=== PATIENT | male | born 1945 | race Caucasian/White ===

== ENCOUNTER → 2017-08-25 07:15 | Outpatient (CLI) | payer MEDICARE, OTHER, SELFPAY | PROVIDERS: PCP Family Medicine | DX: N39.0 Urinary tract infection, site not specified (principal) | CPT/HCPCS: 87086 ==

== ENCOUNTER 2017-09-03 12:53 | Day surgery (SDC) | payer MEDICARE, OTHER, SELFPAY ==
[2017-09-03 13:45] VITALS: BP 102/54; PULSE 62; RESP 16; TEMP 36.1; O2SAT 96; BMI 42.5
[2017-09-03] MEDS: SODIUM CHLORIDE 0.9% 1,000 ML 200 ML IV (13:58)
--- NOTE | 2017-09-03 14:15 | PM.PREOP ---
Pre-operative Note Interval Note Pre-op Check: Yes History & Physical Reviewed by Physician and Yes Exam Performed Changes: No H&P completed within 30 days and has changed as indicated here:: Patient seen and examined. History physical examination from August 17, 2017 has not changed. Document is placed on the chart. Proceed with colonoscopy today as planned. ASA Class (for procedural sedation): II
[2017-09-03] MEDS: MIDAZOLAM 5 MG/5 ML VIAL IV (14:54)
[2017-09-03] MEDS: fentaNYL 250 MCG/5 ML INJ IV (14:55)
--- NOTE | 2017-09-03 15:00 | PM.OP.ENDO ---
Operative Date/Time/Diagnoses Date of procedure: 09/03/17 Time of procedure: 15:00 Pre-op diagnosis: 72-year-old male with history of internal hemorrhoids status post banding on multiple occasions who presents with rectal bleeding. He has a personal history of colon polyps as well. Colonoscopy with potential hemorrhoid banding is recommended. Post-op diagnosis: other (Colon polyps and diverticulosis) Procedure & Clinicians Study performed: 1. Sedation per surgeon 2. Colonoscopy with cold forceps polypectomies Same procedure as scheduled: Yes Indications: 72-year-old male with recent rectal bleeding and personal history of colon polyps. He also has issues with internal hemorrhoids status post banding on multiple occasions. Colonoscopy with potential hemorrhoid banding is again recommended currently. Surgeon: Marshall Doe Procedure Notes SCOAP/Timeout: Yes Procedure in detail: After obtaining informed consent, the patient was brought to the GI suite and placed in the left lateral decubitus position on the examination table. After placement of appropriate monitors, the patient was given incremental doses of Versed and Fentanyl until an appropriate level of sedation was achieved. A time out was held per SCOAP protocol. A digital rectal examination was performed and did not reveal any masses or obstructing lesions. The colonoscope was gently passed into the patient's anus and the entire colon navigated to the level of the cecum with minimal difficulty. Once in the cecum, the scope was withdrawn being sure to go before and beyond all mucosal folds and prominences and get an excellent examination. The findings are noted above. At the level of the rectal vault, the scope was retroflexed and the internal anal canal was examined. The scope was straightened and air aspirated from the colon. The instrument was removed from the patient's body and the procedure was concluded. The patient was allowed to awaken from sedation without difficulty and taken to the post-anesthesia care unit in good condition. Scope withdrawal time: 9:26 min Sedation minutes: 22 Findings: diverticulosis, internal hemorrhoids (Grade 1-2 only without inflammation or thrombosis) and polyp (Two polyps removed) Specimen(s): other (1. Ascending colon polyp at 90 cm 2. Left colon polyp at 60 cm) Complications: none Recommendations: Colonscopy in 5 years, High fiber diet, Will call with biopsy results and Other recommendation (Continue conservative management of hemorrhoid disease. No significant hemorrhoids for banding procedure today.) Plan for aftercare: 1. Discharged home Follow up: as needed Disposition: PACU
[2017-09-03 15:21] VITALS: BP 112/66; PULSE 59; RESP 16; TEMP 37.1; O2SAT 95
[2017-09-03 15:57] VITALS: BP 123/72; PULSE 58; RESP 16; TEMP 37; O2SAT 98
--- NOTE | 2017-09-03 23:01 | PATH_ITS ---
Specimen ID: [id number] Control ID: [facility] PATHOLOGY ONLY [id number] [facility] [id number] Patient Details BHARTI TIRADO : 1945 Age(y/m/d): Gender: M SSN: Additional Information: Clinical Info: [id number] Specimen Details Date collected: 09/03/2017 230 Local Date received: 09/03/2017 Date entered: 09/03/2017 Date reported: 09/09/2017 1905 ET Physician Details Ordering: Orville DELGADO Referring: ID: Tests Ordered: Pathology Report Clinician Provided ICD Code(s) & Clinical History: Material Submitted: () PART A: ASCENDING COLON POLYP AT 90CM PART B: LEFT COLON POLYP AT 60CM Diagnosis: (02) Ascending Colon Polyp At 90 CM: Tubular adenoma. Left Colon Polyp At 60 CM: Tubular adenoma. BFI/09/04/2017 Pathologist Provided ICD Code(s): (02) D12.6 CPT Codes: (02) 527397, 197243 Gross Description: (01) Received two formalin-filled containers, both labeled with the patient's name: In a container labeled ascending colon polyp at 90 cm, the specimen consists of a 0.4 cm portion of tissue, entirely submitted in cassette A. In a container labeled left colon polyp at 60 cm, the specimen consists of four 0.2-0.5 cm portions of tissue, entirely submitted in cassette B. ([id number]) /FRR This is an amended report due to a clerical error. There is no change in the diagnosis. This case is amended in order for the results to cross the electronic interface. This case was originally reviewed and reported by Dr. Israel Phelps on 09/04/2017. The final diagnosis is unchanged. Electronically signed by () Letha Rivera MD, Pathologist NPI- [id number]
== END 2017-09-03 15:40 | disposition home or self-care (01) ==
PROVIDERS: PCP Family Medicine; Visit Provider Surgery
PROC: 0DJD8ZZ Inspection of Lower Intestinal Tract, Via Natural or Artificial Opening Endoscopic (ICD-10-PCS; CPT 45378; principal; 2017-09-03 15:00)
DX: K64.1 Second degree hemorrhoids (principal); Z86.010 Personal history of colon polyps; K57.30 Diverticulosis of large intestine without perforation or abscess without bleeding; D12.2 Benign neoplasm of ascending colon; D12.4 Benign neoplasm of descending colon
CPT/HCPCS: 45380; 99152; J2250; J3010

== ENCOUNTER → 2017-12-19 16:31 | Outpatient (CLI) | payer MEDICARE, OTHER, SELFPAY | PROVIDERS: PCP Family Medicine; Visit Provider Physician Assistant | DX: N39.0 Urinary tract infection, site not specified (principal) | CPT/HCPCS: 87077; 87086; 87186 ==

== ENCOUNTER → 2017-12-24 18:58 | Outpatient (CLI) | payer MEDICARE, OTHER, SELFPAY ==
--- NOTE | 2017-12-24 | DI.MRI.S_ITS ---
PROCEDURE: MR KNEE RT WO CON INDICATIONS: COMPLEX TEAR OF MEDIAL MENISCUS OF RIGHT KNEE TECHNIQUE: Noncontrast sagittal PD fast spin echo and T2 fast spin echo with fat saturation, sagittal 3-D FLASH with fat saturation; coronal T1 spin echo and PD fast spin echo with fat saturation, and axial PD fast spin echo with fat saturation through the knee. COMPARISON: None. FINDINGS: Image quality: Excellent. Menisci: There is oblique tear involving posterior horn of medial meniscus extending to inferior articulating surface. Peripheral displacement of medial meniscus is seen bowing medial collateral ligament. There is also peripheral displacement of lateral meniscus bowing lateral collateral ligament. There is suggestion of oblique tear involving anterior horn of lateral meniscus extending to superior articulating surface. The meniscal root ligaments appear intact. Cruciate ligaments: The anterior and posterior cruciate ligaments appear intact. Medial structures: There is low to moderate grade MCL sprain near its femoral insertion. The posterior oblique ligament, semimembranosus tendon insertions, oblique popliteal ligament, and meniscocapsular junction appear intact. Visualized portions of the pes anserinus tendons appear normal. No abnormal bursal fluid. Lateral structures: The lateral collateral ligament, long and short heads of the biceps femoris tendon appear intact. The popliteus tendon appears normal; the popliteofibular ligament appears intact. The posterosuperior and anteroinferior popliteomeniscal fascicles appear intact. The arcuate and fabellofibular ligaments appear intact, on either side of the lateral inferior geniculate artery. Iliotibial band appears normal. Anterior structures: The quadriceps and patellar tendons appear intact. Patellar alignment is normal. No femoral trochlear dysplasia or ventral trochlear prominence. No edema in the infrapatellar fat pad. Bones and cartilage: No bone marrow contusions or fractures. 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 No Valdivia's cyst. Normal appearing synovial plicae are incidentally noted. IMPRESSION: 1. Oblique tear involving posterior horn of medial meniscus extending to inferior articulating surface. Peripheral displacement of medial meniscus bowing medial collateral ligament. 2. Oblique tear involving anterior horn of lateral meniscus extending to superior articulating surface. 3. Low-grade MCL sprain. Cruciate ligaments are intact. 4. 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 Small amount of joint effusion. Dictated by: Elvis No M.D. on 12/25/2017 at 10:41 Approved by: Elvis No M.D. on 12/25/2017 at 10:45
== END ==
PROVIDERS: PCP Family Medicine; Visit Provider Orthopaedic Surgery
DX: S83.221A Peripheral tear of medial meniscus, current injury, right knee, initial encounter (principal); S83.261A Peripheral tear of lateral meniscus, current injury, right knee, initial encounter; S83.411A Sprain of medial collateral ligament of right knee, initial encounter; M17.11 Unilateral primary osteoarthritis, right knee; M25.461 Effusion, right knee
CPT/HCPCS: 73721

== ENCOUNTER → 2018-07-08 07:40 | Outpatient (CLI) | payer MEDICARE, OTHER, SELFPAY ==
--- NOTE | 2018-07-08 07:42 | DI.MRI.S_ITS ---
PROCEDURE: MR STROKE Pre- and post-contrast brain MRI, non-contrast brain MR angiogram, pre- and postcontrast neck MR angiogram INDICATIONS: dysequilibrium TECHNIQUE: Brain: Noncontrast axial T1 spin echo, axial T2 fast spin echo, sagittal and axial FLAIR, coronal T2 fast spin echo, axial gradient echo, axial diffusion and ADC through the brain. After the administration of contrast, axial 3D VIBE of the cranial vasculature and brain. Brain MRA: Non-contrast 3-D time of flight MR angiogram, with multiple sbhczqd-ermqxqsoe-iwzgbeqemw (MIP) reformats performed. Neck MRA: Axial and sagittal TruFISP through the neck. Coronal dynamic MR angiogram during administration of contrast in the arterial and venous phases, with 3-dimenstional xnwxnvo-crtvfxmdm-msgititgww (MIP) reformats constructed from subtraction images. COMPARISON: None. FINDINGS: Image quality: Excellent. BRAIN: CSF spaces: Ventricles are normal in size and shape. Basal cisterns are patent. No extra-axial fluid collections. Brain: No intracranial bleeds or mass effects. [place]-white matter interface is normal. Diffusion weighted images show no acute ischemic insults. Brainstem appears normal. Normal intravascular flow voids are present. No abnormal intracranial enhancement. Skull and face: Calvarial marrow signal is normal. Orbits appear normal. Note is made of bilateral lens replacements. Sinuses: Mild to moderate mucosal thickening seen within the maxillary sinuses. Mild mucosal thickening is seen elsewhere within the paranasal sinuses. No abnormal mass air cell fluid can be seen. BRAIN MR ANGIOGRAM: Anterior circulation: Intracranial internal carotid arteries are normal in size and enhancement. The flow within the paired anterior cerebral arteries is normal and symmetric. [place] anomalies are seen, with a right A1 segment that emanates off of the MCA trifurcation, as on series 11 image 118 and there is a hypertrophied right posterior communicating artery, which supplies the right posterior cerebral artery via a type circulation with a medialized route. The flow within the middle cerebral arteries is normal and symmetric. The anterior communicating artery is seen. No stenoses, occlusions, or aneurysms. Posterior circulation: The visualized portions of the vertebral arteries demonstrate normal caliber, with the left vertebral artery dominant to the right. The right vertebral artery does not clearly join with the left vertebral artery, yet terminates in a right posterior inferior cerebellar artery. The basilar artery is unremarkable. The flow within the posterior cerebral arteries is normal and symmetric. No stenoses, occlusions, or aneurysms. NECK MR ANGIOGRAM: Carotids: Great vessels demonstrate a conventional anatomy as they arise from the aortic arch. The origins of the common carotid arteries appear patent. The calibers and courses of both common carotid arteries are normal. The bifurcation regions appear normal bilaterally. The internal carotid arteries demonstrate normal course and caliber. Posterior circulation: The origins of the vertebral arteries appear patent. The left vertebral artery is dominant to the right. The right vertebral artery terminates in a right posterior inferior cerebral artery. The basilar artery is unremarkable. Miscellaneous: Subclavian arteries appear patent. Pre-contrast images through the neck show no soft tissue abnormalities. IMPRESSION: BRAIN MRI: No findings of acute or subacute infarction can be seen. Note is made of age-appropriate brain parenchymal volume loss and chronic small vessel ischemic changes. Paranasal sinus disease noted. BRAIN MR ANGIOGRAM: [place] developmental anomalies are seen. No nuno hemodynamically significant stenosis is seen. No aneurysms are seen. NECK MR ANGIOGRAM: Within the arteries of the neck, no hemodynamically significant stenosis can be seen. Dictated by: Bill Prieto M.D. on 07/08/2018 at 9:03 Approved by: Bill Prieto M.D. on 07/08/2018 at 9:12
== END ==
PROVIDERS: PCP Family Medicine; Visit Provider Family Medicine
DX: R42 Dizziness and giddiness (principal); J32.8 Other chronic sinusitis
CPT/HCPCS: 70548; 70553; A9579

== ENCOUNTER 2019-10-02 16:00 | Emergency (ER) | payer MEDICARE, OTHER, SELFPAY ==
[2019-10-02 16:12] VITALS: PULSE 71; O2SAT 95
[2019-10-02 16:13] VITALS: BP 136/61; PULSE 69; O2SAT 93
[2019-10-02 16:16] VITALS: BP 136/61; PULSE 70; RESP 24; TEMP 36.9; O2SAT 95; BMI 44.4
--- NOTE | 2019-10-02 16:20 | ED_ITS ---
HPI - Male Genitourinary General Chief complaint: Urogenital-Male Stated complaint: Thinks UTI Time Seen by Provider: 10/02/19 16:07 Source: patient Mode of arrival: Ambulatory Limitations: no limitations History of Present Illness HPI Narrative: Patient is a 74-year-old male with history of diastolic CHF a and recurrent UTIs presenting today with symptoms of UTI. Who said actually she evaluated last week by his urologist he had a urine and culture is sent at that time but he has not heard back from them. Over last 3 days he has had increased urgency and dysuria, he complains of chills at night but denies any sweats and is currently afebrile. He states his previous bladder infection was in July and he was placed on Augmentin which he says worked well. He did an old bottle of medication from his last urologist that he started taking to help with the burning sensation, Uribel. MD Complaint: dysuria Related Data Home Medications Medication Instructions Recorded Confirmed aspirin 81 mg PO QDAY #0 01/25/16 12/03/18 bimatoprost [Lumigan] #0 01/25/16 12/03/18 eplerenone 75 mg PO QDAY #135 tab 12/11/16 12/03/18 [saw palmetto] 500 mg PO BID #0 07/06/18 12/03/18 carboxymethylcellulose sodium 1 % 1 drop EYE-BOTH each 07/06/18 12/03/18 eye gel in a dropperette chlorthalidone 25 mg tablet 25 mg PO QDAY tab 07/06/18 12/03/18 ezetimibe 10 mg tablet 10 mg PO DAILY 07/06/18 12/03/18 hydrocodone 5 mg-acetaminophen 325 1 tab PO Q6H 07/06/18 12/03/18 mg tablet miconazole nitrate-zinc ox-pet See Rx Instructions TOP .COMPLEX 07/06/18 12/03/18 mirabegron 50 mg tablet,extended 50 mg PO DAILY 07/06/18 12/03/18 release 24 hr rosuvastatin 20 mg tablet 20 mg PO DAILY 07/06/18 12/03/18 spironolactone 25 mg tablet 25 mg PO DAILY 07/06/18 12/03/18 urea 40 % topical cream 1 applictn TOP DAILY gram 07/06/18 12/03/18 Respironics Dreamstation BIPAP #1 ea 12/06/18 12/06/18 Previous Rx's Medication Instructions Recorded nystatin [Nystop] 100,000 unit TOPICAL BID #60 gm 01/25/16 magnesium oxide 500 mg PO TID #270 tab 02/04/16 tamsulosin 0.4 mg capsule 0.4 mg PO EVERY OTHER DAY #90 cap 11/04/17 pramipexole 3 mg tablet,extended 3 mg PO BEDTIME #30 tab 04/06/19 release 24 hr azelastine-fluticasone 137 mcg-50 2 spray NASAL .QHS #23 gram 04/08/19 mcg/spray nasal spray pantoprazole 40 mg tablet,delayed 40 mg PO DAILY #90 tab 05/24/19 release nystatin 100,000 unit/gram topical 1 applictn TOP BID #15 gram 07/05/19 cream pramipexole 1.5 mg tablet,extended 1.5 mg PO DAILY #30 tab 09/22/19 release 24 hr amoxicillin-pot clavulanate 1 tab PO Q12H #14 tab 10/02/19 [Augmentin] Allergies Allergy/AdvReac Type Severity Reaction Status Date / Time Sulfa (Sulfonamide Allergy Unknown Nausea Verified 09/01/18 14:41 Antibiotics) [SULFA (SULFONAMIDE ANTIBIOTICS)] ciprofloxacin [From Cipro] AdvReac Intermediate bruising Verified 09/01/18 14:41 and sore tendons Review of Systems Review of Systems ROS Unobtainable: All systems reviewed & are unremarkable except as noted in HPI and below Constitutional Constitutional: Reports chills (At night), Denies fever(s), Denies frequent falls and Denies malaise ENT Ears, Nose, Mouth, and Throat: Denies dizziness Cardiovascular Cardiovascular: Denies chest pain, Denies irregular heart rhythm, Denies lightheadedness, Denies palpitations, Denies dyspnea, Denies dyspnea on exertion and Denies orthopnea Respiratory Respiratory: Denies cough, Denies dyspnea, Denies dyspnea on exertion and Denies wheezing Gastrointestinal Gastrointestinal: Denies abdominal pain, Denies change in bowel habits, Denies diarrhea, Denies nausea and Denies vomiting Genitourinary Genitourinary: Reports as per HPI and Reports dysuria Genitourinary: Reports as per HPI and Reports dysuria Musculoskeletal Musculoskeletal: Denies back pain, Denies deformity and Denies numbness Integumentary/Breasts Skin/Breast: Denies pruritus, Denies erythema, Denies rash and Denies wounds Neurologic Neurologic: Denies behavioral changes, Denies confusion, Denies dizziness, Denies frequent falls and Denies numbness Psychiatric Psychiatric: Denies behavioral changes and Denies confusion Endocrine Endocrine: Denies palpitations Allergic/Immunologic Allergic/Immunologic: Denies wheezing Patient History Medical History Cataracts, both eyes (Resolved ~2011) Chronic diastolic heart failure (Chronic 2014) Colon polyp (Inactive ~2010) Diverticulosis (Inactive ~2010) Gastroesophageal reflux disease without esophagitis (Chronic 10/31/16) Glaucoma (Chronic ~2011) Gout of left foot (Inactive 01/25/16) Hearing loss (Chronic ~2009) Hemorrhoids (Inactive ~1978) Hiatal hernia (Chronic 01/25/16) History of asbestosis (Inactive 01/25/16) Low testosterone (Chronic) Obstructive sleep apnea syndrome (Chronic 01/25/16) Prostate mass (Acute) Rectal bleeding (Acute) Recurrent UTI (Chronic) Restless legs syndrome (Chronic 01/25/16) Surgical History History of colonoscopy (Acute) Family History Father Parkinsons disease Mother Congestive heart failure Social History marital status: household members: spouse lives independently: Yes caregiver/support person: No housing: house pets and animals: Yes education level: college occupational status: previously employed 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[employer], 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 ([employer]) seatbelt use: always helmet use: Yes water heater temp set < 120 deg: Yes Smoking Status: Never smoker alcohol intake: current substance use type: does not use during the past year weight has: decreased > 10 lbs well-balanced diet: about half the time daily servings fruits/ve-4 caffeine: No eating out: 1-3 times/week frequency: 1-2 times per week (physical therapy) duration: 45-60 minutes/day Smoking Status: Never smoker Exam Initial Vital Signs Initial Vital Signs: Vital Signs Pulse Rate 71 10/02/19 16:12 Pulse Oximetry 95 10/02/19 16:12 GENERAL: Overweight well-appearing male and in no acute distress. HEENT: Head atraumatic,EOMI, pupils reactive, face symmetric, moist mucous membranes CARDIOVASCULAR: Regular rate and rhythm without murmurs, rubs or gallops. RESPIRATORY: Breath sounds equal bilaterally, no wheezes rales or rhonchi. ABDOMEN: Soft, nontender. Normoactive bowel sounds all 4 quadrants. No guarding or rebound. : Mild right CVA tenderness EXTREMITIES: Normal range of motion, no clubbing or edema. Neurovascularly intact NEUROLOGICAL: Alert and oriented x4.Normal gait and speech. SKIN: Warm, dry, no laceration, no petechiae, no rashes or lesions. Course Orders Ordered: ED Orders 10/02/19 16:42 Urine Culture Stat Urine Microscopic Stat 10/02/19 16:46 Basic Metabolic Panel Stat Complete Blood Count AUTO DIFF Stat Vital Signs Vital signs: Vital Signs - 8 hr 10/02/19 16:12 10/02/19 16:13 10/02/19 16:16 Temperature 98.4 F Pulse Rate 71 69 70 Respiratory Rate 24 Blood Pressure 136/61 136/61 Pulse Oximetry 95 93 95 10/02/19 16:30 10/02/19 17:00 Temperature Pulse Rate 65 69 Respiratory Rate Blood Pressure Pulse Oximetry 95 92 MDM - Male Genitourinary Lab Data Attestation: I reviewed the patient's lab results. Result diagrams: 10/02/19 16:46 10/02/19 16:46 Labs: Lab Results 10/02/19 10/02/19 10/02/19 Range/Units 16:42 16:46 16:46 WBC 7.3 (4.5-11.0) X10^3/uL RBC 4.55 (4.5-5.9) X10^6/uL Hgb 13.7 (13.5-17.5) g/dL Hct 39.9 L (41-53) % MCV 87.7 (80-100) fL MCH 30.2 (26-34) PG MCHC 34.5 (30-36) % RDW 14.1 (11.6-14.8) % Plt Count 176 (150-400) X10^3/uL Neut % (Auto) 57.3 (50-75) % Lymph % (Auto) 28.7 (25-40) % [place] % (Auto) 8.9 (3-14) % Eos % (Auto) 4.4 H (2-4) % Baso % (Auto) 0.7 (0-2) % Neut # (Auto) 4200 (1166-5149) /uL Lymph # (Auto) 2100 (0428-0523) /uL [place] # (Auto) 600 (0-900) /uL Eos # (Auto) 300 (0-450) /uL Baso # (Auto) 100 (0-100) /uL Sodium 138 (137-145) mmol/L Potassium 3.4 (3.4-5.1) mmol/L Chloride 97 L (98-107) mmol/L Carbon Dioxide 34 H (22-32) mmol/L BUN 26 H (9-20) mg/dL Creatinine 0.92 (0.66-1.25) mg/dL Estimated GFR > 60.0 (>60) mL/min BUN/Creatinine Ratio 28.3 H (6-22) Glucose 130 H (80-110) mg/dL Calcium 9.2 (8.4-10.2) mg/dL Urine RBC 0-1/hpf (0-5/HPF) Urine WBC >100/hpf H (0-5/HPF) Urine Bacteria Few (2-10) H (None) Urine Mucus 1+ H (Negative) Ur Culture Indicated? Specimen cultured Urine Dip Bedside Urine Glucose Negative Bedside Urine Bilirubin - Negative Bedside Urine Ketone - Negative Urine Specific [place] 1.020 Bedside Urine Occult Blood +/- Bedside Urine pH 6.0 Bedside Urine Protein + 30 Bedside Urine Urobilinogen +/- 1mg Bedside Urine Nitrite - Negative MDM Narrative Medical decision making narrative: Patient is afebrile without leukocytosis or sign of acute kidney injury. He has previously been on Augmentin I do not have access to previous cultures except for 2018 rate was pansensitive. He has had issues with Cipro in the past I will give him a prescription for Augmentin culture is pending. Recommended follow-up with his urologist and/or PCP Discharge Plan Departure Patient Disposition: Home Clinical Impression: Acute UTI Discharge Date/Time: 10/02/19 17:50 Instructions: DI for Urinary Tract Infection (UTI) Activity Restrictions/Additional Instructions: *You have been diagnosed with UTI *What to do: You will need to follow-up with your urologist for further evaluation of recurrent bladder infection *Continue to take medications as directed Augmentin 875 twice a day for 7 days *Follow up with your primary care provider in 2-3 days *Return to ER if you should have fever, increased pain inability to urine or any new, worsening or concerning symptoms Prescriptions: New amoxicillin-pot clavulanate [Augmentin] 875-125 mg tablet 1 tab PO Q12H Qty: 14 RF: 0 No Action chlorthalidone 25 mg tablet 25 mg PO QDAY RF: 0 ezetimibe [Zetia] 10 mg tablet 10 mg PO DAILY RF: 0 hydrocodone-acetaminophen 5-325 mg tablet 1 tab PO Q6H RF: 0 miconazole nitrate-zinc ox-pet See Rx Instructions TOP .COMPLEX RF: 0 mirabegron 50 mg tablet extended release 24 hr 50 mg PO DAILY RF: 0 Refresh Celluvisc 1 % dropperette,gel 1 drop EYE-BOTH RF: 0 rosuvastatin 20 mg tablet 20 mg PO DAILY RF: 0 spironolactone 25 mg tablet 25 mg PO DAILY RF: 0 urea 40 % cream 1 applictn TOP DAILY RF: 0 aspirin 81 MG tablet,delayed release (DR/EC) 81 mg PO QDAY Qty: 0 RF: 0 bimatoprost [Lumigan] 0.01 % drops Qty: 0 RF: 0 nystatin [Nystop] 60 GM powder 100,000 unit Topical BID Qty: 60 RF: 1 magnesium oxide 500 MG tablet 500 mg PO TID Qty: 270 RF: 0 eplerenone 50 MG tablet 75 mg PO QDAY Qty: 135 RF: 1 tamsulosin [Flomax] 0.4 mg capsule 0.4 mg PO EVERY OTHER DAY Qty: 90 RF: 1 [saw palmetto] 500 mg PO BID Qty: 0 RF: 0 pramipexole 3 mg tablet extended release 24 hr 3 mg PO BEDTIME Qty: 30 RF: 3 azelastine-fluticasone 137-50 mcg/spray spray,non-aerosol 2 spray NASAL .QHS Qty: 23 RF: 3 pantoprazole 40 mg tablet,delayed release (DR/EC) 40 mg PO DAILY Qty: 90 RF: 1 nystatin 100,000 unit/gram cream 1 applictn TOP BID Qty: 15 RF: 0 pramipexole 1.5 mg tablet extended release 24 hr 1.5 mg PO DAILY Qty: 30 RF: 3 (DME) Respironics Dreamstation BIPAP Qty: 1 RF: 0 Referrals: Maya Johnson MD [Primary Care Provider] -
[2019-10-02 16:30] VITALS: PULSE 65; O2SAT 95
[2019-10-02 16:42] LABS: RBC Urine 0-1/HPF (0-5/HPF); WBC Urine >100/HPF (0-5/HPF)
[2019-10-02 16:43] LABS: Bacteria Urine Few (2-10); Culture Indicated Urine Specimen Cultured; Mucus Urine 1+ (Negative)
[2019-10-02 16:55] LABS: Add Manual Diff / Slide Review NO; Basophils Absolute Auto 100 /uL (0-100); Basophils Percent Auto 0.7 % (0-2); Eosinophils Absolute Auto 300 /uL (0-450); Eosinophils Percent Auto 4.4 % (2-4); Hematocrit 39.9 % (41-53); Hemoglobin 13.7 g/dL (13.5-17.5); Lymphocytes Absolute Auto 2100 /uL (1100-4500); Lymphocytes Percent Auto 28.7 % (25-40); Mean Corpuscular HGB Conc 34.5 % (30-36); Mean Corpuscular Hemoglobin 30.2 PG (26-34); Mean Corpuscular Volume 87.7 fL (80-100); Monocytes Absolute Auto 600 /uL (0-900); Monocytes Percent Auto 8.9 % (3-14); Neutrophils Absolute Auto 4200 /uL (1500-7000); Neutrophils Percent Auto 57.3 % (50-75); Platelet Count 176 X10^3/uL (150-400); Red Blood Cell Count 4.55 X10^6/uL (4.5-5.9); Red Cell Distribution Width 14.1 % (11.6-14.8); White Blood Cell Count 7.3 X10^3/uL (4.5-11.0)
[2019-10-02 17:00] VITALS: PULSE 69; O2SAT 92
[2019-10-02 17:08] LABS: BUN Creatinine Ratio 28.3 (6-22); Blood Urea Nitrogen 26 mg/dL (9-20); Calcium 9.2 mg/dL (8.4-10.2); Carbon Dioxide 34 mmol/L (22-32); Chloride 97 mmol/L (98-107); Estimated Glomerular Filt Rate > 60.0 mL/min (>60); Glucose 130 mg/dL (80-110); HEMOLYSIS < 15 (0-50); Potassium 3.4 mmol/L (3.4-5.1); Sodium 138 mmol/L (137-145)
== END 2019-10-02 17:50 | disposition home or self-care (01) ==
PROVIDERS: Emergency Provider Emergency Medicine; PCP Family Medicine
DX: N39.0 Urinary tract infection, site not specified (principal)
CPT/HCPCS: 36415; 80048; 81003; 81015; 85025; 87077; 87086; 87186; 99282

== ENCOUNTER → 2019-10-05 11:14 | Outpatient (CLI) | payer MEDICARE, OTHER, SELFPAY ==
--- NOTE | 2019-10-05 11:25 | DI.CT.S_ITS ---
PROCEDURE: CT ABDOMEN PELVIS WO/W CON INDICATIONS: Urinary tract infection, site not specified TECHNIQUE: Optional 5 mm thick noncontrast images acquired from the diaphragm to the symphysis pubis. After the administration of intravenous contrast, 5 mm thick images acquired from the diaphragm to the symphysis pubis after a 10-minute delay. 2 mm thick coronal and sagittal reformats were then performed of the kidneys and ureters. For radiation dose reduction, the following was used: automated exposure control, adjustment of mA and/or kV according to patient size. COMPARISON: [facility], CT, ABDOMEN WITHOUT CONTRAST, 10/07/2016, 11:47. FINDINGS: Image quality: Excellent. Lung bases: Lung bases are clear. Heart size is normal. Urinary system: Both kidneys are normal in size, without hydronephrosis or nephrolithiasis on pre-contrast images. No perinephric fat stranding. There is normal bilateral renal enhancement. Renal calyces appear normal in morphology when filled with contrast. Opacified portions of both ureters demonstrate normal caliber. Bladder wall thickness is normal. No calcified bladder stones. Other solid organs: Liver is normal in size and enhancement. Gallbladder again demonstrate a chronically the present densely calcified gallstone within the gallbladder lumen. Biliary system is non dilated. Pancreas enhances normally. Spleen is normal in size and enhancement. No adrenal nodules. Peritoneum and bowel: Bowel loops demonstrate normal wall thickness and caliber. No free fluid or air. Nodes and vessels: No retroperitoneal or mesenteric adenopathy by size criteria. Aorta and inferior vena cava are normal in size. Abdominal wall: No ventral hernias. Pelvis: No pathologic free pelvic fluid. No inguinal hernias or adenopathy. Bones: No suspicious bony lesions. No vertebral body compression fractures. IMPRESSION: Large gallstone within the gallbladder lumen. No evidence of hydronephrosis or nephrolithiasis bilaterally. No evidence of bladder calculus is found. Postcontrast imaging shows no evidence of renal cortical or urothelial neoplasm. A source of recurrent urinary tract infections is not found. Size Dictated by: Mani Francis M.D. on 10/05/2019 at 16:20 Approved by: Mani Francis M.D. on 10/05/2019 at 16:23
== END ==
PROVIDERS: PCP Family Medicine; Referring Provider Family Medicine
DX: N39.0 Urinary tract infection, site not specified (principal); K80.20 Calculus of gallbladder without cholecystitis without obstruction
CPT/HCPCS: 74178; Q9967

== ENCOUNTER → 2019-10-13 12:38 | Outpatient (CLI) | payer MEDICARE, OTHER, SELFPAY ==
--- NOTE | 2019-10-13 12:41 | DI.MRI.S_ITS ---
PROCEDURE: MR LUMBAR SPINE WO CON INDICATIONS: Low back pain TECHNIQUE: Noncontrast sagittal T1 spin echo and T2 fast echo, sagittal STIR, axial T1 and T2 fast spin echo through the lumbar spine. In cases with scoliosis, additional coronal T2 fast spin echo may be performed. COMPARISON: None. FINDINGS: Image quality: Excellent. Alignment and Curvature: There is normal bony alignment. Bone Marrow: Marrow is of normal overall signal. No acute vertebral body compression fractures. Spinal Cord: Conus medullaris terminates at the L2 level. Visualized cord demonstrates normal signal and size. Paraspinous Soft Tissues: No paravertebral masses. L1-L2: Loss of disc signal. Minimal, diffuse disc bulge. No central stenosis. No neural foraminal narrowing. No neural compression. L2-L3: Slight loss of disc signal. Minimal, diffuse disc bulge. Small right foraminal disc protrusion. No central stenosis. No neural foraminal narrowing. Mild right neural foraminal narrowing. No neural compression. L3-L4: Loss of disc signal. Mild to moderate diffuse disc bulge. Mild bilateral facet hypertrophy. Mild ligamentum flavum hypertrophy. Mild to moderate narrowing of the central canal. Mild bilateral neural foraminal narrowing. No neural compression. L4-L5: Loss of disc signal and height. Mild, diffuse disc bulge. Mild bilateral facet hypertrophy. Mild narrowing of the central canal. Moderate bilateral neural foraminal narrowing. No neural compression. Fissure noted in the posterior annulus. L5-S1: Loss of disc signal and height. Mild, diffuse disc bulge. Mild bilateral facet hypertrophy. No central stenosis. Moderate to severe right and moderate left neural foraminal narrowing with slight compression of the exiting right L5 nerve root. Fissure noted in the posterior annulus. IMPRESSION: 1. Multilevel degenerative disease. 2. Multilevel facet arthropathy. 3. No significant central canal narrowing. 4. Moderate to severe right L5-S1 neural foraminal narrowing with slight compression of the exiting right L5 nerve root. 5. L4-L5 and L5-S1 disc annulus fissures. Dictated by: Nilda Lobato MD, PhD on 10/13/2019 at 14:51 Approved by: Nilda Lobato MD, PhD on 10/13/2019 at 15:16
== END ==
PROVIDERS: PCP Family Medicine; Referring Provider Physical Medicine & Rehabilitation; Visit Provider Physical Medicine & Rehabilitation
DX: M54.5 Low back pain (principal); M51.36 Other intervertebral disc degeneration, lumbar region; M51.37 Other intervertebral disc degeneration, lumbosacral region; M47.816 Spondylosis without myelopathy or radiculopathy, lumbar region; M47.817 Spondylosis without myelopathy or radiculopathy, lumbosacral region; M48.061 Spinal stenosis, lumbar region without neurogenic claudication; M48.07 Spinal stenosis, lumbosacral region
CPT/HCPCS: 72148

== ENCOUNTER → 2020-01-02 15:10 | Outpatient (CLI) | payer MEDICARE, OTHER, SELFPAY ==
--- NOTE | 2020-01-02 15:11 | DI.RAD.S_ITS ---
PROCEDURE: XR FINGER LT MIN 2V INDICATIONS: left 1st MCP pain, decreased ROM TECHNIQUE: AP hand, 2 views of the left finger(s) acquired. COMPARISON: None. FINDINGS: Bones: No fracture. Scattered degenerative subchondral sclerosis and spurring. Hook like osteophytes noted involving the 2nd and 5th MCP joints. First CMC and triscaphe joint degeneration. Marginal lucencies noted at the DIP joints of the index middle and ring finger. Soft tissues: No suspicious soft tissue calcifications. IMPRESSION: Diffuse left hand and wrist joint degeneration. Severe triscaphe and 1st CMC joint degeneration. Hook like osteophytes noted at the 2nd and 5th MCP joints raising possibility of deposition arthropathy. Dictated by: Tj Suarez M.D. on 01/02/2020 at 16:45 Approved by: Tj Suarez M.D. on 01/02/2020 at 16:48
== END ==
PROVIDERS: PCP Family Medicine; Referring Provider Family Medicine; Visit Provider Family Medicine
DX: M79.645 Pain in left finger(s) (principal); M19.042 Primary osteoarthritis, left hand
CPT/HCPCS: 73140

== ENCOUNTER → 2020-02-02 13:09 | Outpatient (CLI) | payer MEDICARE, OTHER, SELFPAY ==
[2020-02-02 15:36] LABS: Ferritin 174 ng/mL (18-464)
== END ==
PROVIDERS: PCP Family Medicine; Referring Provider Family Medicine; Visit Provider Nurse Practitioner Family
DX: G25.81 Restless legs syndrome (principal); G47.33 Obstructive sleep apnea (adult) (pediatric); E66.01 Morbid (severe) obesity due to excess calories; Z68.41 Body mass index [BMI] 40.0-44.9, adult
CPT/HCPCS: 36415; 82728; 99214

== ENCOUNTER 2020-09-04 12:16 | Observation (INO) | payer MEDICARE, OTHER, SELFPAY ==
[2020-09-04] VITALS (9 sets, daily range): BP systolic 110–143; BP diastolic 44–65; PULSE 64–74; RESP 15–18; TEMP 36.8–37.4; O2SAT 93–98; BMI 44.0
[2020-09-04 13:20] LABS: Bacteria Urine None Seen; RBC Urine None Seen (0-5/HPF)
[2020-09-04 13:23] LABS: Appearance Urine UA CLEAR; Bilirubin Urine UA NEGATIVE (NEGATIVE); Color Urine UA YELLOW; Glucose Urine UA TRACE g/dL (Negative); Ketones Urine UA NEGATIVE (NEGATIVE); Leukocyte Esterase Urine UA TRACE (NEGATIVE); Nitrite Urine UA NEGATIVE (Negative); Occult Blood Urine UA 1+ (Negative); Protein Urine UA 1+ (Negative)
[2020-09-04 13:35] LABS: WBC Urine 10-30/HPF (0-5/HPF)
[2020-09-04 13:36] LABS: Culture Indicated Urine Specimen Cultured; Mucus Urine 1+ (Negative)
--- NOTE | 2020-09-04 13:55 | DI.RAD.S_ITS ---
PROCEDURE: XR CHEST 1V INDICATIONS: suspected sepsis TECHNIQUE: One view of the chest was acquired. COMPARISON: [facility], CT, CT ABDOMEN PELVIS WO/W CON, 10/05/2019, 11:27. FINDINGS: Surgical changes and devices: None. Lungs and pleura: Lungs are abnormal with a mild patchy alveolar infiltration pattern, right greater than left, without pleural effusions or cardiomegaly, and there are 2 focal radiodensities that appears somewhat angular at the right upper lobe measuring 1.5 and 2.0 cm each.. No pleural effusions or pneumothorax. Mediastinum: Mediastinal contours appear normal. Heart size is normal. Bones and chest wall: No suspicious bony lesions. Overlying soft tissues appear unremarkable. Prior right acromioplasty. IMPRESSION: Possible mild patchy alveolar infiltration, mildly reduced inspiratory volume. Two focal radiodensities are present at the right upper lobe area, measuring up to 1.5 and 2.0 cm respectively and it is unclear whether these represent lung masses, pleural calcifications, or focal alveolar infiltration. Follow-up by CT scanning may become necessary. At least follow-up by plain film imaging is recommended Dictated by: Mani Francis M.D. on 09/04/2020 at 14:26 Approved by: Mani Francis M.D. on 09/04/2020 at 14:29
[2020-09-04 14:08] LABS: Add Manual Diff / Slide Review NO; Basophils Absolute Auto 100 /uL (0-100); Basophils Percent Auto 0.4 % (0-2); Eosinophils Absolute Auto 100 /uL (0-450); Eosinophils Percent Auto 0.3 % (2-4); Hematocrit 41.2 % (41-53); Hemoglobin 14.1 g/dL (13.5-17.5); Lymphocytes Absolute Auto 2100 /uL (1100-4500); Lymphocytes Percent Auto 12.1 % (25-40); Mean Corpuscular HGB Conc 34.2 % (30-36); Mean Corpuscular Hemoglobin 30.1 PG (26-34); Monocytes Absolute Auto 1200 /uL (0-900); Monocytes Percent Auto 7.2 % (3-14); Neutrophils Absolute Auto 13800 /uL (1500-7000); Platelet Count 180 X10^3/uL (150-400); Red Blood Cell Count 4.68 X10^6/uL (4.5-5.9); Red Cell Distribution Width 14.2 % (11.6-14.8); White Blood Cell Count 17.3 X10^3/uL (4.5-11.0)
[2020-09-04 14:13] LABS: Alanine Aminotransferase 26 IU/L (<50); Albumin 4.3 g/dL (3.5-5.0); Albumin Globulin Ratio 1.2 (1.0-2.8); Alkaline Phosphatase 63 U/L (38-126); Aspartate Aminotransferase 31 IU/L (17-59); Bilirubin Total 2.5 mg/dL (0.2-1.3); Blood Urea Nitrogen 17 mg/dL (9-20); Calcium 9.5 mg/dL (8.4-10.2); Carbon Dioxide 30 mmol/L (22-32); Chloride 97 mmol/L (98-107); Estimated Glomerular Filt Rate > 60.0 mL/min (>60); Globulin 3.7 g/dL (1.7-4.1); Glucose 129 mg/dL (80-110); HEMOLYSIS < 15 (0-50); Lipase 24 U/L (23-300); Potassium 3.3 mmol/L (3.4-5.1); Sodium 135 mmol/L (137-145)
[2020-09-04 14:14] LABS: Lactate (Lactic Acid) 1.1 mmol/L (0.7-2.1)
[2020-09-04 14:30] LABS: Procalcitonin 0.07 ng/mL (<0.5)
[2020-09-04] MEDS: cefTRIAXone 1,000 MG in SODIUM CHLORIDE 0.9% 100 ML 200 ML IV (15:05)
--- NOTE | 2020-09-04 15:18 | ED.SEPSIS ---
HPI - Sepsis General Chief Complaint: Urogenital-Male Mode of arrival: Ambulatory Source: patient Limitations: no limitations Evaluation Sepsis Screen: No Definite Risk Sepsis Infection Criteria Present: Suspected New Infection Narrative: Patient is a 75-year-old male with history of recurrent UTIs,, TURP,, congestive heart failure presenting today with UTI symptoms. He said they UTI symptoms started 4 days ago with painful frequent urination. He then started having some incontinence and yesterday and today just feels extremely weak and tired. He denies any fever or chills. He says he just has no energy. This some increased swelling in his legs. He denies any chest pain shortness of breath no orthopnea. Review of Systems Review of Systems ROS Unobtainable: All systems reviewed & are unremarkable except as noted in HPI and below Constitutional Constitutional: Denies body ache(s), Denies chills, Reports fatigue, Denies fever(s) and Denies headache(s) Eyes Eyes: Denies blurry vision ENT Ears, Nose, Mouth, and Throat: Denies vertigo and Denies headache(s) Cardiovascular Cardiovascular: Denies chest pain, Denies irregular heart rhythm, Reports leg edema and Denies lightheadedness Respiratory Respiratory: Denies chest congestion and Denies cough Gastrointestinal Gastrointestinal: Denies abdominal pain, Denies nausea and Denies vomiting Genitourinary Genitourinary: Reports as per HPI, Reports nocturia, Reports urinary frequency, Reports urinary hesitancy and Reports urinary urgency Musculoskeletal Musculoskeletal: Denies back pain and Denies myalgias Integumentary/Breasts Skin/Breast: Denies rash and Denies skin pain Neurologic Neurologic: Denies confusion, Denies vertigo and Denies headache(s) Psychiatric Psychiatric: Denies confusion Endocrine Endocrine: Reports fatigue Patient History Medical History (Updated 09/04/20 @ 15:43 by Mariah Garduno DO) Cataracts, both eyes (~2011) Chronic diastolic heart failure (2014) Colon polyp (~2010) Diverticulosis (~2010) Gastroesophageal reflux disease without esophagitis (10/31/16) Glaucoma (~2011) Gout of left foot (01/25/16) Hearing loss (~2009) Hemorrhoids (~1978) Hiatal hernia (01/25/16) History of asbestosis (01/25/16) Low testosterone Obstructive sleep apnea syndrome (01/25/16) Prostate mass Rectal bleeding Recurrent UTI Restless legs syndrome (01/25/16) Surgical History History of colonoscopy Family History Father Parkinsons disease Mother Congestive heart failure Social History marital status: household members: spouse lives independently: Yes caregiver/support person: No housing: house pets and animals: Yes education level: college occupational status: previously employed 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[employer], 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 special jeanmarie needs: Yes ([employer]) seatbelt use: always helmet use: Yes water heater temp set < 120 deg: Yes Smoking Status: Never smoker alcohol intake: current substance use type: does not use during the past year weight has: decreased > 10 lbs well-balanced diet: about half the time daily servings fruits/ve-4 caffeine: No eating out: 1-3 times/week frequency: 1-2 times per week (physical therapy) duration: 45-60 minutes/day Smoking Status: Never smoker alcohol intake frequency: 0-2 drinks per day Substance Use Type: does not use Exam Initial Vital Signs Initial Vital Signs: Vital Signs Temperature 99.2 F 09/04/20 12:42 Pulse Rate 74 09/04/20 12:42 Respiratory Rate 15 09/04/20 12:42 Blood Pressure 139/63 09/04/20 12:42 Pulse Oximetry 97 09/04/20 12:42 GENERAL: Alert 75-year-old male appears week HEENT: Head atraumatic,EOMI, pupils reactive, face symmetric, [moist] mucous membranes CARDIOVASCULAR: Regular rate and rhythm without murmurs, rubs or gallops. RESPIRATORY: Breath sounds equal bilaterally, no wheezes rales or rhonchi. ABDOMEN: Soft, nontender. Normoactive bowel sounds all 4 quadrants. No guarding or rebound. EXTREMITIES: Normal range of motion, no clubbing. Mild +1 pitting edema Neurovascularly intact NEUROLOGICAL: Alert and oriented x4.Normal gait and speech. No cranial nerve deficits SKIN: Warm, dry, no laceration, no petechiae, no rashes or lesions. Course Orders Ordered: Acetaminophen (Acetaminophen 325 Mg Tablet) 650 mg PO Q6HR PRN PRN Reason: Fever/Mild Pain (1-3) Aspirin (Aspirin Ec 81 Mg Tablet) 81 mg PO DAILY [facility] Atorvastatin Calcium (Atorvastatin 20 Mg Tablet) 10 mg PO BEDTIME FAHEEM Last Admin: 09/04/20 21:50 Dose: 10 mg Documented by: NESHA Chlorthalidone (Chlorthalidone 25 Mg Tablet) 25 mg PO DAILY [facility] Ezetimibe (Ezetimibe 10 Mg Tablet) 10 mg PO DAILY [facility] Enoxaparin Sodium (Enoxaparin 40 Mg/0.4 Ml Syringe) 40 mg SUBCUT DAILY [facility] Levofloxacin (Levaquin) 500 mg in 100 mls @ 100 mls/hr IV Q24H FAHEEM Last Infusion: 09/04/20 21:51 Dose: 100 mls/hr Documented by: Admin: 09/04/20 18:54 Dose: 100 mls/hr Documented by: NESHA POTASSIUM CHLORIDE IN WATER (Potassium Cl 10 Meq/100 Ml Shelly) 10 meq in 100 mls @ 100 mls/hr IV Q1H FAHEEM Stop: 09/05/20 11:14 Nf - Mirabegron ( Myrbetriq) 50 Mg Er Tablet 50 mg PO DAILY [facility] Pantoprazole Sodium (Pantoprazole Dr 40 Mg Tablet) 40 mg PO 0700 FAHEEM Last Admin: 09/05/20 06:25 Dose: 40 mg Documented by: ADEOLA Pramipexole Dihydrochloride (Pramipexole 1 Mg Tablet) 3 mg PO BEDTIME FAHEEM Last Admin: 09/04/20 21:51 Dose: 3 mg Documented by: NESHA Spironolactone (Spironolactone 25 Mg Tablet) 25 mg PO DAILY [facility] Tamsulosin HCl (Tamsulosin 0.4 Mg Capsule) 0.4 mg PO EVERY OTHER DAY FAHEEM Discontinued Medications Ceftriaxone Sodium 1,000 mg/ (Sodium Chloride) 100 mls @ 200 mls/hr IV NOW ONE Stop: 09/04/20 14:55 Last Infusion: 09/04/20 15:35 Dose: 0 mls/hr Documented by: Admin: 09/04/20 15:05 Dose: 200 mls/hr Documented by: THAD Ampicillin Sodium/Sulbactam (Sodium 3 gm/ Sodium Chloride) 100 mls @ 100 mls/hr IV NOW ONE Stop: 09/04/20 15:29 Last Infusion: 09/04/20 16:40 Dose: 0 mls/hr Documented by: Admin: 09/04/20 15:39 Dose: 100 mls/hr Documented by: THAD Sodium Chloride (Normal Saline 0.9%) 1,000 mls @ 100 mls/hr IV CONT FAHEEM Last Infusion: 09/05/20 05:56 Dose: 100 mls/hr Documented by: Admin: 09/05/20 05:56 Dose: 100 mls/hr Documented by: Infusion: 09/05/20 04:48 Dose: 100 mls/hr Documented by: Admin: 09/04/20 18:48 Dose: 100 mls/hr Documented by: NESHA Vital Signs Vital signs: Vital Signs - 8 hr 09/04/20 12:42 09/04/20 13:49 Temperature 99.2 F Pulse Rate 74 70 Respiratory Rate 15 15 Blood Pressure 139/63 123/57 L Pulse Oximetry 97 93 MDM - Sepsis Lab Data Result diagrams: 09/05/20 06:05 09/05/20 06:05 Labs: Lab Results 09/04/20 09/04/20 09/04/20 Range/Units 13:10 13:36 13:36 WBC 17.3 H (4.5-11.0) X10^3/uL RBC 4.68 (4.5-5.9) X10^6/uL Hgb 14.1 (13.5-17.5) g/dL Hct 41.2 (41-53) % MCV 88.0 (80-100) fL MCH 30.1 (26-34) PG MCHC 34.2 (30-36) % RDW 14.2 (11.6-14.8) % Plt Count 180 (150-400) X10^3/uL Neut % (Auto) 80.0 H (50-75) % Lymph % (Auto) 12.1 L (25-40) % Cooper % (Auto) 7.2 (3-14) % Eos % (Auto) 0.3 L (2-4) % Baso % (Auto) 0.4 (0-2) % Neut # (Auto) 12541 H (7239-5191) /uL Lymph # (Auto) 2100 (9109-7194) /uL Cooper # (Auto) 1200 H (0-900) /uL Eos # (Auto) 100 (0-450) /uL Baso # (Auto) 100 (0-100) /uL Sodium 135 L (137-145) mmol/L Potassium 3.3 L (3.4-5.1) mmol/L Chloride 97 L (98-107) mmol/L Carbon Dioxide 30 (22-32) mmol/L BUN 17 (9-20) mg/dL Creatinine 0.85 (0.66-1.25) mg/dL Estimated GFR > 60.0 (>60) mL/min BUN/Creatinine Ratio 20.0 (6-22) Glucose 129 H (80-110) mg/dL Lactate (0.7-2.1) mmol/L Calcium 9.5 (8.4-10.2) mg/dL Total Bilirubin 2.5 H (0.2-1.3) mg/dL AST 31 (17-59) IU/L ALT 26 (<50) IU/L Alkaline Phosphatase 63 (38-126) U/L Total Protein 8.0 (6.3-8.2) g/dL Albumin 4.3 (3.5-5.0) g/dL Globulin 3.7 (1.7-4.1) g/dL Albumin/Globulin Ratio 1.2 (1.0-2.8) Lipase 24 (23-300) U/L Procalcitonin 0.07 (<0.5) ng/mL Urine Color Yellow Urine Appearance Clear Urine pH 6.0 (4.5-8.0) Ur Specific [place] 1.020 (1.000-1.035) Urine Protein 1+ H (Negative) Urine Glucose (UA) Trace H (Negative) g/dL Urine Ketones Negative (NEGATIVE) Urine Occult Blood 1+ H (Negative) Urine Nitrate Negative (Negative) Urine Bilirubin Negative (NEGATIVE) Urine Urobilinogen 1.0 (0.2) E.U./dL Ur Leukocyte Esterase Trace H (NEGATIVE) Urine RBC None seen (0-5/HPF) Urine WBC 10-30/hpf H (0-5/HPF) Urine Bacteria None seen (None) Urine Mucus 1+ H (Negative) Ur Culture Indicated? Specimen cultured 09/04/20 Range/Units 13:36 WBC (4.5-11.0) X10^3/uL RBC (4.5-5.9) X10^6/uL Hgb (13.5-17.5) g/dL Hct (41-53) % MCV (80-100) fL MCH (26-34) PG MCHC (30-36) % RDW (11.6-14.8) % Plt Count (150-400) X10^3/uL Neut % (Auto) (50-75) % Lymph % (Auto) (25-40) % Cooper % (Auto) (3-14) % Eos % (Auto) (2-4) % Baso % (Auto) (0-2) % Neut # (Auto) (5890-8615) /uL Lymph # (Auto) (4366-4620) /uL Cooper # (Auto) (0-900) /uL Eos # (Auto) (0-450) /uL Baso # (Auto) (0-100) /uL Sodium (137-145) mmol/L Potassium (3.4-5.1) mmol/L Chloride (98-107) mmol/L Carbon Dioxide (22-32) mmol/L BUN (9-20) mg/dL Creatinine (0.66-1.25) mg/dL Estimated GFR (>60) mL/min BUN/Creatinine Ratio (6-22) Glucose (80-110) mg/dL Lactate 1.1 (0.7-2.1) mmol/L Calcium (8.4-10.2) mg/dL Total Bilirubin (0.2-1.3) mg/dL AST (17-59) IU/L ALT (<50) IU/L Alkaline Phosphatase (38-126) U/L Total Protein (6.3-8.2) g/dL Albumin (3.5-5.0) g/dL Globulin (1.7-4.1) g/dL Albumin/Globulin Ratio (1.0-2.8) Lipase (23-300) U/L Procalcitonin (<0.5) ng/mL Urine Color Urine Appearance Urine pH (4.5-8.0) Ur Specific [place] (1.000-1.035) Urine Protein (Negative) Urine Glucose (UA) (Negative) g/dL Urine Ketones (NEGATIVE) Urine Occult Blood (Negative) Urine Nitrate (Negative) Urine Bilirubin (NEGATIVE) Urine Urobilinogen (0.2) E.U./dL Ur Leukocyte Esterase (NEGATIVE) Urine RBC (0-5/HPF) Urine WBC (0-5/HPF) Urine Bacteria (None) Urine Mucus (Negative) Ur Culture Indicated? Imaging Data Chest x-ray: Radiologist's Impression: PROCEDURE: XR CHEST 1V INDICATIONS: suspected sepsis TECHNIQUE: One view of the chest was acquired. COMPARISON: [facility], CT, CT ABDOMEN PELVIS WO/W CON, 10/05/2019, 11:27. FINDINGS: Surgical changes and devices: None. Lungs and pleura: Lungs are abnormal with a mild patchy alveolar infiltration pattern, right greater than left, without pleural effusions or cardiomegaly, and there are 2 focal radiodensities that appears somewhat angular at the right upper lobe measuring 1.5 and 2.0 cm each.. No pleural effusions or pneumothorax. Mediastinum: Mediastinal contours appear normal. Heart size is normal. Bones and chest wall: No suspicious bony lesions. Overlying soft tissues appear unremarkable. Prior right acromioplasty. IMPRESSION: Possible mild patchy alveolar infiltration, mildly reduced inspiratory volume. Two focal radiodensities are present at the right upper lobe area, measuring up to 1.5 and 2.0 cm respectively and it is unclear whether these represent lung masses, pleural calcifications, or focal alveolar infiltration. Follow-up by CT scanning may become necessary. At least follow-up by plain film imaging is recommended Dictated by: Mani Francis M.D. on 09/04/2020 at 14:26 ECG Data Interpretation: Normal sinus rhythm rate 62 IL interval 192 QRS [address] changes no T-wave inversions Pac noted MDM Narrative Medical decision making narrative: Patient is a 75-year-old male who has recurrent UTIs better multi-drug resistant. Today he has leukocytosis is afebrile and hemodynamically stable. He feels generally weak and tired. At this time I think reasonable to admit until culture and sensitivity return. He initially is given Rocephin however after reviewing culture and sensitivity from previous urine Unasyn is then added. He is allergic to fluoroquinolones. Dr. Sow updated on patient's symptoms test results agrees with admission. Discharge Plan Departure Patient Disposition: Admitted As Inpatient Clinical Impression: Recurrent UTI Admit Date/Time: 09/04/20 15:43 Admit Provider: Darryl Sow
[2020-09-04] MEDS: AMPICILLIN/SULBACTAM 3 GM 3 GM in SODIUM CHLORIDE 0.9% 100 ML IV (15:39)
--- NOTE | 2020-09-04 16:33 | P.HP_ITS ---
History of Present Illness History of Present Illness Date Patient Seen: 09/04/20 Time Patient Seen: 16:33 Chief complaint: UTI Narrative: 75-year-old male with a history recurrent urinary tract infections BPH obstructive sleep apnea chronic diastolic heart failure restless leg syndrome and a BMI of 44 presents to the emergency room with concerns about urinary tract infection as well as weakness. Patient describes symptoms of increased urinary urgency and dysuria. With frequency with going to the bathroom every 1-2 hours. Symptoms progressively worsened over the last 48 hours. Last night he said he had a temperature as high as 101? he began to feel very weak. Symptoms progressed throughout the night with increased urinary frequency. Patient went to the emergency department today says he has had many urinary tract infections before and has previously been hospitalized for them. He has worked with a urologist for a number of years and even had a TURP procedure done. Despite this he still has frequent urinary tract infections. He is not nauseated. He does feel weak not shortness of breath. He feels like he can empty his bladder he just has to go for regularly. He is not complaining of specific fevers flank pain. Patient History Medical History (Updated 09/04/20 @ 15:43 by Mariah Garduno DO) Cataracts, both eyes (~2011) Chronic diastolic heart failure (2014) Colon polyp (~2010) Diverticulosis (~2010) Gastroesophageal reflux disease without esophagitis (10/31/16) Glaucoma (~2011) Gout of left foot (01/25/16) Hearing loss (~2009) Hemorrhoids (~1978) Hiatal hernia (01/25/16) History of asbestosis (01/25/16) Low testosterone Obstructive sleep apnea syndrome (01/25/16) Prostate mass Rectal bleeding Recurrent UTI Restless legs syndrome (01/25/16) Surgical History History of colonoscopy Family & Social History Family History Father Parkinsons disease Mother Congestive heart failure Social History: household members spouse lives independently Yes caregiver/support person No Safety & Behavioral: Feels Safe in Current Yes Environment Been Physically Hurt or No Threatened By a Person Tobacco & Substance use: Smoking Status Never smoker alcohol intake current alcohol intake frequency 0-2 drinks per day Substance Use Type does not use Meds Home Medications and Allergies Home Medications Medication Instructions Recorded Confirmed Type aspirin 81 mg tablet,delayed 81 mg PO QDAY #0 01/25/16 07/25/20 History release bimatoprost 0.01 % eye drops #0 01/25/16 07/25/20 History (Lumigan) nystatin 100,000 unit/gram topical 100,000 unit TOPICAL BID #60 gm 01/25/16 07/25/20 Rx powder (Nystop) magnesium oxide 500 mg tablet 500 mg PO TID #270 tab 02/04/16 07/25/20 Rx eplerenone 50 mg tablet 75 mg PO QDAY #135 tab 12/11/16 07/25/20 History tamsulosin 0.4 mg capsule (Flomax) 0.4 mg PO EVERY OTHER DAY #90 cap 11/04/17 07/25/20 Rx [saw palmetto] 500 mg PO BID #0 07/06/18 07/25/20 History carboxymethylcellulose sodium 1 % 1 drop EYE-BOTH each 07/06/18 07/25/20 History eye gel in a dropperette (Refresh Celluvisc) chlorthalidone 25 mg tablet 25 mg PO QDAY tab 07/06/18 07/25/20 History ezetimibe 10 mg tablet (Zetia) 10 mg PO DAILY 07/06/18 07/25/20 History miconazole nitrate-zinc ox-pet See Rx Instructions TOP .COMPLEX 07/06/18 07/25/20 History rosuvastatin 20 mg tablet 20 mg PO DAILY 07/06/18 07/25/20 History spironolactone 25 mg tablet 25 mg PO DAILY 07/06/18 07/25/20 History urea 40 % topical cream 1 applictn TOP DAILY gram 07/06/18 07/25/20 History Respironics Dreamstation BIPAP #1 ea 12/06/18 07/25/20 History nystatin 100,000 unit/gram topical 1 applictn TOP BID #15 gram 07/05/19 07/25/20 Rx cream fluticasone propionate 50 1 spray NASAL BID #18.2 ml 11/14/19 07/25/20 Rx mcg/actuation nasal spray,suspension timolol 0.25 % eye drops 1 drp EYE-BOTH DAILY #5 ml 01/02/20 07/25/20 Rx pantoprazole 40 mg tablet,delayed See Rx Instructions .ROUTE 03/26/20 07/25/20 Rx release .COMPLEX #90 tab pramipexole 3 mg tablet,extended 3 mg PO BEDTIME #30 tab MDD 3 mg 06/26/20 07/25/20 Rx release 24 hr azelastine-fluticasone 137 mcg-50 See Rx Instructions .ROUTE 07/12/20 07/25/20 Rx mcg/spray nasal spray .COMPLEX #23 g mirabegron 50 mg tablet,extended 50 mg PO DAILY #60 tab 07/23/20 07/25/20 Rx release 24 hr (Myrbetriq) Allergies Allergy/AdvReac Type Severity Reaction Status Date / Time Sulfa (Sulfonamide Allergy Unknown Nausea Verified 07/23/20 10:48 Antibiotics) [SULFA (SULFONAMIDE ANTIBIOTICS)] ciprofloxacin [From Cipro] AdvReac Intermediate bruising Verified 07/23/20 10:48 and sore tendons Exam Vital Signs (past 8 hours): - 09/04/20 12:42 09/04/20 13:49 Temperature 99.2 F Pulse Rate 74 70 Respiratory Rate 15 15 Blood Pressure 139/63 123/57 L Pulse Oximetry 97 93 Oxygen Delivery Method Room Air Narrative Exam Narrative: Gen.: General alert good historian sitting in bed his is close by HEENT: Pupils equal round and reactive or mucosa is moist Cardio: S1-S2 regular rate and rhythm no murmurs appreciated. Respiratory: Lungs are clear to auscultation no wheezes or crackles normal respiratory effort. Abdomen: Soft nontender no rebound or guarding no liver spleen enlargement no appreciable hernias Extremities: Full range of motion no appreciable weakness no cyanosis or edema. Neurologic: Grossly intact. Objective Labs Result Diagrams: 09/04/20 13:36 09/04/20 13:36 Labs: Laboratory Results - last 24 hr 09/04/20 09/04/20 09/04/20 13:10 13:36 13:36 WBC 17.3 H RBC 4.68 Hgb 14.1 Hct 41.2 MCV 88.0 MCH 30.1 MCHC 34.2 RDW 14.2 Plt Count 180 Neut % (Auto) 80.0 H Lymph % (Auto) 12.1 L [place] % (Auto) 7.2 Eos % (Auto) 0.3 L Baso % (Auto) 0.4 Neut # (Auto) 83591 H Lymph # (Auto) 2100 [place] # (Auto) 1200 H Eos # (Auto) 100 Baso # (Auto) 100 Sodium 135 L Potassium 3.3 L Chloride 97 L Carbon Dioxide 30 BUN 17 Creatinine 0.85 Estimated GFR > 60.0 BUN/Creatinine Ratio 20.0 Glucose 129 H Lactate Calcium 9.5 Total Bilirubin 2.5 H AST 31 ALT 26 Alkaline Phosphatase 63 Total Protein 8.0 Albumin 4.3 Globulin 3.7 Albumin/Globulin Ratio 1.2 Lipase 24 Procalcitonin 0.07 Urine Color Yellow Urine Appearance Clear Urine pH 6.0 Ur Specific [place] 1.020 Urine Protein 1+ H Urine Glucose (UA) Trace H Urine Ketones Negative Urine Occult Blood 1+ H Urine Nitrate Negative Urine Bilirubin Negative Urine Urobilinogen 1.0 Ur Leukocyte Esterase Trace H Urine RBC None seen Urine WBC 10-30/hpf H Urine Bacteria None seen Urine Mucus 1+ H Ur Culture Indicated? Specimen cultured 09/04/20 13:36 WBC RBC Hgb Hct MCV MCH MCHC RDW Plt Count Neut % (Auto) Lymph % (Auto) [place] % (Auto) Eos % (Auto) Baso % (Auto) Neut # (Auto) Lymph # (Auto) [place] # (Auto) Eos # (Auto) Baso # (Auto) Sodium Potassium Chloride Carbon Dioxide BUN Creatinine Estimated GFR BUN/Creatinine Ratio Glucose Lactate 1.1 Calcium Total Bilirubin AST ALT Alkaline Phosphatase Total Protein Albumin Globulin Albumin/Globulin Ratio Lipase Procalcitonin Urine Color Urine Appearance Urine pH Ur Specific [place] Urine Protein Urine Glucose (UA) Urine Ketones Urine Occult Blood Urine Nitrate Urine Bilirubin Urine Urobilinogen Ur Leukocyte Esterase Urine RBC Urine WBC Urine Bacteria Urine Mucus Ur Culture Indicated? Assessment & Plan Assessment & Plan narrative: Urinary tract infections with systemic symptom of weakness dysuria frequency. Patient has elevated blood counts he is not hypotensive or tachycardic. But significantly weak he feels like he cannot take go home. Reviewed his recent culture results. His last culture showed E coli with ESBL positive which was resistant to ampicillin ceftriaxone and trimethoprim sulfa. Patient was given a dose of ampicillin and ceftriaxone in the emergency department. Due to the patient's elevated white blood count and symptomology. Patient was admitted to the hospital for further workup and evaluation of his urinary tract infection . Reviewed patient's allergies. He said he had some bruising with ciprofloxacin he was worried about tendon issues but is not a true allergy. Based on his previous culture results a fluoroquinolones seems like the best bet considering. We discussed this with him today patient consented to receiving Levaquin. BPH. Patient with history of TURP. Patient has significantly increased urinary frequency. Will go ahead and do a bladder scan to rule out underlying urinary obstruction. Place Duke catheter if needed. Continue with his current medication. He is also on Mirabegron which will be continued. Restless leg syndrome and sleep apnea. Patient uses Mirapex at night to help sleep. Will go ahead and provide 3 mg at night. Hyperlipidemia. Patient is on Crestor 20 mg once daily. This will be continued woodard in his hospital stay. Disposition and plan. Patient will be started on IV antibiotics. Waiting urinary culture to figure out appropriate use of antibiotics and go from there. DVT prophylaxis will be provided. Patient is already on a proton pump inhibitor.
[2020-09-04] MEDS: SODIUM CHLORIDE 0.9% 1,000 ML 100 ML IV (18:48)
[2020-09-04] MEDS: levoFLOXacin 500 MG/100 ML PIGGYBACK 100 MG IV (18:54)
[2020-09-04] MEDS: ATORVASTATIN 20 MG TABLET 10 MG PO (21:50)
[2020-09-04] MEDS: PRAMIPEXOLE 1 MG TABLET 3 MG PO (21:51)
--- NOTE | 2020-09-04 21:56 | PC.NURSE ---
Pt arrived from ED @ 1645 Alert/oriented, pleasant/cooperative. Lungs clear, SpO2 98% RA Denies discomfort aside from some burning w/urination. recieving IV ABO's IVF infusing into the LFA via pump as per orders w/o incidence. Call light w/in reach, bed alarm on for pt safety. Continue w/plan of care.
[2020-09-05] VITALS (13 sets, daily range): BP systolic 116–135; BP diastolic 50–74; PULSE 66–74; RESP 18; TEMP 36.9–39.4; O2SAT 93–97
[2020-09-05] MEDS: SODIUM CHLORIDE 0.9% 1,000 ML 100 ML IV (05:56)
[2020-09-05] MEDS: PANTOPRAZOLE DR 40 MG TABLET PO (06:25)
[2020-09-05 06:58] LABS: Add Manual Diff / Slide Review NO; Basophils Absolute Auto 0 /uL (0-100); Basophils Percent Auto 0.3 % (0-2); Eosinophils Absolute Auto 0 /uL (0-450); Eosinophils Percent Auto 0.2 % (2-4); Hematocrit 36.9 % (41-53); Hemoglobin 12.6 g/dL (13.5-17.5); Lymphocytes Absolute Auto 1900 /uL (1100-4500); Lymphocytes Percent Auto 14.6 % (25-40); Mean Corpuscular Hemoglobin 29.8 PG (26-34); Mean Corpuscular Volume 87.8 fL (80-100); Monocytes Absolute Auto 800 /uL (0-900); Monocytes Percent Auto 6.4 % (3-14); Neutrophils Absolute Auto 10000 /uL (1500-7000); Neutrophils Percent Auto 78.5 % (50-75); Platelet Count 149 X10^3/uL (150-400); Red Blood Cell Count 4.21 X10^6/uL (4.5-5.9); Red Cell Distribution Width 13.8 % (11.6-14.8); White Blood Cell Count 12.8 X10^3/uL (4.5-11.0)
[2020-09-05 07:03] LABS: Alanine Aminotransferase 19 IU/L (<50); Albumin 3.7 g/dL (3.5-5.0); Albumin Globulin Ratio 1.1 (1.0-2.8); Alkaline Phosphatase 48 U/L (38-126); Aspartate Aminotransferase 24 IU/L (17-59); BUN Creatinine Ratio 17.2 (6-22); Blood Urea Nitrogen 15 mg/dL (9-20); Calcium 8.6 mg/dL (8.4-10.2); Carbon Dioxide 29 mmol/L (22-32); Chloride 95 mmol/L (98-107); Estimated Glomerular Filt Rate > 60.0 mL/min (>60); Globulin 3.3 g/dL (1.7-4.1); Glucose 113 mg/dL (80-110); HEMOLYSIS < 15 (0-50); Potassium 2.9 mmol/L (3.4-5.1); Sodium 132 mmol/L (137-145)
--- NOTE | 2020-09-05 07:12 | PM.DS.1 ---
History of Present Illness History of Present Illness Chief complaint: UTI Narrative: 75-year-old male with a history recurrent urinary tract infections BPH obstructive sleep apnea chronic diastolic heart failure restless leg syndrome and a BMI of 44 presents to the emergency room with concerns about urinary tract infection as well as weakness. Patient describes symptoms of increased urinary urgency and dysuria. With frequency with going to the bathroom every 1-2 hours. Symptoms progressively worsened over the last 48 hours. Last night he said he had a temperature as high as 101? he began to feel very weak. Symptoms progressed throughout the night with increased urinary frequency. Patient went to the emergency department today says he has had many urinary tract infections before and has previously been hospitalized for them. He has worked with a urologist for a number of years and even had a TURP procedure done. Despite this he still has frequent urinary tract infections. He is not nauseated. He does feel weak not shortness of breath. He feels like he can empty his bladder he just has to go for regularly. He is not complaining of specific fevers flank pain. Discharge Providers Provider Date of admission: 09/04/20 15:43 Discharge Date: 09/05/20 Primary care physician: Maya Johnson MD Consults: 09/04/20 16:26 Consult to Discharge Planning Routine Comment: Consult to Physical Therapy Evaluate & Treat Comment: Physician Instructions: Evaluate and Treat Discharge provider: Darryl Sow MD Summary Hospital Course Discharge Diagnosis: Urinary tract infection with systemic inflammatory response with weakness elevated white blood cell count Hypokalemia Hyponatremia BPH Restless legs syndrome with sleep apnea Hyperlipidemia Hospital Course: 75-year-old male with recurrent urinary tract infections BPH. Patient previous urine culture results show E coli with ESBL. Patient was initially started on antibiotics that were potentially resistant turn intermediate resistance in the emergency department. On review of his records looks like he responds to floor quinolone which was started on Levaquin. Patient states she is feeling much better this morning. He is eating well he is no longer weak he is able to get out of bed and walk on his own. Has normal respiratory rate. On mission to his hospital he had slightly low sodium and he was given normal saline. His potassium was also low and he was given IV potassium as well as oral potassium. At the time of discharge he was ambulating. Tolerating his diet taking his medications. Discharge plan will be for him to follow-up with Dr. Porter in 1 week. He would like to see a new urologist in will make appointment with our hospital Urology here. Patient will be continued on oral Levaquin 500 mg a day for 7 days. Will continue to follow blood culture and urine culture results. Exam Vital Signs (past 8 hours): - 09/04/20 23:40 09/04/20 23:50 Temperature 98.2 F Pulse Rate 64 Respiratory Rate 18 Blood Pressure 110/44 L Pulse Oximetry 95 95 Oxygen Delivery Method Room Air,CPAP Oxygen Flow Rate 0 Objective Labs Result Diagrams: 09/05/20 06:05 09/05/20 06:05 Labs: Laboratory Results - last 24 hr 09/04/20 09/04/20 09/04/20 13:10 13:36 13:36 WBC 17.3 H RBC 4.68 Hgb 14.1 Hct 41.2 MCV 88.0 MCH 30.1 MCHC 34.2 RDW 14.2 Plt Count 180 Neut % (Auto) 80.0 H Lymph % (Auto) 12.1 L [place] % (Auto) 7.2 Eos % (Auto) 0.3 L Baso % (Auto) 0.4 Neut # (Auto) 66676 H Lymph # (Auto) 2100 [place] # (Auto) 1200 H Eos # (Auto) 100 Baso # (Auto) 100 Sodium 135 L Potassium 3.3 L Chloride 97 L Carbon Dioxide 30 BUN 17 Creatinine 0.85 Estimated GFR > 60.0 BUN/Creatinine Ratio 20.0 Glucose 129 H Lactate Calcium 9.5 Total Bilirubin 2.5 H AST 31 ALT 26 Alkaline Phosphatase 63 Total Protein 8.0 Albumin 4.3 Globulin 3.7 Albumin/Globulin Ratio 1.2 Lipase 24 Procalcitonin 0.07 Urine Color Yellow Urine Appearance Clear Urine pH 6.0 Ur Specific [place] 1.020 Urine Protein 1+ H Urine Glucose (UA) Trace H Urine Ketones Negative Urine Occult Blood 1+ H Urine Nitrate Negative Urine Bilirubin Negative Urine Urobilinogen 1.0 Ur Leukocyte Esterase Trace H Urine RBC None seen Urine WBC 10-30/hpf H Urine Bacteria None seen Urine Mucus 1+ H Ur Culture Indicated? Specimen cultured 09/04/20 09/05/20 09/05/20 13:36 06:05 06:05 WBC 12.8 H RBC 4.21 L Hgb 12.6 L Hct 36.9 L MCV 87.8 MCH 29.8 MCHC 34.0 RDW 13.8 Plt Count 149 L Neut % (Auto) 78.5 H Lymph % (Auto) 14.6 L Door % (Auto) 6.4 Eos % (Auto) 0.2 L Baso % (Auto) 0.3 Neut # (Auto) 66223 H Lymph # (Auto) 1900 [place] # (Auto) 800 Eos # (Auto) 0 Baso # (Auto) 0 Sodium 132 L Potassium 2.9 L Chloride 95 L Carbon Dioxide 29 BUN 15 Creatinine 0.87 Estimated GFR > 60.0 BUN/Creatinine Ratio 17.2 Glucose 113 H Lactate 1.1 Calcium 8.6 Total Bilirubin 2.0 H AST 24 ALT 19 Alkaline Phosphatase 48 Total Protein 7.0 Albumin 3.7 Globulin 3.3 Albumin/Globulin Ratio 1.1 Lipase Procalcitonin Urine Color Urine Appearance Urine pH Ur Specific [place] Urine Protein Urine Glucose (UA) Urine Ketones Urine Occult Blood Urine Nitrate Urine Bilirubin Urine Urobilinogen Ur Leukocyte Esterase Urine RBC Urine WBC Urine Bacteria Urine Mucus Ur Culture Indicated? [facility] Medical History (Updated 09/04/20 @ 15:43 by Mariah Garduno DO) Cataracts, both eyes (~2011) Chronic diastolic heart failure (2014) Colon polyp (~2010) Diverticulosis (~2010) Gastroesophageal reflux disease without esophagitis (10/31/16) Glaucoma (~2011) Gout of left foot (01/25/16) Hearing loss (~2009) Hemorrhoids (~1978) Hiatal hernia (01/25/16) History of asbestosis (01/25/16) Low testosterone Obstructive sleep apnea syndrome (01/25/16) Prostate mass Rectal bleeding Recurrent UTI Restless legs syndrome (01/25/16) Surgical History History of colonoscopy Family History Father Parkinsons disease Mother Congestive heart failure Social History marital status: household members: spouse lives independently: Yes caregiver/support person: No housing: house pets and animals: Yes education level: college occupational status: previously employed 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[employer] [place], 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 Reyes 7 days Patient needs a Urology follow-up for [facility] Patient will take Levaquin for 7 days orally patient prescription called to pharmacy Patient can leave after his basic metabolic profile drawn this afternoon to recheck his potassium Discharge orders & Medications Prescriptions: New levofloxacin 500 mg tablet 500 mg PO DAILY 7 Days Qty: 7 RF: 0 Continued timolol 0.25 % drops 1 drp EYE-BOTH DAILY Qty: 5 RF: 0 chlorthalidone 25 mg tablet 25 mg PO QDAY RF: 0 ezetimibe [Zetia] 10 mg tablet 10 mg PO DAILY RF: 0 miconazole nitrate-zinc ox-pet See Rx Instructions TOP .COMPLEX RF: 0 Refresh Celluvisc 1 % dropperette,gel 1 drop EYE-BOTH RF: 0 rosuvastatin 20 mg tablet 20 mg PO DAILY RF: 0 spironolactone 25 mg tablet 25 mg PO DAILY RF: 0 urea 40 % cream 1 applictn TOP DAILY RF: 0 aspirin 81 MG tablet,delayed release (DR/EC) 81 mg PO QDAY Qty: 0 RF: 0 bimatoprost [Lumigan] 0.01 % drops Qty: 0 RF: 0 nystatin [Nystop] 60 GM powder 100,000 unit Topical BID Qty: 60 RF: 1 magnesium oxide 500 MG tablet 500 mg PO TID Qty: 270 RF: 0 eplerenone 50 MG tablet 75 mg PO QDAY Qty: 135 RF: 1 tamsulosin [Flomax] 0.4 mg capsule 0.4 mg PO EVERY OTHER DAY Qty: 90 RF: 1 [saw palmetto] 500 mg PO BID Qty: 0 RF: 0 nystatin 100,000 unit/gram cream 1 applictn TOP BID Qty: 15 RF: 0 pantoprazole 40 mg tablet,delayed release (DR/EC) See Rx Instructions .ROUTE .COMPLEX Qty: 90 RF: 1 pramipexole 3 mg tablet extended release 24 hr 3 mg PO BEDTIME MDD 3 mg Qty: 30 RF: 3 azelastine-fluticasone 137-50 mcg/spray spray,non-aerosol See Rx Instructions .ROUTE .COMPLEX Qty: 23 RF: 3 Myrbetriq 50 mg tablet extended release 24 hr 50 mg PO DAILY Qty: 60 RF: 0 fluticasone propionate 50 mcg/actuation spray,suspension 1 spray NASAL BID PRN (Reason: Allergic Symptoms) RF: 0 (DME) Respironics Dreamstation BIPAP Qty: 1 RF: 0 Follow up/Referrals: Maya Johnson MD [Primary Care Provider] - Visit Report/Discharge Packet Visit Report Forms: Patient Portal/API, Stroke Signs & Symptoms Discharge Data Primary Care Provider: Maya Johnson Quality VTE Deep Vein Thrombosis/Pulmonary Embolism Present on Admission: No
[2020-09-05] MEDS: POTASSIUM CHLORIDE IN WATER 10 MEQ/100 ML PIGGYBACK 100 MEQ IV ×4 (07:56→14:30)
[2020-09-05 08:24] LABS: COVID19 - ADMIT (NP swab/PCR) Negative (Negative)
[2020-09-05] MEDS: ASPIRIN EC 81 MG TABLET PO (08:32)
[2020-09-05] MEDS: CHLORTHALIDONE 25 MG TABLET PO (08:32)
[2020-09-05] MEDS: SPIRONOLACTONE 25 MG TABLET PO (08:32)
[2020-09-05] MEDS: EZETIMIBE 10 MG TABLET PO (08:32)
[2020-09-05] MEDS: ENOXAPARIN 40 MG/0.4 ML SYRINGE SUBCUT (08:33)
[2020-09-05] MEDS: MIRABEGRON 50 MG 50 EACH PO (08:46)
--- NOTE | 2020-09-05 12:09 | PT.IIE ---
Medical History (Last Reviewed 10/02/19 @ 16:54 by Mariah Garduno DO) Cataracts, both eyes (~2011) Chronic diastolic heart failure (2014) Colon polyp (~2010) Diverticulosis (~2010) Gastroesophageal reflux disease without esophagitis (10/31/16) Glaucoma (~2011) Gout of left foot (01/25/16) Hearing loss (~2009) Hemorrhoids (~1978) Hiatal hernia (01/25/16) History of asbestosis (01/25/16) Low testosterone Obstructive sleep apnea syndrome (01/25/16) Prostate mass Rectal bleeding Recurrent UTI Restless legs syndrome (01/25/16) Physical Therapy Inpatient Evaluation/Re-Eval M1 PT/OT-IP Prior Functional Status Start: 09/05/20 14:04 Freq: NEEDED Status: Active Protocol: Document 09/05/20 12:09 AB (Rec: 09/05/20 14:13 AB [email or web address]) Medical Review Prior Functional Status Medical History Reviewed Yes Communication able to make needs known Mobility and Gait pt stated that he is indepndent with all mobilities and ambulation using SPC but occasionally ambulated without AD Social History Household Members spouse Living Arrangements House Number of Floors (Floors) One Floor Number of Stairs To Enter/Railing? 3 step L rail to enter Home Environment High Toilet,Walk in Shower Home Equipment Front Wheel Walker,Straight Cane,Shower Seat without Backrest,Hand Held Shower,Grab Bars Near Toilet,Grab Bars In Shower M2 PT-IP Current Condition Start: 09/05/20 14:04 Freq: NEEDED Status: Active Protocol: Document 09/05/20 12:09 AB (Rec: 09/05/20 14:13 AB [email or web address]) Physical Therapy Current Condition Current Condition Evaluation Date 09/05/20 Treatment Diagnosis UTI; difficulty in walking Onset Date 09/04/20 M3 PT-IP Subjective Start: 09/05/20 14:04 Freq: NEEDED Status: Active Protocol: Document 09/05/20 12:09 AB (Rec: 09/05/20 14:13 AB [email or web address]) Subjective Physical Therapy Visit Type Type Initial Evaluation Visit Start Time 12:09 Visit Stop Time 12:30 Total Visit Minutes 21 Number of DIRECTOR BUSINESS INTEGRATION Visits 0 Physical Therapy Visit Comments Patient Comments pt is agreeable to do PT M4 PT-IP Mobility and Gait Start: 09/05/20 14:04 Freq: NEEDED Status: Active Protocol: Document 09/05/20 12:09 AB (Rec: 09/05/20 14:13 AB [email or web address]) PT-Bed Mobility Assessment Supine to Sit Supine to Sit Standby Assistance PT-Transfer Assessment Sit to and From Stand Sit to and from Stand Standby Assistance Equipment Transfer Assistive Device None,Gait Belt,Straight Cane Orthotic/Prosthetic Devices or Brace: No Transfers Transfer Destination Chair Transfer Technique ambulated Transfer Ability Level of Assist Standby Assistance,Contact Guard Assistance,1 Person Assistance,Use of Upper Extremities Comments Mobility Comments pt agreeable to do PT. completed supine to sit SBA with difficulty completing task and required increase time to complete. pt was able to sit on EOB SBA and completed sit to stand SBA. ambulated in room without AD ~ 15 ft CGA and cues. presents with unsteady antalgic, shuffling gait. assessed ambulation using SPC and completed ~ 30 ft SBA. continue to have antalgic shuffling gait but steadier than without AD. pt agreed and will use SPC at home. pt sat on chair. set up for lunch. call light and table placed within reach. Gait Assessment Gait Gait Assistance Required: Standby Assistance,Contact Guard Assist Distance (Feet) 30 Able to Maintain Weight Bearing Status Yes During Gait Assistive Devices Assistive Device None,Gait Belt,Straight Cane Orthotic/Prosthetic Devices or Brace: No Gait Deviations General Gait Pattern Antalgic,Decreased Stride Length,Decreased Feet Clearance,Step-to Gait Factors Limiting Gait Function Factors Limiting Gait Function Decreased Activity Tolerance, Decreased Strength,Poor Balance Comments Gait Comments pls refer to mobility section for details PT-Balance Assessment Sitting Balance and Reactions Static Sitting Balance Ability Good Dynamic Sitting Balance Ability Good Standing Balance and Reactions Static Standing Balance Ability Good Dynamic Standing Balance Ability Fair Device Used without AD M5 PT-IP Objective Assessments Start: 09/05/20 14:04 Freq: NEEDED Status: Active Protocol: Document 09/05/20 12:09 AB (Rec: 09/05/20 14:13 AB [email or web address]) Orientation Orientation/Cognition Level of Alertness Alert Orientation Name,Place,Situation Language Function Ability No Deficits Noted Gross Range of Motion Lower Extremity ROM Assessment Within Functional Limits Strength Lower Extremity Strength Assessment Within Functional Limits Coordination Assessment Gross Coordination Gross Coordination WNL Sensation Assessment Sensation Gross Sensation WNL Muscle Tone Muscle Tone WNL Yes M6 PT-IP Treatment Start: 09/05/20 14:04 Freq: NEEDED Status: Active Protocol: Document 09/05/20 12:09 AB (Rec: 09/05/20 14:13 AB [id number]) Physical Therapy Treatment Education Education Provided Safety M7 PT-IP Assessment and Plan Start: 09/05/20 14:04 Freq: NEEDED Status: Active Protocol: Document 09/05/20 12:09 AB (Rec: 09/05/20 14:13 AB [id number]) PT Summary Assessment and Plan Potential Rehabilitation Potential Good Status of Condition at Evaluation Stable Summary Impairments Pain,ROM,Strength,Balance, Coordination,Sensation,Bed Mobility,Transfers,Gait, Activity Tolerance Assessment Summary pt requiring SBA with ambulation using SPC and has his spouse to assist him at home when appropriate. will continue to assess progress. Goals Bed Mobility Goal Independent Transfer Goal Independent,Cane Gait Goal Independent,Cane Gait Distance 200 Other Goals up/donw 3 steps L rail ascending SBA Days to Meet Goals 3 Frequency of Treatment Frequency Of Treatment Once a Day Treatment Plan Physical Therapy Treatment Plan Bed Mobility Training,Transfer Training,Gait Training, Therapeutic Exercise,Balance Retraining,Discharge Planning, Hot or Cold Pack,Neuromuscular Re-ed,Coordination Retraining Precautions Other Precautions falls Recommendations To Nursing Amount of Assist Needed 1 Person Assist Discharge Recommendations PT Discharge Recommendations Home with Assistance Transportation Needs at Discharge Private Vehicle
--- NOTE | 2020-09-05 12:44 | CM.IDA ---
Initial DCP Assessment Note Pt is a 75 yo male, resident of [place], arrives to the ER w/suspected new infection, found to have a UTI, w h/o recurrent UTI BPH Patient has been DC home today, K riders infusing, potassium levels will be checked before DC, according to Dr Sow's DC Summary PCP: Maya Johnson Payer: DENY/Carley Met w/patient and spouse, introduced role. Patient indp. at baseline, patient/spouse deny needs from this MORGUE KEEPER, look forward to returning home later today. Patient and spouse have four adult children, numerous grand children and a few great grandchildren. Patient considers his family very supportive. No needs expected from DC planning team although will remain available in case this changes today. DC home w/close outpatient f/u recommended. KATHLEEN Ferro Discharge Planning/Care Management CM Discharge Assessment Start: 09/05/20 12:42 Freq: Status: Active Protocol: Document 09/05/20 12:42 PAIGE (Rec: 09/05/20 12:44 PAIGE [id number]) Discharge Planning Assessment Assigned Buyer Broker KATHLEEN Carrero DPOA/Assigned Designee Name Cee Parekh, spouse Contact Information [phone] Advance Directives? Yes: DPOA Advance Directives on File Yes History Provided By Patient,Significant Other Household Members spouse Type of transporation used prior to Drives own vehicle admit Independent with ADL's Yes Is patient alert and oriented? Yes Barriers to Discharge No Discharge Plan Home Transportation Arrangement Family Referrals Initiated None needed
--- NOTE | 2020-09-05 15:10 | PC.NURSE ---
Pending d/c home. Pt receiving 4 k riders, they have been irritating and the infusion rate has had to be decreased as well as his IV fluids have had to run concurrent. He understands this has delayed his discharge and he is okay with this. He needs another lab draw after k is in. On coming RN made aware she needs to call lab when k rider is done. Spouse is at bedside hoping pt can go home soon.
[2020-09-05] MEDS: ACETAMINOPHEN 325 MG TABLET 650 MG PO ×2 (15:37→23:26)
--- NOTE | 2020-09-05 15:55 | PC.NURSE ---
Addendum entered by Minal Carroll R.N. 09/05/20 17:05: Pt incontinent of large amount urine. Pt requires assistance getting out of bed for total bed change. Dr. Sow in to see patient and discuss remaining in hospital overnight. Pt's spouse is present for this discussion. Temp 99.9 and pt less flushed. Potassium drawn and reported. Original Note: PARTS ORDER AND STOCK CLERK checks pt vital signs @ beginning of shift and rechecks temp several times with temporal and oral thermometer. Temp 102.2 orally with BP 122/51 and HR 69 per monitor. Pt is flushed and warm. Blankets are removed and cool wash cloth provided to forehead. Tylenol administered as per joan Garza with this pattern chart writer's oversite. Contacted Dr. Sow per telephone and MD was informed. No plans to discharge this evening shift and pt was informed as well as pt's spouse who is in room with pt. No orders for blood cultures or to placed pt on iv fluids. Continue to encourage oral intake.
[2020-09-05 16:48] LABS: BUN Creatinine Ratio 18.9 (6-22); Blood Urea Nitrogen 18 mg/dL (9-20); Calcium 8.8 mg/dL (8.4-10.2); Carbon Dioxide 30 mmol/L (22-32); Chloride 93 mmol/L (98-107); Estimated Glomerular Filt Rate > 60.0 mL/min (>60); Glucose 135 mg/dL (80-110); HEMOLYSIS < 15 (0-50); Potassium 3.4 mmol/L (3.4-5.1); Sodium 130 mmol/L (137-145)
[2020-09-05] MEDS: levoFLOXacin 500 MG/100 ML PIGGYBACK 100 MG IV (18:35)
[2020-09-05] MEDS: ATORVASTATIN 20 MG TABLET 10 MG PO (21:17)
[2020-09-05] MEDS: GABAPENTIN 100 MG CAPSULE PO (21:17)
[2020-09-05] MEDS: PRAMIPEXOLE 1 MG TABLET 3 MG PO (21:18)
[2020-09-05] MEDS: SODIUM CHLORIDE 0.9% FLUSH 10 ML IV (21:20)
[2020-09-06] VITALS (7 sets, daily range): BP systolic 117–125; BP diastolic 55–63; PULSE 64–72; RESP 18; TEMP 37.1–39; O2SAT 95–98
--- NOTE | 2020-09-06 01:03 | PC.NURSE ---
Dr. Swo paged via answering service to report elevated temp. of 101.0 given Tylenol 650 mg. @ 2326. Rechecked temp. after 30 mins. temp 101.8. Rechecked temp. again still elevated now @ 102.2 oral temperature was obtained. awaiting call back from Dr. Sow. Will cont. POC & monitor.
--- NOTE | 2020-09-06 02:11 | PC.NURSE ---
Rechecked temperature again @ 0144 now down to 99.5, will monitor.
--- NOTE | 2020-09-06 05:31 | PC.NURSE ---
Talked to Dr. Sow reported elevated temp. earlier of 101.0, 101.8 & 102.2. Temp. this morning down to 99.3. Will monitor.
[2020-09-06] MEDS: PANTOPRAZOLE DR 40 MG TABLET PO (06:13)
[2020-09-06 06:18] LABS: Add Manual Diff / Slide Review NO; Basophils Absolute Auto 0 /uL (0-100); Basophils Percent Auto 0.3 % (0-2); Eosinophils Absolute Auto 0 /uL (0-450); Eosinophils Percent Auto 0.4 % (2-4); Hematocrit 37.9 % (41-53); Hemoglobin 12.9 g/dL (13.5-17.5); Lymphocytes Absolute Auto 1100 /uL (1100-4500); Lymphocytes Percent Auto 14.1 % (25-40); Mean Corpuscular HGB Conc 34.1 % (30-36); Mean Corpuscular Hemoglobin 30.1 PG (26-34); Mean Corpuscular Volume 88.2 fL (80-100); Monocytes Absolute Auto 500 /uL (0-900); Monocytes Percent Auto 6.7 % (3-14); Neutrophils Absolute Auto 5900 /uL (1500-7000); Neutrophils Percent Auto 78.5 % (50-75); Platelet Count 135 X10^3/uL (150-400); Red Cell Distribution Width 14.1 % (11.6-14.8); White Blood Cell Count 7.5 X10^3/uL (4.5-11.0)
[2020-09-06 06:23] LABS: BUN Creatinine Ratio 21.4 (6-22); Blood Urea Nitrogen 18 mg/dL (9-20); Calcium 8.8 mg/dL (8.4-10.2); Carbon Dioxide 28 mmol/L (22-32); Chloride 96 mmol/L (98-107); Estimated Glomerular Filt Rate > 60.0 mL/min (>60); Glucose 133 mg/dL (80-110); Potassium 3.2 mmol/L (3.4-5.1); Sodium 131 mmol/L (137-145)
[2020-09-06 06:33] LABS: HEMOLYSIS 51 (0-50)
--- NOTE | 2020-09-06 08:49 | PM.DS.1 ---
History of Present Illness History of Present Illness Chief complaint: UTI Narrative: 75-year-old male with a history recurrent urinary tract infections BPH obstructive sleep apnea chronic diastolic heart failure restless leg syndrome and a BMI of 44 presents to the emergency room with concerns about urinary tract infection as well as weakness. Patient describes symptoms of increased urinary urgency and dysuria. With frequency with going to the bathroom every 1-2 hours. Symptoms progressively worsened over the last 48 hours. Last night he said he had a temperature as high as 101? he began to feel very weak. Symptoms progressed throughout the night with increased urinary frequency. Patient went to the emergency department today says he has had many urinary tract infections before and has previously been hospitalized for them. He has worked with a urologist for a number of years and even had a TURP procedure done. Despite this he still has frequent urinary tract infections. He is not nauseated. He does feel weak not shortness of breath. He feels like he can empty his bladder he just has to go for regularly. He is not complaining of specific fevers flank pain. Discharge Providers Provider Date of admission: 09/04/20 15:43 Discharge Date: 09/06/20 Primary care physician: Maya Bradley MD Consults: 09/04/20 16:26 Consult to Discharge Planning Routine Comment: Consult to Physical Therapy Evaluate & Treat Comment: Physician Instructions: Evaluate and Treat Discharge provider: Maya Bradley MD Summary Hospital Course Discharge Diagnosis: Urinary tract infection with systemic inflammatory response with weakness elevated white blood cell count Hypokalemia Hyponatremia BPH Restless legs syndrome with sleep apnea Hyperlipidemia Hospital Course: The pt presented with UTI. He was initially started in the ED on antibiotics that prior infections showed potential resistance to. He was then transitioned to Levofloxaxin. His symptoms improved, and he was able to eat and ambulated independently. The day prior to discharge, the pt had a temperature and so he was held an additional night. Urine cultures grew mena-sensitive E coli. The pt will be discharged on Levofloxacin. Due to recurrent UTIs, referral to Urology was placed. While in the hospital, hyponatremia was also treated with NS, and hypokalemia with oral and IV potassium replacement. Exam Vital Signs (past 8 hours): - 09/06/20 00:57 09/06/20 01:44 09/06/20 03:45 Temperature 102.2 F H 99.5 F 99.3 F Pulse Rate 64 Respiratory Rate 18 Blood Pressure 125/55 L Pulse Oximetry 96 09/06/20 06:17 09/06/20 08:00 Temperature 99.2 F 99.1 F Pulse Rate 72 Respiratory Rate 18 Blood Pressure 117/63 Pulse Oximetry 95 Oxygen Delivery Method Room Air,CPAP Oxygen Flow Rate 0 Narrative Exam Narrative: Gen: NAD, sitting comfortably in bed, appears well CV: RRR, no murmurs Resp: clear to auscultation bilaterally Abd: soft, nontender, nondistended Ext: no edema Objective Labs Result Diagrams: 09/06/20 06:03 09/06/20 06:03 Labs: Laboratory Results - last 24 hr 09/05/20 09/06/20 09/06/20 16:31 06:03 06:03 WBC 7.5 RBC 4.30 L Hgb 12.9 L Hct 37.9 L MCV 88.2 MCH 30.1 MCHC 34.1 RDW 14.1 Plt Count 135 L Neut % (Auto) 78.5 H Lymph % (Auto) 14.1 L Door % (Auto) 6.7 Eos % (Auto) 0.4 L Baso % (Auto) 0.3 Neut # (Auto) 5900 Lymph # (Auto) 1100 Door # (Auto) 500 Eos # (Auto) 0 Baso # (Auto) 0 Sodium 130 L 131 L Potassium 3.4 3.2 L Chloride 93 L 96 L Carbon Dioxide 30 28 BUN 18 18 Creatinine 0.95 0.84 Estimated GFR > 60.0 > 60.0 BUN/Creatinine Ratio 18.9 21.4 Glucose 135 H 133 H Calcium 8.8 8.8 [facility] Medical History (Updated 09/04/20 @ 15:43 by Mariah Garduno DO) Cataracts, both eyes (~2011) Chronic diastolic heart failure (2014) Colon polyp (~2010) Diverticulosis (~2010) Gastroesophageal reflux disease without esophagitis (10/31/16) Glaucoma (~2011) Gout of left foot (01/25/16) Hearing loss (~2009) Hemorrhoids (~1978) Hiatal hernia (01/25/16) History of asbestosis (01/25/16) Low testosterone Obstructive sleep apnea syndrome (01/25/16) Prostate mass Rectal bleeding Recurrent UTI Restless legs syndrome (01/25/16) Surgical History History of colonoscopy Family History Father Parkinsons disease Mother Congestive heart failure Social History marital status: household members: spouse lives independently: Yes caregiver/support person: No housing: house pets and animals: Yes education level: college occupational status: previously employed 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[employer], 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 Bradley 7 days Patient needs a Urology follow-up for [facility] Patient will take Levaquin for 7 days orally patient prescription called to pharmacy Discharge orders & Medications Prescriptions: New levofloxacin 500 mg tablet 500 mg PO DAILY 7 Days Qty: 7 RF: 0 Continued timolol 0.25 % drops 1 drp EYE-BOTH DAILY Qty: 5 RF: 0 chlorthalidone 25 mg tablet 25 mg PO QDAY RF: 0 ezetimibe [Zetia] 10 mg tablet 10 mg PO DAILY RF: 0 miconazole nitrate-zinc ox-pet See Rx Instructions TOP .COMPLEX RF: 0 Refresh Celluvisc 1 % dropperette,gel 1 drop EYE-BOTH RF: 0 rosuvastatin 20 mg tablet 20 mg PO DAILY RF: 0 spironolactone 25 mg tablet 25 mg PO DAILY RF: 0 urea 40 % cream 1 applictn TOP DAILY RF: 0 aspirin 81 MG tablet,delayed release (DR/EC) 81 mg PO QDAY Qty: 0 RF: 0 Lumigan 0.01 % drops Qty: 0 RF: 0 nystatin [Nystop] 60 GM powder 100,000 unit Topical BID Qty: 60 RF: 1 magnesium oxide 500 MG tablet 500 mg PO TID Qty: 270 RF: 0 eplerenone 50 MG tablet 75 mg PO QDAY Qty: 135 RF: 1 tamsulosin [Flomax] 0.4 mg capsule 0.4 mg PO EVERY OTHER DAY Qty: 90 RF: 1 [saw palmetto] 500 mg PO BID Qty: 0 RF: 0 nystatin 100,000 unit/gram cream 1 applictn TOP BID Qty: 15 RF: 0 pantoprazole 40 mg tablet,delayed release (DR/EC) See Rx Instructions .ROUTE .COMPLEX Qty: 90 RF: 1 pramipexole 3 mg tablet extended release 24 hr 3 mg PO BEDTIME MDD 3 mg Qty: 30 RF: 3 azelastine-fluticasone 137-50 mcg/spray spray,non-aerosol See Rx Instructions .ROUTE .COMPLEX Qty: 23 RF: 3 Myrbetriq 50 mg tablet extended release 24 hr 50 mg PO DAILY Qty: 60 RF: 0 fluticasone propionate 50 mcg/actuation spray,suspension 1 spray NASAL BID PRN (Reason: Allergic Symptoms) RF: 0 (DME) [employer] BIPAP Qty: 1 RF: 0 Follow up/Referrals: Maya Bradley MD [Primary Care Provider] - 09/11/20 3:15 pm (APPT:09/11 @ 3:[address] BRADLEY) Marquis Beatty MD [Physician] - 09/11/20 1:30 pm (APPT:MONDAY 09/11 CHECK IN AT 1:[address] BEATTY-UROLOGIST) Diet/Activity/Treatments Diet: Regular Skin/Wound/Dressing Care Report to your healthcare provider any signs of infection, such as:: chills, fever and increased pain Visit Report/Discharge Packet Instructions: DI for Urinary Tract Infection (UTI), DI for Hypokalemia, High-Potassium Diet Visit Report Forms: Patient Portal/API, Stroke Signs & Symptoms Discharge Data Primary Care Provider: Maya Bradley Attending Provider: Darryl Sow Admit Date/Time: 09/04/20 15:43 Discharges patient from system. Discharge Date/Time: 09/06/20 15:15 Quality VTE Deep Vein Thrombosis/Pulmonary Embolism Present on Admission: No
[2020-09-06] MEDS: ASPIRIN EC 81 MG TABLET PO (08:55)
[2020-09-06] MEDS: SPIRONOLACTONE 25 MG TABLET PO (08:55)
[2020-09-06] MEDS: SODIUM CHLORIDE 0.9% FLUSH 10 ML IV (08:59)
[2020-09-06] MEDS: EZETIMIBE 10 MG TABLET PO (08:59)
[2020-09-06] MEDS: CHLORTHALIDONE 25 MG TABLET PO (08:59)
[2020-09-06] MEDS: MIRABEGRON 50 MG 50 EACH PO (09:01)
--- NOTE | 2020-09-06 11:14 | PT.IPTN ---
Physical Therapy Treatment Note M2 PT-IP Current Condition Start: 09/05/20 14:04 Freq: NEEDED Status: Active Protocol: Document 09/05/20 12:09 AB (Rec: 09/05/20 14:13 AB [email or web address]) Physical Therapy Current Condition Current Condition Evaluation Date 09/05/20 Treatment Diagnosis UTI; difficulty in walking Onset Date 09/04/20 M3 PT-IP Subjective Start: 09/05/20 14:04 Freq: NEEDED Status: Active Protocol: Document 09/06/20 10:59 CLB (Rec: 09/06/20 13:23 CLB [id number]) Subjective Physical Therapy Visit Type Type Treatment Note Visit Start Time 10:59 Visit Stop Time 11:14 Total Visit Minutes 15 Notes RN and pt states pt has been in melo Ind ambulating with FWW. Number of CALL CENTER TRAINER Visits 1 Physical Therapy Visit Comments Patient Comments pt is agreeable to do PT M4 PT-IP Mobility and Gait Start: 09/05/20 14:04 Freq: NEEDED Status: Active Protocol: Document 09/06/20 10:59 CLB (Rec: 09/06/20 13:23 CLB [id number]) PT-Transfer Assessment Sit to and From Stand Sit to and from Stand Standby Assistance Equipment Transfer Assistive Device None,Gait Belt,Straight Cane Orthotic/Prosthetic Devices or Brace: No Transfers Transfer Destination Chair Transfer Technique ambulated Transfer Ability Level of Assist Standby Assistance,1 Person Assistance,Use of Upper Extremities Comments Mobility Comments Pt able to stand from chair SBA and ambulate in melo w/SPC /SBA to therapy stairs climbing three steps x1 with left rail. Pt returning to room placing cane aside and ambulating into BR and using urinal Ind. Pt then ambulated SBA to soap dispenser washing hands and returning to sitting in chair. Pt performed seated flx/ext. Left pt in chair with all needs within reach. Gait Assessment Gait Gait Assistance Required: Standby Assistance,1 Person Assist Distance (Feet) 100 Able to Maintain Weight Bearing Status Yes During Gait Assistive Devices Assistive Device Gait Belt,Straight Cane Gait Deviations General Gait Pattern Antalgic,Decreased Stride Length,Decreased Feet Clearance Factors Limiting Gait Function Factors Limiting Gait Function Decreased Activity Tolerance, Decreased Strength,Poor Balance Comments Gait Comments pls refer to mobility section for details M5 PT-IP Objective Assessments Start: 09/05/20 14:04 Freq: NEEDED Status: Active Protocol: Document 09/05/20 12:09 AB (Rec: 09/05/20 14:13 AB [id number]) Orientation Orientation/Cognition Level of Alertness Alert Orientation Name,Place,Situation Language Function Ability No Deficits Noted Gross Range of Motion Lower Extremity ROM Assessment Within Functional Limits Strength Lower Extremity Strength Assessment Within Functional Limits Coordination Assessment Gross Coordination Gross Coordination WNL Sensation Assessment Sensation Gross Sensation WNL Muscle Tone Muscle Tone WNL Yes M6 PT-IP Treatment Start: 09/05/20 14:04 Freq: NEEDED Status: Active Protocol: Document 09/06/20 10:59 CLB (Rec: 09/06/20 13:23 CLB [id number]) Physical Therapy Treatment Exercises Exercises Seated Knee Flexion/Extension Education Education Provided Safety M7 PT-IP Assessment and Plan Start: 09/05/20 14:04 Freq: NEEDED Status: Active Protocol: Document 09/06/20 10:59 CLB (Rec: 09/06/20 13:23 CLB [id number]) PT Summary Assessment and Plan Potential Rehabilitation Potential Good Status of Condition at Evaluation Stable Summary Impairments Pain,ROM,Strength,Balance, Coordination,Sensation,Bed Mobility,Transfers,Gait, Activity Tolerance Assessment Summary Pt improving with dynamic balance able to ambulate in melo with SPC/SBA then ambulate in room w/o AD to BR. Pt denies pain and able to climb stairs SBA with left rail. Goals Bed Mobility Goal Independent Transfer Goal Independent,Cane Gait Goal Independent,Cane Gait Distance 200 Other Goals up/donw 3 steps L rail ascending SBA Days to Meet Goals 3 Frequency of Treatment Frequency Of Treatment Once a Day Treatment Plan Physical Therapy Treatment Plan Bed Mobility Training,Transfer Training,Gait Training, Therapeutic Exercise,Balance Retraining,Discharge Planning, Hot or Cold Pack,Neuromuscular Re-ed,Coordination Retraining Precautions Other Precautions falls Recommendations To Nursing Amount of Assist Needed 1 Person Assist Discharge Recommendations PT Discharge Recommendations Home with Assistance Transportation Needs at Discharge Private Vehicle
[2020-09-06] MEDS: POTASSIUM CHLORIDE 20 MEQ TAB 40 MEQ PO (12:45)
--- NOTE | 2020-09-06 15:42 | PC.NURSE ---
Discharge: Feels ready to d/c home. Extra k given. Reviewed d/c packet and sxs of low k. Reviewed high k diet. Pt had some concerns about his appointments and he will reschedule them. Rx has been e sent. Pt had no further concerns. D/c home via auto w/.
== END 2020-09-06 15:15 | disposition home or self-care (01) ==
LOC: ED 15:43 → AC 15:55
PROVIDERS: Admitting Provider Family Medicine; Emergency Provider Emergency Medicine; PCP Family Medicine; Referring Provider Emergency Medicine; Visit Provider Family Medicine
DX: N39.0 Urinary tract infection, site not specified (principal); B96.20 Unspecified Escherichia coli [E. coli] as the cause of diseases classified elsewhere; E87.1 Hypo-osmolality and hyponatremia; D72.829 Elevated white blood cell count, unspecified; E87.6 Hypokalemia; R53.1 Weakness; N40.1 Benign prostatic hyperplasia with lower urinary tract symptoms; R39.15 Urgency of urination; I50.32 Chronic diastolic (congestive) heart failure; G25.81 Restless legs syndrome; E78.5 Hyperlipidemia, unspecified; G47.33 Obstructive sleep apnea (adult) (pediatric); Z87.440 Personal history of urinary (tract) infections; Z20.822 Contact with and (suspected) exposure to COVID-19
CPT/HCPCS: 36415; 71045; 80048; 80053; 81001; 83605; 83690; 84145; 85025; 87040; 87077; 87086; 87186; 87635; 93005; 93010; 96365; 96366; 96367; 96368; 97116; 97161; 99223; 99232; 99238; 99284; C9803; G0378; J0295; J0696; J1650; J1956

== ENCOUNTER → 2020-09-21 16:31 | Outpatient (CLI) | payer MEDICARE, OTHER, SELFPAY ==
[2020-09-05 08:36] VITALS: BMI 44.0
== END ==
PROVIDERS: PCP Family Medicine; Referring Provider Family Medicine; Visit Provider Family Medicine
DX: N39.0 Urinary tract infection, site not specified (principal)
CPT/HCPCS: 87077; 87086; 87186

== ENCOUNTER → 2020-09-28 13:22 | Outpatient (CLI) | payer MEDICARE, OTHER, SELFPAY ==
[2020-09-05 08:36] VITALS: BMI 44.0
[2020-09-28 13:26] LABS: Bacteria Urine None Seen; RBC Urine None Seen (0-5/HPF)
[2020-09-28 13:40] LABS: Appearance Urine UA CLEAR; Bilirubin Urine UA NEGATIVE (NEGATIVE); Color Urine UA YELLOW; Glucose Urine UA TRACE g/dL (Negative); Ketones Urine UA NEGATIVE (NEGATIVE); Leukocyte Esterase Urine UA NEGATIVE (NEGATIVE); Nitrite Urine UA NEGATIVE (Negative); Occult Blood Urine UA NEGATIVE (Negative); Protein Urine UA TRACE (Negative); Specific Gravity Urine UA 1.025 (1.000-1.035); Urobilinogen Urine UA 0.2 E.U./dL (0.2); pH Urine UA 5.5 (4.5-8.0)
[2020-09-28 13:53] LABS: Amorphous Sediment Urine 1+; Culture Indicated Urine Specimen Cultured; Mucus Urine 2+ (Negative); WBC Urine 1-5/HPF (0-5/HPF)
== END ==
PROVIDERS: PCP Family Medicine; Referring Provider Family Medicine; Visit Provider Family Medicine
DX: N39.0 Urinary tract infection, site not specified (principal); R32 Unspecified urinary incontinence
CPT/HCPCS: 81001; 87086

== ENCOUNTER → 2020-10-25 15:10 | Outpatient (CLI) | payer MEDICARE, OTHER, SELFPAY ==
[2020-09-05 08:36] VITALS: BMI 44.0
[2020-10-25 16:27] LABS: BUN Creatinine Ratio 18.7 (6-22); Blood Urea Nitrogen 20 mg/dL (9-20); Calcium 9.2 mg/dL (8.4-10.2); Carbon Dioxide 32 mmol/L (22-32); Chloride 101 mmol/L (98-107); Estimated Glomerular Filt Rate > 60.0 mL/min (>60); Glucose 121 mg/dL (80-110); HEMOLYSIS < 15 (0-50); Potassium 3.6 mmol/L (3.4-5.1); Sodium 139 mmol/L (137-145)
== END ==
PROVIDERS: PCP Family Medicine; Referring Provider Urology; Visit Provider Urology
DX: N39.0 Urinary tract infection, site not specified (principal); N42.9 Disorder of prostate, unspecified; N39.3 Stress incontinence (female) (male); N36.0 Urethral fistula; N32.3 Diverticulum of bladder; E66.01 Morbid (severe) obesity due to excess calories; Z68.41 Body mass index [BMI] 40.0-44.9, adult; Z98.890 Other specified postprocedural states; Z90.79 Acquired absence of other genital organ(s); Z80.42 Family history of malignant neoplasm of prostate
CPT/HCPCS: 36415; 51798; 80048; 81002; 99215

== ENCOUNTER → 2020-10-30 10:06 | Outpatient (CLI) | payer MEDICARE, OTHER, SELFPAY ==
[2020-09-05 08:36] VITALS: BMI 44.0
--- NOTE | 2020-10-30 10:09 | DI.CT.S_ITS ---
PROCEDURE: CT ABDOMEN PELVIS WO/W CON INDICATIONS: Recurrent UTI TECHNIQUE: After the administration of oral contrast, 5 mm thick sections acquired from the diaphragms to the iliac crests. After the administration of intravenous contrast, 5 mm thick sections acquired from the diaphragms to the symphysis. 5 mm thick coronal and sagittal reformats were acquired. For radiation dose reduction, the following was used: automated exposure control, adjustment of mA and/or kV according to patient size. COMPARISON: [facility], CT, CT ABDOMEN PELVIS WO/W CON, 10/05/2019, 11:27. FINDINGS: Image quality: Excellent. ABDOMEN: Lung bases: Lung bases are clear. Heart size is normal. Solid organs: Liver is normal in size and enhancement. Gallbladder is again noted thick containing large gallstone. No gallbladder wall thickening.. Biliary system is non-dilated. Pancreas enhances normally. Spleen is normal in size and enhancement. No adrenal nodules. Both kidneys are normal in size. No hydronephrosis or nephrolithiasis. Bowel and peritoneum: Stomach, small and large bowel loops are normal in caliber and wall thickness. No free fluid or air. Sigmoid diverticulosis without evidence of diverticulitis. Nodes and vessels: No retroperitoneal or mesenteric adenopathy by size criteria. Aorta and inferior vena are normal in caliber. Miscellaneous: No ventral hernias. PELVIS: Genitourinary: TURP defect. Right lateral wall diverticulum of the bladder. Mild diffuse bladder wall thickening. Miscellaneous: Bilateral fat containing inguinal hernias, left greater than right. No inguinal adenopathy. Bones: No suspicious bony lesions. No vertebral body compression fractures. Diffuse lumbar degenerative change. IMPRESSION: 1. TURP defect, mild diffuse bladder wall thickening, bladder diverticulum. 2. No renal stone, ureteral stone, hydronephrosis, or findings suspicious for malignancy. 3. Sigmoid diverticulosis. 4. Cholelithiasis. Dictated by: Babak Calvin M.D. on 10/30/2020 at 12:19 Approved by: Babak Calvin M.D. on 10/30/2020 at 12:26
[2020-10-30 12:46] LABS: Prostate Specific Antigen 0.587 ng/mL (0.10-4.00)
== END ==
PROVIDERS: PCP Family Medicine; Referring Provider Urology; Visit Provider Urology
DX: R32 Unspecified urinary incontinence (principal); N42.9 Disorder of prostate, unspecified; N39.0 Urinary tract infection, site not specified; K57.30 Diverticulosis of large intestine without perforation or abscess without bleeding; K80.20 Calculus of gallbladder without cholecystitis without obstruction
CPT/HCPCS: 36415; 74178; 84153

== ENCOUNTER → 2021-10-01 11:15 | Outpatient (CLI) | payer MEDICARE, OTHER, SELFPAY ==
[2020-09-05 08:36] VITALS: BMI 44.0
[2021-10-01 12:54] LABS: COVID19 -Nasal RAPID Negative (Negative)
== END ==
PROVIDERS: PCP Family Medicine; Visit Provider Surgery
DX: Z20.822 Contact with and (suspected) exposure to COVID-19 (principal); Z01.812 Encounter for preprocedural laboratory examination
CPT/HCPCS: 87635; C9803

== ENCOUNTER 2021-10-02 08:47 | Day surgery (SDC) | payer MEDICARE, OTHER, SELFPAY ==
[2020-09-05 08:36] VITALS: BMI 44.0
--- NOTE | 2021-10-02 | PATH_ITS ---
[facility] Accession Number: [id number] No. of containers..01 Tissue . 01 Material submitted: . colon - DESCENDING COLON BX . 01 Diagnosis: Descending Colon, Biopsy: Colonic mucosa with prominent benign lymphoid aggregate. Negative for active or microscopic colitis. Negative for granulomas, dysplasia, or malignancy. MRV 10/04/2021 1402 Local . 01 Electronically signed: . Trenton Joiner MD, PhD, Pathologist NPI- [id number] . 01 Gross description: . DESCENDING COLON BX: Received in formalin is 1 fragment(s) of [place], soft tissue measuring 0.2 x 0.2 x 0.2 cm submitted entirely in 1 cassette(s) /ISIAH 10/03/2021 1854 Local . 01 Pathologist provided ICD-10: Z86.010, K63.5 . 01 CPT . 351059 Specimen Comment: A courtesy copy of this report has been sent to [phone] Performed at: 01 [facility] [address] [place] [address], [place], [place] [id number] MD Cesario Witt MD Phone: [phone]
[2021-10-02] MEDS: LACTATED RINGERS 1,000 ML 200 ML IV (09:23)
[2021-10-02 09:37] VITALS: BP 112/44; PULSE 55; RESP 18; TEMP 36.5; O2SAT 97; BMI 43.3
[2021-10-02 09:48] VITALS: BMI 43.3
--- NOTE | 2021-10-02 10:21 | PM.HP.1 ---
History of Present Illness History of Present Illness Date Patient Seen: 10/02/21 Time Patient Seen: 10:21 [place] [facility] [place]: 76 y.o man with CHF here for screening colonoscopy secondary to history of colonic polyps. No interval changes in health. To be performed with anesthesia for sedation measures. 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 Morbid obesity with body mass index (BMI) of 40.0 to 44.9 in adult (10/31/16) Obstructive sleep apnea syndrome (01/25/16) Prostate mass Rectal bleeding Recurrent UTI Restless legs syndrome (01/25/16) 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 Surgical History History of colonoscopy History of transurethral resection of prostate Family & Social History Family History Father Parkinsons disease Mother Congestive heart failure Social History: household members spouse lives independently Yes caregiver/support person No Tobacco & Substance use: Smoking Status Never smoker alcohol intake current alcohol intake frequency holiday/special occasion Substance Use Type does not use Meds Home Medications and Allergies Home Medications Medication Instructions Recorded Confirmed Type aspirin 81 mg tablet,delayed 81 mg PO QDAY ##0 01/25/16 10/02/21 History release magnesium oxide 500 mg tablet 500 mg PO TID #270 tabs 02/04/16 08/15/21 Rx [saw palmetto] 500 mg PO BID ##0 07/06/18 10/02/21 History carboxymethylcellulose sodium 1 % 1 drop EYE-BOTH DAILY 07/06/18 10/02/21 History eye gel in a dropperette (Refresh Celluvisc) miconazole nitrate-zinc ox-pet See Rx Instructions topical 07/06/18 10/02/21 History .COMPLEX urea 40 % topical cream 1 applictn topical DAILY 07/06/18 10/02/21 History Respironics Dreamstation BIPAP #1 ea 12/06/18 08/15/21 History Disabled Parking Permit See Rx Instructions .Route 09/21/20 08/15/21 Rx .COMPLEX #1 ea cyclobenzaprine 10 mg tablet 10 mg PO TID 01/08/21 10/02/21 History nystatin 100,000 unit/gram topical 100,000 unit topical BID ##60 01/25/21 10/02/21 Rx powder (Nystop) eplerenone 25 mg tablet 25 mg PO DAILY #90 tabs 04/16/21 10/02/21 Rx eplerenone 50 mg tablet 50 mg PO DAILY #90 tabs 04/16/21 10/02/21 Rx ezetimibe 10 mg tablet (Zetia) 10 mg PO DAILY #90 tabs 04/16/21 10/02/21 Rx gabapentin 100 mg capsule 100 mg PO BID RLS #180 caps 04/16/21 10/02/21 Rx mirabegron 50 mg tablet,extended 50 mg PO DAILY #90 tabs 04/16/21 10/02/21 Rx release 24 hr (Myrbetriq) pantoprazole 40 mg tablet,delayed See Rx Instructions .Route 04/16/21 10/02/21 Rx release .COMPLEX #90 tabs rosuvastatin 20 mg tablet 20 mg PO DAILY #90 tabs 04/16/21 10/02/21 Rx torsemide 10 mg tablet 10 mg PO DAILY 06/25/21 10/02/21 History nystatin 100,000 unit/gram topical 1 applic topical BID #30 grams 07/12/21 10/02/21 Rx cream dorzolamide 22.3 mg-timolol 6.8 See Rx Instructions .Route .COMPLEX 08/13/21 10/02/21 History mg/mL eye drops sodium,potassium,mag sulfates 17.5 See Rx Instructions PO .COMPLEX 08/15/21 10/02/21 Rx gram-3.13 gram-1.6 gram oral soln #354 mL (Suprep Bowel Prep Kit) azelastine-fluticasone 137 mcg-50 See Rx Instructions .Route 07/22/22 08/17/22 Rx mcg/spray nasal spray .COMPLEX #23 grams bimatoprost 0.01 % eye drops 1 drp ophthalmic (eye) DAILY #5 mL 09/23/21 10/02/21 Rx (Lumigan) pramipexole 1.5 mg tablet,extended See Rx Instructions .Route 09/27/21 10/02/21 Rx release 24 hr .COMPLEX RLS #180 tabs Allergies Allergy/AdvReac Type Severity Reaction Status Date / Time Sulfa (Sulfonamide Allergy Unknown Nausea Verified 10/02/21 09:25 Antibiotics) [SULFA (SULFONAMIDE ANTIBIOTICS)] ciprofloxacin [From Cipro] AdvReac Intermediate bruising Verified 10/02/21 09:25 and sore tendons Exam Vital Signs (past 8 hours): - 10/02/21 09:37 Temperature 97.7 F Pulse Rate 55 L Respiratory Rate 18 Blood Pressure 112/44 L Pulse Oximetry 97 Oxygen Delivery Method Room Air Oxygen Delivery Method Room Air Narrative Exam Narrative: Gen-Adult man alert and oriented Chest-Non labored resp Abdomen -soft non tender Assessment & Plan Assessment & Plan narrative: 76 y.o man with history of colonic polyps and CHF here for elective colonoscopy under anesthesia. Overview of the procedure was discussed. Risks including bleeding, missed diagnosis and intestinal perforation were discussed. Questions have been answered and he is in agreement with this plan. Time Spent With Patient Critical Care time: I spent a total of [] minutes of critical care time on this patient's care today; this time is exclusive of procedural time.
--- NOTE | 2021-10-02 11:29 | SUR.PREOP ---
Pt given warm blanket. Has been updated on surgical delay.
--- NOTE | 2021-10-02 12:09 | SUR.OPER ---
case delayed due to emergency c section
[2021-10-02 12:30] VITALS: BP 131/59; PULSE 55; RESP 22; TEMP 35.9; O2SAT 94
--- NOTE | 2021-10-02 12:31 | PM.OP.COLON ---
Operative Date/Time/Diagnoses Date of procedure: 10/02/21 Time of procedure: 12:31 Pre-op diagnosis: Personal history of colonic polyps Post-op diagnosis: same Procedure & Clinicians Study performed: Colonoscopy and polypectomy Same procedure as scheduled: Yes Indications: Personal history of colonic polyps Surgeon: Carlos Andino Procedure Notes Procedure in detail: The history and physical was performed/updated and the patient is ASA class is 3. The procedure was discussed in detail with the patient. Potential risks complications including infection, bleeding, missed diagnosis, perforation, need for surgery, and were explained. Their questions were answered and informed consent was obtained. Patient was brought to the procedure room and placed standard monitoring equipment. The patient's vital signs were monitored continuously throughout the entire procedure. Prior to starting time-out was performed. The patient was placed in the left lateral recumbent position. Procedural sedation was administered by Anesthesia. Examination began with a thorough inspection of the perianal area there was no evidence of fissures, fistulae, external hemorrhoids or cutaneous malignancy. The colonoscopy scope was then placed into the anal canal and was advanced to the cecum, which was identified by the ileocecal valve, the appendiceal orifice and the confluence of the taenia. The scope was then slowly withdrawn examining colon thoroughly in all directions, irrigating it of any residual stool. FINDINGS 1. Descending colon-3 mm polyp removed with biopsy forceps 2. Diverticulosis 3. Internal hemorrhoids mild The patient tolerated the procedure well. They will be discharged once criteria are met. The prep was of good/excellent quality. The withdrawl time was 7 minutes. Specimen(s): other (Descending colon polyp) Complications: none Impression: Colonic polyp Post-procedure Recommendations: Colonoscopy in 5 years Disposition: same day surgery
[2021-10-02 12:35] VITALS: BP 101/39; PULSE 57; RESP 21; O2SAT 95
[2021-10-02 12:40] VITALS: BP 115/48; PULSE 56; RESP 13; O2SAT 94
[2021-10-02 12:45] VITALS: BP 106/44; PULSE 57; RESP 12; O2SAT 94
[2021-10-02 12:51] VITALS: BP 121/63; PULSE 69; RESP 14
== END 2021-10-02 13:29 | disposition home or self-care (01) ==
PROVIDERS: PCP Family Medicine; Referring Provider Surgery; Visit Provider Surgery
PROC: 0DJD8ZZ Inspection of Lower Intestinal Tract, Via Natural or Artificial Opening Endoscopic (ICD-10-PCS; CPT 45378; principal; 2021-10-02 10:15)
DX: Z12.11 Encounter for screening for malignant neoplasm of colon (principal); Z86.010 Personal history of colon polyps; K64.8 Other hemorrhoids; K57.30 Diverticulosis of large intestine without perforation or abscess without bleeding
CPT/HCPCS: 45380; 00812; J2704

== ENCOUNTER → 2021-10-15 15:35 | Outpatient (CLI) | payer MEDICARE, OTHER, SELFPAY ==
[2020-09-05 08:36] VITALS: BMI 44.0
[2021-10-15 17:19] LABS: Appearance Urine UA CLEAR; Bilirubin Urine UA NEGATIVE (NEGATIVE); Color Urine UA YELLOW; Glucose Urine UA NEGATIVE (Negative); Ketones Urine UA NEGATIVE (NEGATIVE); Leukocyte Esterase Urine UA TRACE (NEGATIVE); Nitrite Urine UA NEGATIVE (Negative); Occult Blood Urine UA TRACE-INTACT (Negative); Protein Urine UA NEGATIVE (Negative); Specific Gravity Urine UA 1.015 (1.000-1.035); Urobilinogen Urine UA 0.2 E.U./dL (0.2); pH Urine UA 6.5 (4.5-8.0)
[2021-10-15 17:39] LABS: Bacteria Urine Few (2-10); Culture Indicated Urine Specimen Cultured; Hyaline Casts Urine 0-1/LPF; Mucus Urine 1+ (Negative); RBC Urine 0-1/HPF (0-5/HPF); Squamous Epithelial Cell Urine 0-1 /HPF (0-5/HPF); WBC Urine 5-10/HPF (0-5/HPF)
== END ==
PROVIDERS: PCP Family Medicine; Referring Provider Urology; Visit Provider Urology
DX: N39.0 Urinary tract infection, site not specified (principal)
CPT/HCPCS: 81001; 87077; 87086; 87186

== ENCOUNTER 2021-11-25 00:37 | Emergency (ER) | payer MEDICARE, OTHER, SELFPAY ==
[2020-09-05 08:36] VITALS: BMI 44.0
[2021-11-25] VITALS (10 sets, daily range): BP systolic 132–141; BP diastolic 60–65; PULSE 63–80; RESP 6–30; TEMP 37.4–37.7; O2SAT 91–96; BMI 44.0
--- NOTE | 2021-11-25 01:02 | DI.RAD.S_ITS ---
PROCEDURE: XR CHEST 1V INDICATIONS: suspected sepsis TECHNIQUE: One view of the chest was acquired. COMPARISON: [facility], CR, XR CHEST 1V, 09/04/2020, 14:00. FINDINGS: Surgical changes and devices: None. Lungs and pleura: Lungs are clear. No pleural effusions or pneumothorax. Mediastinum: Mediastinal contours appear normal. Heart size is normal. Bones and chest wall: No suspicious bony lesions. Overlying soft tissues appear unremarkable. IMPRESSION: Reduced inspiratory volume, quality of visualization is limited by this factor. No definite pneumonia found. Dictated by: Mani Francis M.D. on 11/25/2021 at 1:42 Approved by: Mani Francis M.D. on 11/25/2021 at 1:42
--- NOTE | 2021-11-25 01:17 | ED_ITS ---
HPI - General Adult General Chief complaint: Fever Stated complaint: Fever 101, feels drained, bodyaches Time Seen by Provider: 11/25/21 01:05 Source: patient Mode of arrival: Ambulatory History of Present Illness HPI narrative: 76-year-old gentleman with a history congestive heart failure, sleep apnea, BPH post TUR with a history of recurrent urinary tract infection presents with fever and increasing fatigue. He did have glaucoma surgery on the left eye approximately 2 weeks ago is still having some discharge in significant irritati on from the eye and has seen Ophthalmology in follow-up with reassurance given. He currently is on steroid eye drops. Chronic urologic issues include recurrent urinary tract infection most recently E coli with resistance to Septra and amoxicillin, urgent continence, prostatitis BPH and recurrent bladder outlet obstruction issues. He was recently treated with Macrodantin for 2 courses in continues to have urgency without significant pain, abdominal pain, flank pain or dysuria. He has not noticed overt hematuria. He reports no pulmonary symptoms, coughing, wheezing. He is having no palpitations. No skin complaints nor headaches. Related Data Home Medications Medication Instructions Recorded Confirmed aspirin 81 mg tablet,delayed 81 mg PO QDAY ##0 01/25/16 10/02/21 release [saw palmetto] 500 mg PO BID ##0 07/06/18 10/02/21 carboxymethylcellulose sodium 1 % 1 drop EYE-BOTH DAILY 07/06/18 10/02/21 eye gel in a dropperette (Refresh Celluvisc) miconazole nitrate-zinc ox-pet See Rx Instructions topical 07/06/18 10/02/21 .COMPLEX urea 40 % topical cream 1 applictn topical DAILY 07/06/18 10/02/21 Respironics Dreamstation BIPAP #1 ea 12/06/18 08/15/21 cyclobenzaprine 10 mg tablet 10 mg PO TID 01/08/21 10/02/21 torsemide 10 mg tablet 10 mg PO DAILY 06/25/21 10/02/21 dorzolamide 22.3 mg-timolol 6.8 See Rx Instructions .Route .COMPLEX 08/13/21 10/02/21 mg/mL eye drops Previous Rx's Medication Instructions Recorded magnesium oxide 500 mg tablet 500 mg PO TID #270 tabs 02/04/16 Disabled Parking Permit See Rx Instructions .Route 09/21/20 .COMPLEX #1 ea nystatin 100,000 unit/gram topical 100,000 unit topical BID ##60 01/25/21 powder (Nystop) eplerenone 25 mg tablet 25 mg PO DAILY #90 tabs 04/16/21 eplerenone 50 mg tablet 50 mg PO DAILY #90 tabs 04/16/21 ezetimibe 10 mg tablet (Zetia) 10 mg PO DAILY #90 tabs 04/16/21 gabapentin 100 mg capsule 100 mg PO BID RLS #180 caps 04/16/21 mirabegron 50 mg tablet,extended 50 mg PO DAILY #90 tabs 04/16/21 release 24 hr (Myrbetriq) pantoprazole 40 mg tablet,delayed See Rx Instructions .Route 04/16/21 release .COMPLEX #90 tabs rosuvastatin 20 mg tablet 20 mg PO DAILY #90 tabs 04/16/21 nystatin 100,000 unit/gram topical 1 applic topical BID #30 grams 07/12/21 cream sodium,potassium,mag sulfates 17.5 See Rx Instructions PO .COMPLEX 08/15/21 gram-3.13 gram-1.6 gram oral soln #354 mL (Suprep Bowel Prep Kit) azelastine-fluticasone 137 mcg-50 See Rx Instructions .Route 09/06/21 mcg/spray nasal spray .COMPLEX #23 grams bimatoprost 0.01 % eye drops 1 drp ophthalmic (eye) DAILY #5 mL 09/23/21 (Lumigan) pramipexole 1.5 mg tablet,extended See Rx Instructions .Route 09/27/21 release 24 hr .COMPLEX RLS #180 tabs nitrofurantoin 100 mg PO BID #20 caps 10/17/21 monohydrate/macrocrystals 100 mg capsule nitrofurantoin 100 mg PO BID #30 caps 10/24/21 monohydrate/macrocrystals 100 mg capsule Allergies Allergy/AdvReac Type Severity Reaction Status Date / Time Sulfa (Sulfonamide Allergy Unknown Nausea Verified 11/25/21 00:55 Antibiotics) [SULFA (SULFONAMIDE ANTIBIOTICS)] ciprofloxacin [From Cipro] AdvReac Intermediate bruising Verified 11/25/21 00:55 and sore tendons Review of Systems Review of Systems Narrative: Remainder of complete review of systems is otherwise unremarkable except for that included in the HPI. 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 Morbid obesity with body mass index (BMI) of 40.0 to 44.9 in adult (10/31/16) Obstructive sleep apnea syndrome (01/25/16) Prostate mass Rectal bleeding Recurrent UTI Restless legs syndrome (01/25/16) 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 Surgical History History of colonoscopy History of transurethral resection of prostate Family History Father Parkinsons disease Mother Congestive heart failure Social History marital status: household members: spouse lives independently: Yes caregiver/support person: No housing: house pets and animals: Yes education level: college occupational status: previously employed 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[employer], 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: Yes ([employer]) seatbelt use: always helmet use: Yes water heater temp set < 120 deg: Yes Smoking Status: Never smoker second hand exposure: No alcohol intake: current substance use type: does not use during the past year weight has: decreased > 10 lbs well-balanced diet: about half the time daily servings fruits/ve-4 caffeine: No eating out: 1-3 times/week frequency: 1-2 times per week duration: 45-60 minutes/day Smoking Status: Never smoker alcohol intake frequency: holidays/special occasions only Substance Use Type: does not use Exam Initial Vital Signs Initial Vital Signs: Vital Signs Pulse Rate 80 11/25/21 00:45 Blood Pressure 139/62 11/25/21 00:45 Pulse Oximetry 95 11/25/21 00:45 General: Healthy appearing, in no acute distress. Able to give a complete and coherent history. Well-nourished well-developed HEENT: Moist mucous membranes, left eye irritated with debris without obvious conjunctivitis. Neck: No JVD, supple, no cervical adenopathy Respiratory: Lungs are clear to auscultation, no wheezing no rales no rhonchi. Full and symmetrical air movement Cardiac: Regular rate and rhythm no murmurs no bruits Abdomen: Soft, obese, nontender, good bowel tones, no flank pain Skin: Warm and dry, no rashes Neurologic: Grossly neurologically intact with no obvious asymmetries or abnormalities Extremities: No trauma, well perfused, chronic venous stasis changes but minimal lower extremity edema bilaterally Psych: Cooperative, appropriate insight and affect Course Orders Ordered: ED Orders 11/25/21 01:02 XR chest 1V Stat EKG-12 Lead Stat 11/25/21 01:05 Complete Blood Count AUTO DIFF Stat Comprehensive Metabolic Panel Stat Lactate (Lactic Acid) Stat Lipase Stat Procalcitonin Stat 11/25/21 01:20 COVID19 -Nasal RAPID/Pre-Proc Stat 11/25/21 01:40 Blood Culture Stat 11/25/21 03:08 Ictotest Urine Stat Urinalysis and Microscopic Stat Urine Culture Stat Discontinued Medications Sodium Chloride (Normal Saline 0.9%) 1,000 mls @ 1,000 mls/hr IV BOLUS ONE Stop: 11/25/21 02:01 Last Infusion: 11/25/21 03:15 Dose: 0 mls/hr Documented By: Admin: 11/25/21 01:21 Dose: 1,000 mls/hr Documented By: CARLOS Vital Signs Vital signs: Vital Signs - 8 hr 11/25/21 00:55 11/25/21 00:45 11/25/21 00:45 Temperature 99.9 F H Pulse Rate 80 80 Respiratory Rate 18 Blood Pressure 139/62 139/62 Pulse Oximetry 95 95 Oxygen Delivery Method Room Air 11/25/21 01:00 11/25/21 01:30 11/25/21 01:30 Temperature 99.3 F Pulse Rate 75 72 Respiratory Rate 16 24 Blood Pressure 137/63 Pulse Oximetry 93 91 Oxygen Delivery Method 11/25/21 02:00 11/25/21 02:00 11/25/21 02:30 Temperature Pulse Rate 66 Respiratory Rate 30 H Blood Pressure 134/60 132/63 Pulse Oximetry 94 Oxygen Delivery Method 11/25/21 02:30 11/25/21 03:00 11/25/21 03:00 Temperature Pulse Rate 68 74 Respiratory Rate 29 H 30 H Blood Pressure 136/60 Pulse Oximetry 95 96 Oxygen Delivery Method 11/25/21 03:11 11/25/21 03:11 11/25/21 03:30 Temperature Pulse Rate 69 Respiratory Rate 6 L Blood Pressure 133/61 141/65 H Pulse Oximetry 94 Oxygen Delivery Method 11/25/21 03:30 11/25/21 04:00 11/25/21 04:00 Temperature Pulse Rate 67 63 Respiratory Rate 29 H 25 H Blood Pressure 137/64 Pulse Oximetry 93 94 Oxygen Delivery Method Medical Decision Making Lab Data Result diagrams: 11/25/21 01:05 11/25/21 01:05 Labs: Lab Results 11/25/21 11/25/21 11/25/21 Range/Units 01:05 01:05 01:05 WBC 6.0 (4.5-11.0) X10^3/uL RBC 4.62 (4.5-5.9) X10^6/uL Hgb 13.8 (13.5-17.5) g/dL Hct 40.8 L (41-53) % MCV 88.3 (80-100) fL MCH 29.9 (26-34) PG MCHC 33.8 (30-36) % RDW 14.4 (11.6-14.8) % Plt Count 195 (150-400) X10^3/uL Neut % (Auto) 82.2 H (50-75) % Lymph % (Auto) 9.9 L (25-40) % [place] % (Auto) 6.3 (3-14) % Eos % (Auto) 1.1 L (2-4) % Baso % (Auto) 0.5 (0-2) % Neut # (Auto) 5000 (4213-3589) /uL Lymph # (Auto) 600 L (8145-5511) /uL [place] # (Auto) 400 (0-900) /uL Eos # (Auto) 100 (0-450) /uL Baso # (Auto) 0 (0-100) /uL Sodium 138 (137-145) mmol/L Potassium 4.0 (3.4-5.1) mmol/L Chloride 102 (98-107) mmol/L Carbon Dioxide 27 (22-32) mmol/L BUN 17 (9-20) mg/dL Creatinine 0.97 (0.66-1.25) mg/dL Estimated GFR > 60 (>60) mL/min BUN/Creatinine Ratio 17.5 (6-22) Glucose 119 H (80-110) mg/dL Lactate 1.1 (0.7-2.1) mmol/L Calcium 9.0 (8.4-10.2) mg/dL Total Bilirubin 1.3 (0.2-1.3) mg/dL AST 37 (17-59) IU/L ALT 37 (<50) IU/L Alkaline Phosphatase 96 (38-126) U/L Total Protein 8.6 H (6.3-8.2) g/dL Albumin 4.5 (3.5-5.0) g/dL Globulin 4.1 (1.7-4.1) g/dL Albumin/Globulin Ratio 1.1 (1.0-2.8) Lipase 57 (23-300) U/L Procalcitonin 0.15 (<0.5) ng/mL Urine Color Urine Appearance Urine pH (4.5-8.0) Ur Specific [place] (1.000-1.035) Urine Protein (Negative) Urine Glucose (UA) (Negative) g/dL Urine Ketones (NEGATIVE) Urine Occult Blood (Negative) Urine Nitrate (Negative) Urine Bilirubin (NEGATIVE) Ur Bilirubin Confirm (Negative) Urine Urobilinogen (0.2) E.U./dL Ur Leukocyte Esterase (NEGATIVE) Urine RBC (0-5/HPF) Urine WBC (0-5/HPF) Urine Bacteria (None) Ur Culture Indicated? SARS-CoV-2 (PCR) (Negative) 11/25/21 11/25/21 Range/Units 01:20 03:08 WBC (4.5-11.0) X10^3/uL RBC (4.5-5.9) X10^6/uL Hgb (13.5-17.5) g/dL Hct (41-53) % MCV (80-100) fL MCH (26-34) PG MCHC (30-36) % RDW (11.6-14.8) % Plt Count (150-400) X10^3/uL Neut % (Auto) (50-75) % Lymph % (Auto) (25-40) % [place] % (Auto) (3-14) % Eos % (Auto) (2-4) % Baso % (Auto) (0-2) % Neut # (Auto) (2081-1864) /uL Lymph # (Auto) (7921-0971) /uL [place] # (Auto) (0-900) /uL Eos # (Auto) (0-450) /uL Baso # (Auto) (0-100) /uL Sodium (137-145) mmol/L Potassium (3.4-5.1) mmol/L Chloride (98-107) mmol/L Carbon Dioxide (22-32) mmol/L BUN (9-20) mg/dL Creatinine (0.66-1.25) mg/dL Estimated GFR (>60) mL/min BUN/Creatinine Ratio (6-22) Glucose (80-110) mg/dL Lactate (0.7-2.1) mmol/L Calcium (8.4-10.2) mg/dL Total Bilirubin (0.2-1.3) mg/dL AST (17-59) IU/L ALT (<50) IU/L Alkaline Phosphatase (38-126) U/L Total Protein (6.3-8.2) g/dL Albumin (3.5-5.0) g/dL Globulin (1.7-4.1) g/dL Albumin/Globulin Ratio (1.0-2.8) Lipase (23-300) U/L Procalcitonin (<0.5) ng/mL Urine Color Yellow Urine Appearance Clear Urine pH 7.0 (4.5-8.0) Ur Specific [place] 1.010 (1.000-1.035) Urine Protein 1+ H (Negative) Urine Glucose (UA) Negative (Negative) g/dL Urine Ketones Trace H (NEGATIVE) Urine Occult Blood Negative (Negative) Urine Nitrate Negative (Negative) Urine Bilirubin 1+ H (NEGATIVE) Ur Bilirubin Confirm Negative (Negative) Urine Urobilinogen 1.0 (0.2) E.U./dL Ur Leukocyte Esterase Trace H (NEGATIVE) Urine RBC None seen (0-5/HPF) Urine WBC 1-5/hpf (0-5/HPF) Urine Bacteria None seen (None) Ur Culture Indicated? Specimen cultured SARS-CoV-2 (PCR) Negative (Negative) Imaging Data Chest x-ray: Radiologist's Impression: FINDINGS:? ? Surgical changes and devices:? None.? ? Lungs and pleura:? Lungs are clear.? No pleural effusions or pneumothorax.? ? Mediastinum:? Mediastinal contours appear normal.? Heart size is normal.? ? Bones and chest wall:? No suspicious bony lesions.? Overlying soft tissues appear unremarkable.? ? IMPRESSION:? Reduced inspiratory volume, quality of visualization is limited by this factor.? No definite pneumonia found. ? ? Dictated by: Mani Francis M.D. on 11/25/2021 at 1:42 ? ? ECG Data Interpretation: Sinus rhythm at a rate of 70 Normal intervals, normal axis No acute ischemic changes MDM Narrative Medical decision making narrative: 76-year-old gentleman presents with fever and malaise. Workup is very reassuring. I am not seeing signs of consolidated pneumonia, sepsis, recurrent urinary tract infection, significant abdominal pain, acute coronary syndrome. Vital signs are reassuring including oxygen saturations. Discussed all findings with the patient. At this point I think that he likely is developing a viral syndrome and there is no indication for admission or continued workup at this time. We clearly reviewed the need to return with any worsening symptoms. Questions are answered and he is safe for home discharge Discharge Plan Departure Patient Disposition: Home Clinical Impression: Acute viral syndrome Instructions: DI for Viral Syndrome Activity Restrictions/Additional Instructions: Thank you for coming in today Fortunately, I have not found any life-threatening explanations for your symptoms. Specifically there is no sepsis, I am not seeing any evidence for a recurrent bladder infection, no heart attack or heart attack like syndrome. You do not have bacterial pneumonia and you do not have any evidence of diverticulitis, appendicitis or other intra-abdominal abnormality. You do not have COVID however I suspect you do have a mild upper respiratory virus that is causing her symptoms. Conservative treatment with rest, fluids, ibuprofen and Tylenol as needed are all very appropriate. If you find that you are getting worse or develop any new symptoms, please feel free to return to the emergency department for further evaluation. Prescriptions: No Action miconazole nitrate-zinc ox-pet See Rx Instructions TOP .COMPLEX Label Comments: 1 application topically TOP ; 0.25-15-81.35% oint Rx Instructions: 1 application topically TOP ; 0.25-15-81.35% oint Refresh Celluvisc 1 % dropperette,gel 1 drop EYE-BOTH DAILY urea 40 % cream 1 applictn TOP DAILY Disabled Parking Permit See Rx Instructions .ROUTE .COMPLEX Qty: 1 0RF Rx Instructions: My patient cannot walk 200 feet without stopping to rest or must use assistive device. Walking is severely limited due to arthritic, neurological or orthopedic condition. Uses portable oxygen or walking restricted by lung disease. nystatin 100,000 unit/gram cream 1 applic topical BID Qty: 30 0RF aspirin 81 MG tablet,delayed release (DR/EC) 81 mg PO QDAY Qty: 0 magnesium oxide 500 MG tablet 500 mg PO TID Qty: 270 0RF [saw palmetto] 500 mg PO BID Qty: 0 nystatin [Nystop] 100,000 unit/gram powder 100,000 unit Topical BID Qty: 60 1RF Myrbetriq 50 mg tablet extended release 24 hr 50 mg PO DAILY Qty: 90 3RF Label Comments: urine flow eplerenone 50 mg tablet 50 mg PO DAILY Qty: 90 3RF eplerenone 25 mg tablet 25 mg PO DAILY Qty: 90 3RF Label Comments: cardiac ezetimibe [Zetia] 10 mg tablet 10 mg PO DAILY Qty: 90 3RF gabapentin 100 mg capsule 100 mg PO BID Qty: 180 3RF pantoprazole 40 mg tablet,delayed release (DR/EC) See Rx Instructions .ROUTE .COMPLEX Qty: 90 3RF Dose Instruction: TAKE 1 TABLET BY MOUTH DAILY Rx Instructions: TAKE 1 TABLET BY MOUTH DAILY rosuvastatin 20 mg tablet 20 mg PO DAILY Qty: 90 3RF Suprep Bowel Prep Kit 17.5-3.13-1.6 gram recon soln See Rx Instructions PO .COMPLEX Qty: 354 0RF Rx Instructions: Take as directed by Physician azelastine-fluticasone 137-50 mcg/spray spray,non-aerosol See Rx Instructions .ROUTE .COMPLEX Qty: 23 0RF Dose Instruction: USE 1 SPRAY IN BOTH NOSTRILS TWICE DAILY Rx Instructions: USE 1 SPRAY IN BOTH NOSTRILS TWICE DAILY Lumigan 0.01 % drops 1 drp ophthalmic (eye) DAILY Qty: 5 3RF pramipexole 1.5 mg tablet extended release 24 hr See Rx Instructions .ROUTE .COMPLEX Qty: 180 3RF Dose Instruction: TAKE 2 TABLETS BY MOUTH DAILY. STAGGER DOSES 7:30PM AND 9:30PM. Rx Instructions: TAKE 2 TABLETS BY MOUTH DAILY. STAGGER DOSES 7:30PM AND 9:30PM. nitrofurantoin monohyd/m-cryst 100 mg capsule 100 mg PO BID Qty: 20 0RF Rx Instructions: must administer with a meal/food nitrofurantoin monohyd/m-cryst 100 mg capsule 100 mg PO BID Qty: 30 0RF Rx Instructions: must administer with a meal/food (DME) [employer] Dreamstation BIPAP Qty: 1 Rx Instructions: Pressure: IPAP 16 EPAP 11 DME: [facility] cyclobenzaprine 10 mg tablet 10 mg PO TID Rx Instructions: minerals dorzolamide-timolol 22.3-6.8 mg/mL drops See Rx Instructions .ROUTE .COMPLEX Rx Instructions: eye drops torsemide 10 mg tablet 10 mg PO DAILY Referrals: Maya Johnson MD [Primary Care Provider] -
[2021-11-25 01:18] LABS: Add Manual Diff / Slide Review NO; Basophils Absolute Auto 0 /uL (0-100); Basophils Percent Auto 0.5 % (0-2); Eosinophils Absolute Auto 100 /uL (0-450); Eosinophils Percent Auto 1.1 % (2-4); Hematocrit 40.8 % (41-53); Hemoglobin 13.8 g/dL (13.5-17.5); Lymphocytes Absolute Auto 600 /uL (1100-4500); Lymphocytes Percent Auto 9.9 % (25-40); Mean Corpuscular HGB Conc 33.8 % (30-36); Mean Corpuscular Hemoglobin 29.9 PG (26-34); Mean Corpuscular Volume 88.3 fL (80-100); Monocytes Absolute Auto 400 /uL (0-900); Monocytes Percent Auto 6.3 % (3-14); Neutrophils Absolute Auto 5000 /uL (1500-7000); Neutrophils Percent Auto 82.2 % (50-75); Platelet Count 195 X10^3/uL (150-400); Red Blood Cell Count 4.62 X10^6/uL (4.5-5.9); Red Cell Distribution Width 14.4 % (11.6-14.8)
[2021-11-25] MEDS: SODIUM CHLORIDE 0.9% 1,000 ML 1000 ML IV (01:21)
[2021-11-25 01:24] LABS: Lactate (Lactic Acid) 1.1 mmol/L (0.7-2.1)
[2021-11-25 01:26] LABS: Alanine Aminotransferase 37 IU/L (<50); Albumin 4.5 g/dL (3.5-5.0); Albumin Globulin Ratio 1.1 (1.0-2.8); Alkaline Phosphatase 96 U/L (38-126); Aspartate Aminotransferase 37 IU/L (17-59); BUN Creatinine Ratio 17.5 (6-22); Bilirubin Total 1.3 mg/dL (0.2-1.3); Blood Urea Nitrogen 17 mg/dL (9-20); Carbon Dioxide 27 mmol/L (22-32); Chloride 102 mmol/L (98-107); Estimated Glomerular Filt Rate > 60 mL/min (>60); Globulin 4.1 g/dL (1.7-4.1); Glucose 119 mg/dL (80-110); HEMOLYSIS < 15 (0-50); Lipase 57 U/L (23-300); Sodium 138 mmol/L (137-145); Total Protein 8.6 g/dL (6.3-8.2)
[2021-11-25 01:41] LABS: Procalcitonin 0.15 ng/mL (<0.5)
[2021-11-25 01:48] LABS: COVID19 -Nasal RAPID Negative (Negative)
[2021-11-25 03:27] LABS: Appearance Urine UA CLEAR; Bilirubin Urine UA 1+ (NEGATIVE); Color Urine UA YELLOW; Glucose Urine UA NEGATIVE (Negative); Ketones Urine UA TRACE (NEGATIVE); Leukocyte Esterase Urine UA TRACE (NEGATIVE); Nitrite Urine UA NEGATIVE (Negative); Occult Blood Urine UA NEGATIVE (Negative); Protein Urine UA 1+ (Negative)
[2021-11-25 03:30] LABS: Ictotest Urine Negative (Negative)
[2021-11-25 03:52] LABS: Bacteria Urine None Seen; Culture Indicated Urine Specimen Cultured; RBC Urine None Seen (0-5/HPF); WBC Urine 1-5/HPF (0-5/HPF)
== END 2021-11-25 04:38 | disposition home or self-care (01) ==
PROVIDERS: Emergency Provider Emergency Medicine; PCP Family Medicine
DX: B34.9 Viral infection, unspecified (principal); I50.9 Heart failure, unspecified; Z20.822 Contact with and (suspected) exposure to COVID-19; R03.0 Elevated blood-pressure reading, without diagnosis of hypertension
CPT/HCPCS: 36415; 71045; 80053; 81001; 83605; 83690; 84145; 85025; 87040; 87086; 87635; 93005; 93010; 99284; C9803

== ENCOUNTER → 2021-12-11 15:23 | Outpatient (CLI) | payer MEDICARE, OTHER, SELFPAY ==
[2020-09-05 08:36] VITALS: BMI 44.0
[2021-12-11 15:55] LABS: Appearance Urine UA CLEAR; Bilirubin Urine UA NEGATIVE (NEGATIVE); Color Urine UA YELLOW; Glucose Urine UA NEGATIVE (Negative); Ketones Urine UA NEGATIVE (NEGATIVE); Leukocyte Esterase Urine UA 1+ (NEGATIVE); Nitrite Urine UA NEGATIVE (Negative); Occult Blood Urine UA NEGATIVE (Negative); Protein Urine UA NEGATIVE (Negative)
[2021-12-11 16:25] LABS: Bacteria Urine None Seen; Culture Indicated Urine Specimen Cultured; RBC Urine None Seen (0-5/HPF); Squamous Epithelial Cell Urine 0-1 /HPF (0-5/HPF); WBC Urine 1-5/HPF (0-5/HPF)
== END ==
PROVIDERS: PCP Family Medicine; Referring Provider Urology; Visit Provider Urology
DX: N39.0 Urinary tract infection, site not specified (principal)
CPT/HCPCS: 81001; 87086

== ENCOUNTER → 2021-12-17 11:49 | Outpatient (CLI) | payer MEDICARE, OTHER, SELFPAY ==
[2020-09-05 08:36] VITALS: BMI 44.0
[2021-12-17 14:41] LABS: Appearance Urine UA CLEAR; Bilirubin Urine UA NEGATIVE (NEGATIVE); Color Urine UA YELLOW; Glucose Urine UA TRACE g/dL (Negative); Ketones Urine UA NEGATIVE (NEGATIVE); Leukocyte Esterase Urine UA NEGATIVE (NEGATIVE); Nitrite Urine UA NEGATIVE (Negative); Occult Blood Urine UA NEGATIVE (Negative); Protein Urine UA TRACE (Negative); pH Urine UA 6.5 (4.5-8.0)
[2021-12-17 14:44] LABS: Bacteria Urine None Seen; Culture Indicated Urine Cult Not Indicated; RBC Urine None Seen (0-5/HPF); Urine Comments Microscopic Normal; WBC Urine None Seen (0-5/HPF)
== END ==
PROVIDERS: PCP Family Medicine; Referring Provider Urology; Visit Provider Urology
DX: N39.0 Urinary tract infection, site not specified (principal)
CPT/HCPCS: 81001

== ENCOUNTER → 2022-07-30 10:15 | Outpatient (CLI) | payer MEDICARE, OTHER, SELFPAY ==
[2020-09-05 08:36] VITALS: BMI 44.0
[2022-07-30 13:27] LABS: Alanine Aminotransferase 23 IU/L (<50); Albumin 4.1 g/dL (3.5-5.0); Albumin Globulin Ratio 1.2 (1.0-2.8); Alkaline Phosphatase 75 U/L (38-126); Aspartate Aminotransferase 27 IU/L (17-59); BUN Creatinine Ratio 20.6 (6-22); Bilirubin Total 1.1 mg/dL (0.2-1.3); Blood Urea Nitrogen 20 mg/dL (9-20); Calcium 8.8 mg/dL (8.4-10.2); Carbon Dioxide 27 mmol/L (22-32); Chloride 103 mmol/L (98-107); Cholesterol 105 mg/dL (140-199); Estimated Glomerular Filt Rate > 60 mL/min (>60); Globulin 3.4 g/dL (1.7-4.1); Glucose 138 mg/dL (80-110); HDL Cholesterol 32 mg/dL (40-60); HEMOLYSIS < 15 (0-50); LDL Cholesterol Calculated 45 mg/dL (<100); Potassium 3.9 mmol/L (3.4-5.1); Sodium 138 mmol/L (137-145); Total Protein 7.5 g/dL (6.3-8.2); Triglycerides 138 mg/dL (35-150)
[2022-07-30 13:29] LABS: Add Manual Diff / Slide Review NO; Basophils Absolute Auto 0 /uL (0-100); Basophils Percent Auto 0.9 % (0-2); Eosinophils Absolute Auto 200 /uL (0-450); Eosinophils Percent Auto 3.5 % (2-4); Hematocrit 40.4 % (41-53); Hemoglobin 13.8 g/dL (13.5-17.5); Lymphocytes Absolute Auto 1800 /uL (1100-4500); Lymphocytes Percent Auto 31.4 % (25-40); Mean Corpuscular HGB Conc 34.2 % (30-36); Mean Corpuscular Hemoglobin 30.3 PG (26-34); Mean Corpuscular Volume 88.5 fL (80-100); Monocytes Absolute Auto 400 /uL (0-900); Monocytes Percent Auto 7.2 % (3-14); Neutrophils Absolute Auto 3200 /uL (1500-7000); Platelet Count 159 X10^3/uL (150-400); Red Blood Cell Count 4.56 X10^6/uL (4.5-5.9); White Blood Cell Count 5.6 X10^3/uL (4.5-11.0)
[2022-07-30 13:53] LABS: Prostate Specific Antigen Scrn 0.415 ng/mL (0.1-4.0)
[2022-07-30 16:18] LABS: Creatinine Urine Random 225.8 mg/dL
[2022-07-30 16:22] LABS: Microalbumi Creatinin Ratio Ur 5.3 ug/mg CR (<30); Microalbumin Urine Random 1.2 mg/dL (0-1.6)
[2022-07-31 05:53] LABS: Labcorp Hemoglobin (Hb) A1c 6.5 % (4.8-5.6)
== END ==
PROVIDERS: PCP Family Medicine; Referring Provider Urology; Visit Provider Urology
DX: D64.9 Anemia, unspecified (principal); I10 Essential (primary) hypertension; Z12.5 Encounter for screening for malignant neoplasm of prostate
CPT/HCPCS: 36415; 80053; 80061; 82043; 82570; 83036; 85025; G0103

== ENCOUNTER 2022-09-07 23:33 | Observation (INO) | payer MEDICARE, OTHER, SELFPAY ==
[2020-09-05 08:36] VITALS: BMI 44.0
[2022-09-07 23:38] VITALS: BP 144/58; PULSE 80; RESP 19; TEMP 39.4; O2SAT 94; BMI 45.1
--- NOTE | 2022-09-07 23:51 | DI.RAD.S_ITS ---
PROCEDURE: XR CHEST 1V INDICATIONS: suspected sepsis TECHNIQUE: One view of the chest was acquired. COMPARISON: [facility], CR, XR CHEST 1V, 09/04/2020, 14:00. [facility], CR, XR CHEST 1V, 11/25/2021, 1:02. FINDINGS: Surgical changes and devices: None. Lungs and pleura: There are low lung volumes. Evaluation of the lung bases slightly limited by overlying soft tissues. No definite acute consolidation. No pleural effusions or pneumothorax. Mediastinum: Mediastinal contours appear normal. Heart size is normal. Bones and chest wall: No suspicious bony lesions. Overlying soft tissues appear unremarkable. IMPRESSION: 1. No definite acute cardiopulmonary disease. Dictated by: Cesario Carrasquillo M.D. on 09/08/2022 at 1:40 Approved by: Cesario Carrasquillo M.D. on 09/08/2022 at 1:42
[2022-09-08] VITALS (38 sets, daily range): BP systolic 98–134; BP diastolic 29–74; PULSE 50–85; RESP 12–23; TEMP 35.7–39.4; O2SAT 90–98; BMI 45.8
--- NOTE | 2022-09-08 | PATH_ITS ---
[facility] Accession Number: [id number] No. of containers..01 Tissue . 01 Material submitted: . gallbladder - GALLBLADDER . 01 Diagnosis: Gallbladder, Cholecystectomyh: Chronic cholecytitis, including focal intestinal metaplasia, and cholelithiasis. Negative for dysplasia and neoplasia. MRV 09/12/2022 1827 Local . 01 Electronically signed: . Kassi Mary MD, Pathologist NPI- [id number] . 01 Gross description: . The specimen is received in formalin labeled with the patient's name, , and gallbladder, and consists of an intact gallbladder measuring 9.0 x 3.2 x 1.8 cm. The cystic duct is inked blue. No pericystic lymph node is identified. The lumen contains minimal bile and a dark green, roughened calculus measuring 2.5 cm in greatest dimension is identified grossly obstructing the cystic duct. The mucosa is [place] and roughened with no yellow areas of discoloration, polyps, or lesions identified. The muniz average 0.3 cm thick. [employer] sections to include the cystic duct margin and full-thickness sections are submitted in cassette A1. ([id number]) /FRR 09/10/2022 0321 Local . 01 Pathologist provided ICD-10: K81.1 . 01 CPT . 698773 Specimen Comment: A courtesy copy of this report has been sent to [phone] Performed at: 01 [facility] [address] [place] [address] [id number] MD Cesario Witt MD Phone: [phone]
[2022-09-08 00:20] LABS: Add Manual Diff / Slide Review NO; Basophils Absolute Auto 0 /uL (0-100); Eosinophils Absolute Auto 0 /uL (0-450); Hematocrit 37.5 % (41-53); Hemoglobin 12.9 g/dL (13.5-17.5); Lymphocytes Absolute Auto 600 /uL (1100-4500); Lymphocytes Percent Auto 15.8 % (25-40); Mean Corpuscular HGB Conc 34.4 % (30-36); Mean Corpuscular Hemoglobin 30.2 PG (26-34); Mean Corpuscular Volume 87.6 fL (80-100); Monocytes Absolute Auto 300 /uL (0-900); Monocytes Percent Auto 7.5 % (3-14); Neutrophils Absolute Auto 2900 /uL (1500-7000); Neutrophils Percent Auto 74.7 % (50-75); Platelet Count 125 X10^3/uL (150-400); Red Blood Cell Count 4.28 X10^6/uL (4.5-5.9); Red Cell Distribution Width 14.3 % (11.6-14.8); White Blood Cell Count 3.9 X10^3/uL (4.5-11.0)
--- NOTE | 2022-09-08 00:24 | ED.GENADULT ---
HPI - General Adult General Chief complaint: Fever Stated complaint: chills, fever, shaking Time Seen by Provider: 09/07/22 23:41 Source: patient Mode of arrival: Ambulatory History of Present Illness HPI narrative: 77-year-old male nonsmoker with a history o type 2 diabetes, diastolic heart failure, restless legs syndrome, GERD, BMI 45, presents with his in the chief complaint of a few days of fever as high as 102, shaking chills nausea and generalized weakness. He states that he had a tooth pulled a few days ago and has a bit of pain at the site but denies any facial swelling. He has had some runny nose and nasal congestion but denies sore throat, cough, chest pain or shortness of breath. He has been minimally nauseated but denies any vomiting. He has left lower quadrant pain but denies any dysuria, frequency or urgency. He has had a poor appetite and states he has a decreased amount of bowel movements over the past few days. Related Data Home Medications Medication Instructions Recorded Confirmed aspirin 81 mg tablet,delayed 81 mg PO QDAY ##0 01/25/16 09/08/22 release Respironics Dreamstation BIPAP #1 ea 12/06/18 09/08/22 torsemide 10 mg tablet 10 mg PO DAILY 06/25/21 09/08/22 gabapentin 100 mg capsule 100 mg PO DAILY 07/18/22 09/08/22 azelastine-fluticasone 137 mcg-50 1 spray intranasal DAILY 09/08/22 09/08/22 mcg/spray nasal spray dorzolamide 22.3 mg-timolol 6.8 1 drp EYE-BOTH TID 09/08/22 09/08/22 mg/mL eye drops eplerenone 50 mg tablet 50 mg PO DAILY 09/08/22 09/08/22 pantoprazole 40 mg tablet,delayed 40 mg PO DAILY 09/08/22 09/08/22 release rosuvastatin 20 mg tablet 20 mg PO BEDTIME 09/08/22 09/08/22 Previous Rx's Medication Instructions Recorded Disabled Parking Permit See Rx Instructions .Route 09/21/20 .COMPLEX #1 ea nystatin 100,000 unit/gram topical 1 applic topical BID #30 grams 07/12/21 cream pramipexole 1.5 mg tablet,extended See Rx Instructions .Route 09/27/21 release 24 hr .COMPLEX RLS #180 tabs ezetimibe 10 mg tablet (Zetia) 10 mg PO DAILY #90 tabs 03/06/22 eplerenone 25 mg tablet 25 mg PO DAILY #90 tabs 03/13/22 latanoprostene bunod 0.024 % eye 1 drp EYE-BOTH BEDTIME #5 mL 07/18/22 drops (Vyzulta) magnesium oxide 500 mg tablet 500 mg PO BID #270 tabs 07/18/22 mirabegron 50 mg tablet,extended 50 mg PO DAILY #90 tabs 07/18/22 release 24 hr (Myrbetriq) Allergies Allergy/AdvReac Type Severity Reaction Status Date / Time ciprofloxacin [From Cipro] Allergy Intermediate ruptured Verified 09/08/22 14:34 tendons Sulfa (Sulfonamide AdvReac Intermediate Nausea Verified 09/08/22 14:34 Antibiotics) [SULFA (SULFONAMIDE ANTIBIOTICS)] Review of Systems Review of Systems Narrative: GENERAL: See HPI HEENT: See HPI RESPIRATORY: Denies dyspnea, cough, wheezing, hemoptysis, sputum. CARDIOVASCULAR: Denies chest pain, palpitations, orthopnea, edema, GASTROINTESTINAL: See HPI : Denies dysuria, frequency, incontinence, hematuria, urinary retention. MUSCULOSKELETAL: denies weakness, joint pain, or bony pain SKIN: Denies rash, skin lesions, or other NEUROLOGIC: Denies weakness, headache, numbness, change in speech, confusion, seizures, incoordination. PSYCHIATRIC: No concerning psychosocial issues. 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 Morbid obesity with body mass index (BMI) of 40.0 to 44.9 in adult (10/31/16) Obstructive sleep apnea syndrome (01/25/16) Overactive bladder Prostate mass Rectal bleeding Recurrent UTI Restless legs syndrome (01/25/16) Surgical History History of colonoscopy History of transurethral resection of prostate Family History Father Parkinsons disease Mother Congestive heart failure Social History marital status: household members: spouse lives independently: Yes caregiver/support person: No housing: house pets and animals: Yes education level: college occupational status: previously employed 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[employer], 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: Yes ([employer]) seatbelt use: always helmet use: Yes water heater temp set < 120 deg: Yes Smoking Status: Never smoker second hand exposure: No alcohol intake: current substance use type: does not use during the past year weight has: decreased > 10 lbs well-balanced diet: about half the time daily servings fruits/ve-4 caffeine: No eating out: 1-3 times/week frequency: 1-2 times per week duration: 45-60 minutes/day Smoking Status: Never smoker alcohol intake frequency: a few times a month Substance Use Type: does not use and marijuana Exam Narrative Exam Narrative: GENERAL: [77] year old patient appears stated age. Well-developed patient, in mild distress. GCS 15 HEAD: Atraumatic. Normocephalic. EYES: Pupils equal round and reactive. Extraocular motions intact. No scleral icterus. No injection or drainage. ENT: Moist mucous membranes, no facial swelling, redness Nose without bleeding, purulent drainage. Throat without erythema, tonsillar hypertrophy or exudate. Airway patent. NECK: Trachea midline. Non tender CARDIOVASCULAR: Regular rate and rhythm without murmurs, gallops, or rubs. RESPIRATORY: Clear to auscultation. Breath sounds equal bilaterally. No wheezes, rales, or rhonchi. GASTROINTESTINAL: Abdomen soft, tender in the LLQ, nondistended. EXTREMITIES: No edema or joint tenderness. BACK: Nontender without deformity or crepitance. No flank tenderness. NEURO: AOx3. SKIN: No rash or erythema of visible areas Initial Vital Signs Initial Vital Signs: Vital Signs Temperature 102.9 F H 09/07/22 23:38 Pulse Rate 80 09/07/22 23:38 Respiratory Rate 19 09/07/22 23:38 Blood Pressure 144/58 H 09/07/22 23:38 Pulse Oximetry 94 09/07/22 23:38 Oxygen Delivery Method Room Air 09/07/22 23:38 Course Orders Ordered: Acetaminophen (Acetaminophen 325 Mg Tablet) 650 mg PO Q6H PRN PRN Reason: Fever/Mild Pain (1-3) Last Admin: 09/08/22 19:39 Dose: 650 mg Documented By: Hydrocodone Bitart/Acetaminophen (Hydrocodone/Acet 5/325 Tablet) 1 tab PO Q4H PRN PRN Reason: Pain, Moderate (4-6) Hydromorphone HCl (Hydromorphone 0.5 Mg Inj) 0.5 mg IV Q2H PRN PRN Reason: Pain, Severe (7-10) Last Admin: 09/08/22 19:39 Dose: 0.5 mg Documented By: Ibuprofen (Ibuprofen 600 Mg Tablet) 600 mg PO Q6H PRN PRN Reason: Fever/Mild Pain (1-3) Naloxone HCl (Naloxone 0.4 Mg/Ml Vial) 0.2 mg IV Q2MIN PRN PRN Reason: Opiate Reversal Ondansetron HCl (Ondansetron 4 Mg/2 Ml Inj) 4 mg IV Q8HR PRN PRN Reason: Nausea And Vomiting Discontinued Medications Acetaminophen (Acetaminophen 325 Mg Tablet) 975 mg PO NOW ONE Stop: 09/08/22 00:27 Last Admin: 09/08/22 00:29 Dose: 975 mg Documented By: Acetaminophen (Acetaminophen 325 Mg Tablet) 975 mg PO NOW ONE Stop: 09/08/22 17:07 Last Admin: 09/08/22 19:33 Dose: Not Given Documented By: GUILLERMO Bupivacaine HCl 30 ml/ (Epinephrine HCl 0.15 mg) 0 ml INJ NOW ONE Stop: 09/08/22 17:01 Last Admin: 09/08/22 17:00 Dose: 30 ml Documented By: Hydromorphone HCl (Hydromorphone 2 Mg Inj) 0 mg IV Q5MIN PRN PRN Reason: Pain, Mild (1-3) Hydromorphone HCl (Hydromorphone 2 Mg Inj) 0 mg IV Q5M PRN PRN Reason: Pain, Moderate (4-6) Sodium Chloride (Normal Saline 0.9%) 1,000 mls @ 1,000 mls/hr IV BOLUS ONE Stop: 09/08/22 00:50 Last Infusion: 09/08/22 00:53 Dose: 0 mls/hr Documented By: Admin: 09/08/22 00:26 Dose: 1,000 mls/hr Documented By: Sodium Chloride (Normal Saline 0.9%) 1,000 mls @ 1,000 mls/hr IV BOLUS ONE Stop: 09/08/22 02:53 Last Infusion: 09/08/22 02:56 Dose: 0 mls/hr Documented By: Admin: 09/08/22 02:02 Dose: 1,000 mls/hr Documented By: Piperacillin Sod/Tazobactam (Sod 4.5 gm/ Sodium Chloride) 100 mls @ 200 mls/hr IV NOW ONE Stop: 09/08/22 01:56 Last Infusion: 09/08/22 02:36 Dose: 0 mls/hr Documented By: Admin: 09/08/22 02:03 Dose: 200 mls/hr Documented By: Lactated Ringer's (Lactated Ringers) 1,000 mls @ 100 mls/hr IV NOW ONE Stop: 09/09/22 00:39 Last Infusion: 09/08/22 18:15 Dose: 0 mls/hr Documented By: Admin: 09/08/22 14:41 Dose: 100 mls/hr Documented By: IF Piperacillin Sod/Tazobactam (Sod 4.5 gm/ Sodium Chloride) 100 mls @ 200 mls/hr IV NOW ONE Stop: 09/08/22 16:26 Last Admin: 09/08/22 19:33 Dose: Not Given Documented By: AGW Piperacillin Sod/Tazobactam (Sod 3.375 gm/ Sodium Chloride) 100 mls @ 25 mls/hr IV NOW ONE Stop: 09/08/22 16:58 Last Admin: 09/08/22 16:40 Dose: 25 mls/hr Documented By: HELEN Ibuprofen (Ibuprofen 400 Mg Tablet) 800 mg PO NOW ONE Stop: 09/08/22 00:26 Last Admin: 09/08/22 00:29 Dose: 800 mg Documented By: Ondansetron HCl (Ondansetron 4 Mg/2 Ml Inj) 4 mg IV NOW PRN PRN Reason: Nausea And Vomiting Ondansetron HCl (Ondansetron 4 Mg Odt) 4 mg SL NOW PRN PRN Reason: Nausea And Vomiting Ondansetron HCl (Ondansetron 4 Mg/2 Ml Inj) 4 mg IV NOW PRN PRN Reason: Nausea And Vomiting Oxycodone HCl (Oxycodone Ir 5 Mg Tablet) 5 mg PO PACUNOW PRN PRN Reason: Mild or moderate pain Vital Signs Vital signs: Vital Signs - 8 hr 09/07/22 23:38 09/08/22 00:29 09/08/22 00:29 Temperature 102.9 F H 102.9 F H 102.9 F H Pulse Rate 80 Respiratory Rate 19 Blood Pressure 144/58 H Pulse Oximetry 94 Oxygen Delivery Method Room Air Oxygen Flow Rate 09/08/22 00:20 09/08/22 00:22 09/08/22 00:22 Temperature Pulse Rate 70 69 Respiratory Rate 14 Blood Pressure 127/59 L Pulse Oximetry Oxygen Delivery Method Oxygen Flow Rate 09/08/22 00:30 09/08/22 00:30 09/08/22 01:00 Temperature Pulse Rate 68 Respiratory Rate Blood Pressure 124/60 123/60 Pulse Oximetry 92 Oxygen Delivery Method Oxygen Flow Rate 09/08/22 01:00 09/08/22 01:39 09/08/22 01:30 Temperature 101.4 F H Pulse Rate 67 Respiratory Rate 21 Blood Pressure 119/58 L Pulse Oximetry 94 Oxygen Delivery Method Nasal Cannula Oxygen Flow Rate 09/08/22 01:30 09/08/22 02:00 09/08/22 02:00 Temperature Pulse Rate 67 63 Respiratory Rate 23 19 Blood Pressure 117/55 L Pulse Oximetry 96 95 Oxygen Delivery Method Nasal Cannula Oxygen Flow Rate 09/08/22 02:30 09/08/22 02:30 09/08/22 03:26 Temperature 98.4 F Pulse Rate 61 Respiratory Rate 23 Blood Pressure 116/56 L Pulse Oximetry 93 Oxygen Delivery Method Oxygen Flow Rate 09/08/22 03:00 09/08/22 03:00 09/08/22 03:30 Temperature Pulse Rate 60 Respiratory Rate 23 Blood Pressure 112/56 L 117/59 L Pulse Oximetry 92 Oxygen Delivery Method Oxygen Flow Rate 09/08/22 03:30 Temperature Pulse Rate 55 L Respiratory Rate 21 Blood Pressure Pulse Oximetry 95 Oxygen Delivery Method Oxygen Flow Rate Medical Decision Making Lab Data 09/08/22 00:05 09/08/22 00:52 Labs: Lab Results 09/08/22 09/08/22 09/08/22 Range/Units 00:05 00:05 00:52 WBC 3.9 L (4.5-11.0) X10^3/uL RBC 4.28 L (4.5-5.9) X10^6/uL Hgb 12.9 L (13.5-17.5) g/dL Hct 37.5 L (41-53) % MCV 87.6 (80-100) fL MCH 30.2 (26-34) PG MCHC 34.4 (30-36) % RDW 14.3 (11.6-14.8) % Plt Count 125 L (150-400) X10^3/uL Neut % (Auto) 74.7 (50-75) % Lymph % (Auto) 15.8 L (25-40) % [place] % (Auto) 7.5 (3-14) % Eos % (Auto) 1.0 L (2-4) % Baso % (Auto) 1.0 (0-2) % Neut # (Auto) 2900 (5841-9431) /uL Lymph # (Auto) 600 L (4154-5367) /uL [place] # (Auto) 300 (0-900) /uL Eos # (Auto) 0 (0-450) /uL Baso # (Auto) 0 (0-100) /uL PT 14.6 H (10.1-12.7) SECONDS INR 1.3 (0.9-1.3) APTT 27 (26-36) SECONDS Sodium (137-145) mmol/L Potassium (3.4-5.1) mmol/L Chloride (98-107) mmol/L Carbon Dioxide (22-32) mmol/L BUN (9-20) mg/dL Creatinine (0.66-1.25) mg/dL Estimated GFR (>60) mL/min BUN/Creatinine Ratio (6-22) Glucose (80-110) mg/dL Lactate 1.2 (0.7-2.1) mmol/L Calcium (8.4-10.2) mg/dL Total Bilirubin (0.2-1.3) mg/dL AST (17-59) IU/L ALT (<50) IU/L Alkaline Phosphatase (38-126) U/L Total Protein (6.3-8.2) g/dL Albumin (3.5-5.0) g/dL Globulin (1.7-4.1) g/dL Albumin/Globulin Ratio (1.0-2.8) Lipase (23-300) U/L Procalcitonin (<0.5) ng/mL Urine Color Urine Appearance Urine pH (4.5-8.0) Ur Specific [place] (1.000-1.035) Urine Protein (Negative) Urine Glucose (UA) (Negative) g/dL Urine Ketones (NEGATIVE) Urine Occult Blood (Negative) Urine Nitrate (Negative) Urine Bilirubin (NEGATIVE) Urine Urobilinogen (0.2) E.U./dL Ur Leukocyte Esterase (NEGATIVE) Urine RBC (0-5/HPF) Urine WBC (0-5/HPF) Ur Squamous Epith Cells (0-5/HPF) Urine Bacteria (None) Urine Mucus (Negative) Ur Culture Indicated? Chlamy pneumoniae PCR (Not Detect) Adenovirus (PCR) (Not Detect) B. pertussis DNA (PCR) (Not Detecte) B.parapertussis DNA PCR (Not Detecte) Coronavirus OC43 (PCR) (Not Detect) Coronavirus HKU1 (PCR) (Not Detect) Coronavirus 229E (PCR) (Not Detect) SARS-CoV-2 (PCR) (Not Detecte) Coronavirus NL63 (PCR) (Not Detect) Human Metapneumovir PCR (Not Detect) Influenza Type A (PCR) (Not Detect) Influenza Type B (PCR) (Not Detect) M. pneumoniae (PCR) (Not Detect) Parainfluenza 1 (PCR) (Not Detect) Parainfluenza 2 (PCR) (Not Detect) Parainfluenza 3 (PCR) (Not Detect) Parainfluenza 4 (PCR) (Not Detect) RSV (PCR) (Not Detect) Entero/Rhino (PCR) (Not Detect) 09/08/22 09/08/22 09/08/22 Range/Units 00:52 01:48 01:56 WBC (4.5-11.0) X10^3/uL RBC (4.5-5.9) X10^6/uL Hgb (13.5-17.5) g/dL Hct (41-53) % MCV (80-100) fL MCH (26-34) PG MCHC (30-36) % RDW (11.6-14.8) % Plt Count (150-400) X10^3/uL Neut % (Auto) (50-75) % Lymph % (Auto) (25-40) % [place] % (Auto) (3-14) % Eos % (Auto) (2-4) % Baso % (Auto) (0-2) % Neut # (Auto) (7395-2404) /uL Lymph # (Auto) (3035-4485) /uL [place] # (Auto) (0-900) /uL Eos # (Auto) (0-450) /uL Baso # (Auto) (0-100) /uL PT (10.1-12.7) SECONDS INR (0.9-1.3) APTT (26-36) SECONDS Sodium 136 L (137-145) mmol/L Potassium 4.1 (3.4-5.1) mmol/L Chloride 106 (98-107) mmol/L Carbon Dioxide 26 (22-32) mmol/L BUN 18 (9-20) mg/dL Creatinine 0.97 (0.66-1.25) mg/dL Estimated GFR > 60 (>60) mL/min BUN/Creatinine Ratio 18.6 (6-22) Glucose 120 H (80-110) mg/dL Lactate (0.7-2.1) mmol/L Calcium 7.8 L (8.4-10.2) mg/dL Total Bilirubin 1.5 H (0.2-1.3) mg/dL AST 61 H (17-59) IU/L ALT 46 (<50) IU/L Alkaline Phosphatase 56 (38-126) U/L Total Protein 6.7 (6.3-8.2) g/dL Albumin 3.4 L (3.5-5.0) g/dL Globulin 3.3 (1.7-4.1) g/dL Albumin/Globulin Ratio 1.0 (1.0-2.8) Lipase 26 (23-300) U/L Procalcitonin 0.15 (<0.5) ng/mL Urine Color Dark yellow Urine Appearance Clear Urine pH 7.0 (4.5-8.0) Ur Specific [place] 1.015 (1.000-1.035) Urine Protein 1+ H (Negative) Urine Glucose (UA) Trace H (Negative) g/dL Urine Ketones Negative (NEGATIVE) Urine Occult Blood Negative (Negative) Urine Nitrate Negative (Negative) Urine Bilirubin Negative (NEGATIVE) Urine Urobilinogen 4.0 H (0.2) E.U./dL Ur Leukocyte Esterase Negative (NEGATIVE) Urine RBC None seen (0-5/HPF) Urine WBC None seen (0-5/HPF) Ur Squamous Epith Cells 0-1 /hpf (0-5/HPF) Urine Bacteria Occasional (0-1) (None) Urine Mucus 1+ H (Negative) Ur Culture Indicated? Cult not indicated Chlamy pneumoniae PCR Not detected (Not Detect) Adenovirus (PCR) Not detected (Not Detect) B. pertussis DNA (PCR) Not detected (Not Detecte) B.parapertussis DNA PCR Not detected (Not Detecte) Coronavirus OC43 (PCR) Not detected (Not Detect) Coronavirus HKU1 (PCR) Not detected (Not Detect) Coronavirus 229E (PCR) Not detected (Not Detect) SARS-CoV-2 (PCR) Not detected (Not Detecte) Coronavirus NL63 (PCR) Not detected (Not Detect) Human Metapneumovir PCR Not detected (Not Detect) Influenza Type A (PCR) Not detected (Not Detect) Influenza Type B (PCR) Not detected (Not Detect) M. pneumoniae (PCR) Not detected (Not Detect) Parainfluenza 1 (PCR) Not detected (Not Detect) Parainfluenza 2 (PCR) Not detected (Not Detect) Parainfluenza 3 (PCR) Not detected (Not Detect) Parainfluenza 4 (PCR) Not detected (Not Detect) RSV (PCR) Not detected (Not Detect) Entero/Rhino (PCR) Not detected (Not Detect) Urine Dip Bedside Urine Glucose Negative Bedside Urine Bilirubin + 1 Bedside Urine Ketone - Negative Urine Specific [place] 1.01 Bedside Urine Occult Blood - Negative Bedside Urine pH 6.5 Bedside Urine Protein +/- 15 Bedside Urine Urobilinogen +/- 1mg Bedside Urine Nitrite - Negative Bedside Urine Leukocytes - Negative Esterase Point of care testing: Urine Dip Bedside Urine Glucose Negative Bedside Urine Bilirubin + 1 Bedside Urine Ketone - Negative Urine Specific [place] 1.01 Bedside Urine Occult Blood - Negative Bedside Urine pH 6.5 Bedside Urine Protein +/- 15 Bedside Urine Urobilinogen +/- 1mg Bedside Urine Nitrite - Negative Bedside Urine Leukocytes - Negative Esterase Discharge Plan Departure Patient Disposition: Admitted As Inpatient Clinical Impression: Cholelithiasis Qualifiers: Cholelithiasis location: gallbladder Cholecystitis presence: with cholecystitis Cholecystitis acuity: acute Biliary obstruction: without biliary obstruction Qualified Code(s): K80.00 - Calculus of gallbladder with acute cholecystitis without obstruction Admit Date/Time: 09/08/22 07:04 Admit Provider: Carlos Andino
[2022-09-08] MEDS: SODIUM CHLORIDE 0.9% 1,000 ML 1000 ML IV ×2 (00:26→02:02)
[2022-09-08] MEDS: ACETAMINOPHEN 325 MG TABLET 975 MG PO (00:29)
[2022-09-08] MEDS: IBUPROFEN 400 MG TABLET 800 MG PO (00:29)
[2022-09-08 00:32] LABS: Lactate (Lactic Acid) 1.2 mmol/L (0.7-2.1)
[2022-09-08 01:10] LABS: INR 1.3 (0.9-1.3); Prothrombin Time 14.6 SECONDS (10.1-12.7)
[2022-09-08 01:12] LABS: PTT Partial Thromboplastin Tim 27 SECONDS (26-36)
[2022-09-08 01:14] LABS: Alanine Aminotransferase 46 IU/L (<50); Albumin 3.4 g/dL (3.5-5.0); Alkaline Phosphatase 56 U/L (38-126); Aspartate Aminotransferase 61 IU/L (17-59); BUN Creatinine Ratio 18.6 (6-22); Bilirubin Total 1.5 mg/dL (0.2-1.3); Blood Urea Nitrogen 18 mg/dL (9-20); Calcium 7.8 mg/dL (8.4-10.2); Carbon Dioxide 26 mmol/L (22-32); Chloride 106 mmol/L (98-107); Estimated Glomerular Filt Rate > 60 mL/min (>60); Globulin 3.3 g/dL (1.7-4.1); Glucose 120 mg/dL (80-110); HEMOLYSIS < 15 (0-50); Potassium 4.1 mmol/L (3.4-5.1); Sodium 136 mmol/L (137-145); Total Protein 6.7 g/dL (6.3-8.2)
[2022-09-08 01:31] LABS: Procalcitonin 0.15 ng/mL (<0.5)
[2022-09-08 01:33] LABS: Lipase 26 U/L (23-300)
[2022-09-08 01:55] LABS: Appearance Urine UA CLEAR; Bilirubin Urine UA NEGATIVE (NEGATIVE); Glucose Urine UA TRACE g/dL (Negative); Ketones Urine UA NEGATIVE (NEGATIVE); Leukocyte Esterase Urine UA NEGATIVE (NEGATIVE); Nitrite Urine UA NEGATIVE (Negative); Occult Blood Urine UA NEGATIVE (Negative); Protein Urine UA 1+ (Negative); Specific Gravity Urine UA 1.015 (1.000-1.035)
[2022-09-08 01:57] LABS: Color Urine UA Dark Yellow
[2022-09-08 02:03] LABS: Bacteria Urine Occasional (0-1); RBC Urine None Seen (0-5/HPF); WBC Urine None Seen (0-5/HPF)
[2022-09-08] MEDS: PIPERACILLIN/TAZO 4.5 GM in SODIUM CHLORIDE 0.9% 100 ML IV (02:03)
[2022-09-08 02:04] LABS: Culture Indicated Urine Cult Not Indicated; Mucus Urine 1+ (Negative); Squamous Epithelial Cell Urine 0-1 /HPF (0-5/HPF)
[2022-09-08 02:57] LABS: Adenovirus Not Detected (Not Detect); B. parapertussis Not Detected (Not Detecte); Bordetella pertussis Not Detected (Not Detecte); Chlamydophila pneumoniae Not Detected (Not Detect); Coronavirus 229E Not Detected (Not Detect); Coronavirus HKU1 Not Detected (Not Detect); Coronavirus NL 63 Not Detected (Not Detect); Coronavirus OC43 Not Detected (Not Detect); Human Metapneumovirus Not Detected (Not Detect); Human Rhinovirus/Enterovirus Not Detected (Not Detect); Influenza A Not Detected (Not Detect); Influenza B Not Detected (Not Detect); Mycoplasma pneumoniae Not Detected (Not Detect); Parainfluenza Virus 1 Not Detected (Not Detect); Parainfluenza Virus 2 Not Detected (Not Detect); Parainfluenza Virus 3 Not Detected (Not Detect); Parainfluenza Virus 4 Not Detected (Not Detect); Respiratory Syncytial Virus Not Detected (Not Detect); SARS- CoV-2 Not Detected (Not Detecte)
--- NOTE | 2022-09-08 03:25 | DI.CT.S_ITS ---
PROCEDURE: CT ABDOMEN PELVIS W CON INDICATIONS: LLQ pain TECHNIQUE: After the administration of oral and IV contrast, axial sections were acquired from the lung bases to the pubic symphysis. Coronal and sagittal reformats were performed. For radiation dose reduction, the following was used: automated exposure control, adjustment of mA and/or kV according to patient size. COMPARISON: [facility], CT, ABDOMEN WITHOUT CONTRAST, 10/07/2016, 11:47. [facility], US, US ABDOMEN LIMITED, 09/08/2022, 5:19. FINDINGS: Image quality: Excellent. Lung bases: Unremarkable. Heart: No significant findings. ABDOMEN: Liver: Normal size. Mild hepatic steatosis. Gallbladder: There is a calcified gallstone. Biliary ducts: Unremarkable. Pancreas: Unremarkable. Spleen: Unremarkable. Adrenal Glands: Unremarkable. Kidneys and Ureters: Unremarkable. Stomach and Bowel: Stomach, small bowel loops, and colon are normal in caliber. Diverticulosis without acute diverticulitis. There is a large amount of stool in colon. Peritoneum: No abnormal intraperitoneal fluid. No free air. Ventral Wall: No hernia. Abdominal Nodes: No retroperitoneal or mesenteric adenopathy by size criteria. Vessels: Aorta and inferior vena cava are normal in size. PELVIS: Pelvic Organs: Unremarkable. Bladder: There is hyperdensity layering within the dependent bladder lumen. Small bladder diverticulum in the right lateral bladder wall. Pelvic Nodes: No enlarged lymph nodes. Miscellaneous: Small fat containing inguinal hernias are seen. Bones: Unremarkable. IMPRESSION: 1. Hyperdensity in the dependent bladder lumen may be debride or blood anterior. Recommend correlation with urine analysis. 2. A small bladder diverticulum in the right lateral bladder wall. 3. Cholelithiasis. 4. Diverticulosis without diverticulitis. No significant discrepancy with the night shift manager radiology preliminary report. Dictated by: Chad Gutierrez M.D. on 09/08/2022 at 8:21 Approved by: Chad Gutierrez M.D. on 09/08/2022 at 8:26
--- NOTE | 2022-09-08 04:52 | DI.US.S_ITS ---
PROCEDURE: US ABDOMEN LIMITED INDICATIONS: SEPTIC, ABDOMEN PAIN, STONE IN NECK ON CT, REQ PER SURGERY TECHNIQUE: Real-time scanning was performed of the abdominal and retroperitoneal organs, with image documentation. COMPARISON: [facility], CT, CT ABDOMEN PELVIS W CON, 09/08/2022, 3:46. FINDINGS: Liver: Liver is mildly enlarged measuring 21.3 cm in length. Mildly increased echotexture. Gallbladder: There is a 2.3 x 0.7 x 2.2 cm stone in the gallbladder neck. Gallbladder wall is equivocally thickened measuring up to 3.7 mm. No pericholecystic fluid collection or sonographic Clayton sign. Biliary ducts: Intrahepatic bile ducts are non-dilated. Extrahepatic bile duct caliber not well seen. Normal is 6-7 mm or less in diameter, or 10 mm or less post-cholecystectomy. Pancreas: Visualized portions of the pancreas are sonographically normal. Miscellaneous: No free abdominal fluid. IMPRESSION: 1. Cholelithiasis with a gallstone in the gallbladder neck. There is equivocal gallbladder wall thickening. No pericholecystic fluid collection or sonographic Clayton sign. If there is clinical suspicion for acute cholecystitis, consider HIDA scan for further evaluation. 2. Dilated common is not well seen. Please correlate with serum bilirubin for biliary obstruction. If clinically indicated, MRCP may be helpful. 3. Mild hepatomegaly. Diffusely increased hepatic echotexture. This finding is most likely secondary to hepatic fatty infiltration although other hepatocellular disease may have a similar appearance. Recommend clinical correlation. No significant discrepancy with the product lead radiology preliminary report. Dictated by: Chad Gutierrez M.D. on 09/08/2022 at 8:27 Approved by: Chad Gutierrez M.D. on 09/08/2022 at 8:34
--- NOTE | 2022-09-08 08:14 | PC.NURSE ---
Pt resting supine in bed. Pt is A&Ox4. Respirations are regular and unlabored. Skin is warm, dry and pink. Oral temp 98F. Pt denies abdominal pain, nausea. Pt given update on plan of care.
--- NOTE | 2022-09-08 10:40 | PC.NURSE ---
Addendum entered by Johanna Richmond R.N. 09/08/22 14:20: Patient just down to surgery for gall bladder removal. Original Note: Patient denies pain to his r.upper quadrant at this time, he is resting comfortably and will be going to surgery around 1530.
[2022-09-08] MEDS: LACTATED RINGERS 1,000 ML 100 ML IV (14:41)
--- NOTE | 2022-09-08 15:39 | SUR.OPER ---
Supine on padded OR bed, head on pillow, safety belt at thigh, left arm padded and tucked at side. Right arm secured on padded arm board <90 degrees abduction. Bilateral side extensions in place. Legs uncrossed. Padded footboard in place. Tape over blanket to secure lower legs.
--- NOTE | 2022-09-08 15:47 | PM.HP.1 ---
History of Present Illness History of Present Illness Date Patient Seen: 09/08/22 Time Patient Seen: 15:47 Chief complaint: chills, fever, shaking Narrative: Triston is a 77-year-old man who presented to the emergency department yesterday complaining of several days of fevers and chills. Notably, he did not endorse any abdominal pain. A CT scan showed gallstones and an ultrasound confirmed gallstones. There was no intrahepatic biliary ductal dilatation and the extrahepatic duct was not well visualized. His only laboratory abnormality was bilirubin of 1.5. He is never had any prior abdominal surgery. 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 Morbid obesity with body mass index (BMI) of 40.0 to 44.9 in adult (10/31/16) Obstructive sleep apnea syndrome (01/25/16) Overactive bladder Prostate mass Rectal bleeding Recurrent UTI Restless legs syndrome (01/25/16) Surgical History History of colonoscopy History of transurethral resection of prostate Family History Father Parkinsons disease Mother Congestive heart failure Social History marital status: household members: spouse lives independently: Yes caregiver/support person: No housing: house pets and animals: Yes education level: college occupational status: previously employed 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[employer], 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) seatbelt use: always helmet use: Yes water heater temp set < 120 deg: Yes Smoking Status: Never smoker second hand exposure: No alcohol intake: current substance use type: does not use during the past year weight has: decreased > 10 lbs well-balanced diet: about half the time daily servings fruits/ve-4 caffeine: No eating out: 1-3 times/week frequency: 1-2 times per week duration: 45-60 minutes/day Meds Home Medications and Allergies Home Medications Medication Instructions Recorded Confirmed Type aspirin 81 mg tablet,delayed 81 mg PO QDAY ##0 01/25/16 09/08/22 History release Respironics Dreamstation BIPAP #1 ea 12/06/18 09/08/22 History Disabled Parking Permit See Rx Instructions .Route 09/21/20 09/08/22 Rx .COMPLEX #1 ea torsemide 10 mg tablet 10 mg PO DAILY 06/25/21 09/08/22 History nystatin 100,000 unit/gram topical 1 applic topical BID #30 grams 07/12/21 09/08/22 Rx cream pramipexole 1.5 mg tablet,extended See Rx Instructions .Route 09/27/21 09/08/22 Rx release 24 hr .COMPLEX RLS #180 tabs ezetimibe 10 mg tablet (Zetia) 10 mg PO DAILY #90 tabs 03/06/22 09/08/22 Rx eplerenone 25 mg tablet 25 mg PO DAILY #90 tabs 03/13/22 09/08/22 Rx gabapentin 100 mg capsule 100 mg PO DAILY 07/18/22 09/08/22 History latanoprostene bunod 0.024 % eye 1 drp EYE-BOTH BEDTIME #5 mL 07/18/22 09/08/22 Rx drops (Vyzulta) magnesium oxide 500 mg tablet 500 mg PO BID #270 tabs 07/18/22 09/08/22 Rx mirabegron 50 mg tablet,extended 50 mg PO DAILY #90 tabs 07/18/22 09/08/22 Rx release 24 hr (Myrbetriq) azelastine-fluticasone 137 mcg-50 1 spray intranasal DAILY 09/08/22 09/08/22 History mcg/spray nasal spray dorzolamide 22.3 mg-timolol 6.8 1 drp EYE-BOTH TID 09/08/22 09/08/22 History mg/mL eye drops eplerenone 50 mg tablet 50 mg PO DAILY 09/08/22 09/08/22 History pantoprazole 40 mg tablet,delayed 40 mg PO DAILY 09/08/22 09/08/22 History release rosuvastatin 20 mg tablet 20 mg PO BEDTIME 09/08/22 09/08/22 History Allergies Allergy/AdvReac Type Severity Reaction Status Date / Time ciprofloxacin [From Cipro] Allergy Intermediate ruptured Verified 09/08/22 14:34 tendons Sulfa (Sulfonamide AdvReac Intermediate Nausea Verified 09/08/22 14:34 Antibiotics) [SULFA (SULFONAMIDE ANTIBIOTICS)] Exam Vital Signs (past 8 hours): - 09/08/22 08:00 09/08/22 08:30 09/08/22 09:00 Temperature 98 F Pulse Rate 59 L 59 L 60 Respiratory Rate 20 23 15 Blood Pressure 113/54 L 111/57 L 113/55 L Pulse Oximetry 94 93 94 Oxygen Delivery Method Room Air Room Air Room Air Oxygen Flow Rate 09/08/22 09:30 09/08/22 12:31 09/08/22 14:39 Temperature 98.3 F 99.5 F 98.9 F Pulse Rate 60 61 58 L Respiratory Rate 19 16 16 Blood Pressure 118/62 120/74 118/57 L Pulse Oximetry 95 93 98 Oxygen Delivery Method Room Air Oxygen Flow Rate 0 0 Oxygen Delivery Method Room Air Oxygen Flow Rate 0 Narrative Exam Narrative: Abdomen soft, not tender, no Clayton sign Objective Labs 09/08/22 00:05 09/08/22 00:52 Labs: Laboratory Results - last 24 hr 09/08/22 09/08/22 09/08/22 00:05 00:05 00:52 WBC 3.9 L RBC 4.28 L Hgb 12.9 L Hct 37.5 L MCV 87.6 MCH 30.2 MCHC 34.4 RDW 14.3 Plt Count 125 L Neut % (Auto) 74.7 Lymph % (Auto) 15.8 L Mccracken % (Auto) 7.5 Eos % (Auto) 1.0 L Baso % (Auto) 1.0 Neut # (Auto) 2900 Lymph # (Auto) 600 L Mccracken # (Auto) 300 Eos # (Auto) 0 Baso # (Auto) 0 PT 14.6 H INR 1.3 APTT 27 Sodium Potassium Chloride Carbon Dioxide BUN Creatinine Estimated GFR BUN/Creatinine Ratio Glucose Lactate 1.2 Calcium Total Bilirubin AST ALT Alkaline Phosphatase Total Protein Albumin Globulin Albumin/Globulin Ratio Lipase Procalcitonin Urine Color Urine Appearance Urine pH Ur Specific [place] Urine Protein Urine Glucose (UA) Urine Ketones Urine Occult Blood Urine Nitrate Urine Bilirubin Urine Urobilinogen Ur Leukocyte Esterase Urine RBC Urine WBC Ur Squamous Epith Cells Urine Bacteria Urine Mucus Ur Culture Indicated? Chlamy pneumoniae PCR Adenovirus (PCR) B. pertussis DNA (PCR) B.parapertussis DNA PCR Coronavirus OC43 (PCR) Coronavirus HKU1 (PCR) Coronavirus 229E (PCR) SARS-CoV-2 (PCR) Coronavirus NL63 (PCR) Human Metapneumovir PCR Influenza Type A (PCR) Influenza Type B (PCR) M. pneumoniae (PCR) Parainfluenza 1 (PCR) Parainfluenza 2 (PCR) Parainfluenza 3 (PCR) Parainfluenza 4 (PCR) RSV (PCR) Entero/Rhino (PCR) 09/08/22 09/08/22 09/08/22 00:52 01:48 01:56 WBC RBC Hgb Hct MCV MCH MCHC RDW Plt Count Neut % (Auto) Lymph % (Auto) M[place]racken % (Auto) Eos % (Auto) Baso % (Auto) Neut # (Auto) Lymph # (Auto) [place]en # (Auto) Eos # (Auto) Baso # (Auto) PT INR APTT Sodium 136 L Potassium 4.1 Chloride 106 Carbon Dioxide 26 BUN 18 Creatinine 0.97 Estimated GFR > 60 BUN/Creatinine Ratio 18.6 Glucose 120 H Lactate Calcium 7.8 L Total Bilirubin 1.5 H AST 61 H ALT 46 Alkaline Phosphatase 56 Total Protein 6.7 Albumin 3.4 L Globulin 3.3 Albumin/Globulin Ratio 1.0 Lipase 26 Procalcitonin 0.15 Urine Color Dark yellow Urine Appearance Clear Urine pH 7.0 Ur Specific [place] 1.015 Urine Protein 1+ H Urine Glucose (UA) Trace H Urine Ketones Negative Urine Occult Blood Negative Urine Nitrate Negative Urine Bilirubin Negative Urine Urobilinogen 4.0 H Ur Leukocyte Esterase Negative Urine RBC None seen Urine WBC None seen Ur Squamous Epith Cells 0-1 /hpf Urine Bacteria Occasional (0-1) Urine Mucus 1+ H Ur Culture Indicated? Cult not indicated Chlamy pneumoniae PCR Not detected Adenovirus (PCR) Not detected B. pertussis DNA (PCR) Not detected B.parapertussis DNA PCR Not detected Coronavirus OC43 (PCR) Not detected Coronavirus HKU1 (PCR) Not detected Coronavirus 229E (PCR) Not detected SARS-CoV-2 (PCR) Not detected Coronavirus NL63 (PCR) Not detected Human Metapneumovir PCR Not detected Influenza Type A (PCR) Not detected Influenza Type B (PCR) Not detected M. pneumoniae (PCR) Not detected Parainfluenza 1 (PCR) Not detected Parainfluenza 2 (PCR) Not detected Parainfluenza 3 (PCR) Not detected Parainfluenza 4 (PCR) Not detected RSV (PCR) Not detected Entero/Rhino (PCR) Not detected Assessment & Plan Assessment and plan (1) Cholelithiasis: Qualifiers: Cholelithiasis location: gallbladder Cholecystitis presence: with cholecystitis Cholecystitis acuity: acute Biliary obstruction: without biliary obstruction Qualified Code(s): K80.00 - Calculus of gallbladder with acute cholecystitis without obstruction Status: Acute Plan We reviewed the risks and benefits of laparoscopic cholecystectomy for acute cholecystitis. I explained that it is possible his symptoms are from something other than his gallbladder however I recommend we proceed with cholecystectomy to remove that potential source of morbidity. He understands the risks of surgery and anesthesia and he would like to proceed.
[2022-09-08] MEDS: PIPERACILLIN/TAZO 3.375 GM in SODIUM CHLORIDE 0.9% 100 ML IV (16:40)
[2022-09-08] MEDS: BUPIVACAINE 0.5% (PF) 30 ML, EPINEPHrine 0.15 MG INJ (17:00)
--- NOTE | 2022-09-08 17:45 | P.OP_ITS ---
Operative Date/Time/Diagnoses Date of procedure: 09/08/22 Time of procedure: 17:46 Pre-op diagnosis: Acute cholecystitis Post-op diagnosis: same Procedure & Clinicians Procedure: Laparoscopic cholecystectomy Same procedure as scheduled: Yes Surgeon: Mayank Hsu Anesthesia Type: General Operative Notes Procedure in detail: The patient was given preoperative antibiotic. The patient was brought to the operating room, placed on the table in the supine position. General endotracheal anesthesia was induced. The abdomen was prepped and draped. A time-out was performed. We made a 1 cm transverse supraumbilical incision. We dissected down to the anterior sheath with cautery. We scored the fascia in the midline with cautery 1 cm. We pierced the peritoneum with a Peon clamp. The James port was placed and the abdomen was insufflated to 15 mmHg. A 5 mm 30 d egree laparoscopic was inserted. There was no evidence of any injury from the entry. Next, we placed 5 mm ports in the subxiphoid position and right upper quadrant at the midclavicular line and anterior axillary line. Patient was then positioned in reverse Trendelenburg and the table was tilted to the left. There was significant bulky omentum and we had to place an additional 12 mm port in the right lower quadrant to allow a fan retractor to retract the visceral fat away from the gallbladder. The gallbladder was grasped at the dome and retracted cephalad. There were a few omental adhesions taken down from the lateral right lobe. We then dissected the cystic structures with a combination of hook cautery and blunt dissection. Was evident that there was a rather large stone the neck of the gallbladder. We obtained a critical view. We placed Humalog clips on the cystic duct and artery and divided the cystic duct and artery sharply between the clips. The gallbladder was then dissected off the liver and placed in a specimen retrieval bag. We irrigated the right upper quadrant and all the aspirate returned clear. We then removed the 5 mm ports under direct vision we removed the James port. We then injected some local into the fascia and closed the fascia with 2 interrupted 0 Vicryl sutures. The right lower quadrant incision was also closed with 2 interrupted 0 Vicryl s titches. The skin incisions were closed with 4-0 Monocryl and Steri-Strips were applied. Band-Aids were applied over the Steri-Strips. EBL: 50 mL Specimen: Gallbladder and contents Post-operative Condition: stable Disposition: PACU
--- NOTE | 2022-09-08 18:39 | PC.NURSE ---
Pt arrived to the unit from PACU at 1830. Pt is A&Ox4, easily awakens when staff walking into the room. Pain is controlled at this time. Pt has five lapro-scopic incisions after having his gallbladder removed. Incisions that are covered by bandages are clean, dry and intact. Bowel sounds are hypoactive. Pt reoriented to the room. Call light within reach. Pt was slightly hypoxic on RA at 88%, pt was placed on 2L of O2 via NC and pt's SpO2 came up to 93% on 2L.
[2022-09-08] MEDS: ACETAMINOPHEN 325 MG TABLET 650 MG PO (19:39)
[2022-09-08] MEDS: HYDROMORPHONE 0.5 MG INJ IV (19:39)
[2022-09-09] VITALS: BP 109/40; PULSE 53; RESP 18; TEMP 35.4; O2SAT 94
[2022-09-09 04:46] VITALS: BP 100/57; PULSE 52; RESP 18; TEMP 36.2; O2SAT 91
--- NOTE | 2022-09-09 07:41 | PC.NURSE ---
Patient is comfortable in bed, 5 incisions all cdi, he denies pain and bowel tones are positive x4 quads. Patient is a one person assist to get up to chair and is using the urinal to void.
--- NOTE | 2022-09-09 08:23 | PC.NURSE ---
Patient has some wheezes to the r.mid lobe, otherwise lung sounds are diminished. Patient is tolerating her breakfast and she has been switched to nasal cannula so that she can eat breakfast. She denies pain at this time. On 3L of oxygen.
[2022-09-09 08:53] VITALS: PULSE 56; TEMP 36.6; O2SAT 95
[2022-09-09] MEDS: ACETAMINOPHEN 325 MG TABLET 650 MG PO (10:25)
--- NOTE | 2022-09-09 12:07 | CM.DANOTE ---
DCP: Case received, EMR reviewed and met with patient. Introduced self and role. Was able to obtain information regarding patient's baseline activity level prior to hospitalization. DCP assessment completed with information currently available. Patient is a 77 year old male who admitted yesterday morning to the care of the hospitalist team. PCP: Dr. Johnson. Payer: confirmed: Medicare/[employer]. Patient came to the hospital via private vehicle secondary to having a fever, notes indicate was about 102, as well as nausea. Notes also indicated that patient did not have any abdominal pain, but CT showed gallstones, biliary ductal dialation. Patient was noted to have acute cholecystitis, had laparoscopic cholecystectomy yesterday. Met with patient in his room. He is alert and oriented, and was sitting up in his chair. Confirmed that he resides with his spouse, Cee, in [place]. Patient is independent at his baseline. P: Patient is supposed to discharge home today. 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 Yes: DPOA Advance Directives on File Yes History Provided By Patient,Significant Other, Medical Record Prior Living Arrangements House Comment The pt has two steps to get into the house before walking into a sigle story premanufactured home Household Members spouse Type of transporation used prior to Drives own vehicle admit Independent with ADL's Yes Is patient alert and oriented? Yes Caregiver for Another No Barriers to Discharge No Discharge Plan Home Transportation Arrangement Family Referrals Initiated None needed Whiteboard Updated in Patient Room with Yes name and ext. # of Railcar Brake Operator Review Status In Process Next Review Type Continued Stay Review
== END 2022-09-09 12:15 | disposition home or self-care (01) ==
LOC: ED 09-08 07:02 → AC 09-08 07:12
PROVIDERS: Surgery; Admitting Provider Surgery; Emergency Provider Emergency Medicine; PCP Family Medicine; Referring Provider Emergency Medicine; Visit Provider Surgery
PROC: 0FT44ZZ Resection of Gallbladder, Percutaneous Endoscopic Approach (ICD-10-PCS; CPT 47562; principal; 2022-09-08 15:30)
DX: K80.00 Calculus of gallbladder with acute cholecystitis without obstruction (principal); E11.9 Type 2 diabetes mellitus without complications; I50.32 Chronic diastolic (congestive) heart failure; E66.01 Morbid (severe) obesity due to excess calories; Z68.42 Body mass index [BMI] 45.0-49.9, adult; K21.9 Gastro-esophageal reflux disease without esophagitis; G25.81 Restless legs syndrome; Z20.822 Contact with and (suspected) exposure to COVID-19
CPT/HCPCS: 47562; 36415; 71045; 74177; 76705; 80053; 81001; 81003; 82962; 83605; 83690; 84145; 85025; 85610; 85730; 87040; 87633; 93005; 96365; 96375; 99221; 99285; G0378; J0171; J0330; J1100; J1170; J2405; J2543; J2704; J3010; J3490; Q9967

== ENCOUNTER → 2022-09-24 11:54 | Outpatient (CLI) | payer MEDICARE, OTHER, SELFPAY ==
[2022-09-08 11:37] VITALS: BMI 45.8
[2022-09-24 13:25] LABS: Add Manual Diff / Slide Review NO; Basophils Absolute Auto 100 /uL (0-100); Basophils Percent Auto 1.4 % (0-2); Eosinophils Absolute Auto 300 /uL (0-450); Hemoglobin 12.7 g/dL (13.5-17.5); Lymphocytes Absolute Auto 1600 /uL (1100-4500); Lymphocytes Percent Auto 31.9 % (25-40); Mean Corpuscular HGB Conc 34.3 % (30-36); Mean Corpuscular Hemoglobin 30.4 PG (26-34); Mean Corpuscular Volume 88.7 fL (80-100); Monocytes Absolute Auto 400 /uL (0-900); Monocytes Percent Auto 8.3 % (3-14); Neutrophils Absolute Auto 2700 /uL (1500-7000); Neutrophils Percent Auto 52.4 % (50-75); Platelet Count 220 X10^3/uL (150-400); Red Blood Cell Count 4.17 X10^6/uL (4.5-5.9); Red Cell Distribution Width 14.2 % (11.6-14.8); White Blood Cell Count 5.1 X10^3/uL (4.5-11.0)
[2022-09-24 13:41] LABS: Alanine Aminotransferase 31 IU/L (<50); Albumin Globulin Ratio 1.3 (1.0-2.8); Alkaline Phosphatase 86 U/L (38-126); Aspartate Aminotransferase 32 IU/L (17-59); BUN Creatinine Ratio 26.8 (6-22); Blood Urea Nitrogen 19 mg/dL (9-20); Calcium 8.9 mg/dL (8.4-10.2); Carbon Dioxide 27 mmol/L (22-32); Chloride 105 mmol/L (98-107); Estimated Glomerular Filt Rate > 60 mL/min (>60); Globulin 3.2 g/dL (1.7-4.1); Glucose 164 mg/dL (80-110); HEMOLYSIS < 15 (0-50); Potassium 4.1 mmol/L (3.4-5.1); Sodium 139 mmol/L (137-145); Total Protein 7.2 g/dL (6.3-8.2)
== END ==
PROVIDERS: PCP Family Medicine; Referring Provider Surgery; Visit Provider Surgery
DX: K80.20 Calculus of gallbladder without cholecystitis without obstruction (principal)
CPT/HCPCS: 36415; 80053; 85025

== ENCOUNTER 2022-10-16 14:26 | Emergency (ER) | payer MEDICARE, OTHER, SELFPAY ==
[2022-09-08 11:37] VITALS: BMI 45.8
[2022-10-16 14:49] VITALS: BP 148/64; PULSE 61; RESP 17; TEMP 36.6; O2SAT 96; BMI 44.7
--- NOTE | 2022-10-16 14:53 | DI.RAD.S_ITS ---
PROCEDURE: XR CHEST 2V INDICATIONS: cough and congestion TECHNIQUE: 2 views of the chest were acquired. COMPARISON: [facility], CR, XR CHEST 1V, 09/08/2022, 0:25. FINDINGS: Surgical changes and devices: None. Lungs and pleura: Mild appearance of increased interstitial prominence. Mediastinum: Mediastinal contours are normal. Heart size is enlarged. Bones and chest wall: No suspicious bony abnormalities. Soft tissues appear unremarkable. IMPRESSION: Mild increased interstitial prominence which may represent increased vascularity versus pneumonia. Dictated by: Dee Bergman M.D. on 10/16/2022 at 16:13 Approved by: Dee Bergman M.D. on 10/16/2022 at 16:14
[2022-10-16 15:24] LABS: COVID19 -Nasal RAPID Negative (Negative)
--- NOTE | 2022-10-16 17:58 | ED.URI ---
HPI - URI/Sore Throat <Medina Cintron PA-C - Last Filed: 10/16/22 18:35> General Chief Complaint: Upper Respiratory Symptoms Stated Complaint: Sick Time Seen by Provider: 10/16/22 17:56 Mode of arrival: Ambulatory History of Present Illness HPI Narrative: Patient is a 77-year-old man who recently returned from a cruise to [place]. After his return home, he developed sore throat runny nose and a persistent cough. He is coughing frequently and very uncomfortable. He has body aches and feels unwell. 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 He is now been sick for 5 days. He is tried taking Zyrtec without any improvement. He denies chest pain except when he coughs, denies trouble breathing. He is eating and drinking normally. Related Data Home Medications Medication Instructions Recorded Confirmed aspirin 81 mg tablet,delayed 81 mg PO QDAY ##0 01/25/16 09/24/22 release Respironics Dreamstation BIPAP #1 ea 12/06/18 09/24/22 torsemide 10 mg tablet 10 mg PO DAILY 06/25/21 09/24/22 gabapentin 100 mg capsule 100 mg PO DAILY 07/18/22 09/24/22 dorzolamide 22.3 mg-timolol 6.8 1 drp EYE-BOTH TID 09/08/22 09/24/22 mg/mL eye drops eplerenone 50 mg tablet 50 mg PO DAILY 09/08/22 09/24/22 pantoprazole 40 mg tablet,delayed 40 mg PO DAILY 09/08/22 09/24/22 release rosuvastatin 20 mg tablet 20 mg PO BEDTIME 09/08/22 09/24/22 Previous Rx's Medication Instructions Recorded Disabled Parking Permit See Rx Instructions .Route 09/21/20 .COMPLEX #1 ea nystatin 100,000 unit/gram topical 1 applic topical BID #30 grams 07/12/21 cream pramipexole 1.5 mg tablet,extended See Rx Instructions .Route 09/27/21 release 24 hr .COMPLEX RLS #180 tabs ezetimibe 10 mg tablet (Zetia) 10 mg PO DAILY #90 tabs 03/06/22 latanoprostene bunod 0.024 % eye 1 drp EYE-BOTH BEDTIME #5 mL 07/18/22 drops (Vyzulta) magnesium oxide 500 mg tablet 500 mg PO BID #270 tabs 07/18/22 mirabegron 50 mg tablet,extended 50 mg PO DAILY #90 tabs 07/18/22 release 24 hr (Myrbetriq) azelastine-fluticasone 137 mcg-50 1 spray intranasal DAILY #23 grams 09/22/22 mcg/spray nasal spray eplerenone 25 mg tablet 25 mg PO DAILY #90 tabs 09/24/22 benzonatate 100 mg capsule 100 mg PO TID PRN cough #14 caps 10/16/22 Allergies Allergy/AdvReac Type Severity Reaction Status Date / Time ciprofloxacin [From Cipro] Allergy Intermediate ruptured Verified 10/16/22 14:49 tendons Sulfa (Sulfonamide AdvReac Intermediate Nausea Verified 10/16/22 14:49 Antibiotics) [SULFA (SULFONAMIDE ANTIBIOTICS)] Review of Systems <Medina Cintron PA-C - Last Filed: 10/16/22 18:35> Review of Systems ROS Unobtainable: All systems reviewed & are unremarkable except as noted in HPI and below Patient History <Medina Cintron PA-C - Last Filed: 10/16/22 18:35> Medical History Cataracts, both eyes (~2011) Chronic diastolic heart failure (2014) Colon polyp (~2010) Diverticula, bladder Diverticulosis (~2010) DM type 2 (diabetes mellitus, type 2) Family history of prostate cancer in father Gastroesophageal reflux disease without esophagitis (10/31/16) Glaucoma (~2011) Gout of left foot (01/25/16) Hearing loss (~2009) Hemorrhoids (~1978) Hiatal hernia (01/25/16) History of asbestosis (01/25/16) History of urethrocutaneous fistula Low testosterone 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 Morbid obesity with body mass index (BMI) of 40.0 to 44.9 in adult (10/31/16) Obstructive sleep apnea syndrome (01/25/16) Overactive bladder Prostate mass Rectal bleeding Recurrent UTI Restless legs syndrome (01/25/16) Surgical History History of colonoscopy History of transurethral resection of prostate Family History Father Parkinsons disease Mother Congestive heart failure Social History marital status: household members: spouse lives independently: Yes caregiver/support person: No housing: house pets and animals: Yes education level: college occupational status: previously employed 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[employer], 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 special jeanmarie needs: Yes (Alevism) seatbelt use: always helmet use: Yes water heater temp set < 120 deg: Yes Smoking Status: Never smoker second hand exposure: No alcohol intake: current substance use type: does not use during the past year weight has: decreased > 10 lbs well-balanced diet: about half the time daily servings fruits/ve-4 caffeine: No eating out: 1-3 times/week frequency: 1-2 times per week duration: 45-60 minutes/day Smoking Status: Never smoker alcohol intake frequency: a few times a month Substance Use Type: marijuana Exam <Medina Cintron PA-C - Last Filed: 10/16/22 18:35> Narrative Exam Narrative: GENERAL: 77 year old patient appears stated age. Well-developed patient, in no distress. NEURO: AOx3. HEAD: Atraumatic. Normocephalic. EYES: Pupils equal round and reactive. Extraocular motions intact. No scleral icterus. No injection or drainage. ENT: Nose without bleeding or purulent drainage. Throat without erythema, tonsillar hypertrophy or exudate. Airway patent. CARDIOVASCULAR: Regular rate and rhythm without murmurs, gallops, or rubs. RESPIRATORY: Diminished in bases bilaterally without rhonchi, rales, he is. EXTREMITIES: No edema or joint tenderness. SKIN: No rash or erythema of visible areas Initial Vital Signs Initial Vital Signs: Vital Signs Temperature 97.8 F 10/16/22 14:49 Pulse Rate 61 10/16/22 14:49 Respiratory Rate 17 10/16/22 14:49 Blood Pressure 148/64 H 10/16/22 14:49 Pulse Oximetry 96 10/16/22 14:49 Oxygen Delivery Method Room Air 10/16/22 14:49 <Marquis Carpenter MD - Last Filed: 10/24/22 07:14> Initial Vital Signs Initial Vital Signs: Vital Signs Temperature 97.8 F 10/16/22 14:49 Pulse Rate 61 10/16/22 14:49 Respiratory Rate 17 10/16/22 14:49 Blood Pressure 148/64 H 10/16/22 14:49 Pulse Oximetry 96 10/16/22 14:49 Oxygen Delivery Method Room Air 10/16/22 14:49 Course <Medina Cintron PA-C - Last Filed: 10/16/22 18:35> Orders Ordered: Discontinued Medications Amoxicillin (Amoxicillin 250 Mg Capsule) 1,000 mg PO NOW ONE Stop: 10/16/22 18:25 Last Admin: 10/16/22 19:09 Dose: 1,000 mg Documented By: NR Azithromycin (Azithromycin 250 Mg Tablet) 500 mg PO NOW ONE Stop: 10/16/22 18:25 Last Admin: 10/16/22 19:09 Dose: 500 mg Documented By: NR Vital Signs Vital signs: Vital Signs - 8 hr 10/16/22 14:49 Temperature 97.8 F Pulse Rate 61 Respiratory Rate 17 Blood Pressure 148/64 H Pulse Oximetry 96 Oxygen Delivery Method Room Air <Marquis Carpenter MD - Last Filed: 10/24/22 07:14> Orders Ordered: Discontinued Medications Amoxicillin (Amoxicillin 250 Mg Capsule) 1,000 mg PO NOW ONE Stop: 10/16/22 18:25 Last Admin: 10/16/22 19:09 Dose: 1,000 mg Documented By: NR Azithromycin (Azithromycin 250 Mg Tablet) 500 mg PO NOW ONE Stop: 10/16/22 18:25 Last Admin: 10/16/22 19:09 Dose: 500 mg Documented By: NR Vital Signs Vital signs: Vital Signs - 8 hr 10/16/22 14:49 Temperature 97.8 F Pulse Rate 61 Respiratory Rate 17 Blood Pressure 148/64 H Pulse Oximetry 96 Oxygen Delivery Method Room Air MDM - URI/Sore Throat <Medina Cintron PA-C - Last Filed: 10/16/22 18:35> Lab Data Labs: Lab Results 10/16/22 Range/Units 14:53 SARS-CoV-2 (PCR) Negative (Negative) Imaging Data Chest x-ray: Radiologist's Impression: PROCEDURE:? XR CHEST 2V ? INDICATIONS:? cough and congestion ? TECHNIQUE:? 2 views of the chest were acquired.? ? COMPARISON:? [facility], CR, XR CHEST 1V, 09/08/2022, 0:25. ? FINDINGS:? ? Surgical changes and devices:? None.? ? Lungs and pleura:? Mild appearance of increased interstitial prominence. ? Mediastinum:? Mediastinal contours are normal.? Heart size is enlarged. ? Bones and chest wall:? No suspicious bony abnormalities.? Soft tissues appear unremarkable.? ? ? IMPRESSION:? Mild increased interstitial prominence which may represent increased vascularity versus pneumonia.? ? ? Dictated by: Dee Bergman M.D. on 10/16/2022 at 16:13 ? ? Approved by: Dee Bergman M.D. on 10/16/2022 at 16:14 MDM Narrative Medical decision making narrative: Multiple etiologies for patient's symptoms considered including, but not limited to: Viral URI, pneumonia, COVID. Patient's COVID test negative emergency department, chest x-ray with possible pneumonia. Patient will lung sounds diminished in the bases, adequate saturation, afebrile. Suspicion for pneumonia given how poorly patient feels and high risk of developing more serious disease and requiring hospitalization given age, previous history of exposure to smoke and asbestos. 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 Patient and state understanding and understands return precautions. Patient's symptoms improved over duration of stay with above-stated therapies. Findings and discharge diagnosis discussed with patient/family followed by verbalization of understanding Return precautions discussed with patient/family whom verbalize understanding of diagnosis and plan <Marquis Carpenter MD - Last Filed: 10/24/22 07:14> Lab Data Labs: Lab Results 10/16/22 Range/Units 14:53 SARS-CoV-2 (PCR) Negative (Negative) Discharge Plan Departure Patient Disposition: Home Clinical Impression: Community acquired pneumonia Instructions: DI for Pneumonia -- Adult Activity Restrictions/Additional Instructions: *You have been diagnosed with pneumonia. 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 We will give you your 1st dose in the emergency room. Please return to the emergency room if not improving after 48 hours of antibiotics or if you are having trouble breathing or chest pain. *What to do: *Please continue to take your regular medications as directed. [x ] New medication prescriptions sent to your pharmacy: [[facility]] [ ] New medication written as a paper prescription [ ] No new medications given *Please follow up with your primary care provider in 2-3 days, call for an appointment. Let them know you were seen in the Emergency Department and that we ask that you be seen in follow up. We will electronically transmit a record of today's note if your PCP is in our system *If you do not have a primary care provider please contact the [facility] Resource line at [phone]. They will ask some questions about your medical history and help get you set up with a doctor in the community. *Return to Emergency Department if you should have any new, worsening or concerning symptoms, such as [fever greater than 101 F, shaking chills, worsening pain, persistent vomiting or other concerning symptoms]. Prescriptions: New benzonatate 100 mg capsule 100 mg PO TID PRN (Reason: cough) Qty: 14 0RF No Action Disabled Parking Permit See Rx Instructions .ROUTE .COMPLEX Qty: 1 0RF Rx Instructions: My patient cannot walk 200 feet without stopping to rest or must use assistive device. Walking is severely limited due to arthritic, neurological or orthopedic condition. Uses portable oxygen or walking restricted by lung disease. nystatin 100,000 unit/gram cream 1 applic topical BID Qty: 30 0RF Rx Instructions: apply to to the affected area in the groin aspirin 81 MG tablet,delayed release (DR/EC) 81 mg PO QDAY Qty: 0 pramipexole 1.5 mg tablet extended release 24 hr See Rx Instructions .ROUTE .COMPLEX Qty: 180 3RF Dose Instruction: TAKE 2 TABLETS BY MOUTH DAILY. STAGGER DOSES 7:30PM AND 9:30PM. Rx Instructions: TAKE 2 TABLETS BY MOUTH DAILY. STAGGER DOSES 7:30PM AND 9:30PM. Take with 100 mg of gabapentin at the same time. ezetimibe [Zetia] 10 mg tablet 10 mg PO DAILY Qty: 90 3RF Rx Instructions: Take one tablet at bedtime Vyzulta 0.024 % drops 1 drp EYE-BOTH BEDTIME Qty: 5 0RF magnesium oxide 500 mg tablet 500 mg PO BID Qty: 270 0RF Rx Instructions: once in the morning and once in the evening azelastine-fluticasone 137-50 mcg/spray spray,non-aerosol 1 spray intranasal DAILY Qty: 23 0RF eplerenone 25 mg tablet 25 mg PO DAILY Qty: 90 3RF Patient Comments: cardiac Rx Instructions: take with 50 mg of eplerenone in the morning for a total of 75 mg daily pantoprazole 40 mg tablet,delayed release (DR/EC) 40 mg PO DAILY Rx Instructions: TAKE 1 TABLET BY MOUTH DAILY dorzolamide-timolol 22.3-6.8 mg/mL drops 1 drp EYE-BOTH TID eplerenone 50 mg tablet 50 mg PO DAILY Rx Instructions: TAKE 1 TABLET BY MOUTH DAILY with 25 mg of eplerenone for a total of 75 mg daily rosuvastatin 20 mg tablet 20 mg PO BEDTIME (DME) RespirImmunotEGG Dreamstation BIPAP Qty: 1 Rx Instructions: Pressure: IPAP 16 EPAP 11 DME: [facility] gabapentin 100 mg capsule 100 mg PO DAILY Rx Instructions: pt reports he takes 100 mg at 1900 and another 100 mg at 2100 Myrbetriq 50 mg tablet extended release 24 hr 50 mg PO DAILY Qty: 90 3RF Patient Comments: urine flow Rx Instructions: take one pill in the morning torsemide 10 mg tablet 10 mg PO DAILY Rx Instructions: take in the AM Referrals: Maya Johnson MD [Primary Care Provider] - Stand Alone Forms: Patient Portal/API <Marquis Carpenter MD - Last Filed: 10/24/22 07:14> [facility] I was immediately available in the department for consultation. ?This documentation has been reviewed and I agree with assessment and plan. Supervised by Marquis Carpenter MD
--- NOTE | 2022-10-16 18:07 | PC.NURSE ---
pt zyrtec with no relief. got home from cruise on thursday from [place] started feeling sick on thursday, getting worse every day. states sore throat, sinus pain, runny nose, cough. denies body aches. uses CPAP, full face machine at night.
[2022-10-16] MEDS: AMOXICILLIN 250 MG CAPSULE 1000 MG PO (19:09)
[2022-10-16] MEDS: AZITHROMYCIN 250 MG TABLET 500 MG PO (19:09)
== END 2022-10-16 19:12 | disposition home or self-care (01) ==
PROVIDERS: Emergency Medicine; Emergency Provider Physician Assistant; PCP Family Medicine
DX: J18.9 Pneumonia, unspecified organism (principal)
CPT/HCPCS: 71046; 87635; 99283; C9803

== ENCOUNTER → 2022-11-18 13:40 | Outpatient (CLI) | payer MEDICARE, OTHER, SELFPAY ==
[2022-11-05 15:47] VITALS: BMI 45.8
--- NOTE | 2022-11-18 13:41 | DI.CT.S_ITS ---
PROCEDURE: CT CHEST HIGH RESOLUTION INDICATIONS: Asbestosis TECHNIQUE: Noncontrast 1.0 and 5.0 mm thick contiguous axial sections from the pulmonary apex to the posterior costophrenic angles, with 7 mm thick coronal and sagittal MIP reformats. 1 mm thick dynamic expiratory images acquired through the upper, mid, and lower lungs. 1.0 mm thick axial sections acquired from the judy to the posterior costophrenic angles in the prone end-inspiration position. For radiation dose reduction, the following was used: automated exposure control, adjustment of mA and/or kV according to patient size. COMPARISON: None. FINDINGS: Image quality: Excellent. Lungs: No evidence of pulmonary fibrosis. No bronchiectasis. No honeycombing. Diffuse air trapping. Calcified granuloma. Pleura: No pleural effusions or pneumothorax. Extensive pleural calcifications, without superimposed nodularity. Mediastinum: Heart size is normal. No pericardial effusion. Thoracic aorta and central pulmonary arteries are normal in size. Esophagus is normal in caliber. Moderate coronary calcifications. Bones and chest wall: No suspicious bony lesions. No vertebral body compression fractures. 1.7 cm right thyroid nodule. Abdomen: Visualized upper abdominal solid organs and bowel loops appear normal. IMPRESSION: Extensive pleural calcifications, most consistent with prior specific exposure. No superimposed soft tissue mass. No pulmonary fibrosis. 1.7 cm right thyroid nodule. Recommend dedicated thyroid ultrasound, if not performed in the past. Dictated by: Kulwinder Askew M.D. on 11/18/2022 at 15:37 Approved by: Kulwinder Askew M.D. on 11/18/2022 at 15:40
== END ==
PROVIDERS: PCP Family Medicine; Referring Provider Internal Medicine Critical Care Medicine; Visit Provider Internal Medicine Critical Care Medicine
DX: J61 Pneumoconiosis due to asbestos and other mineral fibers (principal); E04.1 Nontoxic single thyroid nodule
CPT/HCPCS: 71250

== ENCOUNTER → 2022-11-20 14:25 | Outpatient (CLI) | payer MEDICARE, OTHER, SELFPAY ==
[2022-11-05 15:47] VITALS: BMI 45.8
== END ==
PROVIDERS: PCP Family Medicine; Referring Provider Family Medicine; Visit Provider Family Medicine
DX: J61 Pneumoconiosis due to asbestos and other mineral fibers (principal)
CPT/HCPCS: 94060; 94726; 94729

== ENCOUNTER → 2023-07-17 10:47 | Outpatient (CLI) | payer MEDICARE, OTHER, SELFPAY ==
[2022-11-05 15:47] VITALS: BMI 45.8
[2023-07-17 11:34] LABS: Add Manual Diff / Slide Review NO; Basophils Absolute Auto 0 /uL (0-100); Eosinophils Absolute Auto 100 /uL (0-450); Eosinophils Percent Auto 2.4 % (2-4); Hemoglobin 13.5 g/dL (13.5-17.5); Lymphocytes Absolute Auto 1400 /uL (1100-4500); Lymphocytes Percent Auto 26.9 % (25-40); Mean Corpuscular HGB Conc 33.8 % (30-36); Mean Corpuscular Hemoglobin 29.8 PG (26-34); Monocytes Absolute Auto 500 /uL (0-900); Monocytes Percent Auto 9.3 % (3-14); Neutrophils Absolute Auto 3000 /uL (1500-7000); Neutrophils Percent Auto 60.4 % (50-75); Platelet Count 159 X10^3/uL (150-400); Red Blood Cell Count 4.54 X10^6/uL (4.5-5.9); Red Cell Distribution Width 14.3 % (11.6-14.8)
[2023-07-17 11:45] LABS: Hemoglobin A1C% w Est Avg Glu 6.6 % (4.0-6.0)
[2023-07-17 11:53] LABS: Alanine Aminotransferase 21 IU/L (<50); Albumin 4.1 g/dL (3.5-5.0); Albumin Globulin Ratio 1.4 (1.0-2.8); Alkaline Phosphatase 72 U/L (38-126); Aspartate Aminotransferase 30 IU/L (17-59); BUN Creatinine Ratio 22.9 (6-22); Bilirubin Total 1.4 mg/dL (0.2-1.3); Blood Urea Nitrogen 16 mg/dL (9-20); Calcium 8.8 mg/dL (8.4-10.2); Carbon Dioxide 25 mmol/L (22-32); Chloride 108 mmol/L (98-107); Cholesterol 136 mg/dL (140-199); Estimated Glomerular Filt Rate > 60 mL/min (>60); Glucose 172 mg/dL (80-110); HDL Cholesterol 36 mg/dL (40-60); HEMOLYSIS 17 (0-50); LDL Cholesterol Calculated 69 mg/dL (<100); Potassium 3.8 mmol/L (3.4-5.1); Sodium 138 mmol/L (137-145); Total Protein 7.1 g/dL (6.3-8.2); Triglycerides 156 mg/dL (35-150)
[2023-07-17 12:23] LABS: Prostate Specific Antigen 0.872 ng/mL (0.10-4.00)
[2023-07-17 15:20] LABS: Creatinine Urine Random 233.04 mg/dL
[2023-07-17 15:25] LABS: Microalbumin Urine Random 6.4 mg/dL (0-1.6)
== END ==
PROVIDERS: Urology; PCP Family Medicine; Referring Provider Family Medicine; Visit Provider Family Medicine
DX: E11.9 Type 2 diabetes mellitus without complications (principal); N42.9 Disorder of prostate, unspecified; E78.5 Hyperlipidemia, unspecified; K62.5 Hemorrhage of anus and rectum; Z80.42 Family history of malignant neoplasm of prostate; Z87.09 Personal history of other diseases of the respiratory system; I50.32 Chronic diastolic (congestive) heart failure; R39.9 Unspecified symptoms and signs involving the genitourinary system; I11.0 Hypertensive heart disease with heart failure
CPT/HCPCS: 36415; 80053; 80061; 82043; 82570; 83036; 84153; 85025

== ENCOUNTER → 2023-07-23 10:26 | Outpatient (CLI) | payer MEDICARE, OTHER, SELFPAY ==
[2022-11-05 15:47] VITALS: BMI 45.8
== END ==
PROVIDERS: PCP Family Medicine; Visit Provider Urology
DX: N39.0 Urinary tract infection, site not specified (principal); R31.29 Other microscopic hematuria; N32.81 Overactive bladder; N39.3 Stress incontinence (female) (male); N32.3 Diverticulum of bladder; R39.9 Unspecified symptoms and signs involving the genitourinary system; E66.01 Morbid (severe) obesity due to excess calories; Z68.41 Body mass index [BMI] 40.0-44.9, adult; Z98.890 Other specified postprocedural states; Z90.79 Acquired absence of other genital organ(s); Z80.42 Family history of malignant neoplasm of prostate
CPT/HCPCS: 51798; 81002; 87086; 99214

== ENCOUNTER → 2023-09-18 14:32 | Outpatient (CLI) | payer MEDICARE, OTHER, SELFPAY ==
[2022-11-05 15:47] VITALS: BMI 45.8
[2023-09-18 15:45] LABS: Appearance Urine UA CLEAR; Bilirubin Urine UA NEGATIVE (NEGATIVE); Glucose Urine UA TRACE g/dL (Negative); Ketones Urine UA NEGATIVE (NEGATIVE); Leukocyte Esterase Urine UA TRACE (NEGATIVE); Nitrite Urine UA NEGATIVE (Negative); Occult Blood Urine UA NEGATIVE (Negative); Protein Urine UA TRACE (Negative)
[2023-09-18 15:46] LABS: Color Urine UA Amber
[2023-09-18 16:00] LABS: Bacteria Urine Occasional (0-1); Culture Indicated Urine Cult Not Indicated; RBC Urine 0-1/HPF (0-5/HPF); Squamous Epithelial Cell Urine None Seen (0-5/HPF); Urine Volume 10mL (spun); WBC Urine 0-1/HPF (0-5/HPF)
[2023-09-18 16:03] LABS: BUN Creatinine Ratio 17.9 (6-22); Blood Urea Nitrogen 15 mg/dL (9-20); Calcium 8.9 mg/dL (8.4-10.2); Carbon Dioxide 23 mmol/L (22-32); Chloride 108 mmol/L (98-107); Estimated Glomerular Filt Rate > 60 mL/min (>60); Glucose 131 mg/dL (80-110); HEMOLYSIS < 15 (0-50); Sodium 138 mmol/L (137-145)
== END ==
PROVIDERS: PCP Family Medicine; Referring Provider Family Medicine; Visit Provider Urology
DX: N39.0 Urinary tract infection, site not specified (principal); R60.0 Localized edema
CPT/HCPCS: 36415; 80048; 81001

== ENCOUNTER → 2023-10-01 14:43 | Outpatient (CLI) | payer MEDICARE, OTHER, SELFPAY ==
[2022-11-05 15:47] VITALS: BMI 45.8
== END ==
PROVIDERS: PCP Family Medicine; Referring Provider Urology; Visit Provider Urology
DX: R39.9 Unspecified symptoms and signs involving the genitourinary system (principal); N39.0 Urinary tract infection, site not specified; T14.8XXA Other injury of unspecified body region, initial encounter
CPT/HCPCS: 87070; 87075; 87077; 87086; 87205

== ENCOUNTER → 2023-10-12 09:14 | Outpatient (CLI) | payer MEDICARE, OTHER, SELFPAY ==
[2022-11-05 15:47] VITALS: BMI 45.8
== END ==
LOC: WC 09:25
PROVIDERS: Family Provider Family Medicine; PCP Family Medicine; Referring Provider Nurse Practitioner Family; Visit Provider Surgery
DX: S81.801A Unspecified open wound, right lower leg, initial encounter (principal); S81.002A Unspecified open wound, left knee, initial encounter; L98.8 Other specified disorders of the skin and subcutaneous tissue; R60.0 Localized edema; E11.628 Type 2 diabetes mellitus with other skin complications; M79.661 Pain in right lower leg; L53.9 Erythematous condition, unspecified
CPT/HCPCS: 11042; 87070; 87205; 99203; 99213

== ENCOUNTER → 2023-10-16 08:32 | Outpatient (CLI) | payer MEDICARE, OTHER, SELFPAY ==
[2022-11-05 15:47] VITALS: BMI 45.8
== END ==
PROVIDERS: Family Provider Family Medicine; PCP Family Medicine; Visit Provider Urology
DX: R39.9 Unspecified symptoms and signs involving the genitourinary system (principal)
CPT/HCPCS: 87086

== ENCOUNTER → 2023-10-21 10:00 | Outpatient (CLI) | payer MEDICARE, OTHER, SELFPAY ==
[2022-11-05 15:47] VITALS: BMI 45.8
== END ==
PROVIDERS: Family Provider Family Medicine; PCP Family Medicine; Referring Provider Nurse Practitioner Family; Visit Provider Surgery
DX: S81.801D Unspecified open wound, right lower leg, subsequent encounter (principal); S81.002D Unspecified open wound, left knee, subsequent encounter; R60.0 Localized edema; E11.628 Type 2 diabetes mellitus with other skin complications
CPT/HCPCS: 99213

== ENCOUNTER → 2023-11-27 12:35 | Outpatient (CLI) | payer MEDICARE, OTHER, SELFPAY ==
[2022-11-05 15:47] VITALS: BMI 45.8
[2023-11-27 17:16] LABS: Blood Urea Nitrogen 18 mg/dL (9-20); Calcium 9.1 mg/dL (8.4-10.2); Carbon Dioxide 27 mmol/L (22-32); Chloride 105 mmol/L (98-107); Estimated Glomerular Filt Rate > 60 mL/min (>60); Glucose 148 mg/dL (80-110); HEMOLYSIS < 15 (0-50); Potassium 3.5 mmol/L (3.4-5.1); Sodium 141 mmol/L (137-145)
== END ==
PROVIDERS: Family Provider Family Medicine; PCP Family Medicine; Referring Provider Family Medicine; Visit Provider Family Medicine
DX: N39.0 Urinary tract infection, site not specified (principal); N32.81 Overactive bladder; N39.3 Stress incontinence (female) (male); R60.9 Edema, unspecified; R30.0 Dysuria; R39.9 Unspecified symptoms and signs involving the genitourinary system; Z87.448 Personal history of other diseases of urinary system; Z80.42 Family history of malignant neoplasm of prostate
CPT/HCPCS: 80048; 81002; 87077; 87086; 87186; 99213

== ENCOUNTER → 2023-12-21 15:16 | Outpatient (CLI) | payer MEDICARE, OTHER, SELFPAY ==
[2022-11-05 15:47] VITALS: BMI 45.8
--- NOTE | 2023-12-21 15:17 | DI.RAD.S_ITS ---
PROCEDURE: XR THORACIC SPINE 2V INDICATIONS: back pain TECHNIQUE: 3 views of the thoracic spine were acquired. COMPARISON: None. FINDINGS: Thoracic spine curvature and alignment: Normal. Bones: There are no osseous abnormalities. Disc spaces: Moderate degenerative disc disease is seen at all thoracic levels. Soft tissues: No soft tissue swelling, calcification or mass. IMPRESSION: Moderate degenerative disc disease Dictated by: Jean-Pierre Ching M.D. on 12/22/2023 at 10:31 Approved by: Jean-Pierre Ching M.D. on 12/22/2023 at 10:32
== END ==
LOC: RAD 15:17
PROVIDERS: Family Provider Family Medicine; PCP Family Medicine; Referring Provider Family Medicine; Visit Provider Family Medicine
DX: M51.34 Other intervertebral disc degeneration, thoracic region (principal); M54.9 Dorsalgia, unspecified
CPT/HCPCS: 72070

== ENCOUNTER → 2023-12-23 13:29 | Outpatient (CLI) | payer MEDICARE, OTHER, SELFPAY ==
[2022-11-05 15:47] VITALS: BMI 45.8
== END ==
PROVIDERS: Family Provider Family Medicine; PCP Family Medicine; Visit Provider Urology
DX: N39.0 Urinary tract infection, site not specified (principal); N32.81 Overactive bladder; R39.9 Unspecified symptoms and signs involving the genitourinary system; Z98.890 Other specified postprocedural states; Z90.79 Acquired absence of other genital organ(s); Z80.42 Family history of malignant neoplasm of prostate
CPT/HCPCS: 51798; 81002; 87077; 87086; 87186; 99214

== ENCOUNTER 2024-06-30 12:49 | Emergency (ER) | payer MEDICARE, OTHER, SELFPAY ==
[2022-11-05 15:47] VITALS: BMI 45.8
[2024-06-30] VITALS (9 sets, daily range): BP systolic 123–148; BP diastolic 60–81; PULSE 63–77; RESP 18; TEMP 37.1; O2SAT 94–97; BMI 43.0
--- NOTE | 2024-06-30 13:21 | ED.NAVMDI ---
HPI - Nausea/Vomiting/Diarrhea General Chief complaint: Nausea/Vomiting/Diarrhea Stated complaint: Diarrhea 3 days Time Seen by Provider: 06/30/24 13:14 Source: patient Mode of arrival: Ambulatory History of Present Illness HPI Narrative: Patient here for watery diarrhea for the past 3 days. No bloody stools no vomiting. Has diffuse abdominal cramping. Patient admits he drank apple juice this past Thursday, it has been open since December 2023, again the container has been open for the past at least 6 months. He was in [place]. He had open the apple juice back in December 2023. When he returned back to [place] he drank out of the container. His did not. Patient has had UTI in the past. However does not feel like those symptoms. Related Data Home Medications Medication Instructions Recorded Confirmed aspirin 81 mg tablet,delayed 81 mg PO QDAY ##0 01/25/16 12/23/23 release Respironics Dreamstation BIPAP #1 ea 12/06/18 12/23/23 dorzolamide 22.3 mg-timolol 6.8 1 drp EYE-BOTH TID 09/08/22 12/23/23 mg/mL eye drops torsemide 10 mg tablet 5 mg PO DAILY 11/05/23 12/23/23 Previous Rx's Medication Instructions Recorded Disabled Parking Permit See Rx Instructions .Route 09/21/20 .COMPLEX #1 ea latanoprostene bunod 0.024 % eye 1 drp EYE-BOTH BEDTIME #5 mL 07/18/22 drops (Vyzulta) magnesium oxide 500 mg PO BID #270 tabs 07/18/22 pramipexole 1.5 mg tablet,extended See Rx Instructions .Route 05/12/23 release 24 hr .COMPLEX RLS #180 tabs ezetimibe 10 mg tablet (Zetia) 10 mg PO DAILY #90 tabs 05/21/23 eplerenone 50 mg tablet 50 mg PO DAILY #90 tabs 06/11/23 mupirocin 2 % topical ointment 1 applic topical TID #15 grams 10/01/23 nystatin 100,000 unit/gram topical 1 applic topical DAILY #60 grams 10/30/23 cream vibegron 75 mg tablet (Gemtesa) 75 mg PO DAILY #30 tabs 11/05/23 nitrofurantoin 100 mg PO BID #20 caps 12/31/23 monohydrate/macrocrystals 100 mg capsule azelastine 137 mcg-fluticasone 50 1 spray intranasal DAILY #23 grams 01/27/24 mcg/spray nasal spray rosuvastatin 20 mg tablet 20 mg PO BEDTIME #90 tabs 01/29/24 pantoprazole 40 mg tablet,delayed 40 mg PO DAILY #90 tabs 05/24/24 release pregabalin 50 mg capsule 50 mg PO TID #90 caps 06/24/24 amoxicillin 875 mg-potassium 1 tab PO BID #14 tabs 06/30/24 clavulanate 125 mg tablet Allergies Allergy/AdvReac Type Severity Reaction Status Date / Time ciprofloxacin [From Cipro] Allergy Intermediate ruptured Verified 12/23/23 13:28 tendons Sulfa (Sulfonamide AdvReac Intermediate Nausea Verified 12/23/23 13:28 Antibiotics) [SULFA (SULFONAMIDE ANTIBIOTICS)] Review of Systems Review of Systems Narrative: GENERAL: Negative chills, fatigue, malaise, fever, sweats. HEENT: Negative sinus pain, ear pain, sore throat RESPIRATORY: Negative dyspnea, cough CARDIOVASCULAR: Negative chest pain, palpitations GASTROINTESTINAL: Negative vomiting, nausea, positive nonbloody diarrhea/abdominal pain : Negative dysuria, frequency, hematuria MUSCULOSKELETAL: Negative muscle or bony pain SKIN: Negative rash, skin lesions NEUROLOGIC: Negative weakness, numbness Patient History Medical History (Updated 06/30/24 @ 14:46 by Marquis Carpenter MD) Urge incontinence Overactive bladder Lower urinary tract symptoms DM type 2 (diabetes mellitus, type 2) History of urethrocutaneous fistula Family history of prostate cancer in father Diverticula, bladder pecan gatherer associated with adverse incidents Rectal bleeding Hearing loss (~2009) Glaucoma (~2011) Cataracts, both eyes (~2011) Hemorrhoids (~1978) Diverticulosis (~2010) Colon polyp (~2010) Low testosterone Recurrent UTI Prostate mass Morbid obesity with body mass index (BMI) of 40.0 to 44.9 in adult (10/31/16) Gastroesophageal reflux disease without esophagitis (10/31/16) Restless legs syndrome (01/25/16) Chronic diastolic heart failure (2014) Obstructive sleep apnea syndrome (01/25/16) Hiatal hernia (01/25/16) History of asbestosis (01/25/16) Gout of left foot (01/25/16) Surgical History History of transurethral resection of prostate History of colonoscopy Family History Father Parkinsons disease Mother Congestive heart failure Social History marital status: household members: spouse lives independently: Yes caregiver/support person: No housing: house pets and animals: Yes education level: college occupational status: previously employed 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[employer], 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 EYES: Pupils equal round ENT: Mucous membranes moist. NECK: Trachea midline. CARDIOVASCULAR: Regular rate and rhythm RESPIRATORY: Clear to auscultation. Breath sounds equal bilaterally. No wheezes, rales, or rhonchi. GASTROINTESTINAL: Abdomen soft, mild suprapubic and left lower quadrant tenderness no peritoneal signs no guarding no rebound bowel sounds are present EXTREMITIES: No gross deformities. BACK: No flank tenderness. NEURO: AOx4. Clear speech SKIN: Warm and dry PSYCH: Not anxious, is cooperative Initial Vital Signs Initial Vital Signs: Vital Signs Temperature 98.7 F 06/30/24 12:56 Pulse Rate 68 06/30/24 12:56 Respiratory Rate 18 06/30/24 12:56 Blood Pressure 148/81 H 06/30/24 12:56 Pulse Oximetry 97 06/30/24 12:56 Oxygen Delivery Method Room Air 06/30/24 12:56 Course Orders Ordered: Discontinued Medications Sodium Chloride (Normal Saline 0.9%) 1,000 mls @ 1,000 mls/hr IV BOLUS ONE Stop: 06/30/24 14:19 Last Infusion: 06/30/24 15:38 Dose: Infused Documented By: Admin: 06/30/24 14:00 Dose: 1,000 mls/hr Documented By: JOSE Ceftriaxone Sodium 2,000 mg/ (Sodium Chloride) 100 mls @ 200 mls/hr IV NOW ONE Stop: 06/30/24 14:44 Last Infusion: 06/30/24 15:39 Dose: Infused Documented By: Admin: 06/30/24 14:55 Dose: 200 mls/hr Documented By: JOSE Ondansetron HCl (Ondansetron 4 Mg/2 Ml Inj) 4 mg IV NOW PRN PRN Reason: Nausea And Vomiting Ondansetron HCl (Ondansetron 4 Mg Odt) 4 mg PO NOW PRN PRN Reason: Nausea And Vomiting Vital Signs Vital signs: Vital Signs - 8 hr 06/30/24 12:56 Temperature 98.7 F Pulse Rate 68 Respiratory Rate 18 Blood Pressure 148/81 H Pulse Oximetry 97 Oxygen Delivery Method Room Air MDM - Nausea/Vomiting/Diarrhea Lab Data 06/30/24 13:50 06/30/24 13:50 Labs: Lab Results 06/30/24 Range/Units 13:50 WBC 6.7 (4.5-11.0) X10^3/uL RBC 4.47 L (4.5-5.9) X10^6/uL Hgb 13.6 (13.5-17.5) g/dL Hct 39.4 L (41-53) % MCV 88.1 (80-100) fL MCH 30.5 (26-34) PG MCHC 34.6 (30-36) % RDW 14.8 (11.6-14.8) % Plt Count 166 (150-400) X10^3/uL Neut % (Auto) 64.0 (50-75) % Lymph % (Auto) 25.0 (25-40) % [place] % (Auto) 7.8 (3-14) % Eos % (Auto) 2.8 (2-4) % Baso % (Auto) 0.4 (0-2) % Neut # (Auto) 4300 (9666-4613) /uL Lymph # (Auto) 1700 (4697-7869) /uL [place] # (Auto) 500 (0-900) /uL Eos # (Auto) 200 (0-450) /uL Baso # (Auto) 0 (0-100) /uL Sodium 138 (137-145) mmol/L Potassium 3.8 (3.4-5.1) mmol/L Chloride 106 (98-107) mmol/L Carbon Dioxide 23 (22-32) mmol/L BUN 17 (9-20) mg/dL Creatinine 0.79 (0.66-1.25) mg/dL Estimated GFR > 60 (>60) mL/min BUN/Creatinine Ratio 21.5 (6-22) Glucose 130 H (70-99) mg/dL Calcium 8.9 (8.4-10.2) mg/dL Total Bilirubin 1.8 H (0.2-1.3) mg/dL AST 30 (17-59) IU/L ALT 23 (<50) IU/L Alkaline Phosphatase 73 (38-126) U/L Total Protein 7.3 (6.3-8.2) g/dL Albumin 4.2 (3.5-5.0) g/dL Globulin 3.1 (1.7-4.1) g/dL Albumin/Globulin Ratio 1.4 (1.0-2.8) Imaging Data CT scan - abdomen/pelvis: Radiologist's Impression: [place] [id number] CT Scan Report Signed Patient: Triston Parekh MR#: [id number] : 1945 Acct:[id number] Age/Sex: 79 / M Date of Service: 06/30/24 Loc: ED Accession Number: [id number] Procedure: CT abdomen pelvis wo con Ordering Provider: Marquis Carpenter MD PROCEDURE: CT ABDOMEN PELVIS WO CON INDICATIONS: Abdominal pain/diarrhea TECHNIQUE: After the administration of oral contrast, 5 mm thick sections acquired from the diaphragms to the symphysis. 5 mm coronal and sagittal reformats were performed. For radiation dose reduction, the following was used: automated exposure control, adjustment of mA and/or kV according to patient size. COMPARISON: None. FINDINGS: Image quality: Diagnostic. Lower Chest: No significant findings. ABDOMEN: Liver: No contour-deforming mass. Gallbladder: Status post cholecystectomy. Biliary ducts: No biliary dilation. Pancreas: No ductal dilation. Spleen: Size is within normal limits. Adrenal Glands: No adrenal nodules. Kidneys and Ureters: No hydronephrosis. No contour-deforming mass. Stomach and Bowel: Multiple diverticula are seen in the colon. There is bowel wall thickening and inflammatory mild fat stranding surrounding a diverticulum at the sigmoid colon. No focal fluid collection or pneumoperitoneum. No signs of bowel obstruction. Colon is nondistended. A few nondilated fluid-filled loops of small bowel are noted. Peritoneum: No abnormal intraperitoneal fluid. No free air. Ventral Wall: No significant hernia. Abdominal Nodes: No retroperitoneal or mesenteric adenopathy by size criteria. Vessels: Aorta and inferior vena cava are normal in size. PELVIS: Pelvic Organs: Unremarkable. Bladder: Bladder wall thickening may be related to underdistention. Pelvic Nodes: No enlarged lymph nodes. Miscellaneous: No inguinal hernias are seen. Bones: No aggressive osseous abnormality. Degenerative changes are seen in the hips and spine IMPRESSION: Suspected mild acute sigmoid diverticulitis without complicating features. Approved by: Holden Mclaughlin M.D. on 06/30/2024 at 13:56 MDM Narrative Medical decision making narrative: Patient here for watery diarrhea for the past 3 days. No bloody stools no vomiting. Has diffuse abdominal cramping. Patient admits he drank apple juice this past Thursday, it has been open since December 2023, again the container has been open for the past at least 6 months. He was in [place]. He had open the apple juice back in December 2023. When he returned back to [place] he drank out of the container. His did not. Patient has had UTI in the past. However does not feel like those symptoms. After history and exam, CBC CMP GI panel CT abdomen pelvis normal saline MDM Medical records reviewed: No recent visit for this complaint Differential considered: Includes but not limited to food contamination colitis food poisoning Lab Test results independently reviewed as above. Pertinent findings: Imaging studies independently reviewed: CT abdomen pelvis acute sigmoid diverticulitis Consultations: None indicated at this time Re-evaluations: 2:45 p.m.. Reviewed with patient results and findings, likely sigmoid diverticulitis causing his symptoms. Patient in no distress. Patient does have appointment with primary care next week. He does understand diverticulitis, he has had diverticulosis diagnosis in the past. Return precautions reviewed pain is controlled. Unable to provide stool sample. He desires discharge home. Discussion: Appropriate for discharge home. Exam is reassuring. Return precautions reviewed. Nontoxic at discharge. He desires discharge home. Antibiotics have been started. Diagnosis: Sigmoid diverticulitis Discharge Plan Departure Patient Disposition: Home Clinical Impression: Diverticulitis of sigmoid colon Instructions: DI for Diverticulitis Activity Restrictions/Additional Instructions: Antibiotics have been started here for treatment of diverticulitis. Please continue antibiotics tomorrow. See your family doctor within a week for re-evaluation and discussion for outpatient colonoscopy. Keep well hydrated. Return if worse if any questions or concerns. Prescriptions have been sent to your pharmacy to [facility]. Prescriptions: New amoxicillin-pot clavulanate 875-125 mg tablet 1 tab PO BID Qty: 14 0RF No Action mupirocin 2 % ointment 1 applic topical TID Qty: 15 0RF Disabled Parking Permit See Rx Instructions .ROUTE .COMPLEX Qty: 1 0RF Rx Instructions: My patient cannot walk 200 feet without stopping to rest or must use assistive device. Walking is severely limited due to arthritic, neurological or orthopedic condition. Uses portable oxygen or walking restricted by lung disease. aspirin 81 MG tablet,delayed release (DR/EC) 81 mg PO QDAY Qty: 0 Vyzulta 0.024 % drops 1 drp EYE-BOTH BEDTIME Qty: 5 0RF magnesium oxide 500 mg tablet 500 mg PO BID Qty: 270 0RF Rx Instructions: once in the morning and once in the evening pramipexole 1.5 mg tablet extended release 24 hr See Rx Instructions .ROUTE .COMPLEX Qty: 180 3RF Dose Instruction: TAKE 2 TABLETS BY MOUTH DAILY. STAGGER DOSES 7:30PM AND 9:30PM. Rx Instructions: TAKE 2 TABLETS BY MOUTH DAILY. STAGGER DOSES 7:30PM AND 9:30PM. Take with 100 mg of gabapentin at the same time. ezetimibe [Zetia] 10 mg tablet 10 mg PO DAILY Qty: 90 3RF Rx Instructions: Take one tablet at bedtime eplerenone 50 mg tablet 50 mg PO DAILY Qty: 90 3RF Rx Instructions: TAKE 1 TABLET BY MOUTH DAILY with 25 mg of eplerenone for a total of 75 mg daily nystatin 100,000 unit/gram cream 1 applic topical DAILY Qty: 60 0RF nitrofurantoin monohyd/m-cryst 100 mg capsule 100 mg PO BID Qty: 20 0RF Rx Instructions: must administer with a meal/food azelastine-fluticasone 137-50 mcg/spray spray,non-aerosol 1 spray intranasal DAILY Qty: 23 0RF rosuvastatin 20 mg tablet 20 mg PO BEDTIME Qty: 90 2RF pantoprazole 40 mg tablet,delayed release (DR/EC) 40 mg PO DAILY Qty: 90 0RF pregabalin 50 mg capsule 50 mg PO TID Qty: 90 3RF dorzolamide-timolol 22.3-6.8 mg/mL drops 1 drp EYE-BOTH TID (DME) RespirJump Ramp Gamess Dreamstation BIPAP Qty: 1 Rx Instructions: Pressure: IPAP 16 EPAP 11 DME: [facility] torsemide 10 mg tablet 5 mg PO DAILY Rx Instructions: take in the AM Gemtesa 75 mg tablet 75 mg PO DAILY Qty: 30 12RF Referrals: Maya Johnson MD [Primary Care Provider] - Stand Alone Forms: Patient Portal/API/Survey
[2024-06-30] MEDS: SODIUM CHLORIDE 0.9% 1,000 ML 1000 ML IV (14:00)
[2024-06-30 14:09] LABS: Add Manual Diff / Slide Review NO; Basophils Absolute Auto 0 /uL (0-100); Basophils Percent Auto 0.4 % (0-2); Eosinophils Absolute Auto 200 /uL (0-450); Eosinophils Percent Auto 2.8 % (2-4); Hematocrit 39.4 % (41-53); Hemoglobin 13.6 g/dL (13.5-17.5); Lymphocytes Absolute Auto 1700 /uL (1100-4500); Mean Corpuscular HGB Conc 34.6 % (30-36); Mean Corpuscular Hemoglobin 30.5 PG (26-34); Mean Corpuscular Volume 88.1 fL (80-100); Monocytes Absolute Auto 500 /uL (0-900); Monocytes Percent Auto 7.8 % (3-14); Neutrophils Absolute Auto 4300 /uL (1500-7000); Platelet Count 166 X10^3/uL (150-400); Red Blood Cell Count 4.47 X10^6/uL (4.5-5.9); Red Cell Distribution Width 14.8 % (11.6-14.8); White Blood Cell Count 6.7 X10^3/uL (4.5-11.0)
[2024-06-30 14:27] LABS: Alanine Aminotransferase 23 IU/L (<50); Albumin 4.2 g/dL (3.5-5.0); Albumin Globulin Ratio 1.4 (1.0-2.8); Alkaline Phosphatase 73 U/L (38-126); Aspartate Aminotransferase 30 IU/L (17-59); BUN Creatinine Ratio 21.5 (6-22); Bilirubin Total 1.8 mg/dL (0.2-1.3); Blood Urea Nitrogen 17 mg/dL (9-20); Calcium 8.9 mg/dL (8.4-10.2); Carbon Dioxide 23 mmol/L (22-32); Chloride 106 mmol/L (98-107); Estimated Glomerular Filt Rate > 60 mL/min (>60); Globulin 3.1 g/dL (1.7-4.1); Glucose 130 mg/dL (70-99); HEMOLYSIS 15 (0-50); Potassium 3.8 mmol/L (3.4-5.1); Sodium 138 mmol/L (137-145); Total Protein 7.3 g/dL (6.3-8.2)
[2024-06-30] MEDS: cefTRIAXone 2,000 MG in SODIUM CHLORIDE 0.9% 100 ML 200 MG IV (14:55)
== END 2024-06-30 15:42 | disposition home or self-care (01) ==
PROVIDERS: Emergency Provider Emergency Medicine; Family Provider Family Medicine; PCP Family Medicine
DX: K57.32 Diverticulitis of large intestine without perforation or abscess without bleeding (principal)
CPT/HCPCS: 36415; 74176; 80053; 80061; 82043; 82570; 83036; 85025; 96361; 96365; 99284; J0696

== ENCOUNTER 2024-07-30 18:04 | Emergency (ER) | payer MEDICARE, OTHER, SELFPAY ==
[2022-11-05 15:47] VITALS: BMI 45.8
[2024-07-30 18:18] VITALS: BP 152/66; PULSE 66; RESP 18; TEMP 36.7; O2SAT 98; BMI 43.3
--- NOTE | 2024-07-30 18:34 | DI.CT.S_ITS ---
PROCEDURE: CT ABDOMEN PELVIS W CON INDICATIONS: abd pain, hx of diverticulitis TECHNIQUE: After the administration of intravenous contrast, axial sections acquired from the lung bases to the pubic symphysis. Coronal and sagittal reformats were performed. For radiation dose reduction, the following was used: automated exposure control, adjustment of mA and/or kV according to patient size. COMPARISON: [facility], CT, CT ABDOMEN PELVIS W CON, 09/08/2022, 3:46. FINDINGS: Image quality: Diagnostic. Lower Chest: No significant findings. ABDOMEN: Liver: No solid mass. Gallbladder: Gallbladder is surgically absent. Biliary ducts: No biliary dilation. Pancreas: No ductal dilation. Spleen: Size is within normal limits. Adrenal Glands: No adrenal nodules. Kidneys and Ureters: No hydronephrosis. No solid mass. No complex renal cystic lesion which requires follow up. Stomach and Bowel: There is no bowel obstruction or abnormal bowel wall thickening. No mesenteric fat stranding. Colonic diverticulosis without CT evidence of acute diverticulitis. No abscess collection. Peritoneum: No abnormal intraperitoneal fluid. No free air. Ventral Wall: No significant ventral hernia. Abdominal Nodes: No retroperitoneal or mesenteric adenopathy by size criteria. Vessels: Aorta and inferior vena cava are normal in size. PELVIS: Pelvic Organs: Unremarkable. Bladder: Mild diffuse bladder wall thickening with perivesicular fat stranding. No discrete bladder wall mass. Pelvic Nodes: No enlarged lymph nodes. Miscellaneous: No inguinal hernias are seen. Bones: No aggressive osseous abnormality. IMPRESSION: 1. Diffuse bladder wall thickening concerning for cystitis. No discrete bladder wall mass. No obstructing renal stones or hydronephrosis. 2. Colonic diverticulosis without CT evidence of acute diverticulitis. No bowel obstruction or abnormal bowel wall thickening. No free fluid or free air. No abscess collection. 3. Other chronic findings are not significantly changed from previous study. Dictated by: Elvis No M.D. on 07/30/2024 at 19:48 Approved by: Elvis No M.D. on 07/30/2024 at 19:50
[2024-07-30 19:13] LABS: Add Manual Diff / Slide Review NO; Basophils Absolute Auto 100 /uL (0-100); Basophils Percent Auto 0.9 % (0-2); Eosinophils Absolute Auto 300 /uL (0-450); Eosinophils Percent Auto 3.7 % (2-4); Hematocrit 40.7 % (41-53); Hemoglobin 13.8 g/dL (13.5-17.5); Lymphocytes Absolute Auto 2200 /uL (1100-4500); Lymphocytes Percent Auto 28.3 % (25-40); Mean Corpuscular Hemoglobin 30.3 PG (26-34); Mean Corpuscular Volume 89.1 fL (80-100); Monocytes Absolute Auto 600 /uL (0-900); Monocytes Percent Auto 7.4 % (3-14); Neutrophils Absolute Auto 4600 /uL (1500-7000); Neutrophils Percent Auto 59.7 % (50-75); Platelet Count 185 X10^3/uL (150-400); Red Blood Cell Count 4.56 X10^6/uL (4.5-5.9); Red Cell Distribution Width 13.7 % (11.6-14.8); White Blood Cell Count 7.6 X10^3/uL (4.5-11.0)
--- NOTE | 2024-07-30 19:24 | ED_ITS ---
HPI - Abdominal Pain General Chief Complaint: Abdominal Pain Stated Complaint: diverticulitis,abd pain Time Seen by Provider: 07/30/24 18:50 Source: patient Mode of arrival: Ambulatory History of Present Illness HPI narrative: 79-year-old male with past medical history of diverticulitis, hyperlipidemia, diabetes, CHF, comes into the ED from home for evaluation of abdominal pain nausea vomiting diarrhea, states that this has been ongoing persistent for the past few days, he states that he did complete a course of Augmentin proximally 1 week ago for diverticulitis, he states that he is now having recurrent lower abdominal discomfort nausea vomiting diarrhea. Denies any other complaints at this time Related Data Home Medications ?Medication ?Instructions ?Recorded ?Confirmed aspirin 81 mg tablet,delayed 81 mg PO QDAY ##0 6 07/29/24 release Respironics Dreamstation BIPAP #1 ea 12/06/18 5 dorzolamide 22.3 mg-timolol 6.8 1 drp EYE-BOTH TID 07/29/24 mg/mL eye drops torsemide 10 mg tablet 5 mg PO DAILY 11/05/2307/29 brimonidine 0.2 % eye drops drp EYE-BOTH 07/06/2407/17 pramipexole 1.5 mg tablet,extended See Rx Instructions .Route 07/06/24 07/29/24 release 24 hr .COMPLEX RLS tramadol 50 mg tablet 50 mg PO Q6H PRN 07/06/24 Previous Rx's ?Medication ?Instructions ?Recorded Disabled Parking Permit See Rx Instructions .Route 0 09/21/20 .COMPLEX #1 ea latanoprostene bunod 0.024 % eye 1 drp EYE-BOTH BEDTIM E #5 mL 07/18/22 drops (Vyzulta) magnesium oxide 500 mg PO BID #270 tabs 04/10 ezetimibe 10 mg tablet (Zetia) 10 mg PO DAILY #90 tabs 05/21/23 mupirocin 2 % topical ointment 1 applic topical TID #1 5 grams 10/01/23 nystatin 100,000 unit/gram topical 1 applic topical DA SUNDAY #60 grams 10/30/23 cream azelastine 137 mcg-fluticasone 50 1 spray intranasal D AILY #23 grams 01/27/24 mcg/spray nasal spray rosuvastatin 20 mg tablet 20 mg PO BEDTIME #90 tabs pantoprazole 40 mg tablet,delayed 40 mg PO DAILY #90 t abs 05/24/24 release pregabalin 50 mg capsule 50 mg PO TID #90 caps olopatadine 665 mcg-mometasone 25 2 spray intranasal B ID #29 grams 07/06/24 mcg/spray nasal spray vibegron 75 mg tablet (Gemtesa) 75 mg PO DAILY #30 tab s 07/13/24 eplerenone 50 mg tablet 50 mg PO DAILY #90 tabs 04/12 cephalexin 500 mg capsule 500 mg PO Q8H 7 days #21 cap s 07/30/24 Allergies Allergy/AdvReac Type Severity Reaction Status Date / Time ciprofloxacin (From Cipro) Allergy Intermediate ruptured Verified 07/30/24 18:18 tendons Review of Systems Review of Systems Narrative: General: Denies fever, chills, weight loss HEENT: Denies headache, eye drainage, eye irritation, head trauma, sore throat, voice change Cardiovascular: Denies any chest pain, palpitations, tachycardia Respiratory: Denies any shortness of breath, cough, wheeze, stridor GI/: Positive abdominal pain, nausea, vomiting, diarrhea, denies bright red blood per rectum, melanotic stools, urinary frequency, urinary retention, dysuria, hematuria MSK: Denies any joint pain, muscle pains, swelling Skin: Denies any rashes, lesions, discoloration Neuro: Denies any headache, lightheadedness, dizziness, fainting, weakness Psych: Denies SI/HI Patient History Medical History (Updated 07/30/24 @ 20:44 by Smeaj Skelton DO) Primary osteoarthritis of left knee Tendinopathy of left gluteus medius History of urinary tract infection Urge incontinence Overactive bladder Lower urinary tract symptoms DM type 2 (diabetes mellitus, type 2) History of urethrocutaneous fistula Family history of prostate cancer in father 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, 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 Rectal bleeding Hearing loss (~2009) Glaucoma (~2011) Cataracts, both eyes (~2011) Hemorrhoids (~1978) Diverticulosis (~2010) Colon polyp (~2010) Low testosterone Recurrent UTI Prostate mass Morbid obesity with body mass index (BMI) of 40.0 to 44.9 in adult (10/31/16) Gastroesophageal reflux disease without esophagitis (10/31/16) Restless legs syndrome (01/25/16) Chronic diastolic heart failure (2014) Obstructive sleep apnea syndrome (01/25/16) Hiatal hernia (01/25/16) History of asbestosis (01/25/16) Gout of left foot (01/25/16) Surgical History History of transurethral resection of prostate History of colonoscopy Family History Father Parkinsons disease Mother Congestive heart failure Social History marital status: household members: spouse lives independently: Yes caregiver/support person: No housing: house pets and animals: Yes education level: college occupational status: previously employed 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[employer], 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 needs: Yes (Buddhist) seatbelt use: always helmet use: Yes water heater temp set < 120 deg: Yes second hand exposure: No alcohol intake: current substance use type: does not use during the past year weight has: decreased > 10 lbs well-balanced diet: about half the time daily servings fruits/ve-4 caffeine: No eating out: 1-3 times/week frequency: 1-2 times per week duration: 45-60 minutes/day alcohol intake frequency: a few times a month Exam Narrative Exam Narrative: General: Cooperative, well-developed, not in acute distress HEENT: Normocephalic, atraumatic, PERRLA, normal sclera, eyelids normal Neck: Active full range of motion, atraumatic Chest: Normal to inspection, negative crepitus, no overlying erythema ecchymosis Respiratory: Normal respiratory effort, not in acute respiratory distress, clear to auscultation bilaterally negative cough, wheeze, tachypnea, rhonchi, rales Cardiology: Regular rate rhythm negative gallop, murmur, rubs GI/: No tenderness to palpation, soft, non rigid, normal to inspection, exam deferred MSK: Full active range of motion in all 4 extremities, atraumatic, no tenderness to palpation of any bony prominences Skin: No rashes or lesions noted Neuro: Alert awake oriented x3, moves all 4 extremities spontaneously, cranial nerves intact, able to answer all questions appropriately follows commands appropriately Psych: Cooperative, negative suicidal or homicidal ideations Initial Vital Signs Initial Vital Signs: Vital Signs Temperature 98.0 F 07/30/24 18:18 Pulse Rate 66 07/30/24 18:18 Respiratory Rate 18 07/30/24 18:18 Blood Pressure 152/66 H 07/30/24 18:18 Pulse Oximetry 98 07/30/24 18:18 Oxygen Delivery Method Room Air 07/30/24 18:18 Course Orders Ordered: ED Orders 07/30/24 18:28 EKG-12 Lead Stat 07/30/24 18:34 CT abdomen pelvis w con Stat 07/30/24 18:35 GI Panel (Film Array) Stat 07/30/24 18:47 Urine Culture Stat Urine Microscopic Stat 07/30/24 19:00 Complete Blood Count AUTO DIFF Stat Comprehensive Metabolic Panel Stat Lipase Stat MAG [Magnesium] Stat Ondansetron HCl (Ondansetron 4 Mg/2 Ml Inj) 4 mg IV NOW PRN PRN Reason: Nausea And Vomiting Ondansetron HCl (Ondansetron 4 Mg Odt) 4 mg PO NOW PRN PRN Reason: Nausea And Vomiting Discontinued Medications Cephalexin HCl (Cephalexin 250 Mg Capsule) 500 mg PO NOW ONE Stop: 07/30/24 20:06 Last Admin: 07/30/24 20:34 Dose: 500 mg Documented By: DENITA Sodium Chloride (Normal Saline 0.9%) 1,000 mls @ 1,000 mls/hr IV BOLUS ONE Stop: 07/30/24 19:32 Last Admin: 07/30/24 19:40 Dose: 1,000 mls/hr Documented By: DENITA Vital Signs Vital signs: Vital Signs - 8 hr 07/30/24 18:18 Temperature 98.0 F Pulse Rate 66 Respiratory Rate 18 Blood Pressure 152/66 H Pulse Oximetry 98 Oxygen Delivery Method Room Air MDM - Abdominal Pain Differential Diagnosis Differential diagnosis: Likely abdominal pain, acute appendicitis, constipation, diverticulitis, pancreatitis, small bowel obstruction and other (Urinary tract infection, electrolyte abnormality) Lab Data 07/30/24 19:00 07/30/24 19:00 Labs: Lab Results 07/30/24 07/30/24 Range/Units 18:47 19:00 WBC 7.6 (4.5-11.0) X10^3/uL RBC 4.56 (4.5-5.9) X10^6/uL Hgb 13.8 (13.5-17.5) g/dL Hct 40.7 L (41-53) % MCV 89.1 (80-100) fL MCH 30.3 (26-34) PG MCHC 34.0 (30-36) % RDW 13.7 (11.6-14.8) % Plt Count 185 (150-400) X10^3/uL Neut % (Auto) 59.7 (50-75) % Lymph % (Auto) 28.3 (25-40) % [place] % (Auto) 7.4 (3-14) % Eos % (Auto) 3.7 (2-4) % Baso % (Auto) 0.9 (0-2) % Neut # (Auto) 4600 (2292-5566) /uL Lymph # (Auto) 2200 (0590-5446) /uL [place] # (Auto) 600 (0-900) /uL Eos # (Auto) 300 (0-450) /uL Baso # (Auto) 100 (0-100) /uL Sodium 139 (137-145) mmol/L Potassium 3.9 (3.4-5.1) mmol/L Chloride 106 (98-107) mmol/L Carbon Dioxide 26 (22-32) mmol/L BUN 12 (9-20) mg/dL Creatinine 0.85 (0.66-1.25) mg/dL Estimated GFR > 60 (>60) mL/min BUN/Creatinine Ratio 14.1 (6-22) Glucose 111 H (70-99) mg/dL Calcium 8.8 (8.4-10.2) mg/dL Magnesium 2.0 (1.6-2.3) mg/dL Total Bilirubin 1.0 (0.2-1.3) mg/dL AST 28 (17-59) IU/L ALT 21 (<50) IU/L Alkaline Phosphatase 92 (38-126) U/L Total Protein 7.4 (6.3-8.2) g/dL Albumin 4.1 (3.5-5.0) g/dL Globulin 3.3 (1.7-4.1) g/dL Albumin/Globulin Ratio 1.2 (1.0-2.8) Lipase 37 (23-300) U/L Urine RBC 0-1/hpf (0-5/HPF) Urine WBC 30-100/hpf H (0-5/HPF) Ur Squamous Epith Cells None seen (0-5/HPF) Urine Bacteria Few (2-10) H (None) Ur Culture Indicated? Specimen cultured Vol Urine Centrifuged 10ml (spun) Point of care testing: Urine Dip Bedside Urine Glucose Negative Bedside Urine Bilirubin - Negative Bedside Urine Ketone - Negative Urine Specific Gould 1.030 Bedside Urine Occult Blood ++ Bedside Urine pH 5.5 Bedside Urine Protein + 30 Bedside Urine Urobilinogen - Negative Bedside Urine Nitrite - Negative Bedside Urine Leukocytes ++ [address] scan - abdomen/pelvis: Radiologist's Impression: [address] [address] [address] Scan Report Signed Patient: Triston Parekh MR#: [id number] : 1945 Acct:[id number] Age/Sex: 79 / M Date of Service: 07/30/24 Loc: ED Accession Number: [id number] Procedure: CT abdomen pelvis w con Ordering Provider: Semaj Skelton D.O. PROCEDURE: CT ABDOMEN PELVIS W CON INDICATIONS: abd pain, hx of diverticulitis TECHNIQUE: After the administration of intravenous contrast, axial sections acquired from the lung bases to the pubic symphysis. Coronal and sagittal reformats were performed. For radiation dose reduction, the following was used: automated exposure control, adjustment of mA and/or kV according to patient size. COMPARISON: [facility], CT, CT ABDOMEN PELVIS W CON, 09/08/2022, 3:46. FINDINGS: Image quality: Diagnostic. Lower Chest: No significant findings. ABDOMEN: Liver: No solid mass. Gallbladder: Gallbladder is surgically absent. Biliary ducts: No biliary dilation. Pancreas: No ductal dilation. Spleen: Size is within normal limits. Adrenal Glands: No adrenal nodules. Kidneys and Ureters: No hydronephrosis. No solid mass. No complex renal cystic lesion which requires follow up. Stomach and Bowel: There is no bowel obstruction or abnormal bowel wall thickening. No mesenteric fat stranding. Colonic diverticulosis without CT evidence of acute diverticulitis. No abscess collection. Peritoneum: No abnormal intraperitoneal fluid. No free air. Ventral Wall: No significant ventral hernia. Abdominal Nodes: No retroperitoneal or mesenteric adenopathy by size criteria. Vessels: Aorta and inferior vena cava are normal in size. PELVIS: Pelvic Organs: Unremarkable. Bladder: Mild diffuse bladder wall thickening with perivesicular fat stranding. No discrete bladder wall mass. Pelvic Nodes: No enlarged lymph nodes. Miscellaneous: No inguinal hernias are seen. Bones: No aggressive osseous abnormality. IMPRESSION: 1. Diffuse bladder wall thickening concerning for cystitis. No discrete bladder wall mass. No obstructing renal stones or hydronephrosis. 2. Colonic diverticulosis without CT evidence of acute diverticulitis. No bowel obstruction or abnormal bowel wall thickening. No free fluid or free air. No abscess collection. 3. Other chronic findings are not significantly changed from previous study. MDM Narrative Medical decision making narrative: 79-year-old male with past medical history of CHF, diabetes, hyperlipidemia, diverticulitis presenting for abdominal pain lower over the past few days nausea and vomiting diarrhea, he states that he just completed a dose of Augmentin for diverticulitis proximally 1 week ago. He states that this does feel similar to when he was diagnosed with diverticulitis 2 weeks ago. Patient had lab work imaging urinalysis performed here in the emergency department. Patient without any leukocytosis, Chem panel unremarkable, CT scan showing cystitis and diverticulosis no diverticulitis, patient was given 1st dose of antibiotics here and instructed to follow up with primary care and Urology, patient states that he is prone to UTIs. Strict return precautions given verbalized understanding of this and agrees to being discharged home with outpatient follow up Discharge Plan Departure Patient Disposition: Home Clinical Impression: Acute UTI Instructions: DI for Urinary Tract Infection (UTI) Activity Restrictions/Additional Instructions: Please follow up with the primary care doctor and your urologist Please read the discharge instructions sheet carefully and bring all papers to all doctor follow-up visits, as it may contain information that your doctor may want to see. Disease processes change and evolve, if your symptoms worsen or if you develop any new symptoms that are concerning to you please return for evaluation. Your evaluation today does not show any evidence of any life- threatening/serious illnesses requiring admission to the hospital or surgery. Please follow-up with your doctor for re-evaluation in approximately 1 day. Seek immediate medical attention for any worrisome symptoms. *If you do not have a primary care provider please contact the [facility] Resource line at [phone]. They will ask some questions about your medical history and help get you set up with a doctor in the community. Prescriptions: New cephalexin 500 mg capsule 500 mg PO Q8H 7 Days Qty: 21 0RF No Action mupirocin 2 % ointment 1 applic topical TID Qty: 15 0RF pramipexole 1.5 mg tablet extended release 24 hr See Rx Instructions .ROUTE .COMPLEX Dose Instruction: TAKE 2 TABLETS BY MOUTH DAILY. STAGGER DOSES 7:30PM AND 9:30PM. Rx Instructions: TAKE 2 TABLETS BY MOUTH DAILY. STAGGER DOSES 7:30PM AND 9:30PM. Take with Lyrica brimonidine 0.2 % drops EYE-BOTH tramadol 50 mg tablet 50 mg PO Q6H PRN olopatadine-mometasone 665-25 mcg/spray spray,non-aerosol 2 spray intranasal BID Qty: 29 3RF Disabled Parking Permit See Rx Instructions .ROUTE .COMPLEX Qty: 1 0RF Rx Instructions: My patient cannot walk 200 feet without stopping to rest or must use assistive device. Walking is severely limited due to arthritic, neurological or orthopedic condition. Uses portable oxygen or walking restricted by lung disease. aspirin 81 MG tablet,delayed release (DR/EC) 81 mg PO QDAY Qty: 0 Vyzulta 0.024 % drops 1 drp EYE-BOTH BEDTIME Qty: 5 0RF magnesium oxide 500 mg tablet 500 mg PO BID Qty: 270 0RF Rx Instructions: once in the morning and once in the evening ezetimibe [Zetia] 10 mg tablet 10 mg PO DAILY Qty: 90 3RF Rx Instructions: Take one tablet at bedtime nystatin 100,000 unit/gram cream 1 applic topical DAILY Qty: 60 0RF azelastine-fluticasone 137-50 mcg/spray spray,non-aerosol 1 spray intranasal DAILY Qty: 23 0RF rosuvastatin 20 mg tablet 20 mg PO BEDTIME Qty: 90 2RF pantoprazole 40 mg tablet,delayed release (DR/EC) 40 mg PO DAILY Qty: 90 0RF pregabalin 50 mg capsule 50 mg PO TID Qty: 90 3RF eplerenone 50 mg tablet 50 mg PO DAILY Qty: 90 0RF dorzolamide-timolol 22.3-6.8 mg/mL drops 1 drp EYE-BOTH TID (DME) Respironics Dreamstation BIPAP Qty: 1 Rx Instructions: Pressure: IPAP 16 EPAP 11 DME: [facility] torsemide 10 mg tablet 5 mg PO DAILY Rx Instructions: take in the AM Gemtesa 75 mg tablet 75 mg PO DAILY Qty: 30 12RF Referrals: Maya Johnson MD [Primary Care Provider, Family Practice] Stand Alone Forms: Patient Portal/API
[2024-07-30 19:25] LABS: Alanine Aminotransferase 21 IU/L (<50); Albumin 4.1 g/dL (3.5-5.0); Albumin Globulin Ratio 1.2 (1.0-2.8); Alkaline Phosphatase 92 U/L (38-126); Aspartate Aminotransferase 28 IU/L (17-59); BUN Creatinine Ratio 14.1 (6-22); Blood Urea Nitrogen 12 mg/dL (9-20); Calcium 8.8 mg/dL (8.4-10.2); Carbon Dioxide 26 mmol/L (22-32); Chloride 106 mmol/L (98-107); Estimated Glomerular Filt Rate > 60 mL/min (>60); Globulin 3.3 g/dL (1.7-4.1); Glucose 111 mg/dL (70-99); HEMOLYSIS 17 (0-50); Lipase 37 U/L (23-300); Potassium 3.9 mmol/L (3.4-5.1); Sodium 139 mmol/L (137-145); Total Protein 7.4 g/dL (6.3-8.2)
[2024-07-30] MEDS: SODIUM CHLORIDE 0.9% 1,000 ML 1000 ML IV (19:40)
[2024-07-30 19:51] LABS: RBC Urine 0-1/HPF (0-5/HPF); Urine Volume 10mL (spun); WBC Urine 30-100/HPF (0-5/HPF)
[2024-07-30 19:52] LABS: Bacteria Urine Few (2-10); Culture Indicated Urine Specimen Cultured; Squamous Epithelial Cell Urine None Seen (0-5/HPF)
[2024-07-30] MEDS: cephALEXin 250 MG CAPSULE 500 MG PO (20:34)
[2024-07-30 21:00] VITALS: BP 132/60; PULSE 80; RESP 16; O2SAT 98
== END 2024-07-30 21:02 | disposition home or self-care (01) ==
PROVIDERS: Emergency Provider Student in an Organized Health Care Education/Training Program; Family Provider Family Medicine; PCP Family Medicine
DX: N39.0 Urinary tract infection, site not specified (principal); R11.2 Nausea with vomiting, unspecified; R19.7 Diarrhea, unspecified
CPT/HCPCS: 36415; 74177; 80053; 81003; 81015; 83690; 83735; 85025; 87077; 87086; 87186; 99284; Q9967

== ENCOUNTER 2024-08-01 16:46 | Emergency (ER) | payer MEDICARE, OTHER, SELFPAY ==
[2022-11-05 15:47] VITALS: BMI 45.8
[2024-08-01 17:30] VITALS: BP 151/63; PULSE 60; RESP 18; TEMP 36.1; O2SAT 97; BMI 43.3
[2024-08-01 17:34] VITALS: BMI 43.3
--- NOTE | 2024-08-01 18:13 | ED.RECABL ---
HPI - Recheck/Abnormal Lab/Rx General Chief Complaint: Recheck/Abnormal Lab/Rx Stated Complaint: UTI Time Seen by Provider: 08/01/24 17:58 Source: patient Mode of arrival: Ambulatory History of Present Illness HPI narrative: 79-year-old male with past medical history CHF, diabetes, hyperlipidemia, diverticulitis presents to the ED for evaluation for a UTI. Patient states that his urine culture from 07/30/2024 concluded that the infection is resistant to the antibiotics he was sent home with. Patient was sent home with cephalexin. Culture shows resistance to cephalexin. Patient denies fever, nausea, vomiting. Patient does endorse bilateral flank pain, chills, urinary frequency, urinary urgency, dysuria. No chest pain, shortness of breath. Patient does have a history of frequent UTIs. Related Data Home Medications ?Medication ?Instructions ?Recorded ?Confirmed aspirin 81 mg tablet,delayed 81 mg PO QDAY ##0 01/25/16 07/29/24 release Respironics Dreamstation BIPAP #1 ea 12/06/18 07/29/24 dorzolamide 22.3 mg-timolol 6.8 1 drp EYE-BOTH TID 09/08/22 07/29/24 mg/mL eye drops torsemide 10 mg tablet 5 mg PO DAILY 11/05/23 07/29/24 brimonidine 0.2 % eye drops drp EYE-BOTH 07/06/24 07/29/24 pramipexole 1.5 mg tablet,extended See Rx Instructions .Route 07/06/24 07/29/24 release 24 hr .COMPLEX RLS tramadol 50 mg tablet 50 mg PO Q6H PRN 07/06/24 07/29/24 Previous Rx's ?Medication ?Instructions ?Recorded Disabled Parking Permit See Rx Instructions .Route 09/21/20 .COMPLEX #1 ea latanoprostene bunod 0.024 % eye 1 drp EYE-BOTH BEDTIME #5 mL 07/18/22 drops (Vyzulta) magnesium oxide 500 mg PO BID #270 tabs 07/18/22 ezetimibe 10 mg tablet (Zetia) 10 mg PO DAILY #90 tabs 05/21/23 mupirocin 2 % topical ointment 1 applic topical TID #15 grams 10/01/23 nystatin 100,000 unit/gram topical 1 applic topical DAILY #60 grams 10/30/23 cream azelastine 137 mcg-fluticasone 50 1 spray intranasal DAILY #23 grams 01/27/24 mcg/spray nasal spray rosuvastatin 20 mg tablet 20 mg PO BEDTIME #90 tabs 01/29/24 pantoprazole 40 mg tablet,delayed 40 mg PO DAILY #90 tabs 05/24/24 release pregabalin 50 mg capsule 50 mg PO TID #90 caps 06/24/24 olopatadine 665 mcg-mometasone 25 2 spray intranasal BID #29 grams 07/06/24 mcg/spray nasal spray vibegron 75 mg tablet (Gemtesa) 75 mg PO DAILY #30 tabs 07/13/24 eplerenone 50 mg tablet 50 mg PO DAILY #90 tabs 07/18/24 cephalexin 500 mg capsule 500 mg PO Q8H 7 days #21 caps 07/30/24 sulfamethoxazole 800 1 tab PO Q12H 7 days #14 tabs 07/30/24 mg-trimethoprim 160 mg tablet (Bactrim DS) nitrofurantoin 100 mg PO Q12H 5 days #10 caps 08/01/24 monohydrate/macrocrystals 100 mg capsule (Macrobid) Allergies Allergy/AdvReac Type Severity Reaction Status Date / Time ciprofloxacin (From Cipro) Allergy Intermediate ruptured Verified 08/01/24 17:30 tendons Review of Systems Constitutional Constitutional: Reports chills, Denies fatigue, Denies fever(s), Denies frequent falls, Denies lethargy and Denies weakness Eyes Eyes: Denies change in vision, Denies eye discharge, Denies irritation and Denies loss of vision ENT Ears, Nose, Mouth, and Throat: Denies change in voice, Denies dizziness, Denies neck pain, Denies sore throat and Denies throat swelling Cardiovascular Cardiovascular: Denies chest pain, Denies irregular heart rhythm, Denies lightheadedness, Denies palpitations, Denies dyspnea, Denies dyspnea on exertion and Denies orthopnea Respiratory Respiratory: Denies cough, Denies dyspnea, Denies dyspnea on exertion and Denies wheezing Gastrointestinal Gastrointestinal: Denies abdominal pain, Denies change in bowel habits, Denies diarrhea, Denies nausea and Denies vomiting Comments: Bilateral flank pain Genitourinary Genitourinary: Reports dysuria, Reports urinary frequency and Reports urinary urgency Musculoskeletal Musculoskeletal: Denies neck pain and Denies numbness Integumentary/Breasts Skin/Breast: Denies pruritus, Denies erythema, Denies rash and Denies wounds Neurologic Neurologic: Denies behavioral changes, Denies confusion, Denies dizziness, Denies frequent falls, Denies loss of vision, Denies numbness and Denies weakness Psychiatric Psychiatric: Denies anxiety, Denies behavioral changes, Denies confusion, Denies depression, Denies homicidal ideation and Denies suicidal ideation Endocrine Endocrine: Denies fatigue, Denies flushing and Denies palpitations Hematologic/Lymphatic Hematologic/Lymphatic: Denies easy bruising Allergic/Immunologic Allergic/Immunologic: Denies urticaria, Denies throat swelling and Denies wheezing Patient History Medical History Primary osteoarthritis of left knee Tendinopathy of left gluteus medius History of urinary tract infection Urge incontinence Overactive bladder Lower urinary tract symptoms DM type 2 (diabetes mellitus, type 2) History of urethrocutaneous fistula Family history of prostate cancer in father 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, 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 Rectal bleeding Hearing loss (~2009) Glaucoma (~2011) Cataracts, both eyes (~2011) Hemorrhoids (~1978) Diverticulosis (~2010) Colon polyp (~2010) Low testosterone Recurrent UTI Prostate mass Morbid obesity with body mass index (BMI) of 40.0 to 44.9 in adult (10/31/16) Gastroesophageal reflux disease without esophagitis (10/31/16) Restless legs syndrome (01/25/16) Chronic diastolic heart failure (2014) Obstructive sleep apnea syndrome (01/25/16) Hiatal hernia (01/25/16) History of asbestosis (01/25/16) Gout of left foot (01/25/16) Surgical History History of transurethral resection of prostate History of colonoscopy Family History Father Parkinsons disease Mother Congestive heart failure Social History marital status: household members: spouse lives independently: Yes caregiver/support person: No housing: house pets and animals: Yes education level: college occupational status: previously employed 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[employer] [place], 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 ([employer]) seatbelt use: always helmet use: Yes water heater temp set < 120 deg: Yes second hand exposure: No alcohol intake: current substance use type: does not use during the past year weight has: decreased > 10 lbs well-balanced diet: about half the time daily servings fruits/ve-4 caffeine: No eating out: 1-3 times/week frequency: 1-2 times per week duration: 45-60 minutes/day alcohol intake frequency: a few times a month Exam Narrative Exam Narrative: Const General:?cooperative, healthy appearing and comfortable HENHI Head:?normal to inspection Ears:?hearing grossly normal bilaterally Nose:?external nose normal Face and sinus:?normal facial exam and sinuses nontender Mouth:?oral mucosae normal Throat:?posterior oropharynx normal Eyes General:?appearance normal, both eyes and all related structures Neck Neck:?normal visual inspection and no lymphadenopathy noted Resp Effort & Inspection:?normal respiratory effort Auscultation:?clear to auscultation bilaterally Cardio Rate:?regular rate Rhythm:?regular rhythm GI Bilateral CVA tenderness Neuro General:?patient alert, patient awake and patient oriented x3 Initial Vital Signs Initial Vital Signs: Vital Signs Temperature 97.0 F L 08/01/24 17:30 Pulse Rate 60 08/01/24 17:30 Respiratory Rate 18 08/01/24 17:30 Blood Pressure 151/63 H 08/01/24 17:30 Pulse Oximetry 97 08/01/24 17:30 Oxygen Delivery Method Room Air 08/01/24 17:30 Course Orders Ordered: Discontinued Medications Ertapenem (Ertapenem 1 Gm Vial) 1 gm IM NOW ONE Stop: 08/01/24 18:17 Last Admin: 08/01/24 18:39 Dose: 1 gm Documented By: NELLIE Vital Signs Vital signs: Vital Signs - 8 hr 08/01/24 17:30 Temperature 97.0 F L Pulse Rate 60 Respiratory Rate 18 Blood Pressure 151/63 H Pulse Oximetry 97 Oxygen Delivery Method Room Air MDM - Recheck/Abnormal Lab/Rx MDM Narrative Medical decision making narrative: 79-year-old male with past medical history CHF, diabetes, hyperlipidemia, diverticulitis presents to the ED for evaluation for a UTI. Culture shows susceptibility to IM ertapenem. Will give patient a dose today and discharged home. Patient will return to the ED for the next 6 days to get a dose every day. This plan is due to the fact that the local Infusion Center is closed. Patient is agreeable to the plan. ED return precautions discussed with patient. Patient verbalized understanding. Medical records reviewed: Yes Discharge Plan Departure Patient Disposition: Home Clinical Impression: UTI (urinary tract infection) Qualifiers: Urinary tract infection type: acute pyelonephritis Qualified Code(s): N10 - Acute pyelonephritis Instructions: DI for Urinary Tract Infection (UTI) Activity Restrictions/Additional Instructions: You were evaluated in the ED today for urinary tract infection. Based on your urine culture, your antibiotic has been switched to ertapenem IM. You were given your 1st dose today. You will return to the ED for the next 6 days for a daily dose. If you have any worsening symptoms or adverse effects, please return to the ED immediately. Prescriptions: No Action mupirocin 2 % ointment 1 applic topical TID Qty: 15 0RF pramipexole 1.5 mg tablet extended release 24 hr See Rx Instructions .ROUTE .COMPLEX Dose Instruction: TAKE 2 TABLETS BY MOUTH DAILY. STAGGER DOSES 7:30PM AND 9:30PM. Rx Instructions: TAKE 2 TABLETS BY MOUTH DAILY. STAGGER DOSES 7:30PM AND 9:30PM. Take with Lyrica brimonidine 0.2 % drops EYE-BOTH tramadol 50 mg tablet 50 mg PO Q6H PRN olopatadine-mometasone 665-25 mcg/spray spray,non-aerosol 2 spray intranasal BID Qty: 29 3RF Disabled Parking Permit See Rx Instructions .ROUTE .COMPLEX Qty: 1 0RF Rx Instructions: My patient cannot walk 200 feet without stopping to rest or must use assistive device. Walking is severely limited due to arthritic, neurological or orthopedic condition. Uses portable oxygen or walking restricted by lung disease. aspirin 81 MG tablet,delayed release (DR/EC) 81 mg PO QDAY Qty: 0 Vyzulta 0.024 % drops 1 drp EYE-BOTH BEDTIME Qty: 5 0RF magnesium oxide 500 mg tablet 500 mg PO BID Qty: 270 0RF Rx Instructions: once in the morning and once in the evening ezetimibe [Zetia] 10 mg tablet 10 mg PO DAILY Qty: 90 3RF Rx Instructions: Take one tablet at bedtime nystatin 100,000 unit/gram cream 1 applic topical DAILY Qty: 60 0RF azelastine-fluticasone 137-50 mcg/spray spray,non-aerosol 1 spray intranasal DAILY Qty: 23 0RF rosuvastatin 20 mg tablet 20 mg PO BEDTIME Qty: 90 2RF pantoprazole 40 mg tablet,delayed release (DR/EC) 40 mg PO DAILY Qty: 90 0RF pregabalin 50 mg capsule 50 mg PO TID Qty: 90 3RF eplerenone 50 mg tablet 50 mg PO DAILY Qty: 90 0RF dorzolamide-timolol 22.3-6.8 mg/mL drops 1 drp EYE-BOTH TID cephalexin 500 mg capsule 500 mg PO Q8H 7 Days Qty: 21 0RF sulfamethoxazole-trimethoprim [Bactrim DS] 800-160 mg tablet 1 tab PO Q12H 7 Days Qty: 14 0RF nitrofurantoin monohyd/m-cryst [Macrobid] 100 mg capsule 100 mg PO Q12H 5 Days Qty: 10 0RF Rx Instructions: must administer with a meal/food (DME) Respironics Dreamstation BIPAP Qty: 1 Rx Instructions: Pressure: IPAP 16 EPAP 11 DME: [facility] torsemide 10 mg tablet 5 mg PO DAILY Rx Instructions: take in the AM Gemtesa 75 mg tablet 75 mg PO DAILY Qty: 30 12RF Referrals: Maya Johnson MD [Primary Care Provider, Family Practice] Stand Alone Forms: Patient Portal/API
[2024-08-01] MEDS: ERTAPENEM 1 GM VIAL IM (18:39)
== END 2024-08-01 18:45 | disposition home or self-care (01) ==
PROVIDERS: Emergency Provider Student in an Organized Health Care Education/Training Program; Family Provider Family Medicine; PCP Family Medicine
DX: N10 Acute pyelonephritis (principal)
CPT/HCPCS: 96372; 99283; J1335

== ENCOUNTER 2024-08-02 15:44 | Emergency (ER) | payer MEDICARE, OTHER, SELFPAY ==
[2022-11-05 15:47] VITALS: BMI 45.8
[2024-08-02 16:04] VITALS: BP 139/63; PULSE 60; RESP 18; TEMP 36.8; O2SAT 95; BMI 43.3
--- NOTE | 2024-08-02 16:56 | ED.RECABL ---
HPI - Recheck/Abnormal Lab/Rx <Pb Delcid PA-C - Last Filed: 08/02/24 19:11> General Chief Complaint: Recheck/Abnormal Lab/Rx Stated Complaint: revisit yesterday, urine sample Time Seen by Provider: 08/02/24 16:56 Source: patient Mode of arrival: Ambulatory History of Present Illness HPI narrative: 79-year-old male presents to the ED for the next dose of ertapenem IM for a UTI. Patient states that he feels better today, he tolerated the 1st dose yesterday well with no adverse effects. Patient states that his urinary frequency has already reduced. No other new symptoms. Related Data Home Medications ?Medication ?Instructions ?Recorded ?Confirmed aspirin 81 mg tablet,delayed 81 mg PO QDAY ##0 01/25/16 08/08/24 release Respironics Dreamstation BIPAP #1 ea 12/06/18 08/08/24 dorzolamide 22.3 mg-timolol 6.8 1 drp EYE-BOTH TID 09/08/22 08/08/24 mg/mL eye drops torsemide 10 mg tablet 5 mg PO DAILY 11/05/23 08/08/24 brimonidine 0.2 % eye drops drp EYE-BOTH 07/06/24 08/08/24 pramipexole 1.5 mg tablet,extended See Rx Instructions .Route 07/06/24 08/08/24 release 24 hr .COMPLEX RLS Previous Rx's ?Medication ?Instructions ?Recorded Disabled Parking Permit See Rx Instructions .Route 09/21/20 .COMPLEX #1 ea latanoprostene bunod 0.024 % eye 1 drp EYE-BOTH BEDTIME #5 mL 07/18/22 drops (Vyzulta) magnesium oxide 500 mg PO BID #270 tabs 07/18/22 ezetimibe 10 mg tablet (Zetia) 10 mg PO DAILY #90 tabs 05/21/23 mupirocin 2 % topical ointment 1 applic topical TID #15 grams 10/01/23 nystatin 100,000 unit/gram topical 1 applic topical DAILY #60 grams 10/30/23 cream azelastine 137 mcg-fluticasone 50 1 spray intranasal DAILY #23 grams 01/27/24 mcg/spray nasal spray rosuvastatin 20 mg tablet 20 mg PO BEDTIME #90 tabs 01/29/24 pantoprazole 40 mg tablet,delayed 40 mg PO DAILY #90 tabs 05/24/24 release pregabalin 50 mg capsule 50 mg PO TID #90 caps 06/24/24 olopatadine 665 mcg-mometasone 25 2 spray intranasal BID #29 grams 07/06/24 mcg/spray nasal spray vibegron 75 mg tablet (Gemtesa) 75 mg PO DAILY #30 tabs 07/13/24 eplerenone 50 mg tablet 50 mg PO DAILY #90 tabs 07/18/24 ertapenem 1 gram solution for 1 g IM DAILY #3 ea 08/05/24 injection tramadol 50 mg tablet 50 mg PO Q6H PRN pain #60 tabs 08/08/24 Allergies Allergy/AdvReac Type Severity Reaction Status Date / Time ciprofloxacin (From Cipro) Allergy Intermediate ruptured Verified 08/08/24 10:53 tendons Review of Systems <Pb Delcid PA-C - Last Filed: 08/02/24 19:11> Constitutional Constitutional: Denies chills, Denies fatigue, Denies fever(s), Denies frequent falls, Denies lethargy and Denies weakness Eyes Eyes: Denies change in vision, Denies eye discharge, Denies irritation and Denies loss of vision ENT Ears, Nose, Mouth, and Throat: Denies change in voice, Denies dizziness, Denies neck pain, Denies sore throat and Denies throat swelling Cardiovascular Cardiovascular: Denies chest pain, Denies irregular heart rhythm, Denies lightheadedness, Denies palpitations, Denies dyspnea, Denies dyspnea on exertion and Denies orthopnea Respiratory Respiratory: Denies cough, Denies dyspnea, Denies dyspnea on exertion and Denies wheezing Gastrointestinal Gastrointestinal: Denies abdominal pain, Denies change in bowel habits, Denies diarrhea, Denies nausea and Denies vomiting Genitourinary Genitourinary: Reports dysuria and Denies urinary frequency Musculoskeletal Musculoskeletal: Denies neck pain and Denies numbness Integumentary/Breasts Skin/Breast: Denies pruritus, Denies erythema, Denies rash and Denies wounds Neurologic Neurologic: Denies behavioral changes, Denies confusion, Denies dizziness, Denies frequent falls, Denies loss of vision, Denies numbness and Denies weakness Psychiatric Psychiatric: Denies anxiety, Denies behavioral changes, Denies confusion, Denies depression, Denies homicidal ideation and Denies suicidal ideation Endocrine Endocrine: Denies fatigue, Denies flushing and Denies palpitations Hematologic/Lymphatic Hematologic/Lymphatic: Denies easy bruising Allergic/Immunologic Allergic/Immunologic: Denies urticaria, Denies throat swelling and Denies wheezing Patient History <Pb Delcid PA-C - Last Filed: 08/02/24 19:11> Medical History Primary osteoarthritis of left knee Tendinopathy of left gluteus medius History of urinary tract infection Urge incontinence Overactive bladder Lower urinary tract symptoms DM type 2 (diabetes mellitus, type 2) History of urethrocutaneous fistula Family history of prostate cancer in father 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, 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 Rectal bleeding Hearing loss (~2009) Glaucoma (~2011) Cataracts, both eyes (~2011) Hemorrhoids (~1978) Diverticulosis (~2010) Colon polyp (~2010) Low testosterone Recurrent UTI Prostate mass Morbid obesity with body mass index (BMI) of 40.0 to 44.9 in adult (10/31/16) Gastroesophageal reflux disease without esophagitis (10/31/16) Restless legs syndrome (01/25/16) Chronic diastolic heart failure (2014) Obstructive sleep apnea syndrome (01/25/16) Hiatal hernia (01/25/16) History of asbestosis (01/25/16) Gout of left foot (01/25/16) Surgical History History of transurethral resection of prostate History of colonoscopy Family History Father Parkinsons disease Mother Congestive heart failure Social History marital status: household members: spouse lives independently: Yes caregiver/support person: No housing: house pets and animals: Yes education level: college occupational status: previously employed 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[employer] [place], 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 ([employer]) seatbelt use: always helmet use: Yes water heater temp set < 120 deg: Yes second hand exposure: No alcohol intake: current substance use type: does not use during the past year weight has: decreased > 10 lbs well-balanced diet: about half the time daily servings fruits/ve-4 caffeine: No eating out: 1-3 times/week frequency: 1-2 times per week duration: 45-60 minutes/day Smoking Status: Never smoker alcohol intake frequency: a few times a month Exam <Pb Delcid PA-C - Last Filed: 08/02/24 19:11> Narrative Exam Narrative: Const General:?cooperative, healthy appearing and comfortable [facility] Head:?normal to inspection Ears:?hearing grossly normal bilaterally Nose:?external nose normal Face and sinus:?normal facial exam and sinuses nontender Mouth:?oral mucosae normal Throat:?posterior oropharynx normal Eyes General:?appearance normal, both eyes and all related structures Neck Neck:?normal visual inspection and no lymphadenopathy noted Resp Effort & Inspection:?normal respiratory effort Auscultation:?clear to auscultation bilaterally Cardio Rate:?regular rate Rhythm:?regular rhythm Neuro General:?patient alert, patient awake and patient oriented x3 Initial Vital Signs Initial Vital Signs: Vital Signs Temperature 98.2 F 08/02/24 16:04 Pulse Rate 60 08/02/24 16:04 Respiratory Rate 18 08/02/24 16:04 Blood Pressure 139/63 08/02/24 16:04 Pulse Oximetry 95 08/02/24 16:04 Oxygen Delivery Method Room Air 08/02/24 16:04 <Marquis Carpenter MD - Last Filed: 08/18/24 06:59> Initial Vital Signs Initial Vital Signs: Vital Signs Temperature 98.2 F 08/02/24 16:04 Pulse Rate 60 08/02/24 16:04 Respiratory Rate 18 08/02/24 16:04 Blood Pressure 139/63 08/02/24 16:04 Pulse Oximetry 95 08/02/24 16:04 Oxygen Delivery Method Room Air 08/02/24 16:04 Course <Pb Delcid PA-C - Last Filed: 08/02/24 19:11> Orders Ordered: Discontinued Medications Ertapenem (Ertapenem 1 Gm Vial) 1 gm IM NOW ONE Stop: 08/02/24 16:57 Last Admin: 08/02/24 17:36 Dose: 1 gm Documented By: MATTEO Vital Signs Vital signs: Vital Signs - 8 hr 08/02/24 16:04 08/02/24 17:48 Temperature 98.2 F Pulse Rate 60 56 L Respiratory Rate 18 16 Blood Pressure 139/63 118/56 L Pulse Oximetry 95 97 Oxygen Delivery Method Room Air Room Air <Marquis Carpenter MD - Last Filed: 08/18/24 06:59> Orders Ordered: Discontinued Medications Ertapenem (Ertapenem 1 Gm Vial) 1 gm IM NOW ONE Stop: 08/02/24 16:57 Last Admin: 08/02/24 17:36 Dose: 1 gm Documented By: MATTEO Vital Signs Vital signs: Vital Signs - 8 hr 08/02/24 16:04 08/02/24 17:48 Temperature 98.2 F Pulse Rate 60 56 L Respiratory Rate 18 16 Blood Pressure 139/63 118/56 L Pulse Oximetry 95 97 Oxygen Delivery Method Room Air Room Air MDM - Recheck/Abnormal Lab/Rx <Pb Delcid PA-C - Last Filed: 08/02/24 19:11> [facility] Narrative Medical decision making narrative: 79-year-old male presents to the ED for the next dose of ertapenem IM for a UTI. It is reassuring that patient has had no adverse effects and is beginning to feel better. Second dose of ertapenem IM administered in the ED. patient to return tomorrow for his next dose. ED return precautions discussed with patient. Patient verbalized understanding. Medical records reviewed: Yes Discharge Plan Departure Patient Disposition: Home Clinical Impression: UTI (urinary tract infection) Instructions: DI for Urinary Tract Infection (UTI) Activity Restrictions/Additional Instructions: You were seen in the emergency department for your 2nd dose of ertapenem. It is reassuring that you tolerated your 1st dose yesterday with no adverse effects. You were also feeling better. Please return to the ED tomorrow for your next shot. Please return to the ED earlier if you have worsening symptoms. Prescriptions: No Action mupirocin 2 % ointment 1 applic topical TID Qty: 15 0RF pramipexole 1.5 mg tablet extended release 24 hr See Rx Instructions .ROUTE .COMPLEX Dose Instruction: TAKE 2 TABLETS BY MOUTH DAILY. STAGGER DOSES 7:30PM AND 9:30PM. Rx Instructions: TAKE 2 TABLETS BY MOUTH DAILY. STAGGER DOSES 7:30PM AND 9:30PM. Take with Lyrica brimonidine 0.2 % drops EYE-BOTH olopatadine-mometasone 665-25 mcg/spray spray,non-aerosol 2 spray intranasal BID Qty: 29 3RF tramadol 50 mg tablet 50 mg PO Q6H PRN (Reason: pain) Qty: 60 2RF Disabled Parking Permit See Rx Instructions .ROUTE .COMPLEX Qty: 1 0RF Rx Instructions: My patient cannot walk 200 feet without stopping to rest or must use assistive device. Walking is severely limited due to arthritic, neurological or orthopedic condition. Uses portable oxygen or walking restricted by lung disease. aspirin 81 MG tablet,delayed release (DR/EC) 81 mg PO QDAY Qty: 0 Vyzulta 0.024 % drops 1 drp EYE-BOTH BEDTIME Qty: 5 0RF magnesium oxide 500 mg tablet 500 mg PO BID Qty: 270 0RF Rx Instructions: once in the morning and once in the evening ezetimibe [Zetia] 10 mg tablet 10 mg PO DAILY Qty: 90 3RF Rx Instructions: Take one tablet at bedtime nystatin 100,000 unit/gram cream 1 applic topical DAILY Qty: 60 0RF azelastine-fluticasone 137-50 mcg/spray spray,non-aerosol 1 spray intranasal DAILY Qty: 23 0RF rosuvastatin 20 mg tablet 20 mg PO BEDTIME Qty: 90 2RF pantoprazole 40 mg tablet,delayed release (DR/EC) 40 mg PO DAILY Qty: 90 0RF pregabalin 50 mg capsule 50 mg PO TID Qty: 90 3RF eplerenone 50 mg tablet 50 mg PO DAILY Qty: 90 0RF ertapenem 1 gram recon soln 1 g IM DAILY Qty: 3 0RF dorzolamide-timolol 22.3-6.8 mg/mL drops 1 drp EYE-BOTH TID (DME) Respironics Dreamstation BIPAP Qty: 1 Rx Instructions: Pressure: IPAP 16 EPAP 11 DME: [facility] torsemide 10 mg tablet 5 mg PO DAILY Rx Instructions: take in the AM Gemtesa 75 mg tablet 75 mg PO DAILY Qty: 30 12RF Referrals: Maya Johnson MD [Primary Care Provider, Family Practice] Stand Alone Forms: Patient Portal/API ED Sign-out <Marquis Carpenter MD - Last Filed: 08/18/24 06:59> Cosign ED Attending Cosignature Attestation: I was immediately available in the department for consultation. ?This documentation has been reviewed and I agree with assessment and plan. Supervised by Marquis Carpenter MD
[2024-08-02] MEDS: ERTAPENEM 1 GM VIAL IM (17:36)
[2024-08-02 17:48] VITALS: BP 118/56; PULSE 56; RESP 16; O2SAT 97
== END 2024-08-02 17:49 | disposition home or self-care (01) ==
PROVIDERS: Emergency Provider Student in an Organized Health Care Education/Training Program; Family Provider Family Medicine; PCP Family Medicine
DX: N39.0 Urinary tract infection, site not specified (principal)
CPT/HCPCS: 96372; 99283; J1335

== ENCOUNTER → 2024-08-03 16:23 | Outpatient (CLI) | payer MEDICARE, OTHER, SELFPAY ==
[2022-11-05 15:47] VITALS: BMI 45.8
[2024-08-03 21:21] LABS: BUN Creatinine Ratio 15.2 (6-22); Blood Urea Nitrogen 12 mg/dL (9-20); Carbon Dioxide 25 mmol/L (22-32); Chloride 104 mmol/L (98-107); Estimated Glomerular Filt Rate > 60 mL/min (>60); Glucose 99 mg/dL (70-99); HEMOLYSIS < 15 (0-50); Potassium 4.2 mmol/L (3.4-5.1); Sodium 139 mmol/L (137-145)
== END ==
PROVIDERS: Family Provider Family Medicine; PCP Family Medicine; Referring Provider Internal Medicine; Visit Provider Internal Medicine
DX: R60.1 Generalized edema (principal)
CPT/HCPCS: 36415; 80048

== ENCOUNTER 2024-08-03 16:45 | Emergency (ER) | payer MEDICARE, OTHER, SELFPAY ==
[2022-11-05 15:47] VITALS: BMI 45.8
[2024-08-03 16:50] VITALS: BP 156/66; PULSE 58; RESP 20; TEMP 37; O2SAT 95; BMI 43.3
--- NOTE | 2024-08-03 18:12 | ED_ITS ---
<Statement entered by Jean-Pierre Hart, DO - 08/04/24 07:23> co-sign statement: I was available for consultation during this patient's emergency department visit. This chart is signed by myself for administrative purposes only. I do not have direct contact with the patient during their visit. They were seen independently by the APC. HPI - Recheck/Abnormal Lab/Rx General Chief Complaint: Recheck/Abnormal Lab/Rx Stated Complaint: shot in the butt Time Seen by Provider: 08/03/24 18:11 Source: patient Mode of arrival: Ambulatory History of Present Illness HPI narrative: Mr. Parekh is a very pleasant 79-year-old male with a past medical history of frequent UTIs, CHF, DM, HLD, diverticulitis who presents to the emergency department for day 3 of ertapenem 1gm IM injection. Patient was seen in the ER on 07/30/2024 was diagnosed with a UTI and discharged home on Keflex however urine culture resulted showing resistance so on 08/01/2024 patient was started on day 1 of a 7 day course of IM ertapenem because the local infusion clinic is closed. He is here for day 3 of this treatment. Reports that his UTI symptoms are improving, he is having less pain, he is still having urgency. Denies any f pavel, chills or any other concerns. Related Data Home Medications ?Medication ?Instructions ?Recorded ?Confirmed aspirin 81 mg tablet,delayed 81 mg PO QDAY ##0 6 07/29/24 release Respironics Dreamstation BIPAP #1 ea 12/06/18 5 dorzolamide 22.3 mg-timolol 6.8 1 drp EYE-BOTH TID 07/29/24 mg/mL eye drops torsemide 10 mg tablet 5 mg PO DAILY 11/05/2307/29 brimonidine 0.2 % eye drops drp EYE-BOTH 07/06/2407/17 pramipexole 1.5 mg tablet,extended See Rx Instructions .Route 07/06/24 07/29/24 release 24 hr .COMPLEX RLS tramadol 50 mg tablet 50 mg PO Q6H PRN 07/06/24 Previous Rx's ?Medication ?Instructions ?Recorded Disabled Parking Permit See Rx Instructions .Route 0 09/21/20 .COMPLEX #1 ea latanoprostene bunod 0.024 % eye 1 drp EYE-BOTH BEDTIM E #5 mL 07/18/22 drops (Vyzulta) magnesium oxide 500 mg PO BID #270 tabs 04/10 ezetimibe 10 mg tablet (Zetia) 10 mg PO DAILY #90 tabs 05/21/23 mupirocin 2 % topical ointment 1 applic topical TID #1 5 grams 10/01/23 nystatin 100,000 unit/gram topical 1 applic topical DA SUNDAY #60 grams 10/30/23 cream azelastine 137 mcg-fluticasone 50 1 spray intranasal D AILY #23 grams 01/27/24 mcg/spray nasal spray rosuvastatin 20 mg tablet 20 mg PO BEDTIME #90 tabs pantoprazole 40 mg tablet,delayed 40 mg PO DAILY #90 t abs 05/24/24 release pregabalin 50 mg capsule 50 mg PO TID #90 caps olopatadine 665 mcg-mometasone 25 2 spray intranasal B ID #29 grams 07/06/24 mcg/spray nasal spray vibegron 75 mg tablet (Gemtesa) 75 mg PO DAILY #30 tab s 07/13/24 eplerenone 50 mg tablet 50 mg PO DAILY #90 tabs 04/12 cephalexin 500 mg capsule 500 mg PO Q8H 7 days #21 cap s 07/30/24 sulfamethoxazole 800 1 tab PO Q12H 7 days #14 tab s 07/30/24 mg-trimethoprim 160 mg tablet (Bactrim DS) nitrofurantoin 100 mg PO Q12H 5 days #10 ca ps 08/01/24 monohydrate/macrocrystals 100 mg capsule (Macrobid) Allergies Allergy/AdvReac Type Severity Reaction Status Date / Time ciprofloxacin (From Cipro) Allergy Intermediate ruptured Verified 08/03/24 16:50 tendons Review of Systems Review of Systems ROS Unobtainable: All systems reviewed & are unremarkable except as noted in HPI and below Patient History Medical History Primary osteoarthritis of left knee Tendinopathy of left gluteus medius History of urinary tract infection Urge incontinence Overactive bladder Lower urinary tract symptoms DM type 2 (diabetes mellitus, type 2) History of urethrocutaneous fistula Family history of prostate cancer in father 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, 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 Rectal bleeding Hearing loss (~2009) Glaucoma (~2011) Cataracts, both eyes (~2011) Hemorrhoids (~1978) Diverticulosis (~2010) Colon polyp (~2010) Low testosterone Recurrent UTI Prostate mass Morbid obesity with body mass index (BMI) of 40.0 to 44.9 in adult (10/31/16) Gastroesophageal reflux disease without esophagitis (10/31/16) Restless legs syndrome (01/25/16) Chronic diastolic heart failure (2014) Obstructive sleep apnea syndrome (01/25/16) Hiatal hernia (01/25/16) History of asbestosis (01/25/16) Gout of left foot (01/25/16) Surgical History History of transurethral resection of prostate History of colonoscopy Family History Father Parkinsons disease Mother Congestive heart failure Social History marital status: household members: spouse lives independently: Yes caregiver/support person: No housing: house pets and animals: Yes education level: college occupational status: previously employed 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[employer], 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 Well-developed patient, in no acute distress. HEAD: Atraumatic. Normocephalic. NECK: Trachea midline. Cervical ROM intact. CARDIOVASCULAR: Regular rate RESPIRATORY: ?Nonlabored respirations. ?Speaking in clear, full sentences. GASTROINTESTINAL: Abdomen soft, non-tender, nondistended. EXTREMITIES: No edema or joint tenderness. NEURO: AOx3. ?Clear speech. ?Moves all 4 extremities appropriately. Ambulatory. SKIN: No rash or erythema of visible areas Initial Vital Signs Initial Vital Signs: Vital Signs Temperature 98.6 F 08/03/24 16:50 Pulse Rate 58 L 08/03/24 16:50 Respiratory Rate 20 08/03/24 16:50 Blood Pressure 156/66 H 08/03/24 16:50 Pulse Oximetry 95 08/03/24 16:50 Oxygen Delivery Method Room Air 08/03/24 16:50 Course Orders Ordered: Discontinued Medications Ertapenem (Ertapenem 1 Gm Vial) 1 gm IM NOW ONE Stop: 08/03/24 18:15 Last Admin: 08/03/24 18:25 Dose: 1 gm Documented By: SB Vital Signs Vital signs: Vital Signs - 8 hr 08/03/24 16:50 08/03/24 18:38 Temperature 98.6 F 98.0 F Pulse Rate 58 L 65 Respiratory Rate 20 18 Blood Pressure 156/66 H 127/60 Pulse Oximetry 95 98 Oxygen Delivery Method Room Air Room Air MDM - Recheck/Abnormal Lab/Rx Medical Records Attestation: I reviewed the patient's medical records. MDM Narrative Medical decision making narrative: 79-year-old male with a past medical history of frequent UTIs, CHF, DM, HLD, diverticulitis who presents to the emergency department for day 3 of ertapenem 1gm IM injection. Patient tolerated previous injections well, reports his symptoms are overall improving however not resolved. Patient was given his 3rd dose of ertapenem 1 g IM, had no adverse reactions, and eagerly requested discharge home. Discussed strict ED return precautions and continued return for subsequent injections. He verbalized understanding of all information is agreeable with the plan. He was ambulatory and stable for discharge home. Discharge Plan Departure Patient Disposition: Home Clinical Impression: UTI (urinary tract infection) Qualifiers: Urinary tract infection type: site unspecified Hematuria presence: without hematuria Qualified Code(s): N39.0 - Urinary tract infection, site not specified Instructions: DI for Urinary Tract Infection (UTI) Activity Restrictions/Additional Instructions: Dear Mr. Parekh, Today you received day 3 of your ertapenem antibiotic injection for urinary tract infection. Please return to the ED tomorrow for your 4th dose of ertapenem. Please return to the ER sooner if you develop any worsening sym ptoms, fevers or other concerns. Please follow up with your primary care doctor within the next 2-3 days for ER follow-up. (If you do not have a PCP you can call [phone]. ?to schedule an appointment with an [facility] Primary Care Provider) IF YOU DEVELOP ANY NEW OR WORSENING SYMPTOMS, RETURN TO THE ER! Please read the attached instructions, they highlight more specific treatments and interventions for you at home. Thank you for letting me participate in your care, Kylee Carter PA-C Prescriptions: No Action mupirocin 2 % ointment 1 applic topical TID Qty: 15 0RF pramipexole 1.5 mg tablet extended release 24 hr See Rx Instructions .ROUTE .COMPLEX Dose Instruction: TAKE 2 TABLETS BY MOUTH DAILY. STAGGER DOSES 7:30PM AND 9:30PM. Rx Instructions: TAKE 2 TABLETS BY MOUTH DAILY. STAGGER DOSES 7:30PM AND 9:30PM. Take with Lyrica brimonidine 0.2 % drops EYE-BOTH tramadol 50 mg tablet 50 mg PO Q6H PRN olopatadine-mometasone 665-25 mcg/spray spray,non-aerosol 2 spray intranasal BID Qty: 29 3RF Disabled Parking Permit See Rx Instructions .ROUTE .COMPLEX Qty: 1 0RF Rx Instructions: My patient cannot walk 200 feet without stopping to rest or must use assistive device. Walking is severely limited due to arthritic, neurological or orthopedic condition. Uses portable oxygen or walking restricted by lung disease. aspirin 81 MG tablet,delayed release (DR/EC) 81 mg PO QDAY Qty: 0 Vyzulta 0.024 % drops 1 drp EYE-BOTH BEDTIME Qty: 5 0RF magnesium oxide 500 mg tablet 500 mg PO BID Qty: 270 0RF Rx Instructions: once in the morning and once in the evening ezetimibe [Zetia] 10 mg tablet 10 mg PO DAILY Qty: 90 3RF Rx Instructions: Take one tablet at bedtime nystatin 100,000 unit/gram cream 1 applic topical DAILY Qty: 60 0RF azelastine-fluticasone 137-50 mcg/spray spray,non-aerosol 1 spray intranasal DAILY Qty: 23 0RF rosuvastatin 20 mg tablet 20 mg PO BEDTIME Qty: 90 2RF pantoprazole 40 mg tablet,delayed release (DR/EC) 40 mg PO DAILY Qty: 90 0RF pregabalin 50 mg capsule 50 mg PO TID Qty: 90 3RF eplerenone 50 mg tablet 50 mg PO DAILY Qty: 90 0RF dorzolamide-timolol 22.3-6.8 mg/mL drops 1 drp EYE-BOTH TID cephalexin 500 mg capsule 500 mg PO Q8H 7 Days Qty: 21 0RF sulfamethoxazole-trimethoprim [Bactrim DS] 800-160 mg tablet 1 tab PO Q12H 7 Days Qty: 14 0RF nitrofurantoin monohyd/m-cryst [Macrobid] 100 mg capsule 100 mg PO Q12H 5 Days Qty: 10 0RF Rx Instructions: must administer with a meal/food (DME) Respironics Dreamstation BIPAP Qty: 1 Rx Instructions: Pressure: IPAP 16 EPAP 11 DME: [facility]CO torsemide 10 mg tablet 5 mg PO DAILY Rx Instructions: take in the AM Gemtesa 75 mg tablet 75 mg PO DAILY Qty: 30 12RF Referrals: Dequan Fox DO [Physician, Urology] Referral Note: recurrent uti, Dr. Beatty pt Maya Johnson MD [Primary Care Provider, Family Practice] Stand Alone Forms: Patient Portal/API
[2024-08-03] MEDS: ERTAPENEM 1 GM VIAL IM (18:25)
[2024-08-03 18:38] VITALS: BP 127/60; PULSE 65; RESP 18; TEMP 36.7; O2SAT 98
== END 2024-08-03 18:52 | disposition home or self-care (01) ==
PROVIDERS: Emergency Provider Physician Assistant; Family Provider Family Medicine; PCP Family Medicine
DX: N39.0 Urinary tract infection, site not specified (principal)
CPT/HCPCS: 36415; 80048; 96372; 99283; J1335

== ENCOUNTER 2024-08-04 15:08 | Emergency (ER) | payer MEDICARE, OTHER, SELFPAY ==
[2022-11-05 15:47] VITALS: BMI 45.8
[2024-08-04 15:40] VITALS: BP 154/61; PULSE 60; RESP 16; TEMP 36.4; O2SAT 98; BMI 44.4
--- NOTE | 2024-08-04 16:17 | ED_ITS ---
<Statement entered by Jean-Pierre Hart, DO - 08/04/24 18:18> Co-sign statement: I was available for consultation during this patient's emergency department visit. This chart is beside by myself for administrative purposes only. I do not have direct contact with this patient during this visit. They were seen independently by the APC. HPI - Male Genitourinary General Chief complaint: Urogenital-Male Stated complaint: Needs shot UTI Time Seen by Provider: 08/04/24 16:16 Source: patient Mode of arrival: Ambulatory History of Present Illness HPI Narrative: Mr. Parekh is a very pleasant 79-year-old male with a past medical history of frequent UTIs, CHF, DM, HLD, diverticulitis who presents to the emergency department for day 4 of ertapenem 1gm IM injection for UTI. Patient reports that he is feeling well, he feels about the same as yesterday. He is still experiencing urgency with urination but no dysuria, fevers, chills, abdominal pain. Patient has not had a bowel movement in 3 days however he is passing gas. When he came to the ER initially he was having very bad diarrhea, so he is reluctant to take any type of stool softener at this time because he does not want to diarrhea to return. He has not having any abdominal pain however. No other concerns. He has an appointment scheduled with the Urology on 08/31/2024 and with his primary care doctor on 08/08/2024. Related Data Home Medications ?Medication ?Instructions ?Recorded ?Confirmed aspirin 81 mg tablet,delayed 81 mg PO QDAY ##0 6 07/29/24 release Respironics Dreamstation BIPAP #1 ea 12/06/18 5 dorzolamide 22.3 mg-timolol 6.8 1 drp EYE-BOTH TID 07/29/24 mg/mL eye drops torsemide 10 mg tablet 5 mg PO DAILY 11/05/2307/29 brimonidine 0.2 % eye drops drp EYE-BOTH 07/06/2407/17 pramipexole 1.5 mg tablet,extended See Rx Instructions .Route 07/06/24 07/29/24 release 24 hr .COMPLEX RLS tramadol 50 mg tablet 50 mg PO Q6H PRN 07/06/24 Previous Rx's ?Medication ?Instructions ?Recorded Disabled Parking Permit See Rx Instructions .Route 0 09/21/20 .COMPLEX #1 ea latanoprostene bunod 0.024 % eye 1 drp EYE-BOTH BEDTIM E #5 mL 07/18/22 drops (Vyzulta) magnesium oxide 500 mg PO BID #270 tabs 04/10 ezetimibe 10 mg tablet (Zetia) 10 mg PO DAILY #90 tabs 05/21/23 mupirocin 2 % topical ointment 1 applic topical TID #1 5 grams 10/01/23 nystatin 100,000 unit/gram topical 1 applic topical DA SUNDAY #60 grams 10/30/23 cream azelastine 137 mcg-fluticasone 50 1 spray intranasal D AILY #23 grams 01/27/24 mcg/spray nasal spray rosuvastatin 20 mg tablet 20 mg PO BEDTIME #90 tabs pantoprazole 40 mg tablet,delayed 40 mg PO DAILY #90 t abs 05/24/24 release pregabalin 50 mg capsule 50 mg PO TID #90 caps olopatadine 665 mcg-mometasone 25 2 spray intranasal B ID #29 grams 07/06/24 mcg/spray nasal spray vibegron 75 mg tablet (Gemtesa) 75 mg PO DAILY #30 tab s 07/13/24 eplerenone 50 mg tablet 50 mg PO DAILY #90 tabs 04/12 cephalexin 500 mg capsule 500 mg PO Q8H 7 days #21 cap s 07/30/24 sulfamethoxazole 800 1 tab PO Q12H 7 days #14 tab s 07/30/24 mg-trimethoprim 160 mg tablet (Bactrim DS) nitrofurantoin 100 mg PO Q12H 5 days #10 ca ps 08/01/24 monohydrate/macrocrystals 100 mg capsule (Macrobid) Allergies Allergy/AdvReac Type Severity Reaction Status Date / Time ciprofloxacin (From Cipro) Allergy Intermediate ruptured Verified 08/03/24 16:50 tendons Review of Systems Review of Systems ROS Unobtainable: All systems reviewed & are unremarkable except as noted in HPI and below Patient History Medical History Primary osteoarthritis of left knee Tendinopathy of left gluteus medius History of urinary tract infection Urge incontinence Overactive bladder Lower urinary tract symptoms DM type 2 (diabetes mellitus, type 2) History of urethrocutaneous fistula Family history of prostate cancer in father 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, 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 Rectal bleeding Hearing loss (~2009) Glaucoma (~2011) Cataracts, both eyes (~2011) Hemorrhoids (~1978) Diverticulosis (~2010) Colon polyp (~2010) Low testosterone Recurrent UTI Prostate mass Morbid obesity with body mass index (BMI) of 40.0 to 44.9 in adult (10/31/16) Gastroesophageal reflux disease without esophagitis (10/31/16) Restless legs syndrome (01/25/16) Chronic diastolic heart failure (2014) Obstructive sleep apnea syndrome (01/25/16) Hiatal hernia (01/25/16) History of asbestosis (01/25/16) Gout of left foot (01/25/16) Surgical History History of transurethral resection of prostate History of colonoscopy Family History Father Parkinsons disease Mother Congestive heart failure Social History marital status: household members: spouse lives independently: Yes caregiver/support person: No housing: house pets and animals: Yes education level: college occupational status: previously employed 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[employer], 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 Well-developed patient, in no acute distress. HEAD: Atraumatic. Normocephalic. CARDIOVASCULAR: Regular rate RESPIRATORY: ?Nonlabored respirations. ?Speaking in clear, full sentences. ? GASTROINTESTINAL: Abdomen soft, non-tender, nondistended. BS present. Yellow urine present in urinal at bedside. EXTREMITIES: No edema or joint tenderness. NEURO: AOx3. ?Clear speech. ?Moves all 4 extremities appropriately. SKIN: No rash or erythema of visible areas Initial Vital Signs Initial Vital Signs: Vital Signs Temperature 97.6 F 08/04/24 15:40 Pulse Rate 60 08/04/24 15:40 Respiratory Rate 16 08/04/24 15:40 Blood Pressure 154/61 H 08/04/24 15:40 Pulse Oximetry 98 08/04/24 15:40 Oxygen Delivery Method Room Air 08/04/24 15:40 Course Orders Ordered: Discontinued Medications Ertapenem (Ertapenem 1 Gm Vial) 1 gm IM NOW ONE Stop: 08/04/24 16:19 Last Admin: 08/04/24 16:47 Dose: 1 gm Documented By: OLYA Vital Signs Vital signs: Vital Signs - 8 hr 08/04/24 15:40 Temperature 97.6 F Pulse Rate 60 Respiratory Rate 16 Blood Pressure 154/61 H Pulse Oximetry 98 Oxygen Delivery Method Room Air [facility] - Male Genitourinary Medical Records Attestation: I reviewed the patient's medical records. [facility] Narrative Medical decision making narrative: 79-year-old male with a past medical history of frequent UTIs, CHF, DM, HLD, diverticulitis who presents to the emergency department for day 4 of ertapenem 1gm IM injection for UTI. Differential diagnosis includes but is not limited to recurrent UTI, diverticulitis, etc. On exam patient is in no acute distress, nontoxic appearing, vital signs within normal limits. His abdomen is soft and nontender. Urine is clear/yellow at the bedside. He is feeling about the same as yesterday, with continued urgency but no pain. He received his 4th dose of ertapenem today. He will return Thursday, Thursday and Thursday for his final dose. He is follow up appointments scheduled. We discussed strict ED return precautions. He verbalized understanding of all information is agreeable to the plan. He is ambulatory and stable for discharge home. Discharge Plan Departure Patient Disposition: Home Clinical Impression: UTI (urinary tract infection) Instructions: DI for Urinary Tract Infection (UTI) Activity Restrictions/Additional Instructions: Dear Mr. Parekh, Today you received day 4 of your ertapenem antibiotic injection for urinary tract infection. Please return to the ED tomorrow for your 5th dose of ertapenem. I will not be here so you will need to see a different provider however I will be here Thursday and Thursday. Please return to the ER sooner if you develop any worsening symptoms, abdominal pain, fevers or other concerns. Please follow up with your primary care doctor within the next 2-3 days for ER follow-up. (If you do not have a PCP you can call [phone]. ?to schedule an appointment with an [facility] Primary Care Provider) IF YOU DEVELOP ANY NEW OR WORSENING SYMPTOMS, RETURN TO THE ER! Please read the attached instructions, they highlight more specific treatments and interventions for you at home. Thank you for letting me participate in your care, Kylee Carter PA-C Prescriptions: No Action mupirocin 2 % ointment 1 applic topical TID Qty: 15 0RF pramipexole 1.5 mg tablet extended release 24 hr See Rx Instructions .ROUTE .COMPLEX Dose Instruction: TAKE 2 TABLETS BY MOUTH DAILY. STAGGER DOSES 7:30PM AND 9:30PM. Rx Instructions: TAKE 2 TABLETS BY MOUTH DAILY. STAGGER DOSES 7:30PM AND 9:30PM. Take with Lyrica brimonidine 0.2 % drops EYE-BOTH tramadol 50 mg tablet 50 mg PO Q6H PRN olopatadine-mometasone 665-25 mcg/spray spray,non-aerosol 2 spray intranasal BID Qty: 29 3RF Disabled Parking Permit See Rx Instructions .ROUTE .COMPLEX Qty: 1 0RF Rx Instructions: My patient cannot walk 200 feet without stopping to rest or must use assistive device. Walking is severely limited due to arthritic, neurological or orthopedic condition. Uses portable oxygen or walking restricted by lung disease. aspirin 81 MG tablet,delayed release (DR/EC) 81 mg PO QDAY Qty: 0 Vyzulta 0.024 % drops 1 drp EYE-BOTH BEDTIME Qty: 5 0RF magnesium oxide 500 mg tablet 500 mg PO BID Qty: 270 0RF Rx Instructions: once in the morning and once in the evening ezetimibe [Zetia] 10 mg tablet 10 mg PO DAILY Qty: 90 3RF Rx Instructions: Take one tablet at bedtime nystatin 100,000 unit/gram cream 1 applic topical DAILY Qty: 60 0RF azelastine-fluticasone 137-50 mcg/spray spray,non-aerosol 1 spray intranasal DAILY Qty: 23 0RF rosuvastatin 20 mg tablet 20 mg PO BEDTIME Qty: 90 2RF pantoprazole 40 mg tablet,delayed release (DR/EC) 40 mg PO DAILY Qty: 90 0RF pregabalin 50 mg capsule 50 mg PO TID Qty: 90 3RF eplerenone 50 mg tablet 50 mg PO DAILY Qty: 90 0RF dorzolamide-timolol 22.3-6.8 mg/mL drops 1 drp EYE-BOTH TID cephalexin 500 mg capsule 500 mg PO Q8H 7 Days Qty: 21 0RF sulfamethoxazole-trimethoprim [Bactrim DS] 800-160 mg tablet 1 tab PO Q12H 7 Days Qty: 14 0RF nitrofurantoin monohyd/m-cryst [Macrobid] 100 mg capsule 100 mg PO Q12H 5 Days Qty: 10 0RF Rx Instructions: must administer with a meal/food (DME) Respironics Dreamstation BIPAP Qty: 1 Rx Instructions: Pressure: IPAP 16 EPAP 11 DME: [facility]CO torsemide 10 mg tablet 5 mg PO DAILY Rx Instructions: take in the AM Gemtesa 75 mg tablet 75 mg PO DAILY Qty: 30 12RF Referrals: Maya Johnson MD [Primary Care Provider, Family Practice] Stand Alone Forms: Patient Portal/API
[2024-08-04] MEDS: ERTAPENEM 1 GM VIAL IM (16:47)
--- NOTE | 2024-08-04 16:55 | PC.NURSE ---
Pt here for 4th day of IM abx dose. Shot given in left buttock. Pt tolerated well.
[2024-08-04 16:57] VITALS: BP 158/66; PULSE 78; RESP 20; TEMP 36.6; O2SAT 96
== END 2024-08-04 17:03 | disposition home or self-care (01) ==
PROVIDERS: Emergency Provider Physician Assistant; Family Provider Family Medicine; PCP Family Medicine
DX: N39.0 Urinary tract infection, site not specified (principal)
CPT/HCPCS: 96372; 99283; J1335

== ENCOUNTER → 2024-08-18 17:32 | Outpatient (CLI) | payer MEDICARE, OTHER, SELFPAY ==
[2022-11-05 15:47] VITALS: BMI 45.8
[2024-08-18 18:20] LABS: Appearance Urine UA CLEAR; Bilirubin Urine UA NEGATIVE (NEGATIVE); Color Urine UA YELLOW; Glucose Urine UA NEGATIVE (Negative); Ketones Urine UA NEGATIVE (NEGATIVE); Leukocyte Esterase Urine UA NEGATIVE (NEGATIVE); Nitrite Urine UA NEGATIVE (Negative); Occult Blood Urine UA NEGATIVE (Negative); Protein Urine UA NEGATIVE (Negative); Specific Gravity Urine UA 1.015 (1.000-1.035); Urobilinogen Urine UA 1.0 E.U./dL (0.2); pH Urine UA 5.5 (4.5-8.0)
[2024-08-18 18:29] LABS: Culture Indicated Urine Cult Not Indicated
== END ==
LOC: LAB 17:33
PROVIDERS: Family Provider Family Medicine; PCP Family Medicine; Referring Provider Urology; Visit Provider Urology
DX: N39.41 Urge incontinence (principal); N32.81 Overactive bladder
CPT/HCPCS: 81001

== ENCOUNTER 2024-09-08 16:24 | Emergency (ER) | payer MEDICARE, OTHER, SELFPAY ==
[2022-11-05 15:47] VITALS: BMI 45.8
[2024-09-08] VITALS (19 sets, daily range): BP systolic 121–151; BP diastolic 56–113; PULSE 57–72; RESP 12–23; TEMP 36.8–37.2; O2SAT 94–98; BMI 43.0
--- NOTE | 2024-09-08 16:50 | EKG_ITS ---
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
--- NOTE | 2024-09-08 16:50 | DI.RAD.S_ITS ---
PROCEDURE: XR CHEST 1V INDICATIONS: Chest Pain TECHNIQUE: One view of the chest was acquired. COMPARISON: [facility], CR, XR CHEST 2V, 10/16/2022, 15:08. FINDINGS: Surgical changes and devices: None. Lungs and pleura: Mild appearance of increased vascularity. Mediastinum: Mediastinal contours appear normal. Heart size is enlarged. Bones and chest wall: No suspicious bony lesions. Overlying soft tissues appear unremarkable. IMPRESSION: Mild appearance of increased vascularity suggestive of edema. Dictated by: Dee Bergman M.D. on 09/08/2024 at 17:29 Approved by: Dee Bergman M.D. on 09/08/2024 at 17:29
[2024-09-08 17:16] LABS: Add Manual Diff / Slide Review NO; Hematocrit 39.0 % (41-53); Hemoglobin 13.4 g/dL (13.5-17.5); Lymphocytes Absolute Auto 1500 /uL (1100-4500); Mean Corpuscular HGB Conc 34.3 % (30-36); Mean Corpuscular Hemoglobin 29.5 PG (26-34); Mean Corpuscular Volume 85.9 fL (80-100); Platelet Count 171 X10^3/uL (150-400)
[2024-09-08 17:19] LABS: INR 1.1 (0.9-1.3); Prothrombin Time 12.7 SECONDS (9.4-12.5)
[2024-09-08 17:21] LABS: PTT Partial Thromboplastin Tim 30 SECONDS (25.1-36.5)
[2024-09-08 17:32] LABS: Alanine Aminotransferase 26 IU/L (<50); Albumin 3.9 g/dL (3.5-5.0); Albumin Globulin Ratio 1.2 (1.0-2.8); Alkaline Phosphatase 86 U/L (38-126); Blood Urea Nitrogen 15 mg/dL (9-20); Calcium 8.7 mg/dL (8.4-10.2); Carbon Dioxide 26 mmol/L (22-32); Chloride 106 mmol/L (98-107); Creatine Kinase 54 U/L (55-170); Estimated Glomerular Filt Rate > 60 mL/min (>60); Globulin 3.3 g/dL (1.7-4.1); Glucose 135 mg/dL (70-99); HEMOLYSIS < 15 (0-50); Lipase 35 U/L (23-300); Magnesium 2.0 mg/dL (1.6-2.3); Potassium 4.0 mmol/L (3.4-5.1); Sodium 139 mmol/L (137-145); Total Protein 7.2 g/dL (6.3-8.2)
[2024-09-08 17:44] LABS: NT-proBNP (BNP-Adult 18+) 172 pg/mL (<450); Troponin I < 0.012 ng/mL (0.01-0.034)
--- NOTE | 2024-09-08 18:51 | ED.ABDPAIN ---
HPI - Abdominal Pain General Chief Complaint: Abdominal Pain Stated Complaint: Stomach pain Time Seen by Provider: 09/08/24 18:29 Source: patient Mode of arrival: Ambulatory History of Present Illness HPI narrative: 79-year-old male with prior cholecystectomy, last colonoscopy 3 years ago due in 2 years with history of polyps, had outpatient nuclear cardiac chemical stress test yesterday that was reportedly unremarkable and was discharged home, post stress test had a large nonbloody bowel movement in his car that prompted him to go back into the facility bathroom at [facility] but not seen again as patient, went home, had further bowel movements yesterday, this morning complained of left upper quadrant area discomfort without trauma, no nausea or vomiting. No black or red or mucoid stools. No further bowel movement. No dysuria but has had history of urine infections that are multidrug resistant, had outpatient IM antibiotic injections for one-week completed 2 weeks ago for urinary tract infection. Denies dysuria or frequency of urination. Denies history of kidney stones. Denies history of colitis or diverticulitis. Injury trauma or new activities. Pain is worse when he pushes in the left upper quadrant area. MD complaint: abdominal pain Related Data Home Medications ?Medication ?Instructions ?Recorded ?Confirmed aspirin 81 mg tablet,delayed 81 mg PO QDAY ##0 01/25/16 08/31/24 release Respironics Dreamstation BIPAP #1 ea 12/06/18 08/31/24 dorzolamide 22.3 mg-timolol 6.8 1 drp EYE-BOTH TID 09/08/22 08/31/24 mg/mL eye drops torsemide 10 mg tablet 5 mg PO DAILY 11/05/23 08/31/24 brimonidine 0.2 % eye drops drp EYE-BOTH 07/06/24 08/31/24 pramipexole 1.5 mg tablet,extended See Rx Instructions .Route 07/06/24 08/31/24 release 24 hr .COMPLEX RLS Previous Rx's ?Medication ?Instructions ?Recorded Disabled Parking Permit See Rx Instructions .Route 09/21/20 .COMPLEX #1 ea latanoprostene bunod 0.024 % eye 1 drp EYE-BOTH BEDTIME #5 mL 07/18/22 drops (Vyzulta) magnesium oxide 500 mg PO BID #270 tabs 06/02/23 ezetimibe 10 mg tablet (Zetia) 10 mg PO DAILY #90 tabs 05/21/23 mupirocin 2 % topical ointment 1 applic topical TID #15 grams 10/01/23 nystatin 100,000 unit/gram topical 1 applic topical DAILY #60 grams 10/30/23 cream azelastine 137 mcg-fluticasone 50 1 spray intranasal DAILY #23 grams 01/27/24 mcg/spray nasal spray rosuvastatin 20 mg tablet 20 mg PO BEDTIME #90 tabs 01/29/24 pantoprazole 40 mg tablet,delayed 40 mg PO DAILY #90 tabs 05/24/24 release pregabalin 50 mg capsule 50 mg PO TID #90 caps 06/24/24 olopatadine 665 mcg-mometasone 25 2 spray intranasal BID #29 grams 07/06/24 mcg/spray nasal spray vibegron 75 mg tablet (Gemtesa) 75 mg PO DAILY #30 tabs 07/13/24 eplerenone 50 mg tablet 50 mg PO DAILY #90 tabs 07/18/24 ertapenem 1 gram solution for 1 g IM DAILY #3 ea 08/05/24 injection tramadol 50 mg tablet 50 mg PO Q6H PRN pain #60 tabs 08/08/24 cefdinir 300 mg capsule 300 mg PO BID 10 days #20 caps 09/08/24 Allergies Allergy/AdvReac Type Severity Reaction Status Date / Time ciprofloxacin (From Cipro) Allergy Intermediate ruptured Verified 08/31/24 11:10 tendons Patient History Medical History Primary osteoarthritis of left knee Tendinopathy of left gluteus medius History of urinary tract infection Urge incontinence Overactive bladder Lower urinary tract symptoms DM type 2 (diabetes mellitus, type 2) History of urethrocutaneous fistula Family history of prostate cancer in father Diverticula, bladder joint creaser associated with adverse incidents Rectal bleeding Hearing loss (~2009) Glaucoma (~2011) Cataracts, both eyes (~2011) Hemorrhoids (~1978) Diverticulosis (~2010) Colon polyp (~2010) Low testosterone Recurrent UTI Prostate mass Morbid obesity with body mass index (BMI) of 40.0 to 44.9 in adult (10/31/16) Gastroesophageal reflux disease without esophagitis (10/31/16) Restless legs syndrome (01/25/16) Chronic diastolic heart failure (2015) Obstructive sleep apnea syndrome (01/25/16) Hiatal hernia (01/25/16) History of asbestosis (01/25/16) Gout of left foot (01/25/16) Surgical History History of transurethral resection of prostate History of colonoscopy Family History Father Parkinsons disease Mother Congestive heart failure Social History marital status: household members: spouse lives independently: Yes caregiver/support person: No housing: house pets and animals: Yes education level: college occupational status: previously employed 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[employer], 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 HEAD: Atraumatic. Normocephalic. EYES: Pupils equal round and reactive. Extraocular motions intact. No scleral icterus. No injection or drainage. ENT: Nose without bleeding, purulent drainage. Throat without erythema, tonsillar hypertrophy or exudate. Airway patent. NECK: Trachea midline. Non tender CARDIOVASCULAR: Regular rate and rhythm without murmurs, gallops, or rubs. RESPIRATORY: Clear to auscultation. Breath sounds equal bilaterally. No wheezes, rales, or rhonchi. GASTROINTESTINAL: Abdomen with periumbilical small well-healed scar, without obvious ventral hernia, some tenderness left upper quadrant. Nondistended. No guarding or rebound tenderness. Bowel tones without rushes or tinkles. EXTREMITIES: No edema or joint tenderness. BACK: Nontender without deformity or crepitance. No flank tenderness. NEURO: AOx3. Motor functions grossly nonfocal. SKIN: No rash or erythema of visible areas Initial Vital Signs Initial Vital Signs: Vital Signs Temperature 99 F 09/08/24 16:43 Pulse Rate 61 09/08/24 16:43 Respiratory Rate 18 09/08/24 16:43 Blood Pressure 132/60 09/08/24 16:43 Pulse Oximetry 96 09/08/24 16:43 Oxygen Delivery Method Room Air 09/08/24 16:43 Course Orders Ordered: Discontinued Medications Aspirin (Aspirin 81 Mg Chew Tab) 324 mg PO NOW ONE Stop: 09/08/24 16:51 Cefdinir (Cefdinir 300 Mg Capsule) 300 mg PO NOW ONE Stop: 09/08/24 22:10 Cefdinir (Cefdinir 300 Mg Capsule) 300 mg PO NOW ONE Stop: 09/08/24 22:55 Last Admin: 09/08/24 23:04 Dose: 300 mg Documented By: JEFFY Vital Signs Vital signs: Vital Signs - 8 hr 09/08/24 16:43 09/08/24 18:24 09/08/24 18:24 Temperature 99 F Pulse Rate 61 63 Respiratory Rate 18 Blood Pressure 132/60 137/65 Pulse Oximetry 96 94 Oxygen Delivery Method Room Air 09/08/24 18:30 09/08/24 18:30 09/08/24 19:00 Temperature Pulse Rate 57 L 60 Respiratory Rate 19 19 Blood Pressure 123/56 L Pulse Oximetry 94 98 Oxygen Delivery Method 09/08/24 19:01 09/08/24 19:01 09/08/24 19:26 Temperature Pulse Rate 59 L Respiratory Rate 23 Blood Pressure 133/113 H 142/67 H Pulse Oximetry 96 Oxygen Delivery Method 09/08/24 19:26 09/08/24 19:30 09/08/24 19:30 Temperature Pulse Rate 60 59 L Respiratory Rate 12 15 Blood Pressure 137/56 L Pulse Oximetry 96 97 Oxygen Delivery Method 09/08/24 20:00 09/08/24 20:01 09/08/24 20:01 Temperature Pulse Rate 57 L 58 L Respiratory Rate 14 18 Blood Pressure 121/58 L Pulse Oximetry 96 94 Oxygen Delivery Method 09/08/24 20:30 09/08/24 20:30 09/08/24 21:00 Temperature Pulse Rate 59 L 61 Respiratory Rate 17 20 Blood Pressure 141/64 H Pulse Oximetry 97 97 Oxygen Delivery Method 09/08/24 21:01 09/08/24 21:01 Temperature Pulse Rate 59 L Respiratory Rate 16 Blood Pressure 141/73 H Pulse Oximetry 98 Oxygen Delivery Method MDM - Abdominal Pain Lab Data Attestation: I reviewed the patient's lab results. Lab results narrative: White blood cell count 5000, hemoglobin 13.4, platelets adequate. Glucose 135. Normal renal function. Normal serum CO2 and electrolytes. Liver functions normal. Lipase normal. Troponin negative/unmeasurable. BNP not elevated. 09/08/24 17:00 09/08/24 17:00 Labs: Lab Results 09/08/24 09/08/24 Range/Units 17:00 19:45 WBC 5.0 (4.5-11.0) X10^3/uL RBC 4.54 (4.5-5.9) X10^6/uL Hgb 13.4 L (13.5-17.5) g/dL Hct 39.0 L (41-53) % MCV 85.9 (80-100) fL MCH 29.5 (26-34) PG MCHC 34.3 (30-36) % RDW 13.0 (11.6-14.8) % Plt Count 171 (150-400) X10^3/uL Neut % (Auto) 57.4 (50-75) % Lymph % (Auto) 29.9 (25-40) % [place] % (Auto) 9.6 (3-14) % Eos % (Auto) 2.7 (2-4) % Baso % (Auto) 0.4 (0-2) % Neut # (Auto) 2800 (6798-7637) /uL Lymph # (Auto) 1500 (0607-0716) /uL [place] # (Auto) 500 (0-900) /uL Eos # (Auto) 100 (0-450) /uL Baso # (Auto) 0 (0-100) /uL PT 12.7 H (9.4-12.5) SECONDS INR 1.1 (0.9-1.3) APTT 30 (25.1-36.5) SECONDS Sodium 139 (137-145) mmol/L Potassium 4.0 (3.4-5.1) mmol/L Chloride 106 (98-107) mmol/L Carbon Dioxide 26 (22-32) mmol/L BUN 15 (9-20) mg/dL Creatinine 0.78 (0.66-1.25) mg/dL Estimated GFR > 60 (>60) mL/min BUN/Creatinine Ratio 19.2 (6-22) Glucose 135 H (70-99) mg/dL Calcium 8.7 (8.4-10.2) mg/dL Magnesium 2.0 (1.6-2.3) mg/dL Total Bilirubin 1.3 (0.2-1.3) mg/dL AST 29 (17-59) IU/L ALT 26 (<50) IU/L Alkaline Phosphatase 86 (38-126) U/L Total Creatine Kinase 54 L (55-170) U/L Troponin I < 0.012 (0.01-0.034) ng/mL NT-Pro-B Natriuret Pep 172 (<450) pg/mL Total Protein 7.2 (6.3-8.2) g/dL Albumin 3.9 (3.5-5.0) g/dL Globulin 3.3 (1.7-4.1) g/dL Albumin/Globulin Ratio 1.2 (1.0-2.8) Lipase 35 (23-300) U/L Urine Color Yellow Urine Appearance Clear Urine pH 7.0 (4.5-8.0) Ur Specific [place] 1.010 (1.000-1.035) Urine Protein Negative (Negative) Urine Glucose (UA) Trace H (Negative) g/dL Urine Ketones Negative (NEGATIVE) Urine Occult Blood Negative (Negative) Urine Nitrate Negative (Negative) Urine Bilirubin Negative (NEGATIVE) Urine Urobilinogen 4.0 H (0.2) E.U./dL Ur Leukocyte Esterase 1+ H (NEGATIVE) Urine RBC None seen (0-5/HPF) Urine WBC 1-5/hpf (0-5/HPF) Ur Squamous Epith Cells 0-1 /hpf (0-5/HPF) Urine Bacteria Occasional (0-1) (None) Ur Culture Indicated? Cult not indicated Vol Urine Centrifuged 10ml (spun) Imaging Data Chest x-ray: Radiologist's Impression: [address] [address] XRay Report Signed Patient: Triston Parekh MR#: [id number] : 1945 Acct:[id number] Age/Sex: 79 / M Date of Service: 09/08/24 Loc: ED Accession Number: [id number] Procedure: XR chest 1V Ordering Provider: Jerilyn Al MD PROCEDURE: XR CHEST 1V INDICATIONS: Chest Pain TECHNIQUE: One view of the chest was acquired. COMPARISON: [facility], CR, XR CHEST 2V, 10/16/2022, 15:08. FINDINGS: Surgical changes and devices: None. Lungs and pleura: Mild appearance of increased vascularity. Mediastinum: Mediastinal contours appear normal. Heart size is enlarged. Bones and chest wall: No suspicious bony lesions. Overlying soft tissues appear unremarkable. IMPRESSION: Mild appearance of increased vascularity suggestive of edema. Dictated by: Dee Bergman M.D. on 09/08/2024 at 17:29 Approved by: Dee Bergman M.D. on 09/08/2024 at 17:29 CT scan - abdomen/pelvis: Radiologist's Impression: [place] [address] CT Scan Report Signed Patient: Triston Parekh MR#: [id number] : 1945 Acct:[id number] Age/Sex: 79 / M Date of Service: 09/08/24 Loc: ED Accession Number: [id number] Procedure: CT abdomen pelvis w con Ordering Provider: Ovi Barth MD PROCEDURE: CT ABDOMEN PELVIS W CON INDICATIONS: abd pain LUQ TECHNIQUE: After the administration of intravenous contrast, axial sections acquired from the lung bases to the pubic symphysis. Coronal and sagittal reformats were performed. For radiation dose reduction, the following was used: automated exposure control, adjustment of mA and/or kV according to patient size. COMPARISON: [facility], CT, CT ABDOMEN PELVIS W CON, 07/30/2024, 19:27. FINDINGS: Image quality: Diagnostic. Lower Chest: No significant findings. ABDOMEN: Liver: No solid mass. Liver measures 18.2 cm with steatosis. Gallbladder: Not visualized. Biliary ducts: No biliary dilation. Pancreas: No ductal dilation. Spleen: Size is within normal limits. Adrenal Glands: No adrenal nodules. Kidneys and Ureters: No hydronephrosis. No solid mass. No complex renal cystic lesion which requires follow up. Stomach and Bowel: Normal colonic caliber, without significant wall thickening. Colonic diverticula without inflammatory change. Peritoneum: No abnormal intraperitoneal fluid. No free air. Ventral Wall: No significant ventral hernia. Abdominal Nodes: No retroperitoneal or mesenteric adenopathy by size criteria. Vessels: Aorta and inferior vena cava are normal in size. PELVIS: Pelvic Organs: Unremarkable. Bladder: No bladder wall thickening, accounting for underdistention. Pelvic Nodes: No enlarged lymph nodes. Miscellaneous: Fat containing inguinal hernias are seen. Bones: No aggressive osseous abnormality. IMPRESSION: No acute intra-abdominal or pelvic process. Diverticulosis. Dictated by: Dee Bergman M.D. on 09/08/2024 at 19:47 Approved by: Dee Bergman M.D. on 09/08/2024 at 19:48 ECG Data Attestation: I personally reviewed and interpreted this ECG as follows: Interpretation: 1655, sinus bradycardia with first-degree AV block, ventricular response rate 54. No obvious ST segment elevation or depression changes. NM 212, QRS 68, QTC 409. MDM Narrative Medical decision making narrative: 79-year-old male with history of colonic polyps, next colonoscopy due in 2 years, history of multidrug resistant UTI, had outpatient scheduled chemical cardiac stress test yesterday [facility], afterwards had bowel movements nonbloody, since 11 this morning having left upper quadrant nontraumatic abdominal pain. No history of kidney stones recalled. Afebrile, sirs screen negative. Labs pending. DDx left upper quadrant pain with mild tenderness consider colitis, diverticulitis, bowel obstruction, PUD/gastritis, ureteral stone, UTI/pyelo, other. Tenderness to LUQ abdomen, doubt ACS. EKG shows sinus bradycardia first-degree AV block, rate 54. Chest x-ray suspicious for edema per Radiology report, no mention pulmonary infiltrates. See radiology report. Large body habitus noted on clinical exam, BNP 174 not elevated, no lower extremity edema. Clinically doubt CHF. Lab data: White blood cell count 5000, hemoglobin 13.4, platelets adequate. Glucose 135. Normal renal function. Normal serum CO2 and electrolytes. Liver functions normal. Lipase normal. Troponin negative/unmeasurable. BNP 174 not elevated. Patient declines pain meds when offered. Some tenderness left upper quadrant abdomien mild. UA still pending. CT abdomen and pelvis ordered. CT abdomen pelvis showed no acute process, diverticulosis incidentally noted. See radiology report. Urinalysis possible infection, history of urinary tract infection, patient initially requests Bactrim antibiotic, says that this is usually useful for him, discussion of possible resistance to sulfa antibiotic, agreeable to course of cefdinir broader spectrum antibiotic, pending urine culture results. Oral cefdinir given, prescription sent for further cefdinir to take as an outpatient. Encouraged to drink plenty of fluids, take antibiotics as directed. Return precautions discussed. Discharged home. Discharge Plan Departure Patient Disposition: Home Clinical Impression: Abdominal pain, Urinary tract infection, History of recurrent UTIs Activity Restrictions/Additional Instructions: Left upper abdominal discomfort of unclear cause. Urinalysis mildly abnormal, possible urine infection. CT abdomen and pelvis showed no acute changes, had diverticulosis changes of the colon but not diverticulitis infectious like changes of the colon. No acute process identified by CT abdomen and pelvis at this time. Urine culture was requested. You had previous response to sulfa antibiotic, however there is fairly large incidents of resistance to that particular antibiotic, consider cefdinir antibiotic. You had not had response in the past to cephalexin antibiotic and ciprofloxacin antibiotic. First dose of cefdinir antibiotic given in the emergency department, prescription sent for further course to your pharmacy. Take antibiotics as directed. Drink plenty of fluids. Take Tylenol as needed for discomfort. Consider recheck if symptoms and your urine culture results and next 2-3 days with your regular provider. Return to this/nearest emergency department for any change worsening symptoms or any concerns prior. Prescriptions: New cefdinir 300 mg capsule 300 mg PO BID 10 Days Qty: 20 0RF No Action mupirocin 2 % ointment 1 applic topical TID Qty: 15 0RF pramipexole 1.5 mg tablet extended release 24 hr See Rx Instructions .ROUTE .COMPLEX Dose Instruction: TAKE 2 TABLETS BY MOUTH DAILY. STAGGER DOSES 7:30PM AND 9:30PM. Rx Instructions: TAKE 2 TABLETS BY MOUTH DAILY. STAGGER DOSES 7:30PM AND 9:30PM. Take with Lyrica brimonidine 0.2 % drops EYE-BOTH olopatadine-mometasone 665-25 mcg/spray spray,non-aerosol 2 spray intranasal BID Qty: 29 3RF tramadol 50 mg tablet 50 mg PO Q6H PRN (Reason: pain) Qty: 60 2RF Disabled Parking Permit See Rx Instructions .ROUTE .COMPLEX Qty: 1 0RF Rx Instructions: My patient cannot walk 200 feet without stopping to rest or must use assistive device. Walking is severely limited due to arthritic, neurological or orthopedic condition. Uses portable oxygen or walking restricted by lung disease. aspirin 81 MG tablet,delayed release (DR/EC) 81 mg PO QDAY Qty: 0 Vyzulta 0.024 % drops 1 drp EYE-BOTH BEDTIME Qty: 5 0RF magnesium oxide 500 mg tablet 500 mg PO BID Qty: 270 0RF Rx Instructions: once in the morning and once in the evening ezetimibe [Zetia] 10 mg tablet 10 mg PO DAILY Qty: 90 3RF Rx Instructions: Take one tablet at bedtime nystatin 100,000 unit/gram cream 1 applic topical DAILY Qty: 60 0RF azelastine-fluticasone 137-50 mcg/spray spray,non-aerosol 1 spray intranasal DAILY Qty: 23 0RF rosuvastatin 20 mg tablet 20 mg PO BEDTIME Qty: 90 2RF pantoprazole 40 mg tablet,delayed release (DR/EC) 40 mg PO DAILY Qty: 90 0RF pregabalin 50 mg capsule 50 mg PO TID Qty: 90 3RF eplerenone 50 mg tablet 50 mg PO DAILY Qty: 90 0RF ertapenem 1 gram recon soln 1 g IM DAILY Qty: 3 0RF dorzolamide-timolol 22.3-6.8 mg/mL drops 1 drp EYE-BOTH TID (DME) [employer]pir[employer] Dreamstation BIPAP Qty: 1 Rx Instructions: Pressure: IPAP 16 EPAP 11 DME: [facility] torsemide 10 mg tablet 5 mg PO DAILY Rx Instructions: take in the AM Gemtesa 75 mg tablet 75 mg PO DAILY Qty: 30 12RF Referrals: Maya Johnson MD [Primary Care Provider, Family Practice] Stand Alone Forms: Patient Portal/API
--- NOTE | 2024-09-08 19:08 | DI.CT.S_ITS ---
PROCEDURE: CT ABDOMEN PELVIS W CON INDICATIONS: abd pain LUQ TECHNIQUE: After the administration of intravenous contrast, axial sections acquired from the lung bases to the pubic symphysis. Coronal and sagittal reformats were performed. For radiation dose reduction, the following was used: automated exposure control, adjustment of mA and/or kV according to patient size. COMPARISON: [facility], CT, CT ABDOMEN PELVIS W CON, 07/30/2024, 19:27. FINDINGS: Image quality: Diagnostic. Lower Chest: No significant findings. ABDOMEN: Liver: No solid mass. Liver measures 18.2 cm with steatosis. Gallbladder: Not visualized. Biliary ducts: No biliary dilation. Pancreas: No ductal dilation. Spleen: Size is within normal limits. Adrenal Glands: No adrenal nodules. Kidneys and Ureters: No hydronephrosis. No solid mass. No complex renal cystic lesion which requires follow up. Stomach and Bowel: Normal colonic caliber, without significant wall thickening. Colonic diverticula without inflammatory change. Peritoneum: No abnormal intraperitoneal fluid. No free air. Ventral Wall: No significant ventral hernia. Abdominal Nodes: No retroperitoneal or mesenteric adenopathy by size criteria. Vessels: Aorta and inferior vena cava are normal in size. PELVIS: Pelvic Organs: Unremarkable. Bladder: No bladder wall thickening, accounting for underdistention. Pelvic Nodes: No enlarged lymph nodes. Miscellaneous: Fat containing inguinal hernias are seen. Bones: No aggressive osseous abnormality. IMPRESSION: No acute intra-abdominal or pelvic process. Diverticulosis. Dictated by: Dee Bergman M.D. on 09/08/2024 at 19:47 Approved by: Dee Bergman M.D. on 09/08/2024 at 19:48
--- NOTE | 2024-09-08 19:41 | PC.NURSE ---
iv placed by antoher nurse
[2024-09-08 19:54] LABS: Appearance Urine UA CLEAR; Bilirubin Urine UA NEGATIVE (NEGATIVE); Color Urine UA YELLOW; Glucose Urine UA TRACE g/dL (Negative); Ketones Urine UA NEGATIVE (NEGATIVE); Nitrite Urine UA NEGATIVE (Negative); Occult Blood Urine UA NEGATIVE (Negative); Protein Urine UA NEGATIVE (Negative); Specific Gravity Urine UA 1.010 (1.000-1.035); Urobilinogen Urine UA 4.0 E.U./dL (0.2); pH Urine UA 7.0 (4.5-8.0)
[2024-09-08 20:13] LABS: Culture Indicated Urine Cult Not Indicated; Leukocyte Esterase Urine UA 1+ (NEGATIVE)
[2024-09-08] MEDS: CEFDINIR 300 MG CAPSULE PO (23:04)
== END 2024-09-08 23:30 | disposition home or self-care (01) ==
PROVIDERS: Emergency Medicine; Emergency Provider Emergency Medicine; Family Provider Family Medicine; PCP Family Medicine
DX: R10.12 Left upper quadrant pain (principal); N39.0 Urinary tract infection, site not specified; R07.9 Chest pain, unspecified; R00.1 Bradycardia, unspecified; I44.0 Atrioventricular block, first degree; Z87.440 Personal history of urinary (tract) infections
CPT/HCPCS: 71045; 74177; 80053; 81001; 82550; 83690; 83735; 83880; 84484; 85025; 85610; 85730; 87086; 93005; 99283; 99284; Q9967

== ENCOUNTER → 2024-09-21 17:20 | Outpatient (CLI) | payer MEDICARE, OTHER, SELFPAY ==
[2022-11-05 15:47] VITALS: BMI 45.8
[2024-09-21 17:50] LABS: Appearance Urine UA CLEAR; Bilirubin Urine UA NEGATIVE (NEGATIVE); Color Urine UA YELLOW; Glucose Urine UA TRACE g/dL (Negative); Ketones Urine UA NEGATIVE (NEGATIVE); Leukocyte Esterase Urine UA TRACE (NEGATIVE); Nitrite Urine UA NEGATIVE (Negative); Occult Blood Urine UA NEGATIVE (Negative); Protein Urine UA TRACE (Negative); Specific Gravity Urine UA 1.020 (1.000-1.035); Urobilinogen Urine UA 2.0 E.U./dL (0.2); pH Urine UA 6.5 (4.5-8.0)
[2024-09-21 17:56] LABS: Culture Indicated Urine Specimen Cultured
== END ==
PROVIDERS: Family Provider Family Medicine; PCP Family Medicine; Referring Provider Urology; Visit Provider Urology
DX: Z87.440 Personal history of urinary (tract) infections (principal); N39.0 Urinary tract infection, site not specified
CPT/HCPCS: 81001; 87077; 87086; 87186

== ENCOUNTER → 2024-10-20 18:44 | Outpatient (CLI) | payer MEDICARE, OTHER, SELFPAY ==
[2022-11-05 15:47] VITALS: BMI 45.8
== END ==
PROVIDERS: Family Provider Family Medicine; PCP Family Medicine; Visit Provider Nurse Practitioner Family
DX: J02.9 Acute pharyngitis, unspecified (principal)
CPT/HCPCS: 87070

== ENCOUNTER → 2024-11-04 14:16 | Outpatient (CLI) | payer MEDICARE, OTHER, SELFPAY ==
[2022-11-05 15:47] VITALS: BMI 45.8
--- NOTE | 2024-11-04 14:17 | DI.US.S_ITS ---
US axillary only rt: 11/04/2024. BI-RADS: 1 CLINICAL: 79-year old male for right diagnostic breast ultrasound. The patient presents for evaluation of a right axillary rash, pain and reported right axillary lump. PRIOR EXAMS No relevant prior examinations available. ULTRASOUND TECHNIQUE: Real-time valle scale imaging of the area of clinical interest was performed with image documentation. Exam is limited to the right axilla. ULTRASOUND FINDINGS Right: Axilla: There is no sonographic abnormality to account for concern by the patient. No abnormal lymph nodes are seen in the axilla. There is no suspicious sonographic finding. IMPRESSION: Right * No evidence of malignancy. RECOMMENDATIONS Right * Clinical follow-up is recommended, and further management of palpable abnormalities or other focal signs or symptoms should be based on the results of clinical evaluation. If palpable abnormality or other concerning symptom persists or progresses, further clinical evaluation should be considered. COMMENTS: Findings and recommendations were conveyed to the patient during today's evaluation. OVERALL ASSESSMENT CATEGORY BI-RADS-1: Negative. ELECTRONICALLY SIGNED: Lynne Malagon M.D. on 11/04/2024 at 04:21:55 PM PT Interpreting Station ID: [id number]
--- NOTE | 2024-11-04 14:17 | DI.US.S_ITS ---
US axillary only lt: 11/04/2024. BI-RADS: 1 CLINICAL: 79-year old male for left diagnostic breast ultrasound. The patient presents for evaluation of left axillary pain and rash. PRIOR EXAMS No relevant prior examinations available. ULTRASOUND TECHNIQUE: Real-time valle scale imaging of the area of clinical interest was performed with image documentation. Exam is limited to the left axilla. ULTRASOUND FINDINGS Left: Axilla: There is no sonographic abnormality to account for concern by the patient. No abnormal lymph nodes are seen in the axilla. There is no suspicious sonographic finding. IMPRESSION: Left * No evidence of malignancy. RECOMMENDATIONS Left * Clinical follow-up is recommended, and further management of focal signs or symptoms should be based on the results of clinical evaluation. If concerning symptom persists or progresses, further clinical evaluation should be considered. COMMENTS: Findings and recommendations were conveyed to the patient during today's evaluation. OVERALL ASSESSMENT CATEGORY BI-RADS-1: Negative. ELECTRONICALLY SIGNED: Lynne Malagon M.D. on 11/04/2024 at 04:21:11 PM PT Interpreting Station ID: [id number]
== END ==
PROVIDERS: Family Provider Family Medicine; PCP Family Medicine; Referring Provider Family Medicine; Visit Provider Family Medicine
DX: M79.621 Pain in right upper arm (principal); M79.622 Pain in left upper arm
CPT/HCPCS: 76882

== ENCOUNTER 2024-11-26 13:43 | Emergency (ER) | payer MEDICARE, OTHER, SELFPAY ==
[2022-11-05 15:47] VITALS: BMI 45.8
[2024-11-26] VITALS (7 sets, daily range): BP systolic 128–149; BP diastolic 58–87; PULSE 65–73; RESP 16; TEMP 36.1; O2SAT 95–97; BMI 38.0
[2024-11-26 14:32] LABS: Appearance Urine UA SL CLOUDY; Bilirubin Urine UA NEGATIVE (NEGATIVE); Color Urine UA YELLOW; Glucose Urine UA NEGATIVE (Negative); Ketones Urine UA NEGATIVE (NEGATIVE); Leukocyte Esterase Urine UA 1+ (NEGATIVE); Nitrite Urine UA NEGATIVE (Negative); Occult Blood Urine UA TRACE-INTACT (Negative); Protein Urine UA NEGATIVE (Negative); Specific Gravity Urine UA 1.010 (1.000-1.035); Urobilinogen Urine UA 0.2 E.U./dL (0.2); pH Urine UA 6.0 (4.5-8.0)
[2024-11-26 14:35] LABS: Add Manual Diff / Slide Review NO; Hematocrit 39.4 % (41-53); Hemoglobin 13.6 g/dL (13.5-17.5); Lymphocytes Absolute Auto 1400 /uL (1100-4500); Mean Corpuscular HGB Conc 34.5 % (30-36); Mean Corpuscular Hemoglobin 28.4 PG (26-34); Mean Corpuscular Volume 82.6 fL (80-100); Platelet Count 170 X10^3/uL (150-400)
[2024-11-26 14:38] LABS: Culture Indicated Urine Specimen Cultured
[2024-11-26 14:48] LABS: Alanine Aminotransferase 22 IU/L (<50); Albumin 4.0 g/dL (3.5-5.0); Albumin Globulin Ratio 1.2 (1.0-2.8); Alkaline Phosphatase 73 U/L (38-126); Blood Urea Nitrogen 13 mg/dL (9-20); Calcium 9.0 mg/dL (8.4-10.2); Carbon Dioxide 24 mmol/L (22-32); Chloride 105 mmol/L (98-107); Estimated Glomerular Filt Rate > 60 mL/min (>60); Globulin 3.3 g/dL (1.7-4.1); Glucose 112 mg/dL (70-99); HEMOLYSIS < 15 (0-50); Lipase 36 U/L (23-300); Potassium 4.0 mmol/L (3.4-5.1); Sodium 136 mmol/L (137-145); Total Protein 7.3 g/dL (6.3-8.2)
--- NOTE | 2024-11-26 15:10 | EKG_ITS ---
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
[2024-11-26 15:35] LABS: Lactate (Lactic Acid) 0.9 mmol/L (0.7-2.1)
--- NOTE | 2024-11-26 15:37 | ED.GENADULT ---
HPI - General Adult General Chief complaint: Urogenital-Male Stated complaint: diarrhea, lost bladder control poss UTI? Time Seen by Provider: 11/26/24 14:56 Source: patient Limitations: no limitations History of Present Illness HPI narrative: Patient is an 79-year-old male with history of cholelithiasis, prior urinary tract infection, diabetes, diverticula, GERD, hemorrhoids, presenting with diarrhea and urinary frequency. Patient states that he thought this might represent a urinary tract infection based on history of prior. Also endorses generalized weakness although has had no focal abdominal pain. He has had no fevers, chills, nausea, vomiting. He has been having normal appetite and eating and drinking well, he states that he has been trying to take more fluids in order to stay hydrated in the setting of his watery stools. States that he has had some bowel incontinence in the setting of urge to have a bowel movement and does state that his stools have been quite liquidy, often associated with blood while wiping. Onset (ago): day(s) (3) Location: abdomen Associated symptoms: chest pain, fever/chills, loss of appetite and nausea/vomiting Related Data Home Medications ?Medication ?Instructions ?Recorded ?Confirmed aspirin 81 mg tablet,delayed 81 mg PO QDAY ##0 01/25/16 11/04/24 release Respironics Dreamstation BIPAP #1 ea 12/06/18 11/04/24 dorzolamide 22.3 mg-timolol 6.8 1 drp EYE-BOTH TID 09/08/22 11/04/24 mg/mL eye drops brimonidine 0.2 % eye drops drp EYE-BOTH 07/06/24 11/04/24 pramipexole 1.5 mg tablet,extended See Rx Instructions .Route 07/06/24 11/04/24 release 24 hr .COMPLEX RLS eplerenone 25 mg tablet mg PO 10/20/24 11/04/24 pregabalin 50 mg capsule 150 mg PO .hs 10/20/24 11/04/24 tirzepatide 2.5 mg/0.5 mL mg SUBCUT 10/20/24 11/04/24 subcutaneous pen injector (Lobitounsantiago) torsemide 20 mg tablet 20 mg PO DAILY 10/20/24 11/04/24 Previous Rx's ?Medication ?Instructions ?Recorded Disabled Parking Permit See Rx Instructions .Route 09/21/20 .COMPLEX #1 ea latanoprostene bunod 0.024 % eye 1 drp EYE-BOTH BEDTIME #5 mL 07/18/22 drops (Vyzulta) magnesium oxide 500 mg PO BID #270 tabs 07/18/22 ezetimibe 10 mg tablet (Zetia) 10 mg PO DAILY #90 tabs 05/21/23 nystatin 100,000 unit/gram topical 1 applic topical DAILY #60 grams 10/30/23 cream azelastine 137 mcg-fluticasone 50 1 spray intranasal DAILY #23 grams 01/27/24 mcg/spray nasal spray rosuvastatin 20 mg tablet 20 mg PO BEDTIME #90 tabs 01/29/24 olopatadine 665 mcg-mometasone 25 2 spray intranasal BID #29 grams 07/06/24 mcg/spray nasal spray vibegron 75 mg tablet (Gemtesa) 75 mg PO DAILY #30 tabs 07/13/24 ertapenem 1 gram solution for 1 g IM DAILY #3 ea 08/05/24 injection tramadol 50 mg tablet 50 mg PO Q6H PRN pain #60 tabs 08/08/24 pantoprazole 40 mg tablet,delayed 40 mg PO DAILY #90 tabs 11/14/24 release Allergies Allergy/AdvReac Type Severity Reaction Status Date / Time ciprofloxacin (From Cipro) Allergy Intermediate ruptured Verified 11/04/24 13:40 tendons Patient History Medical History Primary osteoarthritis of left knee Tendinopathy of left gluteus medius History of urinary tract infection Urge incontinence Overactive bladder Lower urinary tract symptoms DM type 2 (diabetes mellitus, type 2) History of urethrocutaneous fistula Family history of prostate cancer in father 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, 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 Rectal bleeding Hearing loss (~2009) Glaucoma (~2011) Cataracts, both eyes (~2011) Hemorrhoids (~1978) Diverticulosis (~2010) Colon polyp (~2010) Low testosterone Recurrent UTI Prostate mass Morbid obesity with body mass index (BMI) of 40.0 to 44.9 in adult (10/31/16) Gastroesophageal reflux disease without esophagitis (10/31/16) Restless legs syndrome (01/25/16) Chronic diastolic heart failure (2014) Obstructive sleep apnea syndrome (01/25/16) Hiatal hernia (01/25/16) History of asbestosis (01/25/16) Gout of left foot (01/25/16) Surgical History History of transurethral resection of prostate History of colonoscopy Family History Father Parkinsons disease Mother Congestive heart failure Social History marital status: household members: spouse lives independently: Yes caregiver/support person: No housing: house pets and animals: Yes education level: college occupational status: previously employed 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[employer], 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 special jeanmarie needs: Yes (Islam) seatbelt use: always helmet use: Yes water heater temp set < 120 deg: Yes second hand exposure: No alcohol intake: current substance use type: does not use during the past year weight has: decreased > 10 lbs well-balanced diet: about half the time daily servings fruits/ve-4 caffeine: No eating out: 1-3 times/week frequency: 1-2 times per week duration: 45-60 minutes/day alcohol intake frequency: a few times a month Exam Narrative Exam Narrative: Soft although distended abdomen with hyperactive upper bowel sounds, diffuse tenderness particularly in the left lower quadrant. No peritonitis, guarding, rebound. Initial Vital Signs Initial Vital Signs: Vital Signs Temperature 97.0 F L 11/26/24 13:59 Pulse Rate 71 11/26/24 13:59 Respiratory Rate 16 11/26/24 13:59 Blood Pressure 128/58 L 11/26/24 13:59 Pulse Oximetry 97 11/26/24 13:59 Oxygen Delivery Method Room Air 11/26/24 13:59 Const General: cooperative and No acute distress HENMT Head: normocephalic and atraumatic Neck Neck: full ROM Resp Effort & Inspection: normal respiratory effort Auscultation: clear to auscultation bilaterally Cardio Rate: regular rate Rhythm: regular rhythm Neuro General: patient alert Cognition: normal cognition Speech: speech normal Psych Appearance: grossly normal Mental Status: mental status grossly normal Course Orders Ordered: ED Orders 11/26/24 14:05 EKG-12 Lead Stat 11/26/24 14:24 Complete Blood Count AUTO DIFF Stat Comprehensive Metabolic Panel Stat Lipase Stat Urinalysis and Microscopic Stat Urine Culture Stat 11/26/24 15:15 Lactate (Lactic Acid) Stat 11/26/24 15:36 CT abdomen pelvis w con Stat Discontinued Medications Fosfomycin Tromethamine (Fosfomycin 3 Gm Packet) 3 gm PO NOW ONE Stop: 11/26/24 16:38 Last Admin: 11/26/24 16:54 Dose: 3 gm Documented By: JOSE Ondansetron HCl (Ondansetron 4 Mg/2 Ml Inj) 4 mg IV NOW PRN PRN Reason: Nausea And Vomiting Ondansetron HCl (Ondansetron 4 Mg Odt) 4 mg PO NOW PRN PRN Reason: Nausea And Vomiting Vital Signs Vital signs: Vital Signs - 8 hr 11/26/24 13:59 11/26/24 14:36 11/26/24 14:37 Temperature 97.0 F L Pulse Rate 71 72 Respiratory Rate 16 Blood Pressure 128/58 L 144/63 H Pulse Oximetry 97 96 Oxygen Delivery Method Room Air 11/26/24 14:37 11/26/24 15:55 11/26/24 15:56 Temperature Pulse Rate 72 71 69 Respiratory Rate Blood Pressure 141/62 H Pulse Oximetry 96 97 97 Oxygen Delivery Method 11/26/24 15:56 11/26/24 16:00 11/26/24 16:00 Temperature Pulse Rate 65 Respiratory Rate Blood Pressure 141/62 H 140/60 Pulse Oximetry 95 Oxygen Delivery Method 11/26/24 16:30 11/26/24 16:30 Temperature Pulse Rate 73 Respiratory Rate Blood Pressure 149/87 H Pulse Oximetry 97 Oxygen Delivery Method Medical Decision Making Differential Diagnosis Differential Diagnosis: Urinary tract infection, gastroenteritis, diverticulitis, GI bleed Medical Records Medical records reviewed: Yes I reviewed the patient's medical records. Lab Data Lab results reviewed: Yes I reviewed the patient's lab results. Lab results narrative: Without evidence of leukocytosis, acute anemia, other acute abnormality on independent review, makes significant blood loss in the setting of ongoing GI bleeding less likely. 11/26/24 14:24 11/26/24 14:24 Labs: Lab Results 10/11/25 10/11/25 Range/Units 14:24 15:15 WBC 6.0 (4.5-11.0) X10^3/uL RBC 4.77 (4.5-5.9) X10^6/uL Hgb 13.6 (13.5-17.5) g/dL Hct 39.4 L (41-53) % MCV 82.6 (80-100) fL MCH 28.4 (26-34) PG MCHC 34.5 (30-36) % RDW 13.3 (11.6-14.8) % Plt Count 170 (150-400) X10^3/uL Neut % (Auto) 64.7 (50-75) % Lymph % (Auto) 24.2 L (25-40) % Garvin % (Auto) 7.2 (3-14) % Eos % (Auto) 3.6 (2-4) % Baso % (Auto) 0.3 (0-2) % Neut # (Auto) 3900 (7394-5552) /uL Lymph # (Auto) 1400 (2099-8736) /uL Garvin # (Auto) 400 (0-900) /uL Eos # (Auto) 200 (0-450) /uL Baso # (Auto) 0 (0-100) /uL Sodium 136 L (137-145) mmol/L Potassium 4.0 (3.4-5.1) mmol/L Chloride 105 (98-107) mmol/L Carbon Dioxide 24 (22-32) mmol/L BUN 13 (9-20) mg/dL Creatinine 0.67 (0.66-1.25) mg/dL Estimated GFR > 60 (>60) mL/min BUN/Creatinine Ratio 19.4 (6-22) Glucose 112 H (70-99) mg/dL Lactate 0.9 (0.7-2.1) mmol/L Calcium 9.0 (8.4-10.2) mg/dL Total Bilirubin 1.3 (0.2-1.3) mg/dL AST 33 (17-59) IU/L ALT 22 (<50) IU/L Alkaline Phosphatase 73 (38-126) U/L Total Protein 7.3 (6.3-8.2) g/dL Albumin 4.0 (3.5-5.0) g/dL Globulin 3.3 (1.7-4.1) g/dL Albumin/Globulin Ratio 1.2 (1.0-2.8) Lipase 36 (23-300) U/L Urine Color Yellow Urine Appearance Sl cloudy Urine pH 6.0 (4.5-8.0) Ur Specific [place] 1.010 (1.000-1.035) Urine Protein Negative (Negative) Urine Glucose (UA) Negative (Negative) g/dL Urine Ketones Negative (NEGATIVE) Urine Occult Blood Trace-intact (Negative) Urine Nitrate Negative (Negative) Urine Bilirubin Negative (NEGATIVE) Urine Urobilinogen 0.2 (0.2) E.U./dL Ur Leukocyte Esterase 1+ H (NEGATIVE) Urine RBC 0-1/hpf (0-5/HPF) Urine WBC 10-30/hpf H (0-5/HPF) Ur Squamous Epith Cells None seen (0-5/HPF) Urine Bacteria Few (2-10) H (None) Ur Culture Indicated? Specimen cultured Vol Urine Centrifuged 10ml (spun) Imaging Data CT scan - abdomen/pelvis: Attestation: I personally reviewed and interpreted this imaging study as follows: My Impression: CT abdomen and pelvis demonstrating bladder wall thickening which is consistent with cystitis, otherwise without evidence of acute intra-abdominal pathology or obstruction on independent review Radiologist's Impression: PROCEDURE: CT ABDOMEN PELVIS W CON INDICATIONS: diffuse abd pain, bloody stool TECHNIQUE: After the administration of intravenous contrast, axial sections acquired from the lung bases to the pubic symphysis. Coronal and sagittal reformats were performed. For radiation dose reduction, the following was used: automated exposure control, adjustment of mA and/or kV according to patient size. COMPARISON: [facility], CT, CT ABDOMEN PELVIS W CON, 09/08/2022, 3:46. [facility], CT, CT ABDOMEN PELVIS WO CON, 06/30/2024, 13:38. [facility], CT, CT ABDOMEN PELVIS W CON, 09/08/2024, 19:12. FINDINGS: Image quality: Diagnostic. Lower Chest: No significant findings. ABDOMEN: Liver: No solid mass. Gallbladder: Absent. Biliary ducts: No biliary dilation. Pancreas: No ductal dilation. Spleen: Size is within normal limits. Adrenal Glands: No adrenal nodules. Kidneys and Ureters: No hydronephrosis. No solid mass. No complex renal cystic lesion which requires follow up. Stomach and Bowel: Normal colonic caliber, without significant wall thickening. Colonic diverticulosis without evidence of diverticulitis. Peritoneum: No abnormal intraperitoneal fluid. No free air. Ventral Wall: No significant ventral hernia. Abdominal Nodes: No retroperitoneal or mesenteric adenopathy by size criteria. Vessels: Aorta and inferior vena cava are normal in size. PELVIS: Pelvic Organs: Unremarkable. Bladder: Mildly abnormal bladder wall thickening. Lateral nodularity of the right external bladder wall measuring 1.4 x 1.3 cm. Pelvic Nodes: No enlarged lymph nodes. Miscellaneous: Moderate left indirect inguinal hernia containing fat. Bones: No aggressive osseous abnormality. IMPRESSION: Mildly abnormal bladder wall thickening, which may indicate cystitis. Correlate with urinalysis. Abnormal bladder wall thickening along the lateral aspect of the bladder. This probably represents a decompressed diverticulum, and is stable from priors earlier this year, but has increased in size since 2022. Recommend urology referral for cystoscopy, if not performed in the past. Colonic diverticulosis without evidence of diverticulitis. Dictated by: Kulwinder Askew M.D. on 11/26/2024 at 15:[address] [facility] Narrative Medical decision making narrative: Presentation most consistent with urinary tract infection, may also represent GI bleed in the setting of patient's blood on wiping with stools. This may also be secondary to patient's known hemorrhoids and has happened recurrently in the past. No ongoing bleeding although patient does endorse some incontinence with stooling in the setting of liquidy bowel movements. No back pain, fevers, lower extremity weakness to suggest cauda equina or other spinal complication. We will plan to treat for urinary tract infection with fosfomycin. Counseled to follow up closely and provided with strict return precautions. Discharge Plan Departure Patient Disposition: Home Clinical Impression: Diarrhea Qualifiers: Diarrhea type: unspecified type Qualified Code(s): R19.7 - Diarrhea, unspecified Urinary tract infection Qualifiers: Urinary tract infection type: acute cystitis Hematuria presence: without hematuria Qualified Code(s): N30.00 - Acute cystitis without hematuria Instructions: DI for Urinary Tract Infection (UTI), DI for Diarrhea and Traveler's Diarrhea -- Adult Activity Restrictions/Additional Instructions: You were seen in the emergency department for your urinary symptoms and diarrhea. Evaluation here included examination, lab work, and CT imaging. Your urine does demonstrate what appears to be an early or uncomplicated urinary tract infection for which you have been given antibiotics. The remainder of your workup is largely reassuring and without evidence of an acute process that would require admission to the hospital. We do not see any evidence of inflammation in your bowel and we do not see any evidence to suggest dehydration or electrolyte abnormality in the setting of your continued diarrheal illness. We do recommend close follow-up with your primary care provider in the next 2-3 days for re-evaluation and to ensure resolution of these symptoms. If you develop worsening diarrhea, abdominal pain, fevers or chills, lightheadedness, nausea or vomiting, or other symptoms that are concerning to you, please return to the emergency department for further evaluation. Prescriptions: No Action pramipexole 1.5 mg tablet extended release 24 hr See Rx Instructions .ROUTE .COMPLEX Dose Instruction: TAKE 2 TABLETS BY MOUTH DAILY. STAGGER DOSES 7:30PM AND 9:30PM. Rx Instructions: TAKE 2 TABLETS BY MOUTH DAILY. STAGGER DOSES 7:30PM AND 9:30PM. Take with Lyrica brimonidine 0.2 % drops EYE-BOTH olopatadine-mometasone 665-25 mcg/spray spray,non-aerosol 2 spray intranasal BID Qty: 29 3RF tramadol 50 mg tablet 50 mg PO Q6H PRN (Reason: pain) Qty: 60 2RF torsemide 20 mg tablet 20 mg PO DAILY Mounjaro 2.5 mg/0.5 mL pen injector SUBCUT Patient Comments: [NO ORIGINAL SIG] eplerenone 25 mg tablet PO pregabalin 50 mg capsule 150 mg PO .hs Disabled Parking Permit See Rx Instructions .ROUTE .COMPLEX Qty: 1 0RF Rx Instructions: My patient cannot walk 200 feet without stopping to rest or must use assistive device. Walking is severely limited due to arthritic, neurological or orthopedic condition. Uses portable oxygen or walking restricted by lung disease. aspirin 81 MG tablet,delayed release (DR/EC) 81 mg PO QDAY Qty: 0 Vyzulta 0.024 % drops 1 drp EYE-BOTH BEDTIME Qty: 5 0RF magnesium oxide 500 mg tablet 500 mg PO BID Qty: 270 0RF Rx Instructions: once in the morning and once in the evening ezetimibe [Zetia] 10 mg tablet 10 mg PO DAILY Qty: 90 3RF Rx Instructions: Take one tablet at bedtime nystatin 100,000 unit/gram cream 1 applic topical DAILY Qty: 60 0RF azelastine-fluticasone 137-50 mcg/spray spray,non-aerosol 1 spray intranasal DAILY Qty: 23 0RF rosuvastatin 20 mg tablet 20 mg PO BEDTIME Qty: 90 2RF ertapenem 1 gram recon soln 1 g IM DAILY Qty: 3 0RF pantoprazole 40 mg tablet,delayed release (DR/EC) 40 mg PO DAILY Qty: 90 0RF dorzolamide-timolol 22.3-6.8 mg/mL drops 1 drp EYE-BOTH TID (DME) RespirOutskis Dreamstation BIPAP Qty: 1 Rx Instructions: Pressure: IPAP 16 EPAP 11 DME: NORCO Gemtesa 75 mg tablet 75 mg PO DAILY Qty: 30 12RF Referrals: Maya Johnson MD [Primary Care Provider, Family Practice] Stand Alone Forms: Patient Portal/API
[2024-11-26] MEDS: FOSFOMYCIN 3 GM PACKET PO (16:54)
== END 2024-11-26 17:15 | disposition home or self-care (01) ==
PROVIDERS: Emergency Provider Student in an Organized Health Care Education/Training Program; Family Provider Family Medicine; PCP Family Medicine
DX: R19.7 Diarrhea, unspecified (principal); N30.00 Acute cystitis without hematuria; R10.9 Unspecified abdominal pain
CPT/HCPCS: 36415; 74177; 80053; 81001; 83605; 83690; 85025; 87077; 87086; 93005; 93010; 99284; Q9967

== ENCOUNTER → 2024-12-01 11:04 | Outpatient (CLI) | payer MEDICARE, OTHER, SELFPAY ==
[2022-11-05 15:47] VITALS: BMI 45.8
[2024-12-01 13:43] LABS: Hemoglobin A1C% w Est Avg Glu 5.3 % (4.0-6.0)
[2024-12-01 15:23] LABS: HEMOLYSIS 19 (0-50); Iron 86 ug/dL (49-181)
[2024-12-01 15:33] LABS: Percent Iron Saturation 27 % (20-50); Total Iron Binding Capacity 318 ug/dL (261-462); Transferrin 251 mg/dL (206-381)
== END ==
PROVIDERS: Family Provider Family Medicine; PCP Family Medicine; Referring Provider Family Medicine; Visit Provider Family Medicine
DX: R73.01 Impaired fasting glucose (principal); D64.9 Anemia, unspecified; R39.9 Unspecified symptoms and signs involving the genitourinary system; N39.0 Urinary tract infection, site not specified; Z68.37 Body mass index [BMI] 37.0-37.9, adult
CPT/HCPCS: 36415; 51798; 81002; 83036; 83540; 83550; 99213

== ENCOUNTER → 2024-12-22 09:22 | Outpatient (CLI) | payer MEDICARE, OTHER, SELFPAY ==
[2022-11-05 15:47] VITALS: BMI 45.8
== END ==
PROVIDERS: Family Provider Family Medicine; PCP Family Medicine; Referring Provider Family Medicine; Visit Provider Family Medicine
DX: J61 Pneumoconiosis due to asbestos and other mineral fibers (principal); R94.2 Abnormal results of pulmonary function studies
CPT/HCPCS: 94060; 94726; 94729

== ENCOUNTER → 2024-12-31 10:16 | Outpatient (CLI) | payer MEDICARE, OTHER, SELFPAY ==
[2022-11-05 15:47] VITALS: BMI 45.8
[2024-12-31 11:00] LABS: Appearance Urine UA CLEAR; Bilirubin Urine UA NEGATIVE (NEGATIVE); Color Urine UA YELLOW; Glucose Urine UA NEGATIVE (Negative); Ketones Urine UA NEGATIVE (NEGATIVE); Leukocyte Esterase Urine UA 1+ (NEGATIVE); Nitrite Urine UA NEGATIVE (Negative); Occult Blood Urine UA NEGATIVE (Negative); Protein Urine UA NEGATIVE (Negative); Specific Gravity Urine UA 1.010 (1.000-1.035); Urobilinogen Urine UA 1.0 E.U./dL (0.2); pH Urine UA 6.5 (4.5-8.0)
[2024-12-31 11:09] LABS: Culture Indicated Urine Specimen Cultured
== END ==
PROVIDERS: Family Provider Family Medicine; PCP Family Medicine; Referring Provider Family Medicine; Visit Provider Family Medicine
DX: R39.9 Unspecified symptoms and signs involving the genitourinary system (principal); N39.0 Urinary tract infection, site not specified
CPT/HCPCS: 81001; 87086

== ENCOUNTER 2025-01-01 13:22 | Emergency (ER) | payer MEDICARE, OTHER, SELFPAY ==
[2022-11-05 15:47] VITALS: BMI 45.8
[2025-01-01 13:40] VITALS: BP 155/69; PULSE 115; RESP 18; TEMP 36.2; O2SAT 97; BMI 35.7
[2025-01-01 14:20] LABS: Add Manual Diff / Slide Review NO; Hematocrit 42.1 % (41-53); Hemoglobin 14.6 g/dL (13.5-17.5); Lymphocytes Absolute Auto 900 /uL (1100-4500); Mean Corpuscular HGB Conc 34.6 % (30-36); Mean Corpuscular Hemoglobin 28.5 PG (26-34); Mean Corpuscular Volume 82.4 fL (80-100); Platelet Count 158 X10^3/uL (150-400)
[2025-01-01 14:31] LABS: Alanine Aminotransferase 21 IU/L (<50); Albumin 4.4 g/dL (3.5-5.0); Albumin Globulin Ratio 1.3 (1.0-2.8); Alkaline Phosphatase 74 U/L (38-126); Blood Urea Nitrogen 16 mg/dL (9-20); Calcium 9.4 mg/dL (8.4-10.2); Carbon Dioxide 23 mmol/L (22-32); Chloride 105 mmol/L (98-107); Estimated Glomerular Filt Rate > 60 mL/min (>60); Globulin 3.5 g/dL (1.7-4.1); Glucose 128 mg/dL (70-99); HEMOLYSIS < 15 (0-50); Lipase 30 U/L (23-300); Potassium 3.8 mmol/L (3.4-5.1); Sodium 138 mmol/L (137-145); Total Protein 7.9 g/dL (6.3-8.2)
== END 2025-01-01 16:20 | disposition left against medical advice (07) ==
PROVIDERS: Emergency Provider Emergency Medicine; Family Provider Family Medicine; PCP Family Medicine
DX: R19.7 Diarrhea, unspecified (principal)
CPT/HCPCS: 36415; 80053; 83690; 85025; 99283

== ENCOUNTER → 2025-01-06 11:34 | Outpatient (CLI) | payer MEDICARE, OTHER, SELFPAY ==
[2022-11-05 15:47] VITALS: BMI 45.8
[2025-01-06 12:17] LABS: Appearance Urine UA CLOUDY; Bilirubin Urine UA 1+ (NEGATIVE); Color Urine UA YELLOW; Glucose Urine UA NEGATIVE (Negative); Ketones Urine UA NEGATIVE (NEGATIVE); Leukocyte Esterase Urine UA 2+ (NEGATIVE); Nitrite Urine UA NEGATIVE (Negative); Occult Blood Urine UA TRACE-INTACT (Negative); Protein Urine UA TRACE (Negative); Specific Gravity Urine UA 1.025 (1.000-1.035); Urobilinogen Urine UA 1.0 E.U./dL (0.2); pH Urine UA 6.0 (4.5-8.0)
[2025-01-06 12:26] LABS: Culture Indicated Urine Specimen Cultured
[2025-01-06 12:31] LABS: Ictotest Urine Negative (Negative)
== END ==
PROVIDERS: Family Provider Family Medicine; PCP Family Medicine; Referring Provider Urology; Visit Provider Urology
DX: R39.9 Unspecified symptoms and signs involving the genitourinary system (principal)
CPT/HCPCS: 81001; 87077; 87086; 87186

== ENCOUNTER 2025-01-07 15:59 | Emergency (ER) | payer MEDICARE, OTHER, SELFPAY ==
[2022-11-05 15:47] VITALS: BMI 45.8
[2025-01-07 16:01] VITALS: BP 134/64; PULSE 79; RESP 18; TEMP 37.1; O2SAT 98; BMI 34.9
--- NOTE | 2025-01-07 16:13 | DI.RAD.S_ITS ---
PROCEDURE: XR KNEE LT 3V INDICATIONS: fall TECHNIQUE: 3 views of the knee were acquired. COMPARISON: None. FINDINGS: Bones: No fractures or dislocations. No suspicious bony lesions. Soft tissues: No joint effusion. No suspicious soft tissue calcifications. IMPRESSION: Fracture or joint effusion. [id number] degenerative arthritic joint space narrowing small marginal osteophyte Approved by: Clifton Nogueira M.D. on 01/07/2025 at 16:05
--- NOTE | 2025-01-07 16:14 | DI.CT.S_ITS ---
PROCEDURE: CT HEAD/BRAIN WO CON INDICATIONS: fall, no thinners TECHNIQUE: Noncontrast 4.5 mm thick angled axial sections acquired from the foramen magnum to the vertex, with coronal and sagittal reformats. For radiation dose reduction, the following was used: automated exposure control, adjustment of mA and/or kV according to patient size. COMPARISON: None. FINDINGS: Image quality: Diagnostic. CSF spaces: Basal cisterns are patent. No extra-axial fluid collections. Ventricles are normal in size and shape. Brain: No midline shift. No intracranial mass effect or hemorrhage. [place]- white matter interface is normal. Skull and face: Calvarium and visualized facial bones are intact, without suspicious lesions. Sinuses: Visualized sinuses and mastoids are clear. IMPRESSION: No acute intracranial pathology. Approved by: Clifton Nogueira M.D. on 01/07/2025 at 16:10
--- NOTE | 2025-01-07 16:14 | DI.CT.S_ITS ---
PROCEDURE: CT CERVICAL SPINE WO CON INDICATIONS: fall TECHNIQUE: Noncontrast 3 mm thick sections acquired from the skull base to the T4 level. Sagittal and coronal reformats were then constructed. For radiation dose reduction, the following was used: automated exposure control, adjustment of mA and/or kV according to patient size. COMPARISON: None. FINDINGS: Image quality: Excellent. Bones: No fractures or dislocations. Visualized superior ribs are intact. 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 No paravertebral hematomas. No apical pneumothoraces. Scattered partially calcified pleural plaquing noted in the lung apices IMPRESSION: No displaced fracture or traumatic subluxation. Degenerative disc disease and arthropathy. Biapical calcified pleural plaquing Approved by: Clifton Nogueira M.D. on 01/07/2025 at 16:14
--- NOTE | 2025-01-07 20:57 | ED.FALL ---
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 Has some posterior left neck pain. Also pain to his left arthritic knee, with small abrasion. Has small abrasion to his left superior orbit. Related Data Home Medications ?Medication ?Instructions ?Recorded ?Confirmed aspirin 81 mg tablet,delayed 81 mg PO QDAY ##0 01/25/16 01/03/25 release Respironics Dreamstation BIPAP #1 ea 12/06/18 01/03/25 dorzolamide 22.3 mg-timolol 6.8 1 drp EYE-BOTH TID 09/08/22 01/03/25 mg/mL eye drops brimonidine 0.2 % eye drops drp EYE-BOTH 07/06/24 01/03/25 eplerenone 25 mg tablet mg PO 10/20/24 01/03/25 tirzepatide 2.5 mg/0.5 mL mg SUBCUT 10/20/24 01/03/25 subcutaneous pen injector (Mounjaro) Held on 12/15/24. Instructions: PCP Orders torsemide 20 mg tablet 20 mg PO DAILY 10/20/24 01/03/25 Previous Rx's ?Medication ?Instructions ?Recorded Disabled Parking Permit See Rx Instructions .Route 09/21/20 .COMPLEX #1 ea latanoprostene bunod 0.024 % eye 1 drp EYE-BOTH BEDTIME #5 mL 07/18/22 drops (Vyzulta) magnesium oxide 500 mg PO BID #270 tabs 07/18/22 ezetimibe 10 mg tablet (Zetia) 10 mg PO DAILY #90 tabs 05/21/23 nystatin 100,000 unit/gram topical 1 applic topical DAILY #60 grams 10/30/23 cream azelastine 137 mcg-fluticasone 50 1 spray intranasal DAILY #23 grams 01/27/24 mcg/spray nasal spray rosuvastatin 20 mg tablet 20 mg PO BEDTIME #90 tabs 01/29/24 olopatadine 665 mcg-mometasone 25 2 spray intranasal BID #29 grams 07/06/24 mcg/spray nasal spray vibegron 75 mg tablet (Gemtesa) 75 mg PO DAILY #30 tabs 07/13/24 ertapenem 1 gram solution for 1 g IM DAILY #3 ea 08/05/24 injection tramadol 50 mg tablet 50 mg PO Q6H PRN pain #60 tabs 08/08/24 pantoprazole 40 mg tablet,delayed 40 mg PO DAILY #90 tabs 11/14/24 release pramipexole 1.5 mg tablet,extended See Rx Instructions .Route 12/01/24 release 24 hr .COMPLEX RLS #60 tabs pregabalin 50 mg capsule 150 mg (3 x 50 mg) PO .hs #90 caps 12/02/24 methocarbamol 500 mg tablet 500 mg PO TID 7 days #21 tabs 01/07/25 Allergies Allergy/AdvReac Type Severity Reaction Status Date / Time ciprofloxacin (From Cipro) Allergy Intermediate ruptured Verified 01/07/25 16:02 tendons Patient History Medical History Primary osteoarthritis of left knee Tendinopathy of left gluteus medius History of urinary tract infection Urge incontinence Overactive bladder Lower urinary tract symptoms DM type 2 (diabetes mellitus, type 2) History of urethrocutaneous fistula Family history of prostate cancer in father 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, 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 Rectal bleeding Hearing loss (~2009) Glaucoma (~2011) Cataracts, both eyes (~2011) Hemorrhoids (~1978) Diverticulosis (~2010) Colon polyp (~2010) Low testosterone Recurrent UTI Prostate mass Morbid obesity with body mass index (BMI) of 40.0 to 44.9 in adult (10/31/16) Gastroesophageal reflux disease without esophagitis (10/31/16) Restless legs syndrome (01/25/16) Chronic diastolic heart failure (2014) Obstructive sleep apnea syndrome (01/25/16) Hiatal hernia (01/25/16) History of asbestosis (01/25/16) Gout of left foot (01/25/16) Surgical History History of transurethral resection of prostate History of colonoscopy Family History Father Parkinsons disease Mother Congestive heart failure Social History marital status: household members: spouse lives independently: Yes caregiver/support person: No housing: house pets and animals: Yes education level: college occupational status: previously employed 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[employer], 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 special jeanmarie needs: Yes ([employer]) seatbelt use: always helmet use: Yes water heater temp set < 120 deg: Yes Smoking Status: Never smoker second hand exposure: No alcohol intake: current substance use type: does not use during the past year weight has: decreased > 10 lbs well-balanced diet: about half the time daily servings fruits/ve-4 caffeine: No eating out: 1-3 times/week frequency: 1-2 times per week duration: 45-60 minutes/day Smoking Status: Never smoker alcohol intake frequency: a few times a month Exam Narrative Exam Narrative: GENERAL: Well-developed patient, in mild distress. HEAD: Small abrasion left superior lateral orbit without suturable laceration, exotropic left oculum position chronic, chronically blind in that eye per his report. EYES: Pupils equal round and reactive. Exotropia left eye noted, blind in left eye by report. No scleral icterus. No injection or drainage. ENT: Nose without bleeding, purulent drainage. Throat without erythema, tonsillar hypertrophy or exudate. Airway patent. NECK: Trachea midline. Mild tenderness left or paracervical neck. No skin changes or lesions or crepitance or step-off. CARDIOVASCULAR: Regular rate and rhythm without murmurs, gallops, or rubs. RESPIRATORY: Clear to auscultation. Breath sounds equal bilaterally. No wheezes, rales, or rhonchi. GASTROINTESTINAL: Abdomen soft, non-tender, nondistended. EXTREMITIES: No edema or joint tenderness. BACK: Nontender without deformity or crepitance. No flank tenderness. NEURO: AOx3. Motor functions grossly nonfocal. SKIN: No rash or erythema of visible areas Initial Vital Signs Initial Vital Signs: Vital Signs Temperature 98.8 F 01/07/25 16:01 Pulse Rate 79 01/07/25 16:01 Respiratory Rate 18 01/07/25 16:01 Blood Pressure 134/64 01/07/25 16:01 Pulse Oximetry 98 01/07/25 16:01 Oxygen Delivery Method Room Air 01/07/25 16:01 Course Orders Ordered: Discontinued Medications Bacitracin (Bacitracin Oint 0.9 Gm Pckt) 1 applic TOP NOW ONE Stop: 01/07/25 21:26 Last Admin: 01/07/25 21:53 Dose: 1 applic Documented By: MED Diphtheria/Tetanus/Acell Pertussis (Tet,Diph,Pertuss(Acell),Vac/Pf 0.5 Ml Syringe) 0.5 ml IM .ONCE ONE Stop: 01/07/25 21:25 Last Admin: 01/07/25 21:53 Dose: 0.5 ml Documented By: MED Methocarbamol (Methocarbamol 500 Mg Tablet) 500 mg PO NOW ONE Stop: 01/07/25 21:25 Last Admin: 01/07/25 21:52 Dose: 500 mg Documented By: MED Vital Signs Vital signs: Vital Signs - 8 hr 01/07/25 21:40 01/07/25 22:08 Temperature 98.7 F Pulse Rate 74 Respiratory Rate 18 Blood Pressure 135/62 Pulse Oximetry 95 Oxygen Delivery Method Room Air Room Air MDM - Fall Imaging Data CT scan - head: Radiologist's Impression: [place] [address] CT Scan Report Signed Patient: Triston Parekh MR#: [id number] : 1945 Acct:[id number] Age/Sex: 79 / M Date of Service: 01/07/25 Loc: ED Accession Number: [id number] Procedure: CT head/brain wo con Ordering Provider: Jerilyn Al MD PROCEDURE: CT HEAD/BRAIN WO CON INDICATIONS: fall, no thinners TECHNIQUE: Noncontrast 4.5 mm thick angled axial sections acquired from the foramen magnum to the vertex, with coronal and sagittal reformats. For radiation dose reduction, the following was used: automated exposure control, adjustment of mA and/or kV according to patient size. COMPARISON: None. FINDINGS: Image quality: Diagnostic. CSF spaces: Basal cisterns are patent. No extra-axial fluid collections. Ventricles are normal in size and shape. Brain: No midline shift. No intracranial mass effect or hemorrhage. [place]-white matter interface is normal. Skull and face: Calvarium and visualized facial bones are intact, without suspicious lesions. Sinuses: Visualized sinuses and mastoids are clear. IMPRESSION: No acute intracranial pathology. Approved by: Clifton Nogueira M.D. on 01/07/2025 at 16:10 CT - cervical spine: Radiologist's Impression: [address] [address] [address] Scan Report Signed Patient: Triston Parekh MR#: [id number] : 1945 Acct:[id number] Age/Sex: 79 / M Date of Service: 01/07/25 Loc: ED Accession Number: [id number] Procedure: CT cervical spine wo con Ordering Provider: Jerilyn Al MD PROCEDURE: CT CERVICAL SPINE WO CON INDICATIONS: fall TECHNIQUE: Noncontrast 3 mm thick sections acquired from the skull base to the T4 level. Sagittal and coronal reformats were then constructed. For radiation dose reduction, the following was used: automated exposure control, adjustment of mA and/or kV according to patient size. COMPARISON: None. FINDINGS: Image quality: Excellent. Bones: No fractures or dislocations. Visualized superior ribs are intact. 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 No paravertebral hematomas. No apical pneumothoraces. Scattered partially calcified pleural plaquing noted in the lung apices IMPRESSION: No displaced fracture or traumatic subluxation. Degenerative disc disease and arthropathy. Biapical calcified pleural plaquing Approved by: Clifton Nogueira M.D. on 01/07/2025 at 16:14 Left knee x-ray: Radiologist's Impression: [address] [address] XRay Report Signed Patient: Triston Parekh MR#: [id number] : 1945 Acct:[id number] Age/Sex: 79 / M Date of Service: 01/07/25 Loc: ED Accession Number: [id number] Procedure: XR knee LT 3V Ordering Provider: Jerilyn Al MD PROCEDURE: XR KNEE LT 3V INDICATIONS: fall TECHNIQUE: 3 views of the knee were acquired. COMPARISON: None. FINDINGS: Bones: No fractures or dislocations. No suspicious bony lesions. Soft tissues: No joint effusion. No suspicious soft tissue calcifications. IMPRESSION: Fracture or joint effusion. [id number] degenerative arthritic joint space narrowing small marginal osteophyte Approved by: Clifton Nogueira M.D. on 01/07/2025 at 16:05 MDM Narrative Medical decision making narrative: 79-year-old male without use of chronic blood thinner medication, had mechanical fall tripping over a tarp in his home, has abrasions to his left lateral periorbital face, chronic blindness that eye with exotropic ocular in position, neck pain, left knee pain. CT head, cervical spine, x-ray left knee ordered from triage. CT head showed no acute changes. See radiology report. We discussed additional imaging CT face, declined. CT cervical spine shows DJD changes, no acute bony changes. See radiology report. Left knee x-ray shows significant DJD changes, in text there is mentioned of no fracture, no effusion. Copy of the x-ray reports and CT reports provided. He would like tetanus shot, antibiotic ointment to his small nonsuturable left periorbital abrasion. He would like to try muscle relaxant, oral dose of Robaxin, prescription sent to his requested pharmacy. Offending tarp has been removed at home, which caused him also to trip last week. Discharged home with friend. Recheck advised next week with his regular doctor. Return precautions discussed. Discharge Plan Departure Patient Disposition: Home Clinical Impression: Fall from ground level, Facial abrasion, Abrasion of left knee, Cervical strain Activity Restrictions/Additional Instructions: Mechanical fall at home, tripping over a tarp. The top caused a fall last week as well, the top has been removed. He has small abrasion to the left lateral periorbital area, with chronically blind eye that side. Posterior neck discomfort slightly worse on the left side. Also left knee pain. CT scans of the brain and the cervical spine showed arthritic changes but no brain injuries or spinal injury patterns. X-ray of the left knee showed no obvious fracture or fluid. Tetanus updated. Antibiotic ointment to the abrasion areas. Consider wound recheck with your regular doctor this next week. We discussed additional imaging CT facial/orbital bones, declined for now. Trial of muscle relaxant offered, he would like to try Robaxin/methocarbamol, dose given in the emergency department, prescription sent to your requested pharmacy. Recheck with your regular doctor this next week. Return to this/nearest emergency department for any change worsening symptoms or any concerns prior. Prescriptions: New methocarbamol 500 mg tablet 500 mg PO TID 7 Days Qty: 21 0RF No Action brimonidine 0.2 % drops EYE-BOTH olopatadine-mometasone 665-25 mcg/spray spray,non-aerosol 2 spray intranasal BID Qty: 29 3RF tramadol 50 mg tablet 50 mg PO Q6H PRN (Reason: pain) Qty: 60 2RF torsemide 20 mg tablet 20 mg PO DAILY Mounjaro 2.5 mg/0.5 mL pen injector SUBCUT Patient Comments: [NO ORIGINAL SIG] eplerenone 25 mg tablet PO Disabled Parking Permit See Rx Instructions .ROUTE .COMPLEX Qty: 1 0RF Rx Instructions: My patient cannot walk 200 feet without stopping to rest or must use assistive device. Walking is severely limited due to arthritic, neurological or orthopedic condition. Uses portable oxygen or walking restricted by lung disease. aspirin 81 MG tablet,delayed release (DR/EC) 81 mg PO QDAY Qty: 0 Vyzulta 0.024 % drops 1 drp EYE-BOTH BEDTIME Qty: 5 0RF magnesium oxide 500 mg tablet 500 mg PO BID Qty: 270 0RF Rx Instructions: once in the morning and once in the evening ezetimibe [Zetia] 10 mg tablet 10 mg PO DAILY Qty: 90 3RF Rx Instructions: Take one tablet at bedtime nystatin 100,000 unit/gram cream 1 applic topical DAILY Qty: 60 0RF azelastine-fluticasone 137-50 mcg/spray spray,non-aerosol 1 spray intranasal DAILY Qty: 23 0RF rosuvastatin 20 mg tablet 20 mg PO BEDTIME Qty: 90 2RF ertapenem 1 gram recon soln 1 g IM DAILY Qty: 3 0RF pantoprazole 40 mg tablet,delayed release (DR/EC) 40 mg PO DAILY Qty: 90 0RF pramipexole 1.5 mg tablet extended release 24 hr See Rx Instructions .ROUTE .COMPLEX Qty: 60 0RF Dose Instruction: TAKE 2 TABLETS BY MOUTH DAILY. STAGGER DOSES 7:30PM AND 9:30PM. Rx Instructions: TAKE 2 TABLETS BY MOUTH DAILY. STAGGER DOSES 7:30PM AND 9:30PM. Take with Lyrica pregabalin 50 mg capsule 150 mg PO .hs Qty: 90 3RF dorzolamide-timolol 22.3-6.8 mg/mL drops 1 drp EYE-BOTH TID (DME) Respironics Dreamstation BIPAP Qty: 1 Rx Instructions: Pressure: IPAP 16 EPAP 11 DME: [facility] Gemtesa 75 mg tablet 75 mg PO DAILY Qty: 30 12RF Referrals: Maya Johnson MD [Primary Care Provider, Family Practice] Stand Alone Forms: Patient Portal/API
[2025-01-07 21:40] VITALS: BP 135/62; PULSE 74; RESP 18; TEMP 37.1; O2SAT 95
[2025-01-07] MEDS: BACITRACIN OINT 0.9 GM PCKT 1 APPLIC TOP (21:53)
[2025-01-07] MEDS: TET,DIPH,PERTUSS(ACELL),VAC/PF 0.5 ML SYRINGE IM (21:53)
== END 2025-01-07 22:10 | disposition home or self-care (01) ==
PROVIDERS: Emergency Provider Emergency Medicine; Family Provider Family Medicine; PCP Family Medicine
DX: S00.212A Abrasion of left eyelid and periocular area, initial encounter (principal); S16.1XXA Strain of muscle, fascia and tendon at neck level, initial encounter; S80.212A Abrasion, left knee, initial encounter; H54.62 Unqualified visual loss, left eye, normal vision right eye; W01.10XA Fall on same level from slipping, tripping and stumbling with subsequent striking against unspecified object, initial encounter; Z23 Encounter for immunization
CPT/HCPCS: 70450; 72125; 73562; 90471; 99283; 99284; 90715

== ENCOUNTER → 2025-01-10 14:02 | Outpatient (CLI) | payer MEDICARE, OTHER, SELFPAY ==
[2022-11-05 15:47] VITALS: BMI 45.8
[2025-01-10 15:40] LABS: Clostridium difficile toxin AB Not Detected (Not Detect); Enteroaggregative E.coli Not Detected (Not Detect); Enteropathogenic E.coli Not Detected (Not Detect); Enterotoxigenic E.coli It/st Not Detected (Not Detect); Plesiomonsa shigelloides Not Detected (Not Detect); Shiga-like toxin-prod E.coli Not Detected (Not Detect)
== END ==
PROVIDERS: Family Provider Family Medicine; PCP Family Medicine; Referring Provider Family Medicine; Visit Provider Family Medicine
DX: R19.7 Diarrhea, unspecified (principal)
CPT/HCPCS: 87507

== ENCOUNTER → 2025-02-01 16:09 | Outpatient (CLI) | payer MEDICARE, OTHER, SELFPAY ==
[2022-11-05 15:47] VITALS: BMI 45.8
[2025-02-01 17:22] LABS: Appearance Urine UA CLEAR; Bilirubin Urine UA NEGATIVE (NEGATIVE); Color Urine UA YELLOW; Glucose Urine UA NEGATIVE (Negative); Ketones Urine UA NEGATIVE (NEGATIVE); Leukocyte Esterase Urine UA NEGATIVE (NEGATIVE); Nitrite Urine UA NEGATIVE (Negative); Occult Blood Urine UA NEGATIVE (Negative); Protein Urine UA NEGATIVE (Negative); Specific Gravity Urine UA <=1.005 (1.000-1.035); Urobilinogen Urine UA 0.2 E.U./dL (0.2); pH Urine UA 6.0 (4.5-8.0)
[2025-02-01 17:28] LABS: Culture Indicated Urine Cult Not Indicated
== END ==
PROVIDERS: Family Provider Family Medicine; PCP Family Medicine; Referring Provider Urology; Visit Provider Urology
DX: R30.0 Dysuria (principal); N39.0 Urinary tract infection, site not specified
CPT/HCPCS: 81001

== ENCOUNTER → 2025-02-02 15:01 | Outpatient (CLI) | payer MEDICARE, OTHER, SELFPAY ==
[2022-11-05 15:47] VITALS: BMI 45.8
[2025-02-02 16:00] LABS: Bilirubin Urine UA NEGATIVE (NEGATIVE); Color Urine UA YELLOW; Glucose Urine UA NEGATIVE (Negative); Ketones Urine UA NEGATIVE (NEGATIVE); Leukocyte Esterase Urine UA 1+ (NEGATIVE); Nitrite Urine UA NEGATIVE (Negative); Occult Blood Urine UA NEGATIVE (Negative); Protein Urine UA NEGATIVE (Negative); Specific Gravity Urine UA 1.020 (1.000-1.035); Urobilinogen Urine UA 1.0 E.U./dL (0.2); pH Urine UA 5.5 (4.5-8.0)
[2025-02-02 16:06] LABS: Appearance Urine UA Slightly Cloudy
[2025-02-02 16:07] LABS: Culture Indicated Urine Specimen Cultured
== END ==
PROVIDERS: Family Provider Family Medicine; PCP Family Medicine; Referring Provider Urology; Visit Provider Urology
DX: R39.9 Unspecified symptoms and signs involving the genitourinary system (principal); N39.0 Urinary tract infection, site not specified
CPT/HCPCS: 81001; 87086

== ENCOUNTER → 2025-02-08 10:02 | Outpatient (CLI) | payer MEDICARE, OTHER, SELFPAY ==
[2022-11-05 15:47] VITALS: BMI 45.8
--- NOTE | 2025-02-08 10:04 | DI.CT.S_ITS ---
PROCEDURE: CT ABDOMEN PELVIS W CON INDICATIONS: Abdominal pain TECHNIQUE: After the administration of intravenous contrast, axial sections acquired from the lung bases to the pubic symphysis. Coronal and sagittal reformats were performed. For radiation dose reduction, the following was used: automated exposure control, adjustment of mA and/or kV according to patient size. COMPARISON: [facility], CT, CT ABDOMEN PELVIS W CON, 11/26/2024, 15:48. [facility], CT, CT ABDOMEN PELVIS W CON, 09/08/2024, 19:12. FINDINGS: Image quality: Diagnostic. Lower Chest: No significant findings. ABDOMEN: Liver: No solid mass. Gallbladder: Not seen. Biliary ducts: No biliary dilation. Pancreas: No ductal dilation. Spleen: Size is within normal limits. Adrenal Glands: No adrenal nodules. Kidneys and Ureters: No hydronephrosis. No solid mass. No complex renal cystic lesion which requires follow up. Stomach and Bowel: Normal colonic caliber, without significant wall thickening. Peritoneum: No abnormal intraperitoneal fluid. No free air. Ventral Wall: No significant ventral hernia. Abdominal Nodes: No retroperitoneal or mesenteric adenopathy by size criteria. Vessels: Aorta and inferior vena cava are normal in size. PELVIS: Pelvic Organs: Unremarkable. Bladder: No bladder wall thickening, accounting for underdistention. Pelvic Nodes: No enlarged lymph nodes. Miscellaneous: No inguinal hernias are seen. Bones: No aggressive osseous abnormality. IMPRESSION: Gallbladder not visualized and presumably previously resected. No inflammatory or neoplastic process is found. Source of reported current abdominal pain is not identified. Dictated by: Mani Francis M.D. on 02/08/2025 at 15:43 Approved by: Mani Francis M.D. on 02/08/2025 at 15:46
[2025-02-08 10:40] LABS: Estimated Glomerular Filt Rate > 60 mL/min (>60)
== END ==
LOC: CT 10:04
PROVIDERS: PCP Family Medicine; Referring Provider Surgery; Visit Provider Surgery
DX: R10.9 Unspecified abdominal pain (principal)
CPT/HCPCS: 36415; 74177; 82565; Q9967